=== PATIENT | female | born 1975 | race Caucasian/White ===

== ENCOUNTER → 2017-04-09 17:38 | Outpatient (CLI) | payer OTHER, SELFPAY ==
--- NOTE | 2017-04-09 18:15 | MRI_ITS ---
STUDY: MRI LEFT FORE/MIDFOOT REASON FOR EXAM: Female, 41 years old. Pain fourth and fifth metatarsals TECHNIQUE: Standardized fat and water weighted pulse sequences were obtained in all 3 orthogonal planes. COMPARISON: X-ray 12/15/2016 FINDINGS: There is soft tissue fullness at the plantar aspect of the metatarsal heads at the second webspace. There is a small amount of fluid at the third webspace (image 25, 26, 22, 23/40 axial T1, T2). There is a small amount of fluid at the first MTP joint (image 6/24 sagittal inversion recovery). Normal talonavicular articulation. Normal calcaneocuboid articulation. Normal navicular-cuneiform articulations. Normal intercuneiform articulations. Normal first tarsometatarsal articulation. Normal Lisfranc ligament. Normal second and third tarsometatarsal articulations. Normal cuboid fourth and cuboid fifth tarsometatarsal articulation. Normal first through fifth metatarsi. Normal tibialis anterior tendon. Normal extensor hallucis longus tendon. Normal extensor digitorum longus tendons. Normal peroneus longus tendon and distal insertion. Normal peroneus brevis tendon and distal insertion. Normal intrinsic muscles of the mid and forefoot region. Normal extensor digitorum brevis muscle. Normal subcutis adipose space. MRI/Lower Ext/No Jt/w/o IMPRESSION: Tang's neuroma, second webspace Intermetatarsal bursitis, third webspace Small first MTP joint effusion Electronically Signed: Miguelito Freeman MD at 9:50 EST Tel , Service support ,
== END ==
PROVIDERS: Family Provider Family Medicine; PCP Family Medicine; Visit Provider Family Medicine
DX: M79.672 Pain in left foot (principal)
CPT/HCPCS: 73718

== ENCOUNTER → 2017-05-11 08:24 | Outpatient (CLI) | payer OTHER, SELFPAY ==
--- NOTE | 2017-05-11 08:27 | HPBI_ITS ---
MAMMOGRAPHY - BILATERAL SCREENING REASON FOR EXAM: Female, 41 years old. Routine annual screening examination. PERTINENT HISTORY: Aunt with breast cancer. TECHNIQUE: Digital bilateral breast carla (3D mammographic acquisition) in the CC and MLO projections. 2-D mediolateral oblique (MLO) and craniocaudad (CC) views of both breasts were obtained. CAD: Full Field Digital Mammography with Computer Added Detection was performed. COMPARISON: Comparison is made with prior examination dated January 17, 2014. FINDINGS: Breast Composition: There are scattered areas of fibroglandular density. There are no dominant masses or suspicious calcifications. Stable benign-appearing bilateral axillary lymph nodes. No other significant abnormalities are identified. There has been no significant change since the prior study. HPBI/SCREENING MAMM (CAD), BILAT IMPRESSION: Stable bilateral screening mammogram. Yearly follow-up mammogram recommended. (A) ASSESSMENT CATEGORY: BIRADS Category 2: Benign. A letter regarding these results will be sent to the patient by the facility within 30 days. Approximately 10% of breast cancers are not detected by mammography. A normal mammogram should not delay biopsy of a clinically suspicious abnormality. [id number] Electronically Signed: Yohan Montalvo MD at 9:53 EST Tel [phone], Service support ,
== END ==
PROVIDERS: Family Provider Family Medicine; PCP Family Medicine; Visit Provider Obstetrics & Gynecology
DX: Z12.31 Encounter for screening mammogram for malignant neoplasm of breast (principal)
CPT/HCPCS: 77063; 77067

== ENCOUNTER → 2017-10-06 10:53 | Outpatient (CLI) | payer OTHER, SELFPAY ==
--- NOTE | 2017-10-06 10:56 | RAD_ITS ---
STUDY: X-RAY - RIGHT SHOULDER REASON FOR EXAM: Female, 41 years old. Right shoulder pain for 7 months. TECHNIQUE: 4 view(s) of the shoulder. COMPARISON: None. FINDINGS: Normal glenohumeral articulation. There is minimal degenerative arthrosis of the acromioclavicular joint without inferior osseous spur formation. Normal acromion. There is a small bony density and may acromiohumeral space which may represent calcified tendinopathy or a calcified bursa. Normal humeral head and visualized proximal humerus. The soft tissue structures are unremarkable. Normal visualized pulmonary apex. RAD/Shoulder min 2 Views IMPRESSION: 1. Minimal degenerative changes acromioclavicular joint without fracture or dislocation. 2. Question calcified tendinopathy versus calcified bursitis. Electronically Signed: Saud Langston DO at 20:55 EDT Tel [phone], Service support ,
== END ==
PROVIDERS: Family Provider Family Medicine; PCP Family Medicine; Visit Provider Family Medicine
DX: M25.511 Pain in right shoulder (principal)
CPT/HCPCS: 73030

== ENCOUNTER 2017-11-11 11:30 | Outpatient (RCR) | payer OTHER, SELFPAY ==
--- NOTE | 2017-10-12 14:07 | HP.PTEVAL_ITS ---
Patient's Visit Information ARTURO MARKS is a 41 year old F referred to Physical Therapy by Dominic Weaver with a diagnosis of R shoulder pain. Date of Evaluation: 10/12/17 Physical Therapist: bAdirashid Michael, PT, - Visit Plan Frequency: 2-3x /Week Plan: R shoulder strengthening (rot cuff), scap stab ex's, UBE, and HEP - Subjective Subjective: Pt reports her R shoulder has been sore for 8 mos. Pt reports she did begin an exercise program back then and that might have been what caused per pain. Pt is R hand dom. Pain is located mostly on the lateral aspect of her R shoulder. Pt notes occasional neck pain, but none today. Occasional R UE T and N that extends to her thumb, none today. 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 Pt has had xrays , mild OA. 3/10 pain at rest, 7/10 at worst. Pain is always worse by the end of the day - Pain R shoulder Pain Intensity (Out of 10): 3 Pain Intensity Range: 7 - Objective Neuro: B UE sensation is WNL to light touch. B biceps reflex= 2/3. Palpation: Pt is sore along the distribution of the supraspinatus MM and LHB tendon. shoulder ROM: L shoulder flex= 160, abd= 165, ER= 65, IR= WNL; R shoulder flex= 100, abd= 82, ER= 65, IR= moderately limited. MMT: R shoulder is grossly 3/5 and painful with all testing. Special tests: Pt has pain with both open can and speeds tests - Goals Goal 1:: Decrease R shoulder pain x 50% to aid with sleep Goal Time Frame: 2-4 Weeks Goal 2:: Increase R shoulder strength x 1 grade to aid with IADL's Goal Time Frame: 2-4 Weeks Goal 3:: Increase R shoulder abd and flex ROM x 40 degrees to aid with overhead activity Goal Time Frame: 2-4 Weeks Goal 4:: I with HEP Goal Time Frame: 2-4 Weeks - Rehabilitation Potential Physical Therapy Diagnosis: R shoulder pain, weakness, and limited ROM secondary to rot cuff syndrome Rehabilitation Potential: Good - Anticipated Interventions Patient/Client Instruction: Educate patient on: Condition, Plan of Care For the Purpose of:: To improve self management Therapeutic Exercise to Include: Strength training, Endurance training, Postural training, Scapular Strength/Stabilization For the Purpose of:: To decrease pain, To increase ROM, To improve muscle performance and motor function Cryotherapy (ice pack, ice massage): Yes Ultrasound (thermal/non thermal): Yes For the Purpose of:: To decrease pain Thank you for the opportunity to evaluate your patient. For Medicare and Medicare HMO plans, please review the plan of care and approve it. It will need to be FAXED BACK to us at [phone] for Medicare purposes. Please let me know if there are questions or concerns regarding this plan of care. Physician Signature: Date:
--- NOTE | 2017-11-11 12:03 | HP.PTDCSUM ---
HP - PT D/C Summary It has been my pleasure to treat ARTURO MARKS under orders from Dominic Weaver, for the diagnosis of R shoulder pain for a total of 10 visit(s). Discharge Date: Please see the following information for a summary of their discharge status. - Subjective Subjective: No pain this date - Pain R shoulder Pain Intensity (Out of 10): 0 - Overall Improvement % Improvement: 90 - Objective Objective/Function: R shoulder pain 0/10. R shoulder MMT: 5/5 throughout. R shoulder ROM: flex= 150, abd= 155, ER= 75, IR WNL. I with HEP. Rx goals achieved - Goals Goal 1:: Decrease R shoulder pain x 50% to aid with sleep Goal 2:: Increase R shoulder strength x 1 grade to aid with IADL's Goal 3:: Increase R shoulder abd and flex ROM x 40 degrees to aid with overhead activity Goal 4:: I with HEP - Plan Plan: Discharge - D/C Information If there are questions or concerns regarding this patient's physical therapy, please feel free to call me at [phone]. Thank you for the referral of this patient. Sincerely, Abdirashid Michael, PT,
== END 2017-11-11 16:03 | disposition home or self-care (01) ==
LOC: PT 11:30
PROVIDERS: Family Provider Family Medicine; PCP Family Medicine; Visit Provider Family Medicine
DX: M25.511 Pain in right shoulder (principal)
CPT/HCPCS: 97110; 97161; 97530

== ENCOUNTER 2017-12-23 10:30 | Outpatient (RCR) | payer OTHER, SELFPAY | END 2018-01-05 23:59 | LOC: NS 10:30 | PROVIDERS: Family Provider Family Medicine; PCP Family Medicine; Visit Provider Family Medicine | DX: E66.9 Obesity, unspecified (principal); Z68.39 Body mass index [BMI] 39.0-39.9, adult; Z71.3 Dietary counseling and surveillance | CPT/HCPCS: 97802; 97803 ==

== ENCOUNTER → 2018-01-28 14:27 | Outpatient (CLI) | payer OTHER, SELFPAY ==
[2018-01-28 19:37] LABS: Chlamydia Trachomatis by PCR Negative (Negative); Neisserai gonorrhoeae by PCR Negative (Negative); Probe Check PASS; Sample Adequacy Control PASS; Specimen Processing Control PASS
[2018-02-04 07:02] LABS: Rapid Plasmin Reagin (RPR) NONREACTIVE (NONREACTIVE)
== END ==
PROVIDERS: Family Provider Family Medicine; PCP Family Medicine; Visit Provider Family Medicine
DX: Z86.19 Personal history of other infectious and parasitic diseases (principal)
CPT/HCPCS: 36415; 86592; 87491; 87591

== ENCOUNTER 2018-02-02 10:30 | Outpatient (RCR) | payer OTHER, SELFPAY | END 2018-02-04 23:59 | LOC: NS 10:30 | PROVIDERS: Family Provider Family Medicine; PCP Family Medicine; Visit Provider Family Medicine | DX: E66.9 Obesity, unspecified (principal); Z68.39 Body mass index [BMI] 39.0-39.9, adult; Z71.3 Dietary counseling and surveillance | CPT/HCPCS: 97803 ==

== ENCOUNTER 2018-02-17 13:00 | Outpatient (RCR) | payer OTHER, SELFPAY ==
[2017-12-20 08:40] VITALS: BMI 38.3
== END 2018-03-07 23:59 ==
LOC: NS 13:00
PROVIDERS: Family Provider Family Medicine; PCP Family Medicine; Visit Provider Family Medicine
DX: E66.9 Obesity, unspecified (principal); Z68.39 Body mass index [BMI] 39.0-39.9, adult; Z71.3 Dietary counseling and surveillance
CPT/HCPCS: 97803

== ENCOUNTER 2018-02-25 12:15 | Outpatient (RCR) | payer OTHER, SELFPAY ==
--- NOTE | 2017-05-12 13:00 | MASS.EVAL ---
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 She was referred to the [facility] facility by Dr. Weaver, with the diagnosis of back pain. She reports of having back pain and shoulder pain due to her job. Her goals of treatment are to relieve stress and to release the knots in her back. Objective: The first treatment consisted of a one hour massage to the upperbody using deep pressure. Upon observation I found that she had high tension in her neck and shoulders where she has knots in her trapezius muscles and rhomboids. I also found that her paraspinals were tight and ropy. Assessment: The patient easily relaxed and was able to tolerate deep pressure when needed. I was able to achieve a moderate release overall. I feel that she is a good candidate for massotherapy due to how she has responded to massage in the past. Plan: The plan of care was reviewed with the patient and she is to be seen on an as needed basis for a total of ten 1-hour sessions throughout the year 2017. Margy Lewis LMT
--- NOTE | 2017-05-12 13:09 | MASS.EVAL_ITS ---
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 facility by Dr. Weaver, with the diagnosis of back pain. She reports of having back pain and shoulder pain due to her job. Her goals of treatment are to relieve stress and to release the knots in her back. Objective: The first treatment consisted of a one hour massage to the upperbody using deep pressure. Upon observation I found that she had high tension in her neck and shoulders where she has knots in her trapezius muscles and rhomboids. I also found that her paraspinals were tight and ropy. Assessment: The patient easily relaxed and was able to tolerate deep pressure when needed. I was able to achieve a moderate release overall. I feel that she is a good candidate for massotherapy due to how she has responded to massage in the past. Plan: The plan of care was reviewed with the patient and she is to be seen on an as needed basis for a total of ten 1-hour sessions throughout the year 2017. Margy Lewis LMT
--- NOTE | 2017-08-09 07:15 | DT_ITS ---
This patient was seen during an EMR downtime August 09, 2017 - August 16, 2017. This patient may have a combination of paper and electronic documentation or all paper documentation. All documentation is viewable within the e-chart portion of [facility] for each patient visit.
--- NOTE | 2018-02-25 15:38 | MASS.DISCH ---
Massage Therapy Discharge Summary: Discharge Date: 02/25/2018 Emmanuelle was seen for a massotherapy evaluation on 05/04/2017 with the diagnosis of Back pain. She was treated with ten sessions of massage therapy consisting of moderate to deep pressure soft tissue techniques, myofascial release and trigger point compression to her cervical, thoracic, lower back, upper extremities and lower extremities at times. Emmanuelle responded well to the therapy by reporting decreased tension and pain throughout her neck, shoulders, and back. Her goals for therapy were met throughout her massage treatments. At this time this patient is being discharged from our care at [facility] facility.
== END 2018-02-25 19:00 | disposition home or self-care (01) ==
LOC: MASS 12:15
PROVIDERS: Family Provider Family Medicine; PCP Family Medicine; Visit Provider Family Medicine
DX: M54.9 Dorsalgia, unspecified (principal)
CPT/HCPCS: 97124

== ENCOUNTER → 2018-03-17 16:10 | Outpatient (CLI) | payer OTHER, SELFPAY ==
--- NOTE | 2018-03-17 16:10 | MRI_ITS ---
STUDY: MRI RIGHT SHOULDER REASON FOR EXAM: Right shoulder pain for one year extending into wrist and thumb. TECHNIQUE: Standardized fat and water weighted pulse sequences were obtained in all 3 orthogonal planes. COMPARISON: Radiographs 10/06/2017. FINDINGS: There is a signal void in the distal anterior supraspinatus tendon (proton-density coronal images 7, 8) measuring 1 cm in length consistent with calcific tendinitis. There is no discrete tear of the supraspinatus tendon. Normal infraspinatus tendon. Normal subscapularis tendon. Normal teres minor tendon. Normal supraspinatus muscle. Normal infraspinatus muscle. Normal subscapularis muscle. Normal teres minor muscle. Normal glenohumeral articulation. Normal humeral head and visualized proximal humerus. Normal biceps labral complex. Normal intracapsular long biceps tendon. Normal labrum. Normal capsulo- ligamentous complex. Normal acromioclavicular articulation. There is a Type II morphology (curved), with a neutral orientation. There is no subacromial-subdeltoid bursal fluid. Normal visualized coracohumeral and coracoacromial ligaments. Normal deltoid muscle. Normal trapezius muscle. MRI/Upper Ext Joint Only(Routine) IMPRESSION: Supraspinatus calcific tendinitis. No demonstrated rotator cuff tear. Electronically Signed: Freddy Esteban MD at 9:52 EST Tel , Service support ,
== END ==
PROVIDERS: Family Provider Family Medicine; PCP Family Medicine; Referring Provider Family Medicine; Visit Provider Family Medicine
DX: M25.511 Pain in right shoulder (principal)
CPT/HCPCS: 73221

== ENCOUNTER 2018-04-05 08:30 | Outpatient (RCR) | payer OTHER, SELFPAY ==
[2017-12-20 08:40] VITALS: BMI 38.3
== END 2018-04-07 23:59 ==
LOC: NS 08:30
PROVIDERS: Family Provider Family Medicine; PCP Family Medicine; Visit Provider Family Medicine
DX: E66.9 Obesity, unspecified (principal); Z68.39 Body mass index [BMI] 39.0-39.9, adult; Z71.3 Dietary counseling and surveillance
CPT/HCPCS: 97803

== ENCOUNTER 2018-04-20 08:45 | Outpatient (RCR) | payer OTHER, SELFPAY ==
[2017-12-20 08:40] VITALS: BMI 38.3
== END 2018-05-05 23:59 ==
LOC: NS 08:45
PROVIDERS: Family Provider Family Medicine; PCP Family Medicine; Visit Provider Family Medicine
DX: E66.9 Obesity, unspecified (principal); Z68.39 Body mass index [BMI] 39.0-39.9, adult; Z71.3 Dietary counseling and surveillance
CPT/HCPCS: 97803

== ENCOUNTER 2018-05-09 11:30 | Outpatient (RCR) | payer OTHER, SELFPAY ==
[2018-04-23 12:01] VITALS: BMI 39.3
== END 2018-05-09 17:09 | disposition home or self-care (01) ==
LOC: NS 11:30
PROVIDERS: Family Provider Family Medicine; PCP Family Medicine; Visit Provider Family Medicine
DX: E66.9 Obesity, unspecified (principal); Z68.39 Body mass index [BMI] 39.0-39.9, adult; Z71.3 Dietary counseling and surveillance
CPT/HCPCS: 97803

== ENCOUNTER → 2018-10-12 | Outpatient (CLI) | payer OTHER, SELFPAY ==
[2018-09-19 09:09] VITALS: BMI 39.3
[2018-10-18 08:49] LABS: HPV APTIMA, High Risk Negative (Negative)
== END | disposition home or self-care (01) ==
LOC: LABSPEC 13:51
PROVIDERS: Family Provider Family Medicine; PCP Family Medicine; Referring Provider Obstetrics & Gynecology; Visit Provider Obstetrics & Gynecology
DX: Z12.4 Encounter for screening for malignant neoplasm of cervix (principal)
CPT/HCPCS: 87624; 88175; G0145

== ENCOUNTER → 2018-11-09 07:38 | Outpatient (CLI) | payer OTHER, SELFPAY ==
[2018-09-19 09:09] VITALS: BMI 39.3
--- NOTE | 2018-11-09 07:41 | BI_ITS ---
MAMMOGRAPHY - BILATERAL SCREENING REASON FOR EXAM: Female, 42 years old. Routine annual screening examination. PERTINENT HISTORY: Aunt with breast cancer. TECHNIQUE: Digital bilateral breast lev (3D mammographic acquisition) in the CC and MLO projections. 2-D mediolateral oblique (MLO) and craniocaudad (CC) views of both breasts were obtained. CAD: Full Field Digital Mammography with Computer Added Detection was performed. COMPARISON: Comparison is made with prior study of May 11, 2017 and January 17, 2014. FINDINGS: Breast Composition: There are scattered areas of fibroglandular density. There are no dominant masses or suspicious calcifications. Stable small benign-appearing bilateral axillary lymph nodes. No other significant abnormalities are identified. There has been no significant change since the prior study. BI/SCREEN MAMM (CAD) W/LEV BILAT IMPRESSION: Stable bilateral screening mammogram. Yearly follow-up mammogram recommended. (A) ASSESSMENT CATEGORY: BIRADS Category 2: Benign. A letter regarding these results will be sent to the patient by the facility within 30 days. Approximately 10% of breast cancers are not detected by mammography. A normal mammogram should not delay biopsy of a clinically suspicious abnormality. [id number] Electronically Signed: Yohan Montalvo, at 10:14 EDT , Service support ,
== END ==
PROVIDERS: Family Provider Family Medicine; PCP Family Medicine; Referring Provider Obstetrics & Gynecology; Visit Provider Obstetrics & Gynecology
DX: Z12.31 Encounter for screening mammogram for malignant neoplasm of breast (principal)
CPT/HCPCS: 77063; 77067

== ENCOUNTER → 2018-11-23 20:18 | Outpatient (CLI) | payer OTHER, SELFPAY ==
[2018-09-19 09:09] VITALS: BMI 39.3
== END ==
PROVIDERS: Family Provider Family Medicine; PCP Family Medicine; Referring Provider Family Medicine; Visit Provider Family Medicine
DX: G47.30 Sleep apnea, unspecified (principal)
CPT/HCPCS: 95810

== ENCOUNTER → 2019-02-06 10:00 | Outpatient (CLI) | payer OTHER, SELFPAY ==
[2019-01-16 12:47] VITALS: BMI 39.4
== END ==
PROVIDERS: Family Provider Family Medicine; PCP Family Medicine; Referring Provider Nurse Practitioner Acute Care; Visit Provider Nurse Practitioner Acute Care
DX: G47.33 Obstructive sleep apnea (adult) (pediatric) (principal)
CPT/HCPCS: 98960; G0463

== ENCOUNTER 2019-02-13 11:00 | Outpatient (RCR) | payer OTHER, SELFPAY ==
[2018-04-23 12:01] VITALS: BMI 39.3
--- NOTE | 2018-06-21 13:11 | MASS.EVAL_ITS ---
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 She was referred to the [facility] facility by Dr. Weaver, with the diagnosis of right shoulder pain. She reports of having back pain and shoulder pain due to her job. Her goals of treatment are to relieve stress and to release the knots in her back. Objective: The first treatment consisted of a one hour massage to the upperbody using deep pressure. Upon observation I found that she had high tension in her neck and shoulders where she has knots in her trapezius muscles and rhomboids. I also found that her paraspinals were tight and ropy. Assessment: The patient easily relaxed and was able to tolerate deep pressure when needed. I was able to achieve a moderate release overall. I feel that she is a good candidate for massotherapy due to how she has responded to massage in the past. Plan: The plan of care was reviewed with the patient and she is to be seen on an as needed basis for a total of ten 1-hour sessions throughout the year 2017. Margy Lewis LMT
--- NOTE | 2019-02-24 15:01 | DS.PCM_ITS ---
Massage Therapy Discharge Summary: Discharge Date: 02/24/2019 Emmanuelle was seen for a massotherapy evaluation on 06/20/2018 with the diagnosis of right shoulder pain. She was treated with nine sessions of massage therapy consisting of moderate to deep pressure soft tissue techniques, myofascial release and trigger point compression to her cervical, thoracic, lower back, upper extremities, lower extremities and hips. Emmanuelle responded well to the therapy by reporting decreased tension and pain throughout her head, neck, shoulders, lower back and hips. Her goals for therapy were met throughout the treatment sessions. At this time this patient is being discharged from our care at [facility] facility.
== END 2019-02-13 19:00 | disposition home or self-care (01) ==
LOC: MASS 11:00
PROVIDERS: Family Provider Family Medicine; PCP Family Medicine; Referring Provider Family Medicine; Visit Provider Family Medicine
DX: M25.511 Pain in right shoulder (principal)
CPT/HCPCS: 97124

== ENCOUNTER → 2019-11-23 10:41 | Outpatient (CLI) | payer OTHER, SELFPAY ==
[2019-04-04 06:08] VITALS: BMI 39.6
[2019-11-23 12:23] LABS: Thyroid Stim Hormone (TSH) 1.45 uIU/mL (0.358-3.74)
== END ==
PROVIDERS: PCP Family Medicine; Referring Provider Family Medicine; Visit Provider Family Medicine
DX: E66.9 Obesity, unspecified (principal)
CPT/HCPCS: 36415; 84443

== ENCOUNTER → 2019-12-06 08:23 | Outpatient (CLI) | payer OTHER, SELFPAY ==
[2019-04-04 06:08] VITALS: BMI 39.6
[2019-12-06 13:18] LABS: Glucose 75GTT - 30 minutes 125 mg/dL (100-160)
[2019-12-06 13:20] LABS: Glucose 75GTT - Fasting 79 mg/dL (70-99)
[2019-12-06 13:26] LABS: Insulin 75GTT - Fasting 5.4 mU/L (2.6-37.6)
[2019-12-06 13:26] LABS: Insulin 75GTT - 30 MIN 67.5 mU/L (Not Estab.)
[2019-12-06 14:29] LABS: Glucose 75GTT - 60 minutes 146 mg/dL (100-160)
[2019-12-06 14:36] LABS: Insulin 75GTT - 60 min 81.2 mU/L (Not Estab)
[2019-12-06 15:32] LABS: Insulin 75GTT - 120 min 87.8 mU/L (Not Estab.)
[2019-12-06 16:01] LABS: Glucose 75GTT - 120 minutes 115 mg/dL (70-140)
== END ==
PROVIDERS: PCP Family Medicine; Referring Provider Obstetrics & Gynecology; Visit Provider Obstetrics & Gynecology
DX: E66.9 Obesity, unspecified (principal)
CPT/HCPCS: 36415; 82951; 82952; 83525

== ENCOUNTER → 2019-12-06 | Outpatient (CLI) | payer OTHER, SELFPAY ==
[2019-04-04 06:08] VITALS: BMI 39.6
[2019-12-06 10:57] LABS: Progesterone Level 0.69 ng/mL (See Comment); T3 Total - Triiodothyronine 1.08 ng/mL (0.6-1.81); Vitamin D,25 Hydroxy 44.2 ng/mL
[2019-12-06 11:24] LABS: Estradiol 41.8 pg/mL; Follicle Stimulating Hormone 6.5 mIU/mL; Free T3 2.6 pg/mL (2.18-3.98); Prolactin 12.8 ng/mL; T4 Free Direct 0.89 ng/dL (0.76-1.46); T4 Total, Thyroxin 8.3 ug/dL (4.8-13.9); Thyroid Stim Hormone (TSH) 2.21 uIU/mL (0.358-3.74)
[2019-12-07 16:08] LABS: Thyroid Peroxidase AB < 9 IU/mL (0-34)
[2019-12-07 17:42] LABS: Sex Hormone-binding Globulin 32.6 nmol/L (24.6-122.0); Thyroglobulin Antibody < 1.0 IU/mL (0.0-0.9)
[2019-12-13 20:57] LABS: 17-Hydroxyprogesterone 16 ng/dL (.)
== END | disposition home or self-care (01) ==
LOC: WOBLAB 08:08
PROVIDERS: PCP Family Medicine; Visit Provider Obstetrics & Gynecology
DX: E03.9 Hypothyroidism, unspecified (principal); E55.9 Vitamin D deficiency, unspecified; E66.9 Obesity, unspecified
CPT/HCPCS: 36415; 82306; 82533; 82627; 82670; 83001; 83498; 84144; 84146; 84270; 84403; 84436; 84439; 84443; 84480; 84481; 86376; 86800; 82626

== ENCOUNTER 2019-12-11 05:42 | Day surgery (SDC) | payer OTHER, SELFPAY ==
[2019-04-04 06:08] VITALS: BMI 39.6
--- NOTE | 2019-12-04 16:01 | EKG12_ITS ---
Test Reason : PRE-OP Blood Pressure : / mmHG Vent. Rate : 085 BPM Atrial Rate : 085 BPM P-R Int : 146 ms QRS Dur : 082 ms QT Int : 360 ms P-R-T Axes : 053 083 060 degrees QTc Int : 428 ms Normal sinus rhythm Normal ECG Confirmed by ERIC YOON, PAUL ([id number]), fashion editor JOHNNIE EPPS ([id number]) on 12/05/2019 11:25:34 AM Referred By: Ramone Marquez Confirmed By:PAUL REYES MD
[2019-12-11 06:23] VITALS: BP 104/69; PULSE 78; RESP 16; TEMP 36.6; O2SAT 98; BMI 41.4
[2019-12-11] MEDS: Lactated Ringers 1,000 ML 100 ML IV (06:29)
[2019-12-11] MEDS: Bupiv/Epi 0.5% Mpf 30 ML Vial (08:00)
[2019-12-11] MEDS: Epinephrine (1 mg/ml) 1 MG/ML VIAL (08:30)
--- NOTE | 2019-12-11 08:38 | OP.PCM_ITS ---
Report of Operation Date of Procedure: 12/11/19 Pre-Operative Diagnosis: SAIS, AC arthrosis right shoulder Post-Operative Diagnosis: same Surgery/Procedure Performed:: ASD, Leonides procedure right shoulder deputy sheriff generalist/bailiff: Maurilio Ott Type of Anesthesia:: General/Regional Anesthesiologist: Javon Bernal - Admit VTE Documentation VTE Present on Admission: No VTE Mechan Device Prophylaxis: SCD's, Thigh High MONISHA Hose VTE Pharm Prophylaxis ordered?: No Reason prophylaxis not ordered:: Treatment Not Indicated
[2019-12-11 08:55] VITALS: BP 104/69; BP 115/60; PULSE 100; RESP 16; TEMP 36.3; O2SAT 100
[2019-12-11 09:07] VITALS: BP 104/69; BP 114/51; PULSE 82; RESP 18; O2SAT 96
[2019-12-11 09:15] VITALS: BP 104/69; BP 109/57; PULSE 74; RESP 16; O2SAT 96
[2019-12-11 09:26] VITALS: BP 104/69; BP 107/64; PULSE 86; RESP 16; TEMP 36.2; O2SAT 98
[2019-12-11 10:30] VITALS: BP 104/69; BP 115/70; PULSE 69; RESP 16; TEMP 36.2; O2SAT 98
[2019-12-11] MEDS: HYDROcodone Bitartrate/Apap 5/325 Tablet PO (10:47)
== END 2019-12-11 11:00 | disposition home or self-care (01) ==
LOC: SDC 05:43 → AC 05:43
PROVIDERS: Anesthesiology; PCP Family Medicine; Referring Provider Orthopaedic Surgery; Visit Provider Orthopaedic Surgery
PROC: (CPT 29827; principal; 2019-12-11 07:10)
DX: M75.41 Impingement syndrome of right shoulder (principal); M75.31 Calcific tendinitis of right shoulder; M75.51 Bursitis of right shoulder; M19.011 Primary osteoarthritis, right shoulder; Z11.59 Encounter for screening for other viral diseases; G47.30 Sleep apnea, unspecified; Z79.899 Other long term (current) drug therapy
CPT/HCPCS: 01630; 29824; 64415; 87635; 93005; C9803; J7120; J2405; U0003

== ENCOUNTER → 2020-01-26 13:43 | Outpatient (CLI) | payer OTHER, SELFPAY ==
[2020-01-26 15:54] LABS: Absolute Lymphocyte Count 2.11 X10^3/uL (0.83-4.51); Absolute Neutrophil Count 5.6 X10^3/uL (2.0-7.7); Basophil# 0.04 X10^3/uL; Basophil% 0.5 % (0-1); Eosinophil# 0.06 X10^3/uL; Eosinophils% 0.7 % (0-5); Hematocrit 41.2 % (37-47); Hemoglobin 13.3 g/dL (12.0-15.0); Lymphocyte # 2.11 X10^3/ul (4.0); Mean Corp Hgb Conc 32.3 g/dL (32-36); Mean Corpuscular Hgb 28.4 pg (27.0-32.0); Mean Platelet Vol. 12.1 fl (6.2-12.0); Monocyte# 0.96 X10^3/uL; Monocyte% 10.9 % (0-10); NRBC Flagged by Analyzer 0 % (0-5); Neutrophil % 63.6 % (47-70); Platelet Count 209 K/mm3 (150-450); RBC Distribution Width CV 13.4 % (11.6-14.6); RBC Distribution Width SD 43.1 fl (35.1-43.9); Red Blood Count 4.68 M/mm3 (4.2-5.4); White Blood Count 8.8 K/mm3 (4.4-11.0)
[2020-01-26 16:12] LABS: Erythrocyte Sedimentation Rate 23 mm/hr (0-20)
== END ==
PROVIDERS: PCP Family Medicine; Visit Provider Physician Assistant
DX: M54.12 Radiculopathy, cervical region (principal)
CPT/HCPCS: 36415; 85025; 85652; 86140

== ENCOUNTER → 2020-02-06 11:24 | Outpatient (CLI) | payer OTHER, SELFPAY ==
[2019-04-04 06:08] VITALS: BMI 39.6
--- NOTE | 2020-02-06 11:25 | BI_ITS ---
MAMMOGRAPHY - BILATERAL SCREENING REASON FOR EXAM: Female, 44 years old. Routine annual screening examination. PERTINENT HISTORY: Aunt with breast cancer. TECHNIQUE: Digital bilateral breast lev (3D mammographic acquisition) in the CC and MLO projections. 2-D mediolateral oblique (MLO) and craniocaudad (CC) views of both breasts were obtained. CAD: Full Field Digital Mammography with Computer Added Detection was performed. COMPARISON: Comparison is made with prior study of 11/09/2018 and 05/11/2017. FINDINGS: Breast Composition: There are scattered areas of fibroglandular density. There are no dominant masses or suspicious calcifications. Stable benign-appearing axillary No other significant abnormalities are identified. There has been no significant change since the prior study. BI/SCREEN MAMM (CAD) W/LEV BILAT IMPRESSION: Stable bilateral screening mammogram. Yearly follow-up mammogram recommended. (A) ASSESSMENT CATEGORY: BIRADS Category 2: Benign. A letter regarding these results will be sent to the patient by the facility within 30 days. Approximately 10% of breast cancers are not detected by mammography. A normal mammogram should not delay biopsy of a clinically suspicious abnormality. [id number] Electronically Signed: Yohan Montalvo, at 12:17 EST , Service support ,
== END ==
PROVIDERS: PCP Family Medicine; Referring Provider Obstetrics & Gynecology; Visit Provider Obstetrics & Gynecology
DX: Z12.31 Encounter for screening mammogram for malignant neoplasm of breast (principal)
CPT/HCPCS: 77063; 77067

== ENCOUNTER 2020-02-08 07:30 | Outpatient (RCR) | payer OTHER, SELFPAY ==
--- NOTE | 2019-12-18 10:59 | HP.PTEVAL ---
Patient's Visit Information ARTURO MARKS is a 44 year old F referred to Physical Therapy by Dr. Ramone Marquez DO with a diagnosis of Leonides and ASD. Date of Evaluation: 12/18/19 Physical Therapist: Aggie Plascencia DPT - Visit Plan Frequency: 3x /Week Duration: 4 Weeks Plan: ASD and Leonides of Right Shoulder 12/11/2019- gentle progression- focus on ROM,strength and muscular endurance with functional activities. HEP Given: Upper Trap Stretch, scapular retractions, Elbow Pendulums, Head Boys Golf Coach, Finger Dexterity - Subjective Right shoulder surgery 12/10-Wear and Tear on/off for a few years- Leonides and cleaned it out- no RTC or biceps Dr. Marquez. Went home after surgery- home to help as needed. Current pain level 2/10 she took a pain medication. Worst: 6/10 Agg: trying to move it Eases: ice and pain meds (Oxy and Tylenol) Best: 0/10. Pain is located on the top of the shoulder and radiates to the pec- no radiating pain to the arm or neck. Describes the pain as stabbing pains. No N/T in the fingers. Has had a WISE since surgery but no blurred vision or dizzines. Right hand dominate. Wearing the sling all the time. Has showered without incidence. Sleep: in a bed propped- hard to get comfortable and will wake her up- she is a side sleeper. Is very active and full I prior to surgery. 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 Return to Work date: 8 weeks but no specific day. Sling for 6 weeks. PMHx: none Meds: wellbutrin- oxy and tylenol as needed. - Objective Posture: FH, RS- can correct with verbal cues- wear sling on the right UE. Gait: no deivaiton in LE but does have sling and guards the right UE with poor trunk rotation. Observation: mild redness along the anterior incision- no concerns for infection. Palpation: tender along bicipital groove and upper trap. ROM: Cervical: WNL, Shoulder: PROM: flexion: 160 degrees, Abd: 170 degrees, IR: to belly, ER: 50 degrees, Extn: WNL- discomfort at end ranges. Elbow/Wrist/Hand: WNL. Sensation: WNL. Strength: Scap: fair, Shoulder: not tested, Elbow: 4+/5, Wrist: 5/5 Head Boys Golf Coach: good - Goals Goal 1:: Patient will be I with HEP and progression Goal Time Frame: 4-6 Weeks Goal 2:: Patient will demo full AROM of the right shoulder Goal Time Frame: 4-6 Weeks Goal 3:: Patient will report no pain for 1 week with sleeping Goal Time Frame: 4-6 Weeks Goal 4:: Patient will maintain proper posture t/o tx session to demo increased scap s/s Goal Time Frame: 4-6 Weeks - Rehabilitation Potential Physical Therapy Diagnosis: Patient presents in sling s/p Leonides and ASD of the right shoulder- she has decreased ROM,strength and muscular endurance leading to poor posture and increased pain with ADL's. Rehabilitation Potential: Good - Anticipated Interventions Patient/Client Instruction: Educate patient on: Benefits of Fitness Program Therapeutic Exercise to Include: Strength training, Endurance training, Body mechanics, Postural training, Passive ROM, Active ROM, Dynamic Lumbar Stabilization, Scapular Strength/Stabilization For the Purpose of:: To improve muscle performance and motor function TENS: Yes Cryotherapy (ice pack, ice massage): Yes Thermo therapy (hot pack): Yes Ultrasound (thermal/non thermal): No For the Purpose of:: To decrease pain Thank you for the opportunity to evaluate your patient. For Medicare and Medicare HMO plans, please review the plan of care and approve it. It will need to be FAXED BACK to us at [phone] for Medicare purposes. For Medicare only, by signing this I certify the plan of care. Please let me know if there are questions or concerns regarding this plan of care. Physician Signature: Date:
--- NOTE | 2020-01-11 08:44 | HP.PTREVAL ---
Dr. Ramone Marquez, DO, It has been my pleasure to treat ARTURO MARKS over the last 9 visits for Leondies and ASD: Right 12/11/19. Please see the progress note below for an update on the physical therapy plan of care! Subjective: Patient reports that she is thinking she would be further along than she is- the last week it seems like she went the other way- the pain and function has changed. 2 weeks ago she was putting her hair in a pony and the other day she had to use her other arm to help. Is not back to work- sees 01/21 for 6 week check up. Pain 2/10 when moving 0/10 when no movement. Prior to flare up 50% better now 30% better Objective/Function: Posture: FH, RS- can correct with verbal cues- no sling Gait: no deivaiton in LE good arm swing and trunk rotation Observation: no s/s of infection Palpation: tender along bicipital groove and upper trap. ROM: Cervical: WNL, Shoulder: AROM: WNL in all planes discomfort with IR behind the back. Elbow/Wrist/Hand: WNL. Sensation: WNL. Strength: Scap: fair, Shoulder: 4-/5 in 90/90 position, Elbow: 4+/5, Wrist: 5/5 Hook And Eye Attacher: good Plan Plan: ASD and Leonides of Right Shoulder 12/11/2019: gentle progression - focus on ROM, strength and muscular endurance with functional activities. 01/11/2020: Continue 2-3x a week for 4 weeks Goals Goal 1:: Patient will be I with HEP and progression Goal Time Frame: 4-6 Weeks Goal Progress: Progressing Goal 2:: Patient will demo full AROM of the right shoulder Goal Time Frame: 4-6 Weeks Goal Progress: Progressing Goal 3:: Patient will report no pain for 1 week with sleeping Goal Time Frame: 4-6 Weeks Goal Progress: Progressing Goal 4:: Patient will maintain proper posture t/o tx session to demo increased scap s/s Goal Time Frame: 4-6 Weeks Goal Progress: Progressing Anticipated Interventions Patient/Client Instruction: Educate patient on: Benefits of Fitness Program Therapeutic Exercise to Include: Strength training, Endurance training, Body mechanics, Postural training, Passive ROM, Active ROM, Dynamic Lumbar Stabilization, Scapular Strength/Stabilization For the Purpose of:: To improve muscle performance and motor function TENS: Yes Cryotherapy (ice pack, ice massage): Yes Thermo therapy (hot pack): Yes Ultrasound (thermal/non thermal): No For the Purpose of:: To decrease pain Please do not hesitate to contact me at [phone] by phone or if you have questions or concerns regarding this new plan of care! Sincerely, VEL JoT
--- NOTE | 2020-02-08 07:49 | HP.PTDCSUM ---
It has been my pleasure to treat ARTURO MARKS referred by Dr. Ramone Marquez DO, with the diagnosis of Leonides and ASD: Right 12/11/19 for a total of 19 visit(s). Discharge Date: Please see the following information for a summary of their discharge status. Subjective: Patient reports that she is doing fairly well. There are a few things that she is having trouble with (overhead motions, jars, carrying a heavy basket up stairs). Return to MD on and possible return to work if he releases her. Patient feels the shoulder is 80-90% back to normal. R SH Pain Intensity (Out of 10): 0 % Improvement: 90 Objective/Function: Posture: FH, RS- can correct with verbal cues- no sling Gait: no deivaiton in LE good arm swing and trunk rotation Observation: no s/s of infection Palpation: tender along bicipital groove and upper trap. ROM: Cervical: WNL, Shoulder: AROM: WNL in all planes discomfort with IR behind the back and the motions are slow due to fear and discomfort (2/10). Elbow/Wrist/Hand: WNL. Sensation: WNL. Strength: Scap: fair, Shoulder: 4/5 in 90/90 position, Elbow: 5/5, Wrist: 5/5 Financial Aid Coordinator: good Goal 1:: Patient will be I with HEP and progression Goal Progress: Goal Met Goal 2:: Patient will demo full AROM of the right shoulder Goal Progress: Progressing Goal 3:: Patient will report no pain for 1 week with sleeping Goal Progress: Progressing Goal 4:: Patient will maintain proper posture t/o tx session to demo increased scap s/s Goal Progress: Progressing Plan: Discharge to I home exercise program- has bands. If there are questions or concerns regarding this patient's physical therapy, please feel free to call me at [phone]. Thank you for the referral of this patient. Sincerely, Aggie Plascencia DPT
== END 2020-02-08 19:00 | disposition home or self-care (01) ==
LOC: PT 07:30
PROVIDERS: PCP Family Medicine; Referring Provider Orthopaedic Surgery; Visit Provider Orthopaedic Surgery
DX: M75.31 Calcific tendinitis of right shoulder (principal); M75.51 Bursitis of right shoulder
CPT/HCPCS: 97014; 97110; 97140; 97162; 97164; G0283

== ENCOUNTER 2020-03-05 10:45 | Outpatient (RCR) | payer OTHER, SELFPAY ==
[2019-04-04 06:08] VITALS: BMI 39.6
--- NOTE | 2019-08-18 08:20 | MASS.EVAL ---
Massage Therapy Evaluation: Initial Evaluation Date: 05/23/2019 SUBJECTIVE: Emmanuelle is a 43 year old female who was referred to the [facility] facility for a massotherapy evaluation by Dr. Dominic Weaver with the diagnosis of right shoulder pain. She presents today with the symptoms of pain, stiffness and tension in her right shoulder. Emmanuelle reports that she is to have surgery on her shoulder. OBJECTIVE: Upon observation Emmanuelle has some posture issues with her head and shoulders forward from the neutral position in sitting and standing. After examination and palpation, I found Emmanuelle to have high muscle tension with tenderness and myofascial restrictions in her sub occipitals, levator scapulae, trapezius, rhomboids, scalenes, and thoracic paraspinals. Her QL?s, lumbar paraspinals, piriformis, glute medius and minimus all were very tight with fascial restrictions, tender points and trigger points. The first treatment consisted of a one hour massage to her upper body with myofascial release, muscle stripping, trigger point compression techniques, and cervical manual traction. ASSESSMENT: I feel that Emmanuelle is a good candidate for massotherapy at this time. She had a favorable response to the first treatment with reduction in her muscle aches, pain and tension. She also had improvement in her cervical flexibility and low back flexibility. PLAN: The plan of care was reviewed with the patient. The patient is to be seen on an as needed basis for a total of ten sessions with the recommendation of once every month for a one hour treatment.
--- NOTE | 2020-03-05 12:25 | DS.PCM_ITS ---
Massage Therapy Discharge Summary: Discharge Date: 03/05/2020 Emmanuelle was seen for a massotherapy evaluation on 05/23/2019 with the diagnosis of back and neck pain and headaches. She was treated with eight sessions of massage therapy consisting of deep pressure soft tissue techniques, myofascial release and trigger point compression to her cervical, thoracic, lower back, lower extremities and hips. Emmanuelle responded well to the therapy by reporting decreased tension and pain throughout her neck, shoulders, lower back and hips. Her goals for therapy were met throughout the treatment sessions. At this time this patient is being discharged from our care at [facility] facility.
== END 2020-03-05 19:00 | disposition home or self-care (01) ==
LOC: MASS 10:45
PROVIDERS: PCP Family Medicine; Referring Provider Family Medicine; Visit Provider Family Medicine
DX: M25.511 Pain in right shoulder (principal)
CPT/HCPCS: 97124

== ENCOUNTER 2021-01-13 11:00 | Outpatient (RCR) | payer OTHER, SELFPAY ==
--- NOTE | 2020-04-26 12:14 | MASS.EVAL ---
Massage Therapy Evaluation: Initial Evaluation Date: 04/24/2020 SUBJECTIVE: Emmanuelle is a 44 year old female who was referred to the [facility] facility for a massotherapy evaluation by Dr. Weaver with the diagnosis of back and shoulder pain. She presents today with the symptoms of pain, stiffness and tension in the neck, head, mid back, low back, and hips. Emmanuelle reports having a past medical history of pain with muscle tension in her shoulders and upper back. She also states that she had shoulder surgery December 2019 and is still struggling with it. OBJECTIVE: Upon observation Emmanuelle has some posture issues with her head and shoulders forward from the neutral position in sitting and standing. After examination and palpation, I found Emmanuelle to have high muscle tension with tenderness and myofascial restrictions in her sub occipitals, levator scapulae, trapezius, rhomboids, scalenes, and thoracic paraspinals. Her QL?s, lumbar paraspinals, piriformis, glute medius and minimus all were very tight with fascial restrictions, tender points and trigger points. The first treatment consisted of a one hour massage to her upper body with myofascial release, muscle stripping, trigger point compression techniques, and cervical manual traction. ASSESSMENT: I feel that Emmanuelle is a good candidate for massotherapy at this time. She had a favorable response to the first treatment with reduction in her muscle aches, pain and tension. She also had improvement in her cervical flexibility and low back flexibility. PLAN: The plan of care was reviewed with the patient. The patient is to be seen on an as needed basis for a total of ten sessions with the recommendation of once every month for a one hour treatment.
--- NOTE | 2021-02-24 12:45 | MASS.DISCH ---
Massage Therapy Discharge Summary: discharge date 02/24/21 Emmanuelle was seen on April 232020, with the diagnosis of back and shoulder pain.. She was treated with 10 sessions of massage, and the patient reported that massages helped. At this time I am discharging her from our care at [facility].
== END 2021-01-13 19:00 | disposition home or self-care (01) ==
LOC: MASS 11:00
PROVIDERS: PCP Family Medicine; Referring Provider Family Medicine; Visit Provider Family Medicine
DX: M54.9 Dorsalgia, unspecified (principal)
CPT/HCPCS: 97124

== ENCOUNTER 2021-03-21 08:02 | Outpatient (CLI) | payer OTHER, SELFPAY ==
--- NOTE | 2021-03-21 08:05 | BI_ITS ---
MAMMOGRAPHY - BILATERAL SCREENING REASON FOR EXAM: Female, 45 years old. Routine annual screening examination. PERTINENT HISTORY: Non-contributory. TECHNIQUE: Digital bilateral breast lev (3D mammographic acquisition) in the CC and MLO projections. 2-D mediolateral oblique (MLO) and craniocaudad (CC) views of both breasts were obtained. CAD: Full Field Digital Mammography with Computer Added Detection was performed. COMPARISON: Comparison is made with prior study dated 02/06/2020 and 11/09/2018. FINDINGS: Breast Composition: There are scattered areas of fibroglandular density. There are no dominant masses or suspicious calcifications. Stable small benign-appearing bilateral axillary lymph nodes. No other significant abnormalities are identified. There has been no significant change since the prior study. BI/SCRN MAMM (CAD)W/LEV BILAT IMPRESSION: Stable bilateral screening mammogram. Yearly follow-up mammogram recommended. (A) ASSESSMENT CATEGORY: BIRADS Category 2: Benign. A letter regarding these results will be sent to the patient by the facility within 30 days. Approximately 10% of breast cancers are not detected by mammography. A normal mammogram should not delay biopsy of a clinically suspicious abnormality. [id number] Electronically Signed: Yohan Montalvo MD at 9:20 EST , Service support ,
== END 2021-03-21 23:59 | disposition short-term general hospital (02) ==
LOC: OPBI 08:03
PROVIDERS: PCP Family Medicine; Referring Provider Obstetrics & Gynecology; Visit Provider Obstetrics & Gynecology
DX: Z12.31 Encounter for screening mammogram for malignant neoplasm of breast (principal)
CPT/HCPCS: 77063; 77067

== ENCOUNTER 2021-06-25 11:28 | Outpatient (CLI) | payer OTHER, SELFPAY ==
[2021-06-25 15:16] LABS: Hematocrit 40.5 % (37-47); Hemoglobin 13.6 g/dL (12.0-15.0); Mean Corp Hgb Conc 33.6 g/dL (32-36); Mean Corpuscular Hgb 27.8 pg (27.0-32.0); Mean Corpuscular Volume 82.8 fL (81-99); Mean Platelet Vol. 13.9 fl (6.2-12.0); POSITIVE COUNT YES; Platelet Count 160 K/mm3 (150-450); RBC Distribution Width CV 13.3 % (11.6-14.6); RBC Distribution Width SD 40.2 fl (35.1-43.9); Red Blood Count 4.89 M/mm3 (4.2-5.4); White Blood Count 7.3 K/mm3 (4.4-11.0)
[2021-06-25 15:38] LABS: Anion Gap 6 (5-15); BUN 13 mg/dL (7-18); BUN/Creat Ratio 16.7 RATIO (10-20); Calcium,Total 9.1 mg/dL (8.5-10.1); Chloride 105 mmol/L (98-107); Cholesterol 156 mg/dL (200); Creatinine, Serum 0.78 mg/dL (0.55-1.02); EST Glomerular Filtration Rate 85 mL/min (>60); Est Glom Filt Rate - Afr Amer 103 mL/min (>60); Glucose 81 mg/dL (74-106); High Density Lipoprotein 40 mg/dL; Sodium Level 138 mmol/L (136-145); Triglycerides 70 mg/dL; Very Low Density Lipoprotein 14 mg/dL (5-40)
[2021-06-25 16:26] LABS: Scan Indicated on CBC? Y/N YES- FLAGS NOTED
== END 2021-06-25 23:59 | disposition home or self-care (01) ==
LOC: MTLAB 11:29
PROVIDERS: PCP Family Medicine; Referring Provider Family Medicine; Visit Provider Family Medicine
DX: R07.9 Chest pain, unspecified (principal)
CPT/HCPCS: 36415; 80048; 80061; 85027

== ENCOUNTER → 2021-07-11 | Outpatient (CLI) | payer OTHER, SELFPAY ==
--- NOTE | 2021-07-11 15:01 | STRESSREP ---
Stress Test Report Exercise myocardial perfusion stress test. 45-year-old lady with a history of intermittent chest pain. Stress protocol: Resting KG demonstrates normal sinus rhythm with a rate of 62 bpm normal intervals are noted resting blood pressure is 110/68 mmHg. The patient exercised according to regular Cameron protocol for total duration of 9 minutes. The maximum heart rate attained was 162 bpm. The maximum workload was 10.4 metabolic equivalents. The patient attained 92% of maximum predicted heart rate. At rest there were no ST or T wave changes noted suggest ischemia and at peak exercise upsloping ST changes were noted with did not meet the criteria for ischemia. The patient experienced mild chest discomfort at peak exercise. There were no EKG changes or arrhythmias to suggest ischemia. Myocardial perfusion protocol. 11.6 mCi of technetium 99m sestamibi was injected at rest. The patient exercised according to regular Cameron protocol and at peak exercise 34.7 mCi of technetium 99m sestamibi was injected stress images were obtained stress and rest images were reconstructed in comparing the short axis vertical long horizontal long axis. Gated images were also obtained for Perfusion SPECT analysis: Review of the stress images demonstrate normal uptake of tracer noted in all areas of the myocardium. The resting images similar demonstrate normal after uptake of tracer noted in all areas of the myocardium. No areas of reversibility are noted to suggest ischemia and no previous infarct is noted. Gated SPECT analysis: The gated ejection fraction is 75%. Conclusion: Normal exercise myocardial perfusion stress test at a high workload. Preserved ejection fraction.
== END | disposition home or self-care (01) ==
LOC: CVS 06:07
PROVIDERS: PCP Family Medicine; Referring Provider Family Medicine; Visit Provider Family Medicine
DX: R07.9 Chest pain, unspecified (principal)
CPT/HCPCS: 78452; 93017; A9500; A4216

== ENCOUNTER → 2021-10-22 | Outpatient (CLI) | payer OTHER, SELFPAY ==
--- NOTE | 2021-10-22 13:10 | CT_ITS ---
EXAM: CT CHEST WITHOUT AND WITH INTRAVENOUS CONTRAST CLINICAL INDICATION: CHEST PAIN TECHNIQUE: Helically acquired images were obtained of the chest without and with intravenous contrast. This CT exam was performed using one or more of the following dose reduction techniques: automated exposure control, adjustment of the mA and/or kV according to patient size, and/or use of iterative reconstruction technique. This report was created using [employer] report generation technology. CONTRAST: IV 60mL Isovue-370 RADIATION DOSE: CTDIvol = 26.31 mGy, DLP = 1031.06 mGy-cm COMPARISON: None. FINDINGS: LUNGS AND PLEURAL SPACES: Unremarkable. No mass. No consolidation or edema. No pleural effusion or thickening. No pneumothorax. HEART: Normal heart and pericardium with no evidence for calcifications of the coronary arteries. MEDIASTINUM: Unremarkable. No mediastinal or hilar adenopathy. Esophagus is unremarkable. No hiatal hernia. THYROID: Unremarkable. No thyroid lesions. BONES/JOINTS: There are multi-level degenerative changes of the thoracic spine. No suspicious lytic or blastic abnormality. VASCULATURE: There is atherosclerotic calcification of the aortic arch. Thoracic aorta is non-dilated. No thoracic aortic dissection. No obvious central pulmonary embolism although this study was not performed with the pulmonary embolism protocol. CT/Limited Chest CT Cardiac Only IMPRESSION: 1. There is atherosclerotic calcification of the aortic arch. 2. Normal heart and pericardium with no evidence for calcifications of the coronary arteries. Electronically Signed: Abdirashid Choi MD at 14:41 EDT Reading Location ID and State: [email or web address] / MD , Service support ,
[2021-10-22 13:14] VITALS: BP 105/54; PULSE 61; RESP 16; O2SAT 95; BMI 37.9
[2021-10-22] MEDS: 0.9% Saline Lock 10 ML Syringe IV (13:20)
[2021-10-22 13:35] VITALS: BP 105/64; PULSE 61
[2021-10-22] MEDS: Nitroglycerin SL (ED/IMG/CATH) 0.4 MG TABLET SL (13:35)
[2021-10-22 13:39] VITALS: BP 93/62; PULSE 63; RESP 18; O2SAT 97
[2021-10-22 13:41] VITALS: BP 94/48; PULSE 65; RESP 16; O2SAT 94
--- NOTE | 2021-10-22 17:35 | CA.SCORE ---
Calcium Scoring Date of Study:: 10/22/21 Indications Indications: Chest Pain Coronary Calcium Scoring: High-resolution Computed Tomographic imaging of the chest was performed on 10/22/2021 with particular attention paid to the coronary arteries. Images from the examination were analyzed for the presence and extent of coronary artery calcification , using coronary calcium quantification software. The patient tolerated the procedure well and there were no complications. The results of the coronary calcification analysis are provided below. Findings Coronary Artery Left Main (LM): 0 Left Anterior Descending (LAD): 0 Left Circumflex (LCX): 0 Right Coronary Artery (RCA): 0 Total Agatston Score: 0 Percentile Ranking: According to previously published data approximately 50% of patients of the same gender and/or similar age had the same and/or lower scores. Calcium Scoring Interpretation: 0 No identifiable atherosclerotic plaque. Very low cardiovascular disease risk. <5% chance of presence coronary artery disease A Negative Examination 1-10 Minimal Plaque burden. Significant coronary artery disease very unlikely. 11-100 Mild plaque burden. Likely mild or minimal coronary atherosclerosis. 101-400 Moderate plaque burden Moderate non-obstructive coronary artery disease highly likely. Over 400 Extensive plaque burden. High likelihood of at least one significant coronary stenosis (>50% diameter) Calcium Score: 0 Negative Examination Conclusion: Continue cardiovascular risk factor evaluation and care as deemed appropriate. This note was generated using a voice recognition system and there may be incorrect words, spelling or punctuation that were not noted when reviewing the office note prior to saving.
--- NOTE | 2021-10-22 17:45 | CCTA.WCONT ---
CCTA w/Cont Coronary Arteries Date of Study:: 10/22/21 Chest Pain Consent:: Per Patient The patient underwent high-resolution CT imaging of the chest on 10-22-2021 with attention to the coronary arteries. The examination was analyzed for the presence and extent of coronary artery calcification and coronary artery disease. There was no apparent complications reported. LEFT MAIN CORONARY ARTERY: The left main coronary artery is a large vessel giving rise to the left anterior descending and left circumflex coronary arteries. It appears to be angiographically normal-appearing. LEFT ANTERIOR DESCENDING CORONARY ARTERY: The left anterior descending coronary artery appears to be a large vessel as it tapers to a moderate sized vessel then a smaller vessel as it courses to the LV apex. It appears to be angiographically normal. LEFT CIRCUMFLEX CORONARY ARTERY: The left circumflex coronary artery appears to be a large codominant system which gives rise to an obtuse marginal branching system. It appears to be angiographically normal. RIGHT CORONARY ARTERY: The right coronary artery appears to be a moderate sized codominant system. It appears to be angiographically normal-appearing THORACIC AORTA: The thoracic aorta appears to be patent with no angiographically significant appearing disease appreciated. PULMONARY ARTERY: The main pulmonary artery and proximal portions of the right and left pulmonary artery appear to be patent with no obvious filling defects. LEFT ATRIUM/APPENDAGE: The left atrium/appendage appears to be patent without obvious filling defects. MITRAL VALVE: The mitral valve appears to be a bileaflet structure. AORTIC VALVE: The aortic valve appears to be a trileaflet structure. LEFT VENTRICLE: The left ventricle appears to demonstrate grossly normal left ventricular size, wall motion, and systolic function with a reported LVEF of 54%.] CORONARY CALCIUM SCORE: The coronary calcium score was reported at 0. Based upon 3 published reference tables this would be considered to have less than 5% chance of the presence of coronary artery disease. This note was generated using a voice recognition system and there may be incorrect words, spelling or punctuation that were not noted when reviewing the office note prior to saving.
== END | disposition home or self-care (01) ==
LOC: CT 13:06
PROVIDERS: PCP Family Medicine; Referring Provider Internal Medicine Cardiovascular Disease; Visit Provider Internal Medicine Cardiovascular Disease
DX: R07.9 Chest pain, unspecified (principal); I70.90 Unspecified atherosclerosis
CPT/HCPCS: 75571; 75574; 76380; Q9967

== ENCOUNTER → 2021-10-29 | Outpatient (CLI) | payer OTHER, SELFPAY ==
--- NOTE | 2021-10-29 12:56 | ECHOD_ITS ---
Reason For Study: Chest Pain Procedure This was a 2D Doppler, Color Flow transthoracic echocardiogram. The exam was of adequate technical quality. Exam performed in department. Left Ventricle Normal LV size. Left ventricular systolic function is normal. The estimated ejection fraction is 65 %. No evidence for diastolic dysfunction. No regional wall motion abnormalities noted. Right Ventricle Normal RV size. Normal systolic function. Atria Normal left atrium. Normal right atrium. No doppler evidence for ASD. Bubble contrast study negative for right to left interatrial shunt. Mitral Valve There is no mitral annular calcification. Normal mitral valve. Trivial mitral valve insufficiency. Tricuspid Valve Normal tricuspid valve. Trivial tricuspid valve insufficiency. Right ventricular systolic pressure estimated to be 19 mmHg. Aortic Valve Trisinus/trileaflet aortic valve. Normal aortic valve. Pulmonic Valve The pulmonic valve is not well visualized. Great Vessels Normal sized aortic root. Pericardium/Pleural No pericardial effusion. Medication 20 gauge I.V. with prn adaptor inserted into right arm. Performed a rapid injection of agitated mix of 9 cc saline and 1cc air to assess for atrial septal defect. MMode/2D Measurements & Calculations LVIDd: 4.6 cm IVSd: 0.99 cm Ao root diam: 3.1 cm LVIDs: 2.5 cm LVPWd: 0.90 cm LA dimension: 3.5 cm RVDd: 3.4 cm FS: 45.4 % LAV(MOD-bp): 36.6 ml LA A4 area: 12.5 cm2 RA A4 area: 13.2 cm2 LAV(MOD-bp) Indexed: 18.4 ml/m2 LAV(MOD-sp2): 38.8 ml LAV(MOD-sp4): 30.9 ml Time Measurements MV dec time: 0.23 sec Doppler Measurements & Calculations MV E max ernesto: 63.1 cm/sec Lat Peak E' Ernesto: 15.4 cm/sec Med Peak E' Ernesto: 9.9 cm/sec MV A max ernesto: 58.5 cm/sec E/E' lat: 4.1 E/E' med: 6.4 MV E/A: 1.1 MV V2 max: 65.6 cm/sec MV P1/2t max ernesto: 62.0 cm/sec Ao V2 max: 121.7 cm/sec MV max P.7 mmHg MV P1/2t: 66.4 msec Ao max P.9 mmHg MV V2 mean: 39.0 cm/sec MV dec slope: 273.8 cm/sec2 Ao V2 mean: 88.2 cm/sec MV mean P.72 mmHg Ao mean P.5 mmHg MV V2 VTI: 17.4 cm MVA(P1/2t): 3.3 cm2 Ao V2 VTI: 29.2 cm LV V1 max: 112.9 cm/sec PA V2 max: 80.9 cm/sec TR max ernesto: 202.8 cm/sec LV V1 max P.1 mmHg TR max P.4 mmHg LV V1 mean P.7 mmHg LV V1 mean: 76.4 cm/sec LV V1 VTI: 24.2 cm ECHO/Echo Complete Interpretation Summary Left ventricular systolic function is normal. The estimated ejection fraction is 65 %. Trivial mitral valve insufficiency. Trivial tricuspid valve insufficiency. Right ventricular systolic pressure estimated to be 19 mmHg. No evidence for diastolic dysfunction. Ordering Physician: Dominic Gonzalez Referring Physician: Dominic Weaver Performed By: Josue Grayson RCS
== END | disposition home or self-care (01) ==
LOC: CVS 12:55
PROVIDERS: PCP Family Medicine; Referring Provider Internal Medicine Cardiovascular Disease; Visit Provider Internal Medicine Cardiovascular Disease
DX: R07.9 Chest pain, unspecified (principal)
CPT/HCPCS: 93306; A4216

== ENCOUNTER → 2022-02-17 | Outpatient (CLI) | payer OTHER, SELFPAY ==
[2022-02-27 13:56] LABS: HPV APTIMA, High Risk Negative (Negative)
== END | disposition home or self-care (01) ==
LOC: LABSPEC 14:55
PROVIDERS: PCP Family Medicine; Referring Provider Obstetrics & Gynecology; Visit Provider Obstetrics & Gynecology
DX: Z12.4 Encounter for screening for malignant neoplasm of cervix (principal)
CPT/HCPCS: 87624; 88175; G0145

== ENCOUNTER → 2022-02-25 | Outpatient (CLI) | payer OTHER, SELFPAY ==
--- NOTE | 2022-02-25 11:01 | US_ITS ---
STUDY: ABDOMINAL ULTRASOUND - RIGHT UPPER QUADRANT REASON FOR VISIT: Female, 46 years old atypical chest pain, eval GB TECHNIQUE: Ultrasound evaluation of the right upper quadrant was performed with real-time and static guerrier-scale imaging. TECHNICAL QUALITY: Adequate. COMPARISON: None. FINDINGS: Liver: The liver measures 13.2 cm. There is normal echogenicity of the liver. The bile ducts are within normal limits. There is hepatic color flow. The direction of portal flow is hepatopetal. There is a 3.6 x 2.97 x 2.8 cm echogenic slightly heterogeneous nodule in the dome of the right lobe of the liver. This most likely represents an hemangioma. Correlation with CT scan is recommended. Gallbladder: Normal distended gallbladder. The gallbladder wall measures 2 mm. There is a negative sonographic Webber''s sign. There is no pericholecystic fluid. There are no gallstones. Common Bile Duct (C.B.D.): The common bile duct measures 4.3 mm. Pancreas: Normal size of the head, body of the pancreas. The tail portion is obscured uterine bowel gas. There is normal echogenicity of the pancreas. There is no demonstrated pancreatic mass or cyst. Right Kidney: Normal size of the right kidney. The right kidney measures 12.1 cm x 4.4 cm x 4.7 cm. Normal renal cortex. The right cortex measures 1.3 cm. There is no demonstrated renal mass or cyst. There is no right hydronephrosis. US/Abdomen Limited IMPRESSION: 3.6 cm x 2.9 sign by 2.8 cm echogenic slightly heterogeneous nodule in the dome of the right lobe of the liver. This most likely represents an hemangioma. Correlation with the CT scan of the abdomen is recommended for further evaluation. Electronically Signed: Yohan Montalvo MD at 15:23 EST ,
== END | disposition home or self-care (01) ==
LOC: US 11:00
PROVIDERS: PCP Family Medicine; Referring Provider Nurse Practitioner Adult Health; Visit Provider Nurse Practitioner Adult Health
DX: R07.89 Other chest pain (principal)
CPT/HCPCS: 76705

== ENCOUNTER → 2022-03-12 | Outpatient (CLI) | payer OTHER, SELFPAY ==
--- NOTE | 2022-03-12 08:10 | CT_ITS ---
STUDY: CT ABDOMEN WITH AND WITHOUT CONTRAST REASON FOR EXAM: Female, 46 years old. Liver lesion on US, eval if hemangioma RADIATION DOSAGE (If Supplied By Facility): CTDIvol = ( 19.70 ) mGy, DLP = ( 2101.58 ) mGycm TECHNIQUE: Transaxial images were obtained pre and post I.V. administration of IV 100mL Isovue-370, and without oral contrast. Sagittal and coronal images were reconstructed. Individualized dose optimization techniques were used for this CT. COMPARISON: Comparison is made with prior sonogram of the liver dated 02/25/2022. FINDINGS: The visualized lung bases are unremarkable. The visualized portions of the heart are within normal limits. There is a 2.6 x 2.6 cm well-defined nodular density with peripheral to central enhancement in the posterior aspect of the right lobe of the liver in the region of the dome. This corresponds to the sonographic findings and most likely represents an hemangioma. On the delayed imaging, there is complete filling of the nodular density. Normal gallbladder and extrahepatic biliary system. Normal spleen. Normal pancreas. Normal bilateral adrenal glands. Normal right kidney. Normal left kidney. Normal visualized stomach. Normal small intestine. Normal colon. The appendix is visualized and appears normal. Normal abdominal aorta. Normal inferior vena cava. Normal retroperitoneum. Normal abdominal wall. Normal osseous structures. CT/Abdomen W/WO IV Contrast IMPRESSION: Findings in the right lobe of the liver as described corresponding to an hemangioma. Electronically Signed: Yohan Montalvo MD at 14:32 EST ,
== END | disposition home or self-care (01) ==
PROVIDERS: PCP Family Medicine; Visit Provider Nurse Practitioner Adult Health
DX: K76.9 Liver disease, unspecified (principal)
CPT/HCPCS: 74170; Q9967

== ENCOUNTER → 2022-03-26 | Outpatient (CLI) | payer OTHER, SELFPAY ==
--- NOTE | 2022-03-26 09:44 | NM_ITS ---
CLINICAL: 46-year-old female with history of postprandial abdominal pain. RADIONUCLIDE HEPATOBILIARY SCINTIGRAPHY COMPARISON: Abdominal ultrasound report 02/25/2022, CT of the abdomen-pelvis report 03/12/2022 FINDINGS: Following the intravenous administration of 5.5 mCi of 99m Tc Mebrofenin, hepatobiliary images reveal: 1. Relatively prompt and homogeneous radiopharmaceutical concentration is noted by a normal sized liver. No parenchymal defects are identified. 2. Gallbladder activity is identified at 30 minutes post radiopharmaceutical administration. 3. Small intestinal tract is observed at 60 minutes following tracer injection. 4. Washout of the radiopharmaceutical by the hepatic parenchyma appears qualitatively normal. Cholecystokinin (0.02 ug/kg) was administered intravenously over a 30 period. The post CCK gallbladder ejection fraction calculated at 21 minutes following Cholecystokinin administration was noted to be 84.0 % (normal greater than 35%). During 30 minutes of post CCK imaging, there is no scintigraphic evidence of reflux of the radiotracer into the common hepatic duct or refilling of the gallbladder. There is scintigraphic evidence of post CCK duodenal gastric reflux. DC/Hepatobilliary Img w/Pharm Int IMPRESSION: 1. A gallbladder ejection fraction calculated to be greater than 35% following the administration of Cholecystokinin makes the probability of functional hepatobiliary disease (gallbladder and/or sphincter of Oddi dyskinesia) and/or organic hepatobiliary disease (chronic acalculous cholecystitis and/or cystic duct syndrome) to be low. (Erendira Castaneda et al, Journal of Nuclear Medicine 32:1695, 1990). 2. There is scintigraphic evidence of post CCK duodenal-gastric reflux. (Lena et al, Nucl Med Elsy Delmi Press pg. 35, 1980). Electronically Signed: John Foster, at 21:36 EST ,
== END | disposition home or self-care (01) ==
LOC: NM 09:43
PROVIDERS: PCP Family Medicine; Referring Provider Nurse Practitioner Adult Health; Visit Provider Nurse Practitioner Adult Health
DX: R07.9 Chest pain, unspecified (principal)
CPT/HCPCS: 78227; A9537; J2805

== ENCOUNTER 2022-04-28 11:58 | Day surgery (SDC) | payer OTHER, SELFPAY ==
[2022-04-28] VITALS (7 sets, daily range): BP systolic 84–131; BP diastolic 47–78; PULSE 69–96; RESP 16–18; TEMP 36.3–36.4; O2SAT 96–100; BMI 41.5
[2022-04-28] MEDS: Lactated Ringers 1,000 ML 15 ML IV (12:31)
--- NOTE | 2022-04-28 12:49 | HP.PCM_ITS ---
History and Physical Date of Admission: 04/28/22 46 F who presents to the office today to establish with GI for atypical chest pain. Began approx 01/2021. She had a cardiology w/u which was negative. So she is now referred to GI for eval. The pain is left of sternum and lower retrosternal. Can last 5-30 minutes. Had it as recently as last night. Can occur any time of day or night. Not related to eating. Describes as a squeeze or tightening feeling. Can radiate to left jaw or through to back. No relieving factors. No relief with one month of omeprazole or prn TUMS. No aggravating factors. Associated factors--none; no SOB, nausea, vomiting, heartburn, acid reflux, abdominal pain, diarrhea, dysphagia. Bowels are regular, no constipatio or diarrhea, no melena or hematochezia. 10/2021 labs unremarkable including cbc, cmp, ldh ROS Const Constitutional: No fatigue ENT ENT: No difficulty swallowing Gastro GI: Positive for heartburn; No abdominal pain, belching, bloating, change in bowel habits, change in stool character, coffee ground emesis, constipation, cramping, diarrhea, difficulty swallowing, feeling full early, excessive flatus, incontinent of stools, Vomiting blood/hematemesis, Blood in stool, loose stools, Black,tarry stools, na usea/dyspepsia, pain with swallowing, vomiting or other Musc Musculoskeletal: No joint pain Skin Skin: No yellowing of the eye or itchy eyes Psych Psychiatric: No anxiety and No depression Endo Endocrine: No fatigue Aller/Imm Allergy/Immunologic: No itchy eyes Santos/Lymp Hematologic/Lymphatic: No easy bleeding or easy bruising Exam Const General: cooperative, healthy appearing and comfortable Nutritional Appearance: obese Orientation: alert, awake and oriented x3 HENMT Head: normal to inspection Eyes Sclera: sclerae normal Chest Chest palpation & inspection: normal inspection of the chest Resp Effort & Inspection: normal respiratory effort GI Inspection: normal to inspection Palpation: soft, no hepatosplenomegaly, no masses and nontender Skin General: no rashes or lesions noted Neuro Gait: normal gait Psych Mood: euthymic mood Quality Reporting Tobacco Screening ([facility]) Smoking Status: Never smoker Assessment and Plan Assessment and Plan (1) Chest pain: ?Status:?Acute ?Plan: 46 yr old female with atypical chest pain. Cardiac etiology has been ruled out. DDx for GI includes GERD, PUD, esophageal spasms/dysmotility, gallbladder disorder. Will get RUQ US, if normal then consider HIDA scan. Will schedule EGD as well as screening colonoscopy, with f/u in office 2 wks later. Consider esophageal manometry if other testing is negative. ? ? ? Orders: Orders Abdomen Complete Today R07.9 - Chest pain, unspecified ? Medications: Discontinued omeprazole ?? Discontinued Reason:? Order Completed 20 mg? PO DAILY ? ? I have examined the patient and the H&P has been reviewed. There are no clinical changes since date of exam.
--- NOTE | 2022-04-28 13:15 | COLBX_PTH ---
PATIENT: ARTURO MARKS LOC: EN U#:[id number] AGE/SX: 46/F ROOM: RE04/28/[address]: Dr. Louis Felix DO : 1975 BED: DIS: 04/28/2022 SPEC #: [id number] RECD: 04/28/22 14:33 STATUS: BRADY REAlicia #: [id number] YOLANDE: 04/28/22 13:[address]: Louis Felix DEPT: SURGICAL PATHOLOGY RECD BY: Ezra Foy ENTERED: 04/29/22 07:06 SP TYPE: COLON BX OTHR DR: Dr. Dominic Weaver MD Tissues: A - Esophagus, NOS B - Esophagus, NOS Procedures: Special Stain Group II Surgery Specimen Level IV Alcian Blue/PAS (control) HEADER OPERATION: Colonoscopy, EGD with biopsy (MAC) PRE-OP DIAGNOSIS: Chest pain, screening TISSUE SUBMITTED: A ? Distal esophagus biopsy, B ? Random esophagus biopsy MICROSCOPIC DIAGNOSIS A. Distal esophagus, biopsy: Gastroesophageal junctional mucosa with mild chronic inflammation. Focal changes of reflux. No evidence of goblet cell metaplasia. See comment. B. Esophagus, random biopsy: No pathologic change. AM:tamym 04/30/2022 COMMENT A. Alcian blue/PAS stain with matched control supports the above diagnosis. MICROSCOPIC DESCRIPTION Slides are reviewed. GROSS DESCRIPTION A - Received in fixative is one container labeled with the patient's name and designated distal esophagus biopsy. The specimen consists of multiple irregular fragments of light desai soft tissue that in aggregate measure 1.0 x 0.5 x 0.1 cm. The specimen is totally submitted in one cassette. B - Received in fixative is one container labeled with the patient's name and designated random esophagus biopsy. The specimen consists of multiple irregular fragments of light desai soft tissue that in aggregate measure 0.8 x 0.4 x 0.1 cm. The specimen is totally submitted in one cassette. / SJ:atmmy 04/29/2022 TC:3 CPT: 08791 x2, 93170
--- NOTE | 2022-04-28 14:23 | OP.EGD_ITS ---
Patient Name: Emmanuelle Simon Procedure Date: 04/28/2022 1:28 PM Date of : 1975 Age: 46 Procedure: Upper GI endoscopy Indications: Unexplained chest pain, Chest pain (non cardiac) Providers: Louis Felix DO Medicines: Monitored Anesthesia Care Patient Profile: This is a 46 year old female. Refer to note in patient chart for documentation of history and physical. Patient has symptoms of chronic chest pain. Complications: No immediate complications. Procedure: Pre-Anesthesia Assessment: - Prior to the procedure, a History and Physical was performed, and patient medications and allergies were reviewed. The risks and benefits of the procedure and the sedation options and risks were discussed with the patient. All questions were answered and informed consent was obtained. Patient identification and proposed procedure were verified by the physician in the pre-procedure area. Mental Status Examination: alert and oriented. Respiratory Examination: clear to auscultation. CV Examination: normal. Prophylactic Antibiotics: The patient does not require prophylactic antibiotics. Prior Anticoagulants: The patient has taken no previous anticoagulant or antiplatelet agents. ASA Grade Assessment: II - A patient with mild systemic disease. After reviewing the risks and benefits, the patient was deemed in satisfactory condition to undergo the procedure. The anesthesia plan was to use moderate sedation / analgesia (conscious sedation). Immediately prior to administration of medications, the patient was re-assessed for adequacy to receive sedatives. The heart rate, respiratory rate, oxygen saturations, blood pressure, adequacy of pulmonary ventilation, and response to care were monitored throughout the procedure. The physical status of the patient was re-assessed after the procedure. After obtaining informed consent, the endoscope was passed under direct vision. Throughout the procedure, the patient's blood pressure, pulse, and oxygen saturations were monitored continuously. The Colonoscope was introduced through the mouth, and advanced to the second part of duodenum. The upper GI endoscopy was accomplished without difficulty. The patient tolerated the procedure well. Scope In: 1:39:20 PM Scope Out: 1:45:37 PM Total Procedure Duration Time 0 hours 6 minutes 17 seconds Findings: The upper third of the esophagus and middle third of the esophagus were moderately tortuous. Abnormal motility was noted in the middle third of the esophagus. The cricopharyngeus was normal. There is primary peristalsis of the esophageal body. The distal esophagus/lower esophageal sphincter is open. Tertiary peristaltic waves are noted. Biopsies were obtained from the proximal and distal esophagus with cold forceps for histology of suspected eosinophilic esophagitis. The Z-line was irregular and was found 37 cm from the incisors. Biopsies were taken with a cold forceps for histology. Verification of patient identification for the specimen was done. Estimated blood loss was minimal. The entire examined stomach was normal. The cardia and gastric fundus were normal on retroflexion. No gross lesions were noted in the second portion of the duodenum. Impression: - Tortuous esophagus. - Abnormal esophageal motility, consistent with esophageal spasm. Biopsied. - Z-line irregular, 37 cm from the incisors. Biopsied. - Normal stomach. - No gross lesions in the second portion of the duodenum. Recommendation: - Discharge patient to home. - Resume previous diet. - Continue present medications. - Await pathology results. Procedure Code(s): --- Professional --- 78192, Esophagogastroduodenoscopy, flexible, transoral; with biopsy, single or multiple CPT copyright 2017 [employer]. All rights reserved. The codes documented in this report are preliminary and upon electronic components assembler review may be revised to meet current compliance requirements. Louis Felix DO 04/28/2022 2:23:04 PM This report has been signed electronically. Number of Addenda: 0 Note Initiated On: 04/28/2022 1:28 PM
--- NOTE | 2022-04-28 14:24 | OP.CCLET_ITS ---
04/28/2022 Dominic Weaver MD [address] [phone] Re : Upper GI endoscopy procedure for Emmanuelle Alfred Dear Dr. Weaver This procedure was performed on Thursday, April 28, 2022. My impressions and recommendations are as follows: Impressions : - Tortuous esophagus. - Abnormal esophageal motility, consistent with esophageal spasm. Biopsied. - Z-line irregular, 37 cm from the incisors. Biopsied. - Normal stomach. - No gross lesions in the second portion of the duodenum. Recommendations : - Discharge patient to home. - Resume previous diet. - Continue present medications. - Await pathology results. My findings are described in the full procedure note, which is enclosed. If I can be of further assistance, please feel free to contact me at . Sincerely, Louis Felix, 04/28/2022 2:23:04 PM This report has been signed electronically.
--- NOTE | 2022-04-28 14:29 | OP.COLON_ITS ---
Patient Name: Emmanuelle Simon Procedure Date: 04/28/2022 1:45 PM Date of : 1975 Age: 46 Procedure: Colonoscopy Indications: Screening for colorectal malignant neoplasm Providers: Louis Felix DO Medicines: Monitored Anesthesia Care Patient Profile: This is a 46 year old female. Refer to note in patient chart for documentation of history and physical. Patient has symptoms of chronic chest pain. Last Colonoscopy: none. The patient's first colonoscopy is today. Complications: No immediate complications. Procedure: Pre-Anesthesia Assessment: - Prior to the procedure, a History and Physical was performed, and patient medications and allergies were reviewed. The risks and benefits of the procedure and the sedation options and risks were discussed with the patient. All questions were answered and informed consent was obtained. Patient identification and proposed procedure were verified by the physician in the pre-procedure area. Mental Status Examination: alert and oriented. Respiratory Examination: clear to auscultation. CV Examination: normal. Prophylactic Antibiotics: The patient does not require prophylactic antibiotics. Prior Anticoagulants: The patient has taken no previous anticoagulant or antiplatelet agents. ASA Grade Assessment: II - A patient with mild systemic disease. After reviewing the risks and benefits, the patient was deemed in satisfactory condition to undergo the procedure. The anesthesia plan was to use moderate sedation / analgesia (conscious sedation). Immediately prior to administration of medications, the patient was re-assessed for adequacy to receive sedatives. The heart rate, respiratory rate, oxygen saturations, blood pressure, adequacy of pulmonary ventilation, and response to care were monitored throughout the procedure. The physical status of the patient was re-assessed after the procedure. After I obtained informed consent, the scope was passed under direct vision. Throughout the procedure, the patient's blood pressure, pulse, and oxygen saturations were monitored continuously. The Colonoscope was introduced through the anus and advanced to the cecum, identified by appendiceal orifice and ileocecal valve. The colonoscopy was performed without difficulty. The patient tolerated the procedure well. The quality of the bowel preparation was adequate. Scope In: 1:48:06 PM Scope Withdrawal Time 0 hours 7 minutes 2 seconds Scope Out: 2:13:19 PM Total Procedure Duration Time 0 hours 25 minutes 13 seconds Findings: The perianal and digital rectal examinations were normal. The transverse colon was significantly tortuous. Stool was found in the recto-sigmoid colon, in the sigmoid colon and in the transverse colon. Impression: - Tortuous colon. - Stool in the recto-sigmoid colon, in the sigmoid colon and in the transverse colon. - No specimens collected. Recommendation: - Discharge patient to home. - Resume previous diet. - Continue present medications. - Repeat colonoscopy in 5 years because the bowel preparation was suboptimal. Procedure Code(s): --- Professional --- G0121, Colorectal cancer screening; colonoscopy on individual not meeting criteria for high risk CPT copyright 2017 [employer]. All rights reserved. The codes documented in this report are preliminary and upon circulating nurse review may be revised to meet current compliance requirements. Louis Felix DO 04/28/2022 2:29:19 PM This report has been signed electronically. Number of Addenda: 0 Note Initiated On: 04/28/2022 1:45 PM
--- NOTE | 2022-04-28 14:30 | OP.CCLET_ITS ---
04/28/2022 Dominic Weaver MD [address] [phone] Re : Colonoscopy procedure for Emmanuelle Alfred Dear Dr. Weaver This procedure was performed on Thursday, April 28, 2022. My impressions and recommendations are as follows: Impressions : - Tortuous colon. - Stool in the recto-sigmoid colon, in the sigmoid colon and in the transverse colon. - No specimens collected. Recommendations : - Discharge patient to home. - Resume previous diet. - Continue present medications. - Repeat colonoscopy in 5 years because the bowel preparation was suboptimal. My findings are described in the full procedure note, which is enclosed. If I can be of further assistance, please feel free to contact me at . Sincerely, Louis Felix, 04/28/2022 2:29:19 PM This report has been signed electronically.
== END 2022-04-28 15:10 | disposition home or self-care (01) ==
LOC: EN 11:59 → AC 12:01
PROVIDERS: PCP Family Medicine; Referring Provider Family Medicine; Visit Provider Internal Medicine Gastroenterology
PROC: 0DJD8ZZ Inspection of Lower Intestinal Tract, Via Natural or Artificial Opening Endoscopic (ICD-10-PCS; CPT 45378; principal; 2022-04-28 13:10)
DX: Z12.11 Encounter for screening for malignant neoplasm of colon (principal); K20.90 Esophagitis, unspecified without bleeding; R07.89 Other chest pain; Q43.8 Other specified congenital malformations of intestine; R19.2 Visible peristalsis
CPT/HCPCS: 43239; 45378; 88305; 88313; J7120; J2405

== ENCOUNTER → 2022-05-18 | Outpatient (CLI) | payer OTHER, SELFPAY ==
[2022-05-20 17:07] LABS: Beef <0.10 kU/L (Class 0); Corn <0.10 kU/L (Class 0); Egg, Whole <0.10 kU/L (Class 0); Milk (Cow) <0.10 kU/L (Class 0); Peanut <0.10 kU/L (Class 0); Pork <0.10 kU/L (Class 0); Soybean <0.10 kU/L (Class 0); Wheat <0.10 kU/L (Class 0)
[2022-05-20 21:28] LABS: Chocolate <0.10 kU/L (Class 0)
== END | disposition home or self-care (01) ==
LOC: LAB 08:31
PROVIDERS: PCP Family Medicine; Referring Provider Nurse Practitioner Adult Health; Visit Provider Nurse Practitioner Adult Health
DX: R07.9 Chest pain, unspecified (principal)
CPT/HCPCS: 36415; 86003; 86005

== ENCOUNTER → 2022-05-28 | Outpatient (CLI) | payer OTHER, SELFPAY ==
[2022-05-28 13:06] LABS: Absolute Lymphocyte Count 2.33 X10^3/uL (0.83-4.51); Absolute Neutrophil Count 4.7 X10^3/uL (2.0-7.7); Basophil# 0.04 X10^3/uL; Basophil% 0.5 % (0-1); Eosinophil# 0.05 X10^3/uL; Eosinophils% 0.6 % (0-5); Hematocrit 42.2 % (37-47); Hemoglobin 13.9 g/dL (12.0-15.0); Lymphocyte # 2.33 X10^3/ul (0.83-4.51); Lymphocyte % 28.9 % (19-41); Mean Corp Hgb Conc 32.9 g/dL (32-36); Mean Corpuscular Hgb 28.7 pg (27.0-32.0); Monocyte# 0.96 X10^3/uL; Monocyte% 11.9 % (0-10); NRBC Flagged by Analyzer 0 % (0-5); Neutrophil # 4.66 X10^3/uL (2.7-7.7); Neutrophil % 57.7 % (47-70); Platelet Count 220 K/mm3 (150-450); RBC Distribution Width SD 40.8 fl (35.1-43.9); Red Blood Count 4.85 M/mm3 (4.2-5.4); White Blood Count 8.1 K/mm3 (4.4-11.0)
[2022-05-28 13:39] LABS: Estradiol 116.3 pg/mL; Thyroid Stim Hormone (TSH) 1.77 uIU/mL (0.358-3.74)
[2022-06-02 14:40] LABS: Testosterone Free 0.6 pg/mL (0.0-4.2)
== END | disposition home or self-care (01) ==
LOC: LAB 12:18
PROVIDERS: PCP Family Medicine; Referring Provider Obstetrics & Gynecology; Visit Provider Obstetrics & Gynecology
DX: N93.9 Abnormal uterine and vaginal bleeding, unspecified (principal)
CPT/HCPCS: 36415; 82670; 83001; 84402; 84443; 85025

== ENCOUNTER → 2022-06-01 | Outpatient (CLI) | payer OTHER, SELFPAY ==
--- NOTE | 2022-06-01 13:09 | US_ITS ---
STUDY: ULTRASOUND OF THE FEMALE PELVIS - COMPLETE REASON FOR EXAM: Female, 46 years old. irregular menses TECHNIQUE: Transabdominal COMPARISON: None. FINDINGS: The uterus is anteverted and is in a midline position. The uterus measures 10.4x6.4 cm. There is a Nabothian cyst of the cervix. The endometrium measures 13 mm in thickness, and is hyperechoic. There is no demonstrated endometrial mass. There is no demonstrated myometrial mass. I.U.D. - The patient does not have an I.U.D. The right ovary is visualized. The right ovary measures 2.1x2 cm. There is no right ovarian cyst or ovarian mass. There is no visualized right adnexal mass or complex lesion. There is normal arterial and normal venous vascularity. The left ovary is visualized. The left ovary measures 3.1x2.9 cm. There is no left ovarian cyst or ovarian mass. There is no visualized left adnexal mass or complex lesion. There is normal arterial and normal venous vascularity. There is no fluid in the cul-de-sac. Urinary bladder volume is (in cc) 72. US/Pelvic (Non ) IMPRESSION: There is a Nabothian cyst of the cervix. Electronically Signed: Abdirashid Choi MD at 21:05 EDT ,
--- NOTE | 2022-06-01 13:35 | BI_ITS ---
MAMMOGRAPHY - BILATERAL SCREENING REASON FOR EXAM: Female, 46 years old. Routine annual screening examination. PERTINENT HISTORY: Non-contributory. TECHNIQUE: Digital bilateral breast lev (3D mammographic acquisition) in the CC and MLO projections. 2-D mediolateral oblique (MLO) and craniocaudad (CC) views of both breasts were obtained. CAD: Full Field Digital Mammography with Computer Added Detection was performed. COMPARISON: Comparison is made with prior study dated September 18, 2021 and February 06, 2020. FINDINGS: Breast Composition: The breasts are heterogeneously dense, which may obscure small masses. There are no dominant masses or suspicious calcifications. Stable benign-appearing bilateral axillary lymph nodes. No other significant abnormalities are identified. There has been no significant change since the prior study. BI/SCRN MAMM (CAD)W/LEV BILAT IMPRESSION: Stable bilateral screening mammogram. Yearly follow-up mammogram recommended. (A) ASSESSMENT CATEGORY: BIRADS Category 2: Benign. A letter regarding these results will be sent to the patient by the facility within 30 days. Approximately 10% of breast cancers are not detected by mammography. A normal mammogram should not delay biopsy of a clinically suspicious abnormality. [id number] Electronically Signed: Yohan Montalvo MD at 14:40 EDT ,
== END | disposition home or self-care (01) ==
LOC: US 12:56
PROVIDERS: PCP Family Medicine; Visit Provider Obstetrics & Gynecology
DX: Z12.31 Encounter for screening mammogram for malignant neoplasm of breast (principal); N93.9 Abnormal uterine and vaginal bleeding, unspecified
CPT/HCPCS: 76830; 76856; 77063; 77067

== ENCOUNTER → 2022-07-06 | Outpatient (CLI) | payer OTHER, SELFPAY ==
--- NOTE | 2022-07-06 13:50 | RAD_ITS ---
STUDY: X-RAY - LEFT FOOT CLINICAL: Female, 46 years old. Left foot pain at 4th MTP TECHNIQUE: 3 view(s) of the foot. COMPARISON: None. FINDINGS: Moderate to large plantar spur, otherwise unremarkable talus, calcaneus, and tarsal bones. Normal visualized subtalar, talonavicular, calcaneocuboid, tarsal and tarsometatarsal articulations. Normal metatarsi. Normal metatarsophalangeal joint of the great toe. Normal tibial and fibular sesamoid bones. Normal interphalangeal joint of the great toe. Normal phalanges of the great toe. Normal second through fifth metatarsophalangeal joints. Normal interphalangeal joints and phalanges of the lesser toes. The soft tissue structures are unremarkable. There is no demonstrated fracture. RAD/Foot min 3 Views IMPRESSION: No definite acute or significant abnormality seen. Electronically Signed: Jorge Calixto MD at 22:32 EDT ,
== END | disposition home or self-care (01) ==
LOC: RAD 13:39
PROVIDERS: PCP Family Medicine; Referring Provider Physician Assistant; Visit Provider Physician Assistant
DX: M79.672 Pain in left foot (principal)
CPT/HCPCS: 73630

== ENCOUNTER 2022-08-02 02:29 | Emergency (ER) | payer OTHER, SELFPAY ==
[2022-08-02 02:30] VITALS: BP 109/86; PULSE 109; RESP 18; TEMP 36.6; O2SAT 98; BMI 44.1
--- NOTE | 2022-08-02 02:40 | ED.VIS.DYS ---
HPI History of Present Illness Chief Complaint: Shortness of Breath Narrative Narrative: This is a 46-year-old female presenting with right posterior rib pain. She states it started yesterday and kind of eased up until this morning at about 1 AM when she woke up from sleep with pain here. She states she feels as if she is having trouble catching her breath. She does not cough, fever, chills. Denies any strain or trauma to the area. PFSH PFS Medical History Alcohol use Atypical chest pain Bee sting Cardiology follow-up encounter CPAP (continuous positive airway pressure) dependence Eosinophilic esophagitis History of echocardiogram History of edema History of stress test Needlestick injury accident with exposure to body fluid Non-smoker ROMAINE (obstructive sleep apnea) Right arm cellulitis Segmental and somatic dysfunction of cervical region Segmental and somatic dysfunction of lumbar region Segmental and somatic dysfunction of thoracic region Tonsillar abscess Wears glasses Home Medications B-complex with vitamin C 1 cap PO QDAY 04/27/17 [History Last Taken Unknown] multivitamin,[id number] (Complete Multivitamin tablet) 1 tab PO QDAY 04/27/17 [History Last Taken Unknown] magnesium oxide 400 mg PO DAILY 12/08/18 [History Last Taken Unknown] calcium carbonate 500 mg-vitamin D3 5 mcg (200 unit) tablet 1 ea PO DAILY 05/25/19 [History Last Taken Unknown] melatonin 3 mg tablet 6 mg PO HS PRN Sleep 10/06/21 [History Last Taken Unknown] etonogestrel 0.12 mg-ethinyl estradiol 0.015 mg/24 hr vaginal ring (NuvaRing) 1 vag ring vaginal ONCE 3 weeks #1 ea 05/28/22 [Rx Last Taken Unknown] tizanidine 4 mg capsule (Zanaflex) 4 mg PO TID PRN muscle spasticity #20 caps 08/02/22 [Rx Last Taken Unknown] Allergy/AdvReac Type Severity Reaction Status Date / Time ceftriaxone sodium Allergy Hives Verified 08/02/22 02:33 [From Rocepchidin] Family History Sister ROMAINE (obstructive sleep apnea) Grandfather Cancer lung Grandmother Heart disease Diabetes Sister ROMAINE (obstructive sleep apnea) Sister ROMAINE (obstructive sleep apnea) Mitral valve prolapse Sinus tachycardia Surgical History delivery delivered H/O shoulder surgery Social History Smoking Status: Never smoker alcohol intake: never substance use type: does not use caffeine: No what type of physical activity do you participate in: running and weight training frequency: 1-2 times per week seatbelt use: always do you feel safe at home: Yes additional social history: - Mir 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 [employer] ROS ROS ED Constitutional Constitutional ED: Denies chills or fever(s) Eyes Eyes: Denies change in vision or diplopia ENT ENT ED: Denies rhinorrhea or sore throat Cardiovascular Cardiovascular: Reports other Details: Right posterior rib pain Respiratory/Chest Respiratory/Chest: Reports dyspnea Gastrointestinal Gastrointestinal: Denies abdominal pain, constipation, nausea or vomiting Genitourinary Genitourinary ED: Denies dysuria or hematuria Musculoskeletal Musculoskeletal: Denies arthralgias Integumentary Denies abscess or Abrasions Neurologic Neurologic: Denies headache(s) or paresthesias Psychiatric Psychiatric: Denies anxiety or depression EXAM Physical Exam Const Vital Signs: 08/02/22 02:30 Temperature 97.9 F Temperature Source Temporal Pulse Rate 109 H Respiratory Rate 18 Blood Pressure 109/86 H Blood Pressure Mean 93 Pulse Ox 98 Positive well nourished General Appearance ED: NAD; Negative for pallor HEENT Reports moist mucous membranes atraumatic Eyes PERRL Resp normal respiratory effort Resp Narrative: Tenderness to palpation right posterior ribs. Equal symmetric breath sounds and chest wall rise. Cardio regular rate and regular rhythm Neuro oriented x3 and CN's II-XII intact bilaterally Sensorium / Orientation: alert Motor Exam: strength 5/5 throughout Psych mental status grossly normal Skin no wounds General Skin Exam: Negative for jaundice or pallor MDM MDM MDM Narrative Medical decision making narrative: Patient presenting with right posterior rib pain. She states she is having trouble catching her breath although her vital signs are stable and she is afebrile. She states it is making her feel like she cannot catch her breath. Her vital signs are stable and she is afebrile. She is not hypoxic. Her pain is reproducible in the right posterior ribs. Equal symmetric breath sounds or chest wall rise. She declined analgesia initially. I obtained right rib series which on my interpretation is no acute fracture, pneumonia, pneumothorax or other acute cardiopulmonary process. The radiologist interpretation agrees. After discussion the patient is amenable to a muscle relaxer. She will be given a prescription for these. Return precautions discussed. Impression: 1. Thoracic strain Radiography Diagnostic Testing: Clinical Impression(s) from Imaging Studies Ribs w/Chest X-Ray 08/02/22 02:50 IMPRESSION: No obvious acute displaced rib fracture. Chest with no acute disease. Electronically Signed: Mir Miller MD at 3:39 EDT , Discharge Plan Triage Chief Complaint: Shortness of Breath ED Provider: Geoff Gilbert Dx/Rx/DC Orders Instructions: ED Back Sprain/Strain Prescriptions: New tizanidine [Zanaflex] 4 mg capsule 4 mg PO TID PRN (Reason: muscle spasticity) Qty: 20 0RF No Action B-complex with vitamin C capsule capsule 1 cap PO QDAY multivitamin,so-jzqt-wkrmboqa tablet tablet 1 tab PO QDAY magnesium oxide 400 mg magnesium tablet 400 mg PO DAILY melatonin 3 mg tablet 6 mg PO HS PRN (Reason: Sleep) etonogestrel-ethinyl estradiol [NuvaRing] 0.12-0.015 mg/24 hr ring 1 vag ring vaginal ONCE 21 Days Qty: 1 12RF calcium carbonate-vitamin D3 1 EACH tablet 1 ea PO DAILY Primary Care Provider: Dominic Weaver Referrals: Dominic Weaver MD [Primary Care Provider] - Disposition Disposition: Home, Self Care
--- NOTE | 2022-08-02 02:50 | RAD_ITS ---
INDICATION: rib pain EXAMINATION/TECHNIQUE: X-RAY - XR Ribs Unilateral W/ PA Chest Min 3 Views COMPARISON: None. Findings: Single frontal view of the chest. 4 views of the right ribs. LUNG PARENCHYMA: No acute focal airspace disease or mass lesion. PLEURA: No pleural effusion. No pneumothorax. HEART/GREAT VESSELS: Cardiomediastinal silhouette is unremarkable. BONES: Osseous structures are unremarkable for age. RAD/Ribs Uni Min 3V w/PA Chest IMPRESSION: No obvious acute displaced rib fracture. Chest with no acute disease. Electronically Signed: Mir Miller MD at 3:39 EDT ,
[2022-08-02] MEDS: Orphenadrine 100 MG Tablet PO (04:47)
[2022-08-02 04:50] VITALS: RESP 18
[2022-08-02 04:51] VITALS: RESP 18
== END 2022-08-02 04:52 | disposition home or self-care (01) ==
PROVIDERS: Emergency Provider Student in an Organized Health Care Education/Training Program; PCP Family Medicine; Visit Provider Student in an Organized Health Care Education/Training Program
DX: S29.019A Strain of muscle and tendon of unspecified wall of thorax, initial encounter (principal); G47.33 Obstructive sleep apnea (adult) (pediatric); X58.XXXA Exposure to other specified factors, initial encounter
CPT/HCPCS: 71101; 99283

== ENCOUNTER → 2022-08-18 | Outpatient (CLI) | payer OTHER, SELFPAY ==
--- NOTE | 2022-08-18 10:19 | RAD_ITS ---
STUDY: X-RAY CHEST REASON FOR EXAM: Female, 46 years old. Difficulty with taking deep breaths -- Left chest wall pain TECHNIQUE: PA and lateral views of the chest. COMPARISON: Comparison is made with prior study August 02, 2022. FINDINGS: Small bilateral pleural effusions with bibasilar infiltrates worse at the left lung base. Normal size heart. Normal mediastinum and tricia. Normal visualized pulmonary arteries. Normal visualized aortic arch and descending thoracic aorta. Normal visualized thoracic spine. Normal visualized ribs, clavicles, and shoulders. There is no demonstrated abnormality of the visualized soft tissue structures of the upper abdomen. RAD/Chest PA and Lateral IMPRESSION: Small bilateral pleural effusions with bibasilar infiltrates worse at the left lung base. Electronically Signed: Yohan Montalvo MD at 11:00 EDT ,
== END | disposition home or self-care (01) ==
PROVIDERS: PCP Family Medicine; Referring Provider Physician Assistant Surgical; Visit Provider Physician Assistant Surgical
DX: S29.011A Strain of muscle and tendon of front wall of thorax, initial encounter (principal); S46.912A Strain of unspecified muscle, fascia and tendon at shoulder and upper arm level, left arm, initial encounter; X58.XXXA Exposure to other specified factors, initial encounter
CPT/HCPCS: 71046

== ENCOUNTER → 2022-09-15 | Outpatient (CLI) | payer OTHER, SELFPAY ==
--- NOTE | 2022-09-15 09:40 | RAD_ITS ---
STUDY: X-RAY CHEST REASON FOR EXAM: Female, 46 years old. CHEST PAIN . History of pneumonia. TECHNIQUE: PA and lateral views of the chest. COMPARISON: Comparison is made with prior study dated August 18, 2022. FINDINGS: Persistent pleural parenchymal changes at the left lung base although there has been improvement as compared with prior study. Mild residual infiltrate in the right lower lobe although there has been improvement. The right causing angle is clear at this time. Normal size heart. Normal mediastinum and tricia. Normal visualized pulmonary arteries. Normal visualized aortic arch and descending thoracic aorta. Normal visualized thoracic spine. Normal visualized ribs, clavicles, and shoulders. There is no demonstrated abnormality of the visualized soft tissue structures of the upper abdomen. RAD/Chest PA and Lateral IMPRESSION: Persistent pleural-parenchymal changes at the left lung base although there has been improvement as compared to prior study. Mild degree of increased markings at the right lung base. The previously seen blunting of the right costophrenic angle has cleared. Electronically Signed: Yohan Montalvo MD at 10:18 EDT ,
== END | disposition home or self-care (01) ==
PROVIDERS: PCP Family Medicine; Referring Provider Family Medicine; Visit Provider Family Medicine
DX: R07.9 Chest pain, unspecified (principal)
CPT/HCPCS: 71046

== ENCOUNTER → 2022-09-21 | Outpatient (CLI) | payer OTHER, SELFPAY ==
[2022-09-24 05:07] LABS: Beef <0.10 kU/L (Class 0); Chocolate <0.10 kU/L (Class 0); Clam <0.10 kU/L (Class 0); Codfish <0.10 kU/L (Class 0); Corn <0.10 kU/L (Class 0); Egg, White <0.10 kU/L (Class 0); Egg, Whole <0.10 kU/L (Class 0); Milk (Cow) <0.10 kU/L (Class 0); Peanut <0.10 kU/L (Class 0); Pork <0.10 kU/L (Class 0); SCALLOP <0.10 kU/L (Class 0); SESAME SEED <0.10 kU/L (Class 0); Shrimp <0.10 kU/L (Class 0); Soybean <0.10 kU/L (Class 0); Walnut, (Food) <0.10 kU/L (Class 0); Wheat <0.10 kU/L (Class 0)
== END | disposition home or self-care (01) ==
LOC: LAB 09:13
PROVIDERS: PCP Family Medicine; Referring Provider Internal Medicine Gastroenterology; Visit Provider Internal Medicine Gastroenterology
DX: G47.33 Obstructive sleep apnea (adult) (pediatric) (principal); K20.0 Eosinophilic esophagitis; R07.9 Chest pain, unspecified
CPT/HCPCS: 36415; 86003; 86005

== ENCOUNTER → 2022-10-19 | Outpatient (CLI) | payer OTHER, SELFPAY | END | disposition home or self-care (01) | LOC: LABSPEC 14:17 | PROVIDERS: PCP Family Medicine; Visit Provider Nurse Practitioner Acute Care | DX: R05.9 Cough, unspecified (principal) | CPT/HCPCS: 36415; 87070; 87077; 87205 ==

== ENCOUNTER → 2022-11-19 | Outpatient (CLI) | payer OTHER, SELFPAY ==
--- NOTE | 2022-11-23 05:43 | PFTCOMP ---
COMPLETE PULMONARY FUNCTION TEST INTERPRETATION Brief HPI: Patient is a 46-year-old female, currently under the care of myself, who presents to [facility] for complete pulmonary function tests secondary to diagnosis of dyspnea. Respiratory therapist reports good effort and reproducible results. Interpretation: Forced expiration spirometry shows no large airways obstructive ventilatory defect with an FEV1 of 72% predicted. There is some bronchodilator response, but not clinically significant by strict ATS criteria. Spirograms are of good quality and plateau slowly, indicating slowly emptying areas of the lungs. The respiratory flow volume loop shows decreased expiratory flow rates at high lung volumes consistent with small airways obstruction. Lung volumes by body plethysmography show a decreased total lung capacity at 3.5 L, 72% predicted. All other lung volumes are reduced symmetrically. Diffusion capacity by carbon monoxide is normal at 89% predicted. The airway resistance is slightly elevated. No previous pulmonary function tests were available for review. Impression: Mild restrictive ventilatory defect with relatively preserved diffusion capacities and some stigmata of possible small airways disease
== END | disposition home or self-care (01) ==
LOC: PSN 08:02
PROVIDERS: PCP Family Medicine; Referring Provider Internal Medicine Critical Care Medicine; Visit Provider Internal Medicine Critical Care Medicine
DX: R05.3 Chronic cough (principal)
CPT/HCPCS: 94060; 94726; 94729

== ENCOUNTER → 2022-11-26 | Outpatient (CLI) | payer OTHER, SELFPAY ==
--- NOTE | 2022-11-26 10:00 | CT_ITS ---
STUDY: CT CHEST WITHOUT CONTRAST REASON FOR EXAM: Female, 46 years old. Bilateral pleural effusions following trauma -- Include exam for greenstick rib fx RADIATION DOSAGE (If Supplied By Facility): CTDIvol = ( 15.44 ) mGy, DLP = ( 601.81 ) mGycm TECHNIQUE: Transaxial imaging was performed without the administration of intravenous contrast material. Multiplanar coronal and sagittal images were reformatted. Individualized dose optimization techniques were used for this CT. COMPARISON: Comparison is made with prior study date October 22, 2021. FINDINGS: CHEST Mild degree of increased linear markings in the lingular segment of the left upper lobe suggestive of scarring and/or atelectasis. There is no demonstrated pleural abnormality. Mild degree of coronary artery calcification Normal mediastinum. Normal hilar regions. Normal unenhanced pulmonary arteries. Normal aorta arch and descending thoracic aorta. Normal osseous structures. Small hiatal hernia. CT/Chest without Contrast IMPRESSION: Mild degree of linear scarring in the lingular segment of the left upper lobe. Electronically Signed: Yohan Montalvo MD at 15:09 EDT ,
== END | disposition home or self-care (01) ==
LOC: CT 09:57
PROVIDERS: PCP Family Medicine; Referring Provider Internal Medicine Critical Care Medicine; Visit Provider Internal Medicine Critical Care Medicine
DX: R05.3 Chronic cough (principal)
CPT/HCPCS: 71250

== ENCOUNTER → 2023-03-04 | Day surgery (SDC) | payer OTHER, SELFPAY ==
--- OUTSIDE RECORDS SUMMARY | 2023-03-04 08:44 | XMS RPT_ITS | CCD ---
Author Name Unknown Address [address] [place] [address] Organization [facility] Care Team Providers Care General Office Assistant Name Role Phone Kiersten Walsh DC Unavailable Ilsa Dhillon Unavailable Unavailable Ilsa Dhillon Unavailable Unavailable Ilsa Dhillon Unavailable Unavailable Allergies Allergy Classification Reported Allergen(s) Allergy Type Date of Onset Reaction(s) Facility (4 sources) ceftriaxone drug allergy 7 redness pain [facility] Work Phone: Medications Completed/Discontinued Medications Medication Drug Class(es) Dates Sig (Normalized) Sig (Original) azithromycin 500 mg injection (5 sources) Macrolide Antimicrobial Start: 09-09-2009 End: 09-14-2009 take 1 tablet by mouth once daily ZITHROMAX 500 MG TABS One tablet by mouth daily AZITHROMYCIN [id number] Chris Black MD B COMPLEX VITAMINS (4 sources) Start: 09-07-2016 B COMPLEX-B12 TABS 1 daily B COMPLEX VITAMINS [id number] Kiersten Walsh DC PEDIATRIC [id number] (4 sources) Start: 09-07-2016 CHEWABLES MULTIVITAMIN CHEW 1 daily PEDIATRIC MULTIVIT-MINERALS- C [id number] Kiersten Walsh DC Problems Problem Classification Problem Date Documented Da te Episodic/Chronic Other bone disease and musculoskeletal deformities (6 sources) Segmental and somatic dysfunction; Translations: [Segmental and somatic dysfunction of lumbar region] Onset: 09-07-2016 10-06-2016 Episodic Other upper respiratory infections (5 sources) Acute pharyngitis; Translations: [Acute pharyngitis, unspecified] Onset: 09-09-2009 09-09-2009 Episodic Results Test Name Value Interpretation Reference Range Facil ity Vital Signs Date Time Vital Sign Value Performing Clinician Facility 09-07-2016 08:39-0400 BMI (Body Mass Index) 39.68 kg/m2 Ilsa Dhillon [facility] Work Phone: 09-07-2016 08:39-0400 Pulse (Heart Rate) 82 /min Ilsa Dhillon [facility] Work Phone: 09-07-2016 08:39-0400 Respiratory Rate 18 /min Ilsa Dhillon [facility] Work Phone: 09-07-2016 08:39-0400 Weight 101.61 kg Ilsa Dhillon [facility] Work Phone: 09-09-2009 16:38-0400 Body Temperature 98.5 [degF] Ilsa Dhillon [facility] Work Phone: 09-09-2009 16:38-0400 BP Diastolic 84 mm[Hg] Ilsa Dhillon [facility] Work Phone: 09-09-2009 16:38-0400 BP Systolic 126 mm[Hg] Ilsa Dhillon [facility] Work Phone: 09-09-2009 16:38-0400 Height 160.02 cm Ilsa Dhillon [facility] Work Phone: 09-09-2009 16:38-0400 Pulse (Heart Rate) 88 /min Ilsa Dhillon [facility] Work Phone: 09-09-2009 16:38-0400 Pulse Oximetry 100 % Ilsa Turpinimes [facility] Work Phone: 09-09-2009 16:38-0400 Respiratory Rate 16 /min Ilsa Turpinimes [facility] Work Phone: 09-09-2009 16:38-0400 Weight 86.18 kg Ilsa [facility] Work Phone: Procedures Date Procedure Procedure Detail Performing Clinician Start: 10-06-2016 End: 10-06-2016 Chiropract manj 1-2 regions Kiersten James Dossi DC Work Phone: Start: 10-06-2016 End: 10-06-2016 Electric stimulation therapy Kiersten James Dossi DC Work Phone: Start: 10-06-2016 End: 10-06-2016 Mechanical traction therapy Kiersten James Dossi DC Work Phone: Start: 09-07-2016 End: 09-07-2016 Chiropract manj 1-2 regions Kiersten James Dossi DC Work Phone: Start: 09-07-2016 End: 09-07-2016 Electric stimulation therapy Kiersten James Dossi DC Work Phone: Start: 09-07-2016 End: 09-07-2016 Mechanical traction therapy Kiersten James Dossi DC Work Phone: Plan of Treatment Date Care Activity Detail Author Start: 10-06-2016 End: 10-06-2016 Appointment Appointment [facility] Work Phone: Start: 09-07-2016 End: 09-07-2016 Appointment Appointment [facility] Work Phone: [facility] Work Phone: Additional Source Comments FOR RECORDS PERTAINING TO PATIENTS WHO ARE OR HAVE BEEN ENROLLED IN A CHEMICAL DEPENDENCY/SUBSTANCEABUSE PROGRAM, SOME INFORMATION MAY BE OMITTED. This clinical summary was aggregated from multiple sources. Caution should be exercised in using it in the provision of clinical care. This summary normalizes information from multiple sources, and as a consequence, information in this document may materially change the coding, format and clinical context of patient data. In addition, data may be omitted in some cases. CLINICAL DECISIONS SHOULD BE BASED ON THE PRIMARY CLINICAL RECORDS. [email or web address] provides no warranty or guarantee of the accuracy or completeness of information in this document.
[2023-03-04 08:57] VITALS: BP 191/77; PULSE 80; RESP 16; TEMP 36.4; O2SAT 99
[2023-03-04] MEDS: Lidocaine Jelly 2% 20 ML Syringe (URO-JET) 1 APPLIC (09:00)
== END | disposition home or self-care (01) ==
LOC: EN 08:39
PROVIDERS: PCP Family Medicine; Referring Provider Internal Medicine Gastroenterology; Visit Provider Internal Medicine Gastroenterology
PROC: F00ZJWZ Instrumental Swallowing and Oral Function Assessment using Swallowing Equipment (ICD-10-PCS; CPT 43235; principal; 2023-03-04 08:55)
DX: K22.2 Esophageal obstruction (principal)
CPT/HCPCS: 91010

== ENCOUNTER → 2023-03-17 | Outpatient (CLI) | payer OTHER, SELFPAY ==
--- NOTE | 2023-03-17 | EMB_PTH ---
PATHOLOGY RESULTS PATIENT: ARTURO MARKS LOC: [facility] U#:[id number] AGE/SX: 47/F ROOM: RE03/17/[address]: NAVIN North : 1975 BED: DIS: 03/17/2023 SPEC #: [id number] RECD: 03/17/23 11:36 STATUS: BRADY REAlicia #: [id number] YOLANDE: 03/17/23 00:[address]: Mckenzie Mai NP DEPT: SURGICAL PATHOLOGY RECD BY: Blanche Goldman ENTERED: 03/17/23 11:36 SP TYPE: ENDOM BX/C RK DR: Dr. Dominic Weaver MD Tissues: Endometrium, NOS Procedures: Surgery Specimen Level IV HEADER OPERATION: Endometrial biopsy PRE-OP DIAGNOSIS: Abnormal uterine bleeding TISSUE SUBMITTED: Endometrial tissue MICROSCOPIC DIAGNOSIS Endometrial biopsy: Consistent with exogenous hormone effects. See comment. JENNIFER:tammy 03/18/2023 COMMENT Clinical correlation and appropriate follow up are necessary. MICROSCOPIC DESCRIPTION Slides are reviewed. GROSS DESCRIPTION Received is one container labeled with the patient's name and not further designated. The specimen consists of multiple fragments of hemorrhagic soft tissue that in aggregate measure 2.0 x 2.0 x 0.1 cm. The specimen is totally submitted in one cassette. / SJ:tammy 03/17/2023 :5 [facility]: [id number]
--- OUTSIDE RECORDS SUMMARY | 2023-03-17 11:32 | XMS RPT_ITS | CCD ---
Author Name Unknown Address [address] [place] [address] Organization [facility] Care Team Providers Care Greaser Operator Name Role Phone Kiersten Walsh DC Unavailable [...] TABS One tablet by mouth daily AZITHROMYCIN [id number] Chris Black MD B COMPLEX VITAMINS (4 sources) Start: 09-07-2016 B COMPLEX-B12 TABS 1 daily B COMPLEX VITAMINS [id number] Kiersten Walsh DC PEDIATRIC [id number] (4 sources) Start: 09-07-2016 CHEWABLES MULTIVITAMIN CHEW 1 daily PEDIATRIC MULTIVIT-MINERALS- C [id number] Kiersten Walsh DC Problems Problem Classification Problem [...] (Body Mass Index) 39.68 kg/m2 Ilsa Dhillon [facility] Work Phone: 09-07-2016 08:39-0400 Pulse (Heart Rate) 82 /min Ilsa Dhillon [facility] Work Phone: 09-07-2016 08:39-0400 Respiratory Rate 18 /min Ilsa Dhillon [facility] Work Phone: 09-07-2016 08:39-0400 Weight 101.61 kg Ilsa Dhillon [facility] Work Phone: 09-09-2009 16:38-0400 Body Temperature 98.5 [degF] Ilsa Dhillon [facility] Work Phone: 09-09-2009 16:38-0400 BP Diastolic 84 mm[Hg] Ilsa Dhillon [facility] Work Phone: 09-09-2009 16:38-0400 BP Systolic 126 mm[Hg] Ilsa Dhillon [facility] Work Phone: 09-09-2009 16:38-0400 Height 160.02 cm Ilsa Dhillon [facility] Work Phone: 09-09-2009 16:38-0400 Pulse (Heart Rate) 88 /min Ilsa Dhillon [facility] Work Phone: 09-09-2009 16:38-0400 Pulse Oximetry 100 % Ilsa Turpinimes [facility] Work Phone: 09-09-2009 16:38-0400 Respiratory Rate 16 /min Ilsa Turpinimes [facility] Work Phone: 09-09-2009 16:38-0400 Weight 86.18 kg Ilsa [facility] Work Phone: Procedures Date Procedure Procedure [...] Author Start: 10-06-2016 End: 10-06-2016 Appointment Appointment [facility] Work Phone: Start: 09-07-2016 End: 09-07-2016 Appointment Appointment [facility] Work Phone: [facility] Work Phone: Additional Source Comments [...] BE BASED ON THE PRIMARY CLINICAL RECORDS. [email or web address] provides no warranty or guarantee of the accuracy or completeness of information in this document.
== END | disposition home or self-care (01) ==
LOC: LABSPEC 11:08
PROVIDERS: PCP Family Medicine; Referring Provider Nurse Practitioner Women's Health; Visit Provider Nurse Practitioner Women's Health
DX: N93.9 Abnormal uterine and vaginal bleeding, unspecified (principal)
CPT/HCPCS: 88305

== ENCOUNTER → 2023-06-09 | Outpatient (CLI) | payer OTHER, SELFPAY ==
--- NOTE | 2023-06-09 07:10 | BI_ITS ---
MAMMOGRAPHY - BILATERAL SCREENING REASON FOR EXAM: Female, 47 years old. Routine annual screening examination. PERTINENT HISTORY: Non-contributory. TECHNIQUE: Digital bilateral breast lev (3D mammographic acquisition) in the CC and MLO projections. 2-D mediolateral oblique (MLO) and craniocaudad (CC) views of both breasts were obtained. CAD: Full Field Digital Mammography with Computer Added Detection was performed. COMPARISON: Comparison is made with prior study of June 01, 2022 and March 21, 2021. FINDINGS: Breast Composition: The breasts are heterogeneously dense, which may obscure small masses. There are no dominant masses or suspicious calcifications. Stable benign-appearing bilateral axillary lymph nodes. No other significant abnormalities are identified. There has been no significant change since the prior study. BI/SCRN MAMM (CAD)W/LEV BILAT IMPRESSION: Stable bilateral screening mammogram. Yearly follow-up mammogram recommended. (A) ASSESSMENT CATEGORY: BIRADS Category 2: Benign. A letter regarding these results will be sent to the patient by the facility within 30 days. Approximately 10% of breast cancers are not detected by mammography. A normal mammogram should not delay biopsy of a clinically suspicious abnormality. [id number] Electronically Signed: Yohan Montalvo MD at 7:58 EDT ,
== END | disposition home or self-care (01) ==
LOC: OPBI 07:10
PROVIDERS: PCP Family Medicine; Referring Provider Obstetrics & Gynecology; Visit Provider Obstetrics & Gynecology
DX: Z12.31 Encounter for screening mammogram for malignant neoplasm of breast (principal)
CPT/HCPCS: 77063; 77067

== ENCOUNTER 2023-06-10 08:18 | Day surgery (SDC) | payer OTHER, SELFPAY ==
[2023-06-10] VITALS (7 sets, daily range): BP systolic 98–130; BP diastolic 56–72; PULSE 81–93; RESP 16–18; TEMP 36.1–37.1; O2SAT 95–99; BMI 46.0
[2023-06-10] MEDS: Lactated Ringers 1,000 ML 15 ML IV (08:44)
--- NOTE | 2023-06-10 10:09 | HP.PCM_ITS ---
History and Physical Date of Admission: 06/10/23 ARTURO MARKS, is a 47 F who presents to the office today for *BGI established 02.24.22 with atypical CP since . Cardiology workup without finding and referred to GI. No particular timing or trigger identified. ? US abd 02.25.22 heterogeneous nodule right liver 3.6x2.97x2.8cm, hemangioma, recommend CT. ? CT abd/pel 03.12.22 2.6x2.6cm hepatic hemangioma. ? HIDA 03.26.22 EF 84%; duodenal gastric reflux. ? EGD and colonoscopy 04.28.22 EGD irregular Zline 37cm; tortuous esophagus; esophageal spasm. No path changes. ? Colonoscopy poor prep; tortuous transverse colon. OV 05.18.22 possible EOE; Start Dupixent. ? Biochemical RAST without pertinent abnormality. Contact 05.21.22 Dupixent denied; Start budesonide slurry. OV 09.21.22 doing well overall. [place] budesonide slurry worsened her symptoms; feels symptoms are food related. Start zero carb diet OV 02.23.23 continues to have chest discomfort with indigestion once every several weeks which is an improvement from every day. ROS Const Constitutional: No fatigue, fever(s), frequent falls, headache(s) or weight change ENT ENT: No headache(s) or difficulty swallowing Cardio Cardiology: No leg pain with exertion Gastro GI: Positive for constipation and heartburn; No abdominal pain, bloating, change in bowel habits, diarrhea, difficulty swallowing, Vomiting blood/hematemesis, Blood in stool, nausea/dyspepsia or vomiting Musc Musculoskeletal: No abnormal gait, joint pain, back pain, joint swelling, muscle cramps, muscle weakness, numbness, stiffness, tingling, Arthritis, sciatica, leg pain at night or leg pain with exertion Skin Skin: No dry skin, lesions, itchy eyes or rash Neuro Neurology: No abnormal gait, dizziness, frequent falls, headache(s), numbness, tingling, tremor(s), Increased tone in limbs, paralysis or seizures Psych Psychiatric: No anxiety, No depression, No paranoia, No Behavioral Problems, No Compulsive Behavior, No hyperactivity, No inattentiveness, No obsessions/compu lsions, No Temper Tantrums and No suicidal ideation Endo Endocrine: No fatigue or weight change Aller/Imm Allergy/Immunologic: No itchy eyes Santos/Lymp Hematologic/Lymphatic: No easy bleeding or easy bruising Exam Const General: cooperative Orientation: alert and awake Chest Chest palpation & inspection: tenderness rib (Just below left breast radiating to the left mid axillary line) Other: No crepitus or deformity upon palpation of the left chest wall. Resp Effort & Inspection: normal respiratory effort and able to speak in complete sentences Cardio Rate: regular rate Pulses: radial pulses present Skin General: no rashes or lesions noted Neuro General: patient alert Cognition: normal cognition Extrem General: normal to inspection Other: Normal range of motion to left shoulder with negative Apley scratch and crossarm testing. Psych Appearance: grossly normal Quality Reporting Tobacco Screening ([facility] 138) Smoking Status: Never smoker Assessment and Plan Assessment and Plan (1) Body mass index (BMI) of 40.1 to 44.9 in adult: Status: Chronic (2) Chest pain: Status: Chronic Qualifiers: Chest pain type: other chest pain Qualified Code(s): R07.89 - Other chest pain Plan: I suspect that some of the chest pain that she gets intermittently is secondary to diffuse esophageal spasm or esophageal dysmotility disorder. At this time she is not on any antiacid or antisecretory therapy due to the fact that she is not having any reflux symptoms associated with this chest pain. She did have some worsening symptoms after she had a work-related accident which resulted in possible fracture and effusions. She says that part is a lot better but she still does get intermittent chest discomfort that lasts a few seconds then goes away. Once we have the esophageal manometry we will know more but better regarding if the esophagus is attributing to her chest pain. I have examined the patient and the H&P has been reviewed. There are no clinical changes since date of exam.
[2023-06-10] MEDS: Botulinum Toxin A 100 Units Vial IJ (10:24)
[2023-06-10] MEDS: 0.9% Normal Saline (Pres. free 10 ML Vial (10:25)
[2023-06-10] MEDS: 0.9% Saline Lock 10 ML Syringe IV (10:26)
--- NOTE | 2023-06-10 10:32 | OP.EGD_ITS ---
Patient Name: Emmanuelle Simon Procedure Date: 06/10/2023 10:15 AM Date of : 1975 Age: 47 Procedure: Upper GI endoscopy Indications: Chest pain (non cardiac) Providers: DO Radha Lloyd MD: Dominic Weaver MD Medicines: Monitored Anesthesia Care Complications: No immediate complications. Procedure: Pre-Anesthesia Assessment: - Prior to the procedure, a History and Physical was performed, and patient medications and allergies were reviewed. The patient is competent. The risks and benefits of the procedure and the sedation options and risks were discussed with the patient. All questions were answered and informed consent was obtained. Patient identification and proposed procedure were verified by the physician in the pre-procedure area. Mental Status Examination: alert and oriented. Airway Examination: normal oropharyngeal airway and neck mobility. Respiratory Examination: clear to auscultation. CV Examination: normal. Prophylactic Antibiotics: The patient does not require prophylactic antibiotics. Prior Anticoagulants: The patient has taken no anticoagulant or antiplatelet agents. ASA Grade Assessment: II - A patient with mild systemic disease. After reviewing the risks and benefits, the patient was deemed in satisfactory condition to undergo the procedure. The anesthesia plan was to use monitored anesthesia care (MAC). Immediately prior to administration of medications, the patient was re-assessed for adequacy to receive sedatives. The heart rate, respiratory rate, oxygen saturations, blood pressure, adequacy of pulmonary ventilation, and response to care were monitored throughout the procedure. The physical status of the patient was re-assessed after the procedure. After obtaining informed consent, the endoscope was passed under direct vision. Throughout the procedure, the patient's blood pressure, pulse, and oxygen saturations were monitored continuously. The Endoscope was introduced through the mouth, and advanced to the second part of duodenum. The upper GI endoscopy was accomplished without difficulty. The patient tolerated the procedure well. Scope In: 10:18:02 AM Scope Out: 10:24:52 AM Total Procedure Duration Time 0 hours 6 minutes 50 seconds Findings: Abnormal motility was noted in the upper third of the esophagus and in the middle third of the esophagus. The cricopharyngeus was normal. There is spasticity of the esophageal body. The distal esophagus/lower esophageal sphincter is spastic, but gives up passage to the endoscope. Secondary peristaltic waves are noted. Area was successfully injected with 100 units botulinum toxin. The entire examined stomach was normal. The second portion of the duodenum was normal. Impression: - Abnormal esophageal motility, established esophageal spasm. Injected with botulinum toxin. - Normal stomach. - Normal second portion of the duodenum. - No specimens collected. Recommendation: - Discharge patient to home. - Resume regular diet. - Continue present medications. Procedure Code(s): --- Professional --- 37880, Esophagogastroduodenoscopy, flexible, transoral; with directed submucosal injection(s), any substance CPT copyright 2021 [employer]. All rights reserved. The codes documented in this report are preliminary and upon grease press helper review may be revised to meet current compliance requirements. Louis Felix DO 06/10/2023 10:32:23 AM This report has been signed electronically. Number of Addenda: 0 Note Initiated On: 06/10/2023 10:15 AM
--- NOTE | 2023-06-10 10:33 | OP.CCLET_ITS ---
06/10/2023 Dominic Weaver MD [address] [id number] Re : Upper GI endoscopy procedure for Emmanuelle Alfred Dear Dr. Weaver This procedure was performed on June. My impressions and recommendations are as follows: Impressions : - Abnormal esophageal motility, established esophageal spasm. Injected with botulinum toxin. - Normal stomach. - Normal second portion of the duodenum. - No specimens collected. Recommendations : - Discharge patient to home. - Resume regular diet. - Continue present medications. My findings are described in the full procedure note, which is enclosed. If I can be of further assistance, please feel free to contact me at . Sincerely, Louis Felix, 06/10/2023 10:32:23 AM This report has been signed electronically.
== END 2023-06-10 11:09 | disposition home or self-care (01) ==
LOC: EN 08:18 → AC 09:31
PROVIDERS: PCP Family Medicine; Referring Provider Family Medicine; Visit Provider Internal Medicine Gastroenterology
PROC: 0DJ08ZZ Inspection of Upper Intestinal Tract, Via Natural or Artificial Opening Endoscopic (ICD-10-PCS; CPT 43235; principal; 2023-06-10 09:25)
DX: K22.4 Dyskinesia of esophagus (principal); K20.0 Eosinophilic esophagitis
CPT/HCPCS: 43236; J7120; A4216; J0585; J2405; J3490

== ENCOUNTER 2023-07-05 05:05 | Emergency (ER) | payer OTHER, SELFPAY ==
[2023-07-05 05:06] VITALS: BP 150/93; PULSE 103; RESP 20; TEMP 36.6; O2SAT 98; BMI 45.7
--- NOTE | 2023-07-05 05:12 | RAD_ITS ---
EXAM: XR LEFT ELBOW COMPLETE, 3 OR MORE VIEWS CLINICAL INDICATION: injury TECHNIQUE: Frontal, lateral and oblique views of the left elbow. COMPARISON: No relevant prior studies available. FINDINGS: BONES/JOINTS: Intra-articular radial head fracture, minimally displaced. Joint effusion. Preservation of the joint space. No destructive or sclerotic lesions. SOFT TISSUES: Unremarkable. No soft tissue swelling or gas. No radiopaque foreign body. RAD/Elbow min 3 Views IMPRESSION: Intra-articular radial head fracture, minimally displaced. Electronically Signed: Abdirashid Gallardo MD at 6:06 EDT ,
--- NOTE | 2023-07-05 05:13 | EDS_ITS ---
HPI History of Present Illness Chief Complaint: Upper Extremity Injury Informant: patient Occured/Mechanism Mechanism/Context: Yes fall Onset/Context/Timing Onset: Yesterday Narrative Narrative: Patient presents secondary to left elbow pain after a fall. She was rollerskating yesterday when she fell landing on her left elbow. She has had increasing pain and decreased range of motion. She took ibuprofen approximately 14 hours ago, but nothing since. She reports some stiffness in her shoulder and wrist. She is right-hand dominant. No paresthesias. No other significant injury from the fall. [facility] Medical History Alcohol use Atypical chest pain Bee sting Cardiology follow-up encounter CPAP (continuous positive airway pressure) dependence Eosinophilic esophagitis Esophageal dysmotility History of echocardiogram History of edema History of stress test Left shoulder strain Migraine headache [place] injury accident with exposure to body fluid Non-smoker ROMAINE (obstructive sleep apnea) Right arm cellulitis Segmental and somatic dysfunction of cervical region Segmental and somatic dysfunction of lumbar region Segmental and somatic dysfunction of thoracic region Strain of left rotator cuff capsule Strain of left trapezius muscle Tonsillar abscess Wears contact lenses Wears glasses Home Medications oxycodone 5 mg tablet 5 mg PO Q6H PRN pain 3 days #12 tabs 07/05/23 [Rx Last Taken Unknown] Allergy/AdvReac Type Severity Reaction Status Date / Time ceftriaxone sodium Allergy Hives Verified 07/05/23 05:08 [From Rocephin] Family History Sister ROMAINE (obstructive sleep apnea) Grandfather Cancer lung Grandmother Heart disease Diabetes Sister ROMAINE (obstructive sleep apnea) Sister ROMAINE (obstructive sleep apnea) Mitral valve prolapse Sinus tachycardia Mother Cholangiocarcinoma, Onset Age: 67 Surgical History delivery delivered H/O shoulder surgery History of esophagogastroduodenoscopy (EGD) Hx of tubal ligation Social History Smoking Status: Never smoker alcohol intake: never substance use type: does not use caffeine: No what type of physical activity do you participate in: running and weight training frequency: 1-2 times per week seatbelt use: always do you feel safe at home: Yes additional social history: - Mir 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 [employer] ROS ROS ED Constitutional Constitutional ED: Denies chills or fever(s) ENT ENT ED: Denies rhinorrhea or sore throat Cardiovascular Cardiovascular: Denies chest pain Respiratory/Chest Respiratory/Chest: Denies cough or dyspnea Gastrointestinal Gastrointestinal: Denies abdominal pain, nausea or vomiting Musculoskeletal Musculoskeletal: Reports extremity pain; Denies back pain Integumentary Denies Abrasions or rash Neurologic Neurologic: Denies paresthesias or weakness Psychiatric Psychiatric: Denies anxiety or depression Allergic/Immunologic Allergic/Immunologic ED: Denies lip swelling or urticaria EXAM Physical Exam Const Vital Signs: 07/05/23 05:06 Temperature 97.8 F Temperature Source Oral Pulse Rate 103 H Respiratory Rate 20 H Blood Pressure 150/93 H Blood Pressure Mean 112 Pulse Ox 98 Oxygen Delivery Method Room Air Positive well nourished and well developed General Appearance ED: well developed HEENT Reports moist mucous membranes Eyes EOMs intact bilaterally Neck full ROM Chest Wall inspection of chest normal and palpation of chest normal Resp normal respiratory effort and clear to auscultation bilaterally Cardio regular rate and regular rhythm GI non-tender Palpation: soft Extremity Extremity Narrative: Mild diffuse tenderness around the wrist. No focal tenderness to the olecranon. Good distal pulses with strong hand grasp. No focal tenderness at the shoulder. Clavicle is nontender. Neuro oriented x3 Neuro Narrative: Minimal pain with pronation and supination of the left hand. Increased pain limits flexion and extension of the left elbow but no focal deficits appreciated. Psych mental status grossly normal MDM MDM MDM Narrative Medical decision making narrative: Ice pack placed to the left elbow and patient given ibuprofen. Left elbow x- rays obtained to evaluate for potential fracture. Differential diagnosis includes sprain, strain, contusion. Treatment and Re-Evaluation Narrative: Left elbow x-rays per my interpretation appear to show a nondisplaced radial head fracture. Radiology interpretation is reviewed and agreed. Images are reviewed with the patient. She is placed in a posterior splint with a sugar- tong. Following splint application she can wiggle fingers and has good sensation. She will be given a sling. I will write her a prescription for oxycodone to have for breakthrough pain, but she wants to try to use just Tylenol and ibuprofen. She was seen previously by [facility] and will follow-up with them. She will be given a work note for no use of left upper extremity until cleared by Ortho. Return instructions provided. Discharge Plan Triage Chief Complaint: Upper Extremity Injury ED Provider: Margy Lanza Dx/Rx/DC Orders Clinical Impression: Radial head fracture, Fall Instructions: ED Elbow Fracture Prescriptions: New oxycodone 5 mg tablet 5 mg PO Q6H PRN (Reason: pain) 3 Days Qty: 12 0RF Stand Alone Forms: Work / School Excuse Primary Care Provider: Dominic Weaver Referrals: Dominic Weaver MD [Primary Care Provider] - Miguelito Anthony MD [Med Staff - Active Staff] - 5-7 Days Disposition Disposition: Home, Self Care
[2023-07-05] MEDS: Ibuprofen 600 MG Tablet PO (05:23)
[2023-07-05 06:28] VITALS: BP 140/79; PULSE 83; RESP 16; TEMP 36.8; O2SAT 97
== END 2023-07-05 06:28 | disposition home or self-care (01) ==
PROVIDERS: Emergency Provider Emergency Medicine; PCP Family Medicine; Visit Provider Emergency Medicine
DX: S52.122A Displaced fracture of head of left radius, initial encounter for closed fracture (principal); V00.121A Fall from non-in-line roller-skates, initial encounter; Y93.51 Activity, roller skating (inline) and skateboarding
CPT/HCPCS: 29125; 73080; 99283

== ENCOUNTER → 2023-07-23 | Outpatient (CLI) | payer OTHER, SELFPAY ==
--- NOTE | 2023-07-23 07:22 | RAD_ITS ---
STUDY: X-RAY - LEFT ELBOW REASON FOR EXAM: Female, 47 years old. Nondisplaced fracture of head of left radius, initial encounter f TECHNIQUE: 3 view(s) of the elbow. COMPARISON: Comparison is made with prior study dated July 05, 2023. FINDINGS: Stable minimally depressed fracture of the radial head. This is unchanged. Normal radiocapitellar and ulnotrochlear articulations. The joint effusion as clear. RAD/Elbow min 3 Views IMPRESSION: Stable intra-articular radial head fracture. Electronically Signed: Yohan Montalvo MD at 13:56 EDT ,
== END | disposition home or self-care (01) ==
LOC: RAD.FUTURE 07:19 → RAD 07:20
PROVIDERS: PCP Family Medicine; Referring Provider Student in an Organized Health Care Education/Training Program; Visit Provider Student in an Organized Health Care Education/Training Program
DX: S52.125A Nondisplaced fracture of head of left radius, initial encounter for closed fracture (principal); X58.XXXA Exposure to other specified factors, initial encounter
CPT/HCPCS: 73080

== ENCOUNTER → 2023-08-12 | Outpatient (CLI) | payer OTHER, SELFPAY ==
--- NOTE | 2023-08-12 17:10 | RAD_ITS ---
STUDY: X-RAY - LEFT ELBOW REASON FOR EXAM: Female, 47 years old. NONDISP FX OF HEAD OF 1 RAD,SUBS FOR CLOS FX W ROUTN HEAL/PAIN IN TECHNIQUE: 3 view(s) of the elbow. COMPARISON: 07/05/2023, 07/23/2023. FINDINGS: Again seen is fracture through the radial head with no significant displacement. Since prior exam changes consistent with mild healing are seen. No effusion. Normal appearance of the visualized humerus and ulna. RAD/Elbow min 3 Views IMPRESSION: Mild interval healing of radial head fracture which is in similar position and alignment since prior exams. Electronically Signed: Jorge Calixto MD at 22:56 EDT ,
== END | disposition home or self-care (01) ==
PROVIDERS: PCP Family Medicine; Referring Provider Student in an Organized Health Care Education/Training Program; Visit Provider Student in an Organized Health Care Education/Training Program
DX: S52.125D Nondisplaced fracture of head of left radius, subsequent encounter for closed fracture with routine healing (principal); M25.522 Pain in left elbow; X58.XXXD Exposure to other specified factors, subsequent encounter
CPT/HCPCS: 73080

== ENCOUNTER 2023-09-30 16:30 | Outpatient (RCR) | payer OTHER, SELFPAY ==
--- NOTE | 2023-08-25 18:07 | HP.OTEVAL_ITS ---
Patient's Visit Information Visit Information Visit Information: ARTURO MARKS is a 47 year old F, referred to Occupational Therapy by Maurilio Ott PA-C, with a diagnosis of L proximal radius fx. Date of Evaluation: 08/25/23 Occupational Therapist: Evelia Aguilar Subjective Subjective: This 47 year old female with referral to OT due to fall after rollerskating landing on L side proximal head of radius fx 07/04/23. pt was in splint and sling for approx 1 week. closed fx no surgery. Pt is R hand dominant. pt went to [facility] office to see Damon August 12 with x ray fx present however healing. 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 pt states she has been out of splint since August 12. Pt main concern at this time is pain and progression to strengthening. Pain L elbow: Current Pain Intensity: 2 Objective Objective/Observation: pt arrives this date moving L elbow well functionally. no ROM limitations noted ROM Shoulder: wfl Elbow: L 0/130 R 0/130 Forearm: L supination 60 degrees and R supination 65 degrees pronation wfl BUEs Wrist: wfl ROM Comments: tightness felt during wrist extension Strength Shoulder: L 18.8 R 30 pounds flexion L 11.7 and R 25.5 abduction Strength Comments: to test elbow and forearm at later date Sensation Sensation Comments: denies Quick DASH-Disab of Arm,Shoulder& Hand Quick DASH Score: 25.0000 Goals Goal:: pt will increase L shoulder flexion anterior deltoid strength equal to or greater than non affected side (30#) in order to promote return to hobbies and IADL tasks pt will increase L shoulder abduction middle deltoid strength equal to or greater than non affected side (25.5) in order to promote return to hobbies and IADL tasks pt will increase L tricep strength equal to or greater than non affected side in order to promote return to hobbies and IADL tasks pt will increase L bicep strength equal to or greater than non affected side in order to promote return to hobbies and IADL tasks Goal:: pt will increase L forearm supination equal to or greater than non affected side (65 degrees) in order to return to IADL task Goal:: pt will report 0/10 pain with movement L elbow in order to promote completion of ADL IADL and work related tasks Goal:: pt will verbalize/ demonstrate 100% accuracy in proper joint protection and positioning within 4 weeks Goal:: pt will improve quick dash score by 5 or more points (25) in order to increase functional use of LUE during day to day tasks Goal:: Pt will verbalize/ demonstrate 100% accuracy in HEP provided by 4th session Rehabilitation General Assessment: This 47 year old female arrives this date s/p L elbow fx now 7 weeks and 3 days out since injury. pt has equal AROM at elbow slight difference noted in supination of LUE. pt does present with pain at 2/10 with movement of L elbow. Pt reports some ache at shoulder and tightness felt in wrist with extension. This pt would benefit from OT services 1-2x a week for 4-6 weeks in order to promote pain management, forearm ROM, and progression of strengthening and return to functional tasks. Rehabilitation Potential: Good Anticipated Interventions Anticipated Interventions: A/AAROM/PROM, Strengthening, Triggerpoint Release, Modalities, Joint Protection/Energy Conservation, Education re Diagnosis and Home Program Visit Plan Frequency: 1-2x /Week Duration: 4-6 Weeks General Plan: AROM/AAROM/PROM modalities pain management trigger point massage progression of strengthening TEXT: Thank you for the opportunity to evaluate your patient. For Medicare and Medicare HMO plans, please review the plan of care and approve it. It will need to be FAXED BACK to us at [phone] for Medicare purposes. Please let me know if there are questions or concerns regarding this plan of care. Physician S ignature: Date:
--- NOTE | 2023-09-30 17:01 | HP.OTDCSUM ---
Discharge Summary D/C Summary: It has been my pleasure to treat ARTURO MARKS under orders from Maurilio Ott PA-C, for the diagnosis of L proximal radius fx for a total of 11 visit(s). Please see the following information for a summary of their discharge status. Overall Improvement % Improvement: 95 Goals Patient Goals: Regain Strength, Decrease Pain, Use Hand/Wrist/Arm Normally Again, Increase ROM, Resume Former Household Responsibilities (Cooking,Cleaning,Yard, etc.) and Resume Hobbies Goal:: pt will increase L shoulder flexion anterior deltoid strength equal to or greater than non affected side (30#) in order to promote return to hobbies and IADL tasks 39.9# GOAL MET pt will increase L shoulder abduction middle deltoid strength equal to or greater than non affected side (25.5) in order to promote return to hobbies and IADL tasks 28.1 GOAL MET pt will increase L tricep strength equal to or greater than non affected side in order to promote return to hobbies and IADL tasks 38.7 L and R 44.1# NOT MET pt will increase L bicep strength equal to or greater than non affected side in order to promote return to hobbies and IADL tasks LUE 43# R 41 # GOAL MET Goal:: pt will increase L forearm supination equal to or greater than non affected side (65 degrees) in order to return to IADL task GOAL MET Goal:: pt will report 0/10 pain with movement L elbow in order to promote completion of ADL IADL and work related tasks GOAL MET Goal:: pt will verbalize/ demonstrate 100% accuracy in proper joint protection and positioning within 4 weeks GOAL MET Goal:: pt will improve quick dash score by 5 or more points (25) in order to increase functional use of LUE during day to day tasks GOAL MET now 13.6 Goal:: Pt will verbalize/ demonstrate 100% accuracy in HEP provided by 4th session GOAL MET Plan Plan: dfischarge D/C Information d/c sentence: If there are questions or concerns regarding this patient's occupational therapy, please fell free to call me at [phone]. Thank you for the referral of this patient. Sincerely, Evelia Aguilar
--- NOTE | 2023-09-30 17:04 | HP.OT.NRP ---
Patient Information Patient Information: ARTURO MARKS was seen in my office for initial evaluation on 08/25/23. The following Plan of Care was established for this patient: POC Established Initial Frequency: 1-2x /Week Initial Duration: 4-6 Weeks Plan: dfischarge Anticipated Interventions Anticipated Interventions: A/AAROM/PROM, Strengthening, Triggerpoint Release, Modalities, Joint Protection/Energy Conservation, Education re Diagnosis and Home Program Last Seen Last Seen: This patient was last seen in our office 09/30/23. Pertinent comments regarding their Occupational therapy will appear below: this 47 year old female seen s/p elbow fx conservative management. pt has made progress in ROM as well as strength and return to functional use of LUE. pt in agreeance with discharge this date no further questions or concerns at this time. At this point I will be discontinuing this patient from occupational therapy. I would be happy to see this patient again in the future if found appropriate by the physician. Thank you! Evelia Aguilar
== END 2023-09-30 19:00 | disposition home or self-care (01) ==
LOC: OT 16:30
PROVIDERS: PCP Family Medicine; Referring Provider Physician Assistant; Visit Provider Physician Assistant
DX: S52.125D Nondisplaced fracture of head of left radius, subsequent encounter for closed fracture with routine healing (principal)
CPT/HCPCS: 97035; 97110; 97140; 97165; 97530

== ENCOUNTER → 2024-01-04 | Outpatient (CLI) | payer OTHER, SELFPAY ==
--- NOTE | 2024-01-04 14:50 | RAD_ITS ---
STUDY: X-RAY CHEST REASON FOR EXAM: Female, 48 years old. Cough, fatigue TECHNIQUE: PA and lateral views of the chest. COMPARISON: Comparison is made with prior study dated September 15, 2022. FINDINGS: Right middle lobe infiltrate. Mild increased markings at the right lung base with blunting of both costophrenic angles. Normal size heart. Normal mediastinum and tricia. Normal visualized pulmonary arteries. Normal visualized aortic arch and descending thoracic aorta. Normal visualized thoracic spine. Normal visualized ribs, clavicles, and shoulders. There is no demonstrated abnormality of the visualized soft tissue structures of the upper abdomen. RAD/Chest PA and Lateral IMPRESSION: Right middle lobe infiltrate. Mild increased markings at the left lung base with blunting of both costophrenic angles. Electronically Signed: Yohan Montalvo MD at 15:10 EDT ,
--- OUTSIDE RECORDS SUMMARY | 2024-01-04 19:44 | XMS RPT_ITS | CCD ---
Author Organization [facility] Care Team Providers Care Sex Crimes Detective Name Role Phone Kiersten Walsh DC Unavailable Ilsa Dhillon Unavailable Unavailable Ilsa Dhillon R Unavailable Unavailable Ilsa Dhillon Unavailable Unavailable Allergies Allergy Classification Reported Allergen(s) Allergy Type Date of Onset Reaction(s) Facility (4 sources) ceftriaxone drug allergy 7 redness pain [facility] Work Phone: Medications Completed/Discontinued Medications Medication Drug Class(es) Dates Sig (Normalized) Sig (Original) azithromycin 500 mg injection (5 sources) Macrolide Antimicrobial Start: 09-09-2009 End: 09-14-2009 take 1 tablet by mouth once daily ZITHROMAX 500 MG TABS One tablet by mouth daily AZITHROMYCIN [id number] Chris Black MD B COMPLEX VITAMINS (4 sources) Start: 09-07-2016 B COMPLEX-B12 TABS 1 daily B COMPLEX VITAMINS [id number] Kiersten Walsh DC PEDIATRIC [id number] (4 sources) Start: 09-07-2016 CHEWABLES MULTIVITAMIN CHEW 1 daily PEDIATRIC MULTIVIT-MINERALS- C [id number] Kiersten Walsh DC Problems Problem Classification Problem Date Documented Da te Episodic/Chronic Other bone disease and musculoskeletal deformities (6 sources) Segmental and somatic dysfunction; Translations: [Segmental and somatic dysfunction of lumbar region] Onset: 09-07-2016 10-06-2016 Episodic Other upper respiratory infections (5 sources) Acute pharyngitis; Translations: [Acute pharyngitis, unspecified] Onset: 09-09-2009 09-09-2009 Episodic Results Test Name Value Interpretation Reference Range Facil ity Office Visit: Spine Visit- L ow back painon 10-06-2016 Documentation of current medications (procedure) Done Invalid Interpretation Code [facility] Work Phone: Office Visit: Spine Visit- N EWon 09-07-2016 Dietary management education, guidance, and counseling (procedure) yes Invalid Interpretation Code [facility] Work Phone: Documentation of current medications (procedure) Done Invalid Interpretation Code [facility] Work Phone: Smoking cessation education (procedure) yes Invalid Interpretation Code [facility] Work Phone: Tobacco use CP Current every day smoker Invalid Interpretation Code [facility] Work Phone: Office Visiton 09-09-2009 Tobacco use HS never Invalid Interpretation Code [facility] Work Phone: Vital Signs Date Time Vital Sign Value Performing Clinician Facility 09-07-2016 08:39-0400 BMI (Body Mass Index) 39.68 kg/m2 [facility] Work Phone: 09-07-2016 08:39-0400 Pulse (Heart Rate) 82 /min [facility] Work Phone: 09-07-2016 08:39-0400 Respiratory Rate 18 /min [facility] Work Phone: 09-07-2016 08:39-0400 Weight 101.61 kg [facility] Work Phone: 09-09-2009 16:38-0400 Body Temperature 98.5 [degF] [facility] Work Phone: 09-09-2009 16:38-0400 BP Diastolic 84 mm[Hg] [facility] Work Phone: 09-09-2009 16:38-0400 BP Systolic 126 mm[Hg] [facility] Work Phone: 09-09-2009 16:38-0400 Height 160.02 cm Ilsa Dhillon [facility] Work Phone: 09-09-2009 16:38-0400 Pulse (Heart Rate) 88 /min Ilsa Dhillon [facility] Work Phone: 09-09-2009 16:38-0400 Pulse Oximetry 100 % Ilsa Dhillon [facility] Work Phone: 09-09-2009 16:38-0400 Respiratory Rate 16 /min Ilsa Dhillon [facility] Work Phone: 09-09-2009 16:38-0400 Weight 86.18 kg Ilsa Dhillon [facility] Work Phone: Procedures Date Procedure Procedure Detail Performing Clinician Start: 10-06-2016 End: 10-06-2016 Chiropract manj 1-2 regions Kiersten James Dossi DC Work Phone: Start: 10-06-2016 End: 10-06-2016 Electric stimulation therapy Kiersten B Dossi DC Work Phone: Start: 10-06-2016 End: 10-06-2016 Mechanical traction therapy Kiersten B Dossi DC Work Phone: Start: 09-07-2016 End: 09-07-2016 Chiropract manj 1-2 regions Kiersten B Dossi DC Work Phone: Start: 09-07-2016 End: 09-07-2016 Electric stimulation therapy Kiersten B Dossi DC Work Phone: Start: 09-07-2016 End: 09-07-2016 Mechanical traction therapy Kiersten B Dossi DC Work Phone: Plan of Treatment Date Care Activity Detail Author Start: 10-06-2016 End: 10-06-2016 Appointment Appointment [facility] Work Phone: Start: 09-07-2016 End: 09-07-2016 Appointment Appointment [facility] Work Phone: [facility] Work Phone: Additional Source Comments [...] BE BASED ON THE PRIMARY CLINICAL RECORDS. [facility]. provides no warranty or guarantee of the accuracy or completeness of information in this document.
== END | disposition home or self-care (01) ==
LOC: MTRAD 14:50
PROVIDERS: PCP Family Medicine; Referring Provider Physician Assistant; Visit Provider Physician Assistant
DX: R05.9 Cough, unspecified (principal)
CPT/HCPCS: 71046

== ENCOUNTER → 2024-02-23 | Outpatient (CLI) | payer OTHER, SELFPAY ==
[2024-02-23 10:31] LABS: Absolute Lymphocyte Count 2.12 X10^3/uL (0.83-4.51); Absolute Neutrophil Count 3.6 X10^3/uL (2.0-7.7); Basophil# 0.05 X10^3/uL; Basophil% 0.8 % (0-1); Eosinophil# 0.08 X10^3/uL; Eosinophils% 1.2 % (0-5); Hematocrit 44.3 % (37-47); Hemoglobin 14.1 g/dL (12.0-15.0); Lymphocyte # 2.12 X10^3/ul (0.83-4.51); Lymphocyte % 32.7 % (19-41); Mean Corp Hgb Conc 31.8 g/dL (32-36); Mean Corpuscular Volume 87.9 fL (81-99); Mean Platelet Vol. 12.5 fl (6.2-12.0); Monocyte# 0.58 X10^3/uL; NRBC Flagged by Analyzer 0 % (0-5); Neutrophil # 3.63 X10^3/uL (2.7-7.7); Platelet Count 227 K/mm3 (150-450); RBC Distribution Width CV 13.7 % (11.6-14.6); RBC Distribution Width SD 44.1 fl (35.1-43.9); Red Blood Count 5.04 M/mm3 (4.2-5.4); White Blood Count 6.5 K/mm3 (4.4-11.0)
== END | disposition home or self-care (01) ==
LOC: BWCLAB 08:37
PROVIDERS: PCP Family Medicine; Referring Provider Obstetrics & Gynecology; Visit Provider Obstetrics & Gynecology
DX: N93.9 Abnormal uterine and vaginal bleeding, unspecified (principal); Z97.5 Presence of (intrauterine) contraceptive device
CPT/HCPCS: 36415; 84443; 85025

== ENCOUNTER → 2024-03-07 | Outpatient (CLI) | payer OTHER, SELFPAY ==
--- NOTE | 2024-03-07 14:35 | US_ITS ---
STUDY: ULTRASOUND OF THE FEMALE PELVIS - COMPLETE REASON FOR EXAM: Female, 48 years old. Irregular bleeding with IUD LMP: Unknown. TECHNIQUE: Transabdominal and Transvaginal TECHNICAL QUALITY: Adequate. COMPARISON: 06/01/2022 FINDINGS: The uterus is anteverted and is in a midline position. The uterus measures 10.3 x 5.0 x 3.5 cm. Normal uterine cervix. The endometrium measures 6 mm in thickness, and is hyperechoic. There is no demonstrated endometrial mass. There is no demonstrated myometrial mass. I.U.D. - The patient does have an I.U.D. The right ovary is visualized. The right ovary measures 6.3 x 5.1 x 4.1 cm. 5.6 cm oval hyperechoic mass in the right ovary worrisome for an ovarian dermoid. Correlation with CT is recommended. There is no visualized right adnexal mass or complex lesion. There is normal arterial and normal venous vascularity. The left ovary is non-visualized.. There is no fluid in the cul-de-sac. The pre void volume of the bladder was ml. The post void volume of the bladder was ml. Polycystic ovary disease: No. US/Pelvic w/ Transvaginal IMPRESSION: Suspect 5.6 cm right ovarian dermoid and correlation with CT is recommended. Electronically Signed: John Aguiar MD at 18:50 EST ,
== END | disposition home or self-care (01) ==
LOC: US 14:34
PROVIDERS: PCP Family Medicine; Referring Provider Obstetrics & Gynecology; Visit Provider Obstetrics & Gynecology
DX: N93.9 Abnormal uterine and vaginal bleeding, unspecified (principal); Z97.5 Presence of (intrauterine) contraceptive device
CPT/HCPCS: 76830; 76856

== ENCOUNTER → 2024-04-10 | Outpatient (CLI) | payer OTHER, SELFPAY ==
--- NOTE | 2024-04-10 11:10 | MRI_ITS ---
PROCEDURE: PELVIS W/WO CONTRAST REASON FOR EXAM: Ovarian cyst. TECHNIQUE: Pelvis MRI without and with intravenous gadolinium-based contrast. CONTRAST: Clariscan 22 cc intravenously. COMPARISON: None. FINDINGS: Uterus: Orientation: Anteverted and anteflexed. 11.2 cm in length. Endometrium: 4 mm Junctional zone: 9 mm maximally. Fibroids: None. Miscellaneous: Small nabothian cysts at the internal and external cervical os. Right Ovary: Contains a 3.6 x 3.1 heterogeneously T1 hyperintense structure which suppresses fat signal consistent with dermoid cyst/mature cystic ovarian teratoma. Left Ovary: 5.5 x 3.9 cm intrinsically T1 hyperintense mass that suppresses fat signal consistent with dermoid cyst/mature cystic ovarian teratoma. Bladder: Unremarkable. Cul-de-sac: No fluid. Visualized bowel is unremarkable. Urinary bladder is unremarkable. Rectum is unremarkable. Marrow signal is normal. Sacroiliac joints are normal. MRI/Pelvis W/WO Contrast IMPRESSION: Bilateral ovarian dermoid cysts measuring 3.6 cm on the right and 5.5 cm on the left. Reading Location: [facility]
== END | disposition home or self-care (01) ==
LOC: MRI 11:00
PROVIDERS: PCP Family Medicine; Referring Provider Obstetrics & Gynecology; Visit Provider Obstetrics & Gynecology
DX: N93.9 Abnormal uterine and vaginal bleeding, unspecified (principal)
CPT/HCPCS: 72197; A9575

== ENCOUNTER → 2024-06-09 | Outpatient (CLI) | payer OTHER, SELFPAY ==
--- NOTE | 2024-06-09 14:05 | BI_ITS ---
EXAM: SCRN MAMM (CAD)W/LEV BILAT 06/09/2024 CLINICAL HISTORY: F, Age 48 y/o , SCREENING MAMMOGRAM TECHNIQUE: Bilateral Diagnostic digital breast tomosynthesis with 2D and 3D images. Computer aided detection. COMPARISON: Prior exam(s) dated 06/09/2023. FINDINGS: TISSUE DENSITY: The breast tissue is composed of scattered area of fibroglandular density. Bilateral Breast Mammographic Findings: No significant masses, calcifications or other abnormalities are identified. BI/SCRN MAMM (CAD)W/LEV BILAT IMPRESSION: Right Breast: BIRADS 1 NEGATIVE. Left Breast: BIRADS 1 NEGATIVE. OVERALL FINAL ASSESSMENT: BIRADS 1 NEGATIVE. RECOMMENDATION: Routine annual follow-up in 1 Year A letter with findings and recommendations will be mailed to the patient. Reading Location: [facility]
== END | disposition home or self-care (01) ==
LOC: OPBI 14:04
PROVIDERS: PCP Family Medicine; Referring Provider Obstetrics & Gynecology; Visit Provider Obstetrics & Gynecology
DX: Z12.31 Encounter for screening mammogram for malignant neoplasm of breast (principal)
CPT/HCPCS: 77063; 77067

== ENCOUNTER 2024-07-11 05:55 | Day surgery (SDC) | payer OTHER, SELFPAY ==
--- NOTE | 2024-07-06 12:04 | EKG12_ITS ---
Test Reason : PRE OP Blood Pressure : */* mmHG Vent. Rate : 81 BPM Atrial Rate : 81 BPM P-R Int : 144 ms QRS Dur : 82 ms QT Int : 366 ms P-R-T Axes : 18 75 28 degrees QTcB Int : 425 ms Normal sinus rhythm Normal ECG Confirmed by ERIC YOON, PAUL ([id number]), publishing editor ZELDA DUMONT ([id number]) on 07/07/2024 6:41:14 AM Referred By: Casie Cottrell Confirmed By: PAUL REYES MD
--- NOTE | 2024-07-07 16:14 | PAT.ANE_ITS ---
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 When Was Last Pacemaker Check QUESTION #4 FULL TEXT: You/Your Family Experience fever (hyperthermia) with Anesthesia Last Oral Intake Last Oral intake: Last Oral Intake NPO since Meds taken in AM with sips of water? Meds patient instructed to take am of surgery PONV PONV - deicer repairer pneumatic: PONV - deicer repairer pneumatic Female Yes 06/30/24 10:27 HX of Motion Sickness No 06/30/24 10:27 HX of N/V After Surgery No 06/30/24 10:27 Non-Smoker Yes 06/30/24 10:27 Duration of Surgery greater Yes 06/30/24 10:27 than 60 minutes Number of Risk Factors 3 06/30/24 10:27 PONV Score Moderate Risk 06/30/24 10:27 Height & Weight Height & Weight: Anesthesia: Height & Weight Height 5 ft 3 in 05/04/24 10:16 Respiratory Assessment Respiratory Assessment - deicer repairer pneumatic: Respiratory Tract Infection Hx - deicer repairer pneumatic Hx Respiratory Tract Infection No 06/30/24 10:27 STOP Sleep Apnea STOP Sleep Apnea - deicer repairer pneumatic: STOP Sleep Apnea - deicer repairer pneumatic Hx Hypertension No 06/30/24 10:27 Hx Sleep Apnea Yes 06/30/24 10:27 CPAP Yes 06/30/24 10:27 BIPAP No 06/30/24 10:27 Do you snore loudly (louder than talking or can be heard Do you often feel tired/ fatigued/ sleepy during daytime? Has anyone observed you stop breathing during sleep? STOP Results Positive 06/30/24 10:27 QUESTION #5 FULL TEXT : Do you snore loudly (louder than talking or can be heard through closed doors)? 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 Specify any problems Hx of Preganancy in last 3 No 06/30/24 10:27 Months Nurse Filling Out Transfusion DSCHRIBER 06/30/24 10:27 & Questions: Date: 06/30/24 06/30/24 10:27 Time: 10:29 06/30/24 10:27 Patient unable to answer at this time (ie. confused, unrespo /Reproduction History /Reproductive History - deicer repairer pneumatic: /Reproductive Hx- deicer repairer pneumatic Hx Now No 06/30/24 10:27 Gestational Age (in weeks): EDC: Hx Hx Para Hx Section SAB No 06/30/24 10:27 PFSH Medical History (Updated 06/30/24 @ 10:33 by Sherita Martinez) Right middle lobe pulmonary infiltrate Contact with or exposure to other viral diseases Wears contact lenses Migraine headache Strain of left trapezius muscle Strain of left rotator cuff capsule Left shoulder strain Eosinophilic esophagitis Wears glasses Alcohol use CPAP (continuous positive airway pressure) dependence Non-smoker History of edema History of echocardiogram History of stress test Cardiology follow-up encounter ROMAINE (obstructive sleep apnea) Right arm cellulitis Bee sting Needlestick injury accident with exposure to body fluid Segmental and somatic dysfunction of cervical region Segmental and somatic dysfunction of thoracic region Segmental and somatic dysfunction of lumbar region Tonsillar abscess Home Medications ?Medication ?Instructions ?Recorded ?Last Taken ?Type cyanocobalamin (vitamin B-12) 500 500 mcg PO QDAY 05/29 Unknown History mcg tablet magnesium oxide 400 mg PO QDAY 02/08/24 Unkn own History multivitamin 1 tab PO QDAY 02/08/24 Unkno wn History semaglutide 0.25 mg or 0.5 mg (2 1 mg subcut OBRIEN Unknown History mg/3 mL) subcutaneous pen injector vitamin B complex 1 cap PO QDAY 02/08/24 Unkno wn History levonorgestrel (Mirena) 1 device intrauterine ONCE 1 04/25/23 Unknown History albuterol sulfate 90 mcg/actuation 2 puff inhalation Q 4H PRN 03/24/24 Unknown Rx aerosol inhaler (Ventolin HFA) shortness of breath or wheezing #18 grams Allergy/AdvReac Type Severity Reaction Status Date / Time ceftriaxone sodium (From Allergy Hives Verified 06/30/24 10:25 Rocephin) Family History Sister ROMAINE (obstructive sleep apnea) Grandfather Cancer lung Grandmother Heart disease Diabetes Sister ROMAINE (obstructive sleep apnea) Sister ROMAINE (obstructive sleep apnea) Mitral valve prolapse Sinus tachycardia Mother Cholangiocarcinoma, Onset Age: 67 Surgical History (Updated 06/30/24 @ 10:33 by Sherita Martinez) Hx of tubal ligation History of esophagogastroduodenoscopy (EGD) H/O shoulder surgery delivery delivered Social History Smoking Status: Never smoker alcohol intake: current alcohol intake frequency: holidays/special occasions only substance use type: does not use caffeine: No what type of physical activity do you participate in: running and weight training frequency: 1-2 times per week seatbelt use: always do you feel safe at home: Yes additional social history: - Mir 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 Normal sinus rhythm 81 bpm normal EKG. Stress test pertinent findings: 07/11/2021. EF 75% normal exercise myocardial perfusion stress test. Echo (EF%) pertinent findings: 10/29/2021. EF 65% Consult pertinent findings: Cardiology 11/19/2021. Chest pain. Acute. Chest pain unlikely cardiac. Workup negative. Recommendation Anesthesia Recommendation Anesthesia recommendation: OPTIMIZED for anesthesia
[2024-07-11] VITALS (11 sets, daily range): BP systolic 107–134; BP diastolic 53–80; PULSE 70–89; RESP 16–18; TEMP 36.3–36.9; O2SAT 93–99; BMI 44.6
[2024-07-11] MEDS: Lactated Ringers 1,000 ML 15 ML IV (06:45)
[2024-07-11 07:04] LABS: Hematocrit 39.3 % (37-47); Hemoglobin 13.4 g/dL (12.0-15.0); Mean Corp Hgb Conc 34.1 g/dL (32-36); Mean Corpuscular Hgb 28.8 pg (27.0-32.0); Mean Corpuscular Volume 84.3 fL (81-99); Mean Platelet Vol. 12.1 fl (6.2-12.0); Platelet Count 192 K/mm3 (150-450); RBC Distribution Width CV 13.1 % (11.6-14.6); RBC Distribution Width SD 39.9 fl (35.1-43.9); Red Blood Count 4.66 M/mm3 (4.2-5.4); White Blood Count 7.9 K/mm3 (4.4-11.0)
--- NOTE | 2024-07-11 07:12 | PRE.ANES_ITS ---
ASA Classification* ASA Classification ASA Classification: 3 Assessment & Plan Anesthesia* Anesthesia Assessment Anesthesia Assessment: Discussed sedation and/or anesthesia options, risks, benefits, and alternatives with patient/parents/legal guardian/POA. Questions invited. The patient/parents/legal guardian/POA seems to understand and agrees to proceed with anesthesia plan. Reviewed the physical assessment, medical history, allergy history and patient home medications list prior to surgery/procedure/anesthetic and documented any changes. Performed airway and anesthesia risk assessments. Anesthesia Type Anesthesia Type: General History Source History Obtained from:: Patient and Chart Anesthesia Focused Assessment* Temperature: 98.0 F Pulse Rate: 84 Blood Pressure: 117/76 Respiratory Rate: 18 Pulse Ox: 99 Oxygen Delivery Method: Room Air Airway Assessment Mouth opens: >3 cm Mallampati Score: I Teeth Condition: Intact Neck Range of motion (ROM): Full ROM Focused Labs Anesthesia Preop lab: CBC WBC 7.9 K/mm3 (4.4-11.0) 07/11/24 06:45 07/11/24 RBC 4.66 M/mm3 (4.2-5.4) 07/11/24 06:45 07/11/24 Hgb 13.4 g/dL (12.0-15.0) 07/11/24 06:45 07/11/24 Hct 39.3 % (37-47) 07/11/24 06:45 07/11/24 Plt Count 192 K/mm3 (150-450) 07/11/24 06:45 07/11/24 CHEMISTRY Potassium 4.0 mmol/L (3.5-5.1) 11/22/23 07:48 11/22/23 Sodium 140 mmol/L (136-145) 11/22/23 07:48 11/22/23 Phosphorus 3.8 mg/dL (2.5-4.9) 11/22/23 07:48 11/22/23 BUN 14 mg/dL (7-18) 11/22/23 07:48 11/22/23 Creatinine 0.84 mg/dL (0.55-1.02) 11/22/23 07:48 11/22/23 Glucose 97 mg/dL (74-106) 11/22/23 07:48 11/22/23 TSH 1.670 uIU/mL (0.358-3.740) 02/23/24 08:37 02/05 10/29 COAG Tst Clinic Negative 03/17/23 09:04 03/17/23 Pre-Assessment Diagnosis/Proposed Procedure Planned Operative Procedure(s): LAP SALPINGECTOMY,LAP BILAT CYSTECTOMIES,ALICE ABLATION,IUD REMOVAL,D&C HYSTEROSCOPY Anesthesia History 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 When Was Last Pacemaker Check QUESTION #4 FULL TEXT: You/Your Family Experience fever (hyperthermia) with Anesthesia Last Oral Intake Last Oral intake: Last Oral Intake NPO since 22:00 07/11/24 06:28 Meds taken in AM with sips of No 07/11/24 06:28 water? 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 technician Female Yes 06/30/24 10:27 HX of Motion Sickness No 06/30/24 10:27 HX of N/V After Surgery No 06/30/24 10:27 Non-Smoker Yes 06/30/24 10:27 Duration of Surgery greater Yes 06/30/24 10:27 than 60 minutes Number of Risk Factors 3 06/30/24 10:27 PONV Score Moderate Risk 06/30/24 10:27 Height & Weight Height & Weight: Anesthesia: Height & Weight Height 5 ft 3 in 07/11/24 06:28 Weight: 114.305 kg 07/11/24 06:28 Body Mass Index (BMI) 44.6 07/11/24 06:28 Respiratory Assessment Respiratory Assessment - environmental engineering technician: Respiratory Tract Infection Hx - environmental engineering technician Hx Respiratory Tract Infection No 06/30/24 10:27 STOP Sleep Apnea STOP Sleep Apnea - environmental engineering technician: STOP Sleep Apnea - environmental engineering technician Hx Hypertension No 06/30/24 10:27 Hx Sleep Apnea Yes 06/30/24 10:27 CPAP Yes 06/30/24 10:27 BIPAP No 06/30/24 10:27 Do you snore loudly (louder than talking or can be heard Do you often feel tired/ fatigued/ sleepy during daytime? Has anyone observed you stop breathing during sleep? STOP Results Positive 06/30/24 10:27 QUESTION #5 FULL TEXT : Do you snore loudly (louder than talking or can be heard through closed doors)? 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 Specify any problems Hx of Preganancy in last 3 No 06/30/24 10:27 Months Nurse Filling Out Transfusion DSCHRIBER 06/30/24 10:27 & Questions: Date: 06/30/24 06/30/24 10:27 Time: 10:29 06/30/24 10:27 Patient unable to answer at this time (ie. confused, unrespo /Reproduction History /Reproductive History - environmental engineering technician: /Reproductive Hx- environmental engineering technician Hx Now No 06/30/24 10:27 Gestational Age (in weeks): EDC: Hx Hx Para Hx Section SAB No 06/30/24 10:27 Active Medications Active Medications: Current Medications Generic Name Dose Route Start Last Admin Trade Name Freq PRN Reason Stop Dose Admin Lactated Ringer's 1,000 mls @ 15 mls/hr 07/11/24 06:15 IV .Q48H KASSIE PFSH Medical History Right middle lobe pulmonary infiltrate Contact with or exposure to other viral diseases Wears contact lenses Migraine headache Strain of left trapezius muscle Strain of left rotator cuff capsule Left shoulder strain Eosinophilic esophagitis Wears glasses Alcohol use CPAP (continuous positive airway pressure) dependence Non-smoker History of edema History of echocardiogram History of stress test Cardiology follow-up encounter ROMAINE (obstructive sleep apnea) Right arm cellulitis Bee sting Needlestick injury accident with exposure to body fluid Segmental and somatic dysfunction of cervical region Segmental and somatic dysfunction of thoracic region Segmental and somatic dysfunction of lumbar region Tonsillar abscess Home Medications ?Medication ?Instructions ?Recorded ?Last Taken ?Type cyanocobalamin (vitamin B-12) 500 500 mcg PO QDAY 05/2907/10/24 History mcg tablet magnesium oxide 400 mg PO QDAY 02/08/2407/30 History multivitamin 1 tab PO QDAY 02/08/2407/10 History semaglutide 0.25 mg or 0.5 mg (2 1 mg subcut OBRIEN 07/02/24 History mg/3 mL) subcutaneous pen injector vitamin B complex 1 cap PO QDAY 02/08/2407/10 History levonorgestrel (Mirena) 1 device intrauterine ONCE 1 04/25/23 Unknown History albuterol sulfate 90 mcg/actuation 2 puff inhalation Q 4H PRN 03/24/24 Unknown Rx aerosol inhaler (Ventolin HFA) shortness of breath or wheezing #18 grams Allergy/AdvReac Type Severity Reaction Status Date / Time ceftriaxone sodium (From Allergy Hives Verified 06/30/24 10:25 Rocephin) Family History Sister ROMAINE (obstructive sleep apnea) Grandfather Cancer lung Grandmother Heart disease Diabetes Sister ROMAINE (obstructive sleep apnea) Sister ROMAINE (obstructive sleep apnea) Mitral valve prolapse Sinus tachycardia Mother Cholangiocarcinoma, Onset Age: 67 Surgical History Hx of tubal ligation History of esophagogastroduodenoscopy (EGD) H/O shoulder surgery delivery delivered Social History Smoking Status: Never smoker alcohol intake: current alcohol intake frequency: holidays/special occasions only substance use type: does not use caffeine: No what type of physical activity do you participate in: running and weight training frequency: 1-2 times per week seatbelt use: always do you feel safe at home: Yes additional social history: - Mir 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
--- NOTE | 2024-07-11 07:28 | HP.PCM_ITS ---
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 Hand Required: No Is patient in pain?: No Allergies ceftriaxone sodium (From Rocephin) Allergy (Verified 06/12/24 13:24) Hives Medications ?Medication ?Instructions ?Recorded ?Confirmed ?Type cyanocobalamin (vitamin B-12) 500 500 mcg PO QDAY 02/08/24 06/12/24 Histor y mcg tablet magnesium oxide 400 mg PO QDAY 02/08/24 06/12/24 History multivitamin 1 tab PO QDAY 02/08/24 06/12/24 History semaglutide 0.25 mg or 0.5 mg (2 1 mg subcut QWEEK 02/08/24 06/12/24 Hist ory mg/3 mL) subcutaneous pen injector vitamin B complex 1 cap PO QDAY 02/08/24 06/12/24 History levonorgestrel (Mirena) 1 device intrauterine ONCE 02/23/2409/29 History albuterol sulfate 90 mcg/actuation 2 puff inhalation Q4H PRN 03/24/2406/12 Rx aerosol inhaler (Ventolin HFA) shortness of breath or wheezing #18 grams Patient : No : No PFSH Medical History Right middle lobe pulmonary infiltrate Contact with or exposure to other viral diseases Wears contact lenses Migraine headache Esophageal dysmotility Strain of left trapezius muscle Strain of left rotator cuff capsule Left shoulder strain Eosinophilic esophagitis Wears glasses Alcohol use CPAP (continuous positive airway pressure) dependence Non-smoker History of edema History of echocardiogram History of stress test Cardiology follow-up encounter Atypical chest pain ROMAINE (obstructive sleep apnea) Right arm cellulitis Bee sting [place]ick injury accident with exposure to body fluid Segmental and somatic dysfunction of cervical region Segmental and somatic dysfunction of thoracic region Segmental and somatic dysfunction of lumbar region Tonsillar abscess Surgical History Hx of tubal ligation History of esophagogastroduodenoscopy (EGD) H/O shoulder surgery delivery delivered Family History Sister ROMAINE (obstructive sleep apnea)Grandfather Cancer lung Grandmother Heart disease DiabetesSister ROMAINE (obstructive sleep apnea)Sister ROMAINE (obstructive sleep apnea) Mitral valve prolapse Sinus tachycardiaMother Cholangiocarcinoma, Onset Age: 67 Social History Smoking Status: Never smoker alcohol intake: current alcohol intake frequency: holidays/special occasions only substance use type: does not use caffeine: No what type of physical activity do you participate in: running and weight training frequency: 1-2 times per week seatbelt use: always do you feel safe at home: Yes additional social history: - Mir 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 she has bilateral dermoid cysts, she has some pelvic pressure and still some prolonged menses, open for other intervention for bleeding, has had IUD with some improvment but still long menses. History 2 Elective abortions Hx Para 2 Spontaneous abortions Hx # Term Pregnancies Ectopic pregnancies Hx # Pregnancies Multiple births # of living children 2 Past Pregnancies Del. Date Name GA/Weeks Outcome Route Bth Weight Gen Labor Lgth Anesthesia Del Locatn Provider FOB Unknown Andrey 2005 Unknown [facility] [place] 2012 ROS Const Constitutional: Denies fatigue, fever(s), headache(s), increased appetite, poor appetite, weight gain or weight loss GI GI: Reports as per HPI; Denies abdominal pain, constipation, nausea or vomiting : Reports as per HPI; Denies difficulty voiding, dysuria, hematuria, pelvic pain, urinary frequency, urinary incontinence, urinary hesitancy, urinary urgency, vaginal discharge, vaginal dryness, vaginal odor, vaginal pruritus or other Exam Const General: cooperative, healthy appearing, comfortable, no acute distress and well developed Orientation: alert HENMT Head: normal to inspection and normocephalic Ears: hearing grossly normal bilaterally and external ears normal Nose: external nose normal and nares normal Face and sinus: normal facial exam Neck Neck: normal visual inspection, no lymphadenopathy and trachea midline Thyroid: thyroid normal Resp Effort & Inspection: normal respiratory effort Musc Other: gross motor intact no deficits, full bilateral strength Skin General: no rashes or lesions noted Neuro Motor: muscle tone normal throughout Coding Level of Care Code No Charge Diagnoses Dermoid cyst of both ovaries D27.0; D27.1 Abnormal uterine bleeding N93.9 Assessment and Plan Assessment and Plan (1) Dermoid cyst of both ovaries: Status: Acute Comment: plan laparoscopic bilateral ovarian cystectomies, salpingectomies (2) Abnormal uterine bleeding: Status: Acute Comment: plan IUD removal and d and c hysteroscopy margie at time of laparoscopy Plan discussed options, plan surgery. After discussing the patient's diagnosis and treatment plan options, patient wishes to proceed with surgical management. I have discussed with the patient the risks, benefits, and alternatives of the procedure which include but are not limited to risks of anesthesia, bleeding, infection, possible damage to bowel, bladder, or surrounding vasculature which could lead to additional surgery to evaluate any complications. Patient agrees to procedure and wishes to proceed. ACOG/uptodate references given for additional information regarding procedure. UPDATE- I have seen the patient and performed any clinically relevant updates to the history and physical exam. Casie Cottrell MD
--- NOTE | 2024-07-11 07:30 | EMB_PTH ---
PATIENT: ARTURO MARKS LOC: [facility] [place] U#:[id number] AGE/SX: 48/F ROOM: RE07/11/[address]: Dr. Casie Cottrell MD : 1975 BED: DIS: 07/11/2024 SPEC #: [id number] RECD: 07/11/24 11:19 STATUS: BRADY KONG #: [id number] YOLANDE: 07/11/24 07:[address]: Casie Cottrell DEPT: SURGICAL PATHOLOGY RECD BY: Samson Garrison ENTERED: 07/11/24 11:37 SP TYPE: ENDOM BX/C OTHR DR: Dr. Dominic Weaver MD Tissues: A - Fallopian tube B - Endometrium, NOS Procedures: Surgery Specimen Level II Surgery Specimen Level IV HEADER OPERATION: Laparoscopic, left salpingectomy, laparoscopic cystectomies PRE-OP DIAGNOSIS: Dermoid cyst of both ovaries, abnormal uterine bleeding TISSUE SUBMITTED: A- Left and right fallopian tubes, left and right ovaries, B- Endometrial curettings MICROSCOPIC DIAGNOSIS A. Left and right fallopian tubes, left and right ovaries, bilateral salpingo-oophorectomy: * Ovaries: Mature cystic teratoma(s), bilateral * Fallopian tubes: Benign fallopian tubes, hydrosalpinx, benign paratubal cyst B. Uterus, endometrial lining, curettage: * Inactive endometrium with decidualized stromal alteration compatible with hormonal therapy effect MICROSCOPIC DESCRIPTION Slides are reviewed. GROSS DESCRIPTION A. Received in formalin in a container labeled with the patient's name, date of , and L fallopian tube, L ovarian cyst, R fallopian tube and ovary are 2 unoriented possible ovaries with 2 unoriented and previously disrupted fallopian tubes. There is 1 predominantly intact, fimbriated fallopian tube with an embedded 1.4 x 0.4 cm Filshie clip. The segment is 5.4 cm in length by 0.9 cm in diameter with purple-guerrier, smooth serosa with multiple paratubal cysts ranging from 0.1 to 0.3 cm in greatest dimension. Serial sections reveal a pinpoint lumen. Received in the same container is a 1.7 x 1.2 x 1.0 cm detached, unremarkable fimbriated end. There is also a 4.3 cm in length by 0.7 cm in diameter tubular structure with an embedded 1.4 x 0.4 cm Filshie clip. The serosa is desai-pink and unremarkable. Sectioning reveals a 0.2 cm lumen with red-tinged, thick fluid. The bilateral, unoriented ovaries appear diffusely cystic in nature. The largest is 19.1 g and 5.0 x 3.2 x 3.0 cm. The outer surface is red-guerrier, roughened, with a protruding 1.7 x 1.5 x 0.8 cm thin-walled cystic structure. The surface cyst is sectioned to reveal that it is multiloculated with smooth inner linings and thin translucent fluid. The remaining outer surface is inked black and sectioning reveals that the ovary is completely filled with desai-yellow, coarse hair with red-tinged thin fluid. The cystic reddy range from 0.1 to 0.5 cm in thickness. The thickened reddy are desai-yellow and rubbery with a single 0.6 x 0.2 x 0.2 cm white and calcified structure, embedded within the wall. The inner linings are predominantly smooth with attached hair. No typical ovarian parenchyma is identified. The smaller ovary is 18.0 g and 5.5 x 3.0 x 2.0 cm. The outer surface is desai-pink, smooth, and glistening with a 1.6 x 1.0 cm transmural defect with protruding brown hair. Additionally, there is a 0.4 x 0.4 x 0.2 cm white-pink surface nodule, sectioned to reveal white-pink, unremarkable surfaces. The outer surface is inked green and serial sections reveal that the structure is completely filled by desai hair with yellow caseous material. The wall thickness ranges from 0.1-1.0 cm. The thickened areas exhibit desai-yellow, glistening surfaces. No calcified foci are identified. A small amount of desai-pink, softened, and hemorrhagic possible ovarian parenchyma is present. Cad Drafter sections:A1. Intact fallopian tubeA2. Disrupted fallopian tubeA3-4. Larger cystic ovary (with thickened reddy and surface cyst)A5-6. Smaller ovary with thickened wallsA7. Smaller ovary with typical desai-pink ovarian parenchyma and surface noduleA8. Larger ovary, calcified focus, following decalcification B. Received in formalin in a container labeled with the patient's name, date of , and endometrial curettings are multiple red-desai fragments of soft tissue admixed with blood and mucus measuring 2.8 x 1.9 x 0.3 cm in aggregate. Submitted in toto in B1. SMB 5-6-2025 CPT:95077f3,84664
[2024-07-11 07:35] LABS: ALB/GLOB Ratio 1.1 RATIO (0.9-2.4); AST(SGOT) 24 U/L (<=31); Alanine Aminotransfer ALT/SGPT 36 U/L (<=34); Alkaline Phosphatase 57 U/L (35-104); Anion Gap 10 (5-15); BUN 18 mg/dL (4-19); BUN/Creat Ratio 23.7 RATIO (10-20); Calcium,Total 8.9 mg/dL (7.6-11.0); Carbon Dioxide 22.4 mmol/L (21.0-32.0); Chloride 107 mmol/L (98-108); Creatinine, Serum 0.76 mg/dL (0.70-1.20); EST Glomerular Filtration Rate 97 (>60); Estimated Creatinine Clearance 110.27 ml/min (50-250); Globulin 3.6 g/dL (2.2-4.2); Glucose 103 mg/dL (70-99); Potassium 3.8 mmol/L (3.3-5.1); Protein, Total 7.6 g/dL (5.9-8.4); Sodium Level 139 mmol/L (133-145); Total Bilirubin 0.73 mg/dL (0.00-1.30)
[2024-07-11] MEDS: Bupivacaine 0.25% 30 ML Vial (09:00)
--- NOTE | 2024-07-11 09:28 | DCINST_ITS ---
Discharge Instructions Diet Discharge Diet: No restrictions DC O2, CPAP, BIPAP needs Home O2 Discharge instructions: No Dressing / Incision Discharge Activity: Return to Normal Activity, May Not Drive ( while taking narcotic pain meds, when pain free), May Shower and May Take a Tub Bath (in 7 days) May resume sexual activity in: 1 week Weight Bearing Status: Full weight bearing Dressing / Incision Call your doctor if your incision/area has: Continuous Slow Oozing, Sudden Increased Bleeding, Increased Pain/ Swelling, Increased Redness and Foul Smelling Discharge Call your doctor if you observe: Fever of 101 or Higher, Using more than 1 pad per hour, Shortness of breath, Chest pain and Uncontrolled pain Suture Line Care: Avoid Pulling/Pushing and Avoid Pinching/Bending Remove Dressing in: 1 week (if present) Cleanse incision/area with: Soap & Water and Keep Dressing Clean & Dry Follow Up Care When: Call to make an appointment with your doctor for a fu/incision check in 1- 2 weeks. Test Results: Test results from this visit will be discussed in further detail at your follow- up appointment, if applicable. Discharge Plan Admission Attending Provider: Casie Cottrell Primary Care Provider: Dominic Weaver Instructions Print Language: Mexican Discharge Orders/Prescriptions Prescriptions: New oxycodone-acetaminophen [Percocet] 5-325 mg tablet 1 tab PO Q4H PRN (Reason: pain) 7 Days Qty: 20 0RF naproxen 500 mg tablet 500 mg PO BID PRN PRN (Reason: Pain) Qty: 30 1RF No Action albuterol sulfate [Ventolin HFA] 90 mcg/actuation HFA aerosol inhaler 2 puff inhalation Q4H PRN (Reason: shortness of breath or wheezing) Qty: 18 6RF Mirena 21 mcg/24hr (up to 8 yrs) 52 mg intrauterine device 1 device intrauterine ONCE Rx Instructions: as a single dose semaglutide 0.25 mg or 0.5 mg (2 mg/3 mL) pen injector 1 mg subcut OBRIEN Rx Instructions: for 4 weeks multivitamin Tablet 1 tab PO QDAY cyanocobalamin (vitamin B-12) 500 mcg tablet 500 mcg PO QDAY vitamin B complex Capsule 1 cap PO QDAY magnesium oxide 400 mg magnesium tablet 400 mg PO QDAY Referrals / Follow Up: Dominic Weaver MD [Primary Care Provider] - Disposition Disposition (needs filled in before D/C Order can be placed): Home, Self Care
--- NOTE | 2024-07-11 09:28 | PCM.OPRPT ---
Problems Associated Problem List Diagnoses (1) Dermoid cyst of both ovaries: (2) Abnormal uterine bleeding: Multi Select Codes Urinary/Genital Urinary/Genital CPT Codes: 51989 Stephanie/Novasure, 24207 Laproscopic BS/O and Other Procedure See Report Operative Report (Standard) Operative Information Date of Procedure: 07/11/24 Pre-Operative Diagnosis: see problem list Post-Operative Diagnosis: same Surgery/Procedure Performed: Laparoscopic bilateral salpingectomy right oophorectomy left ovarian cystectomy dilation and curettage hysteroscopy Stephanie ablation IUD removal cyber security specialist: Yes Dental Professional: Abundio Son Tasks completed by environmental assistant: Opening & closing, Altering tissue and Insert Trochanter Additional teacher's assistant?: No Type of Anesthesia: General RN Documented Start/Stop Times: Operation Date: 07/11/24 07:30 Case Time Into Pre-Op 07/11/24 06:04 Out of Pre-Op 07/11/24 07:29 Anesthesia Start 07/11/24 07:30 Into Room 07/11/24 07:30 Procedure Start 07/11/24 08:00 Procedure End 07/11/24 09:27 Procedure Start Time: 08:00 Procedure Stop Time: 09:27 Select all DRAINS/GRAFTS/IMPLANTS that apply: None Estimated Blood Loss: 50 Specimen collected: Yes Description of specimen(s) removed: tubes emc right ovary left ovarian cyst Description of surgery: Patient was taken in the operating room and was placed under general anesthesia was prepped and draped in normal sterile fashion in the dorsal lithotomy position. Bladder was drained of clear urine and SCDs were on preoperatively. IUD strings were grasped and removed without complication. Uterus was sounded and a uterine manipulator was placed after dilating. Attention was then paid to the abdominal portion of the procedure and the umbilicus was elevated with towel clamps and injected with Marcaine and after a 5 mm incision was made and the Veress needle was entered into the abdomen confirmed to be intra-abdominal with a low opening pressure of less than 5 mmHg. Abdomen was insufflated with CO2 gas and a 5 mm optical trocar was placed under direct visualization. Left and right lower quadrant 5 mm ports were placed under direct visualization. Uterus was well visualized and upon inspection of the pelvis and omental to anterior abdominal wall adhesions omental to the left uterine corpus in several occasions were noted and taken down with LigaSure. Bilateral ovaries were well inspected and noted to have bilateral cysts the right ovary had a nodular excrescence coming off therefore a right oophorectomy was decided to be done and the left ovary was opened up using monopolar energy and the ovarian cyst shelled out with some spillage of content visualization of hair and sebaceous material seen. This was copiously irrigated. The base of the ovary was cauterized and treated with Surgiflo for hemostasis the right IP ligament was transected with the LigaSure device to remove the right ovary without complication. Bilateral fallopian tubes were removed without complication by transecting across with the LigaSure device across the mesosalpinx bilateral Filshie clips were also removed. Everything was placed into a bag and removed through the right lower quadrant. The fascial incision was closed with a stitch of 0 Vicryl in the fascia.. Excellent hemostasis was noted in the pelvis. Liver and upper abdomen were visualized notably within normal limits and no other gross abnormalities were seen in the abdomen. All instruments removed from the abdomen after gas was desufflated. Port sites were closed with 3-0 Monocryl Steri's and op sites were applied. Attention was then paid to the hysteroscopy portion a 7 mm hysteroscope was entered into the uterus and the uterine cavity was noted to be within normal limits as sharp curettage was performed and endometrial curettings were sent for pathologic analysis. Uterus had sounded to 9 cm and the cavity length was noted to be 5 cm. The Stephanie device was opened and inserted into the uterus past the cavity integrity test and completed a full 2-minute treatment cycle without complication. All instruments removed from the vagina and patient was awoken and taken recovery in stable condition. Surgical Findings: Bilateral ovarian cyst omental to anterior abdominal wall uterine and sidewall adhesions. Moderate vaginal access with descent. Minimal to moderate vesicouterine adhesions from previous C-sections. Complications Complications: No
--- NOTE | 2024-07-11 10:45 | PCM.POST.ANE ---
Anesthesia: Postop Eval I Current Vital Signs Temperature: 97.3 F Pulse Rate: 89 Blood Pressure: 114/64 Respiratory Rate: 18 Pulse Ox: 97 Oxygen Delivery Method: Room Air Assessment Airway patent: Yes Spontaneous unlabored respirations: Yes Mental status: Awake nausea: No Vomiting: No Anesthesia Complication: No Fluid Hydration Crystalloid volume administer (ml): 1,000 Total IV fluid infused: 1,000 Progress Note Anesthesia document: Postop Eval 1 completed: Yes
--- NOTE | 2024-07-11 12:02 | POSTOPAN2_ITS ---
Anesthesia Postop Eval I Sum Postop Eval Completion status Anesthesia document: Postop Eval 1 completed: Yes Anesthesia Postop Eval I Summary Anesthesia Postop Eval I Summary: Anesthesia Postop Eval I: Assessment Summary Airway patent Yes 07/11/24 10:46 DAIRY SUPPLIES SALES REPRESENTATIVE.ACAR Spontaneous unlabored Yes 07/11/24 10:46 DAIRY SUPPLIES SALES REPRESENTATIVE.ACAR respirations Mental status Awake 07/11/24 10:46 DAIRY SUPPLIES SALES REPRESENTATIVE.ACAR nausea No 07/11/24 10:46 DAIRY SUPPLIES SALES REPRESENTATIVE.ACAR Vomiting No 07/11/24 10:46 DAIRY SUPPLIES SALES REPRESENTATIVE.ACAR Anesthesia Postop Eval I: Fluid Summary Crystalloid volume administer 1,000 07/11/24 10:46 DAIRY SUPPLIES SALES REPRESENTATIVE.ACAR (ml) Colloids volume administered ( ml) Blood Product volume administered (ml) Total IV fluid infused 1,000 07/11/24 10:46 DAIRY SUPPLIES SALES REPRESENTATIVE.ACAR Anesthesia Postop Eval I: Summary Notes Anesthesia Complication No 07/11/24 10:46 DAIRY SUPPLIES SALES REPRESENTATIVE.ACAR Anesthesia Complication Comment: Post-operative progress note Anesthesia: Postop Eval II Evaluation Mental status: Awake and Calm Pain Level: 0 nausea: No Vomiting: No Complications Anesthesia Complication: No
--- NOTE | 2024-07-11 12:02 | PCM.POSTANE2 ---
Anesthesia Postop Eval I Sum Postop Eval Completion status Anesthesia document: Postop Eval 1 completed: Yes Anesthesia Postop Eval I Summary Anesthesia Postop Eval I Summary: Anesthesia Postop Eval I: Assessment Summary Airway patent Yes 07/11/24 10:46 LEAD SECTION SUPERVISOR.ACAR Spontaneous unlabored Yes 07/11/24 10:46 LEAD SECTION SUPERVISOR.ACAR respirations Mental status Awake 07/11/24 10:46 LEAD SECTION SUPERVISOR.ACAR nausea No 07/11/24 10:46 LEAD SECTION SUPERVISOR.ACAR Vomiting No 07/11/24 10:46 LEAD SECTION SUPERVISOR.ACAR Anesthesia Postop Eval I: Fluid Summary Crystalloid volume administer 1,000 07/11/24 10:46 LEAD SECTION SUPERVISOR.ACAR (ml) Colloids volume administered ( ml) Blood Product volume administered (ml) Total IV fluid infused 1,000 07/11/24 10:46 LEAD SECTION SUPERVISOR.ACAR Anesthesia Postop Eval I: Summary Notes Anesthesia Complication No 07/11/24 10:46 LEAD SECTION SUPERVISOR.ACAR Anesthesia Complication Comment: Post-operative progress note Anesthesia: Postop Eval II Evaluation Mental status: Awake and Calm Pain Level: 0 nausea: No Vomiting: No Complications Anesthesia Complication: No
== END 2024-07-11 11:52 | disposition home or self-care (01) ==
LOC: SDC 05:56 → AC 05:56
PROVIDERS: PCP Family Medicine; Referring Provider Obstetrics & Gynecology; Visit Provider Obstetrics & Gynecology
PROC: (CPT 58661; principal; 2024-07-11 07:15)
PROC: 0U5B8ZZ Destruction of Endometrium, Via Natural or Artificial Opening Endoscopic (ICD-10-PCS; CPT 58558; 2024-07-11 07:15)
DX: D27.1 Benign neoplasm of left ovary (principal); N93.9 Abnormal uterine and vaginal bleeding, unspecified; D27.0 Benign neoplasm of right ovary; N83.8 Other noninflammatory disorders of ovary, fallopian tube and broad ligament
CPT/HCPCS: 58661; 58662; 58563; 00840; 80053; 85027; 86850; 86900; 86901; 88302; 88305; 93005; J2405

== ENCOUNTER → 2024-10-30 | Outpatient (CLI) | payer OTHER, SELFPAY ==
--- NOTE | 2024-10-30 13:15 | RAD_ITS ---
PROCEDURE: FINGER(S) MIN 2 VIEWS 10/30/2024 REASON FOR EXAM: PAIN LEFT RING FINGER TECHNIQUE: FINGER(S) MIN 2 VIEWS FINDINGS: No evidence of acute fracture or dislocation. Mild interphalangeal degenerative changes. RAD/Finger(s) Min 2 Views IMPRESSION: No acute osseous abnormalities. Reading Location: [id number]
== END | disposition home or self-care (01) ==
LOC: MTRAD 13:08
PROVIDERS: PCP Family Medicine; Referring Provider Physician Assistant; Visit Provider Physician Assistant
DX: M79.645 Pain in left finger(s) (principal)
CPT/HCPCS: 73140

== ENCOUNTER → 2025-03-02 | Outpatient (CLI) | payer OTHER, SELFPAY ==
--- NOTE | 2025-03-02 07:59 | US_ITS ---
PROCEDURE: ABDOMEN LIMITED 03/02/2025 REASON FOR EXAM: LIVER LESION TECHNIQUE: Procedure Code: USABDL Modality: US Procedure: ABDOMEN LIMITED COMPARISON: Ultrasound from February 25, [address] from March 12, 2022. FINDINGS: GALLBLADDER: No gallstones. no gallbladder wall thickening or pericholecystic fluid. Negative Webber sign. COMMON BILE DUCT: Measures 3.4 mm. No intrahepatic biliary dilatation. LIVER: Hyperechoic/heterogenous, nonvascular structure within the right hepatic lobe measuring 2.9 x 2.5 x 2.8 cm. RIGHT KIDNEY: Normal in size and echogenicity. No mass. No urinary stones. No hydronephrosis. US/Abdomen Limited IMPRESSION: Hyperechoic/heterogenous, nonvascular structure within the right hepatic lobe m easuring 2.9 x 2.5 x 2.8 cm, likely hemangioma and seen on prior ultrasound and CT without significant change in size. Reading Location: [facility]
--- OUTSIDE RECORDS SUMMARY | 2025-03-02 08:09 | XMS RPT_ITS | CCD ---
Author Organization [facility]ini[facility] Care Team Providers Care Glass Cut Off Tender Name Role Phone Dossi Kiersten SCHMITZ Unavailable Ilsa Dhillon R Unavailable Unavailable Ilsa Dhillon R Unavailable Unavailable Ilsa Dhillon R Unavailable Unavailable Dr. Dominic Weaver Primary Care Provider Dr. Dominic Weaver Referring Provider 1([facility])[phone] DosDr. Kiersten carpenter Attending Provider 1([facility]) Dr. Cameron Lacey Attending Provider 1([facility])[phone] Dominic Weaver Other Provider Dr. Juan Gatica Attending Provider 1([facility])[phone] Dominic Weaver Primary Care Provider 1([facility])[phone] Dr. Dominic Weaver Referring Provider 1([facility])[phone] Kiersten Walsh Attending Provider 1([facility]) 25 Diane Stokes Attending Provider Unavailable Dr. Dominic Gonzalez Attending Provider 1([facility])[phone] Dr. Dominic Gonzalez Referring Provider 1([facility]) -[phone] Dr. Dominic Gonzalez Other Provider 1([facility])-[phone] Dominic Weaver Primary Care Provider 1([facility])[phone] Dr. Dominic Gonzalez Attending Provider 1([facility])[phone] Dr. Dominic Weaver Referring Provider 1([facility])[phone] Kiersten Walsh Attending Provider 1([facility]) 25 Lisa SIFUENTES, MARIA Clemons Attending Provider Dr. Casie Cottrell Attending Provider 1([facility] )[phone] Dr. Dominic Weaver Primary Care Provider 1([facility])[phone] Dr. Dominic Weaver Referring Provider Stu DESIGN DRAFTSMAN, DESIGN DRAFTSMAN-C Whitley Clemons Attending Provider [phone] Meg, Dr. Alfaro Primary Care Provider Meg, Dr. Alfaro Referring Provider NAVIN Marte Attending Provider [phone] Cameron Lacey Attending Provider Dr. Kiersten Walsh Attending Provider [phone] Friend, Dr. Myers Attending Provider [phone] Friend, Dr. Myers Other Provider [phone] Meg, Dr. Alfaro Primary Care Provider Meg, Dr. Alfaro Referring Provider Dr. Casie Cottrell Attending Provider [phone] Stu ARTIS, DESIGN DRAFTSMAN-C Whitley Clemons Attending Provider [phone] CHNADRA Marte-Andriy Martinez Attending Provider Dr. Cameron Lacey Attending Provider Jillian, Dr. Burch Attending Provider [phone] Friend, Dr. Myers Attending Provider [phone] Friend, Dr. Myers Other Provider [phone] Meg, Dr. Alfaro Primary Care Provider Meg, Dr. Alfaro Referring Provider Stu ARTIS, DESIGN DRAFTSMAN-C Whitley Clemons Attending Provider [phone] Dr. Casie Cottrell Attending Provider MARIA Silva Attending Provider Meg, Dr. Alfaro Primary Care Provider Meg, Dr. Alfaro Referring Provider Meg, Dr. Alfaro Primary Care Provider Meg, Dr. Alfaro Referring Provider Dr. Kiersten Walsh Attending Provider [phone] MARIA Torres Attending Provider MARIA Schreiber Attending Provider Meg, Dr. Alfaro Primary Care Provider Meg, Dr. Alfaro Referring Provider Dr. Louis Felix Attending Provider [phone] Meg, Dr. Alfaro Primary Care Provider Meg, Dr. Alfaro Referring Provider Dr. Casie Cottrell Attending Provider [phone] Meg, Dr. Alfaro Primary Care Provider Abhijit, Dr. Barnes Attending Provider Abhijit, Dr. Barnes Referring Provider Abhijit, Dr. Barnes Other Provider Meg, Dr. Alfaro Primary Care Provider Meg, Dr. Alfaro Referring Provider MARIA Torres Attending Provider Jillian, Dr. Burch Attending Provider [phone] Meg, Dr. Alfaro Primary Care Provider Abhijit, Dr. Barnes Attending Provider Abhijit, Dr. Barnes Referring Provider Abhijit, Dr. Barnes Other Provider Meg, Dr. Alfaro Referring Provider Dr. Casie Cottrell Attending Provider [phone] Dr. Louis Felix Attending Provider [phone] Meg, Dr. Alfaro Primary Care Provider Meg, Dr. Alfaro Referring Provider Dr. Casie Cottrell Attending Provider [phone] Dr. Louis Felix Attending Provider [phone] Pau DESIGN DRAFTSMAN, CHANDRA-Andriy Rincon Attending Provider [phone] Abhijit, Dr. Barnes Attending Provider Jillian, Dr. Burch Attending Provider Friend, Dr. Myers Other Provider Meg, Dr. Alfaro Primary Care Provider Dr. Dominic Weaver Referring Provider Friend, Dr. Myers Attending Provider Meg YOON, Dr. Alfaro Primary Care Provider Meg YOON, Dr. Alfaro Referring Provider Simba YOON, Dr. Jason Attending Provider [phone] Simba YOON, Dr. Jason Referring Provider Jos ARTIS-CLalitha Attending Provider Miguelito Torres Attending Provider Isidro DO, Dr. Myers Attending Provider Meg YOON, Dr. Alfaro Primary Care Provider Simba YOON, Dr. Jason Attending Provider [phone] Simba YOON, Dr. Jason Referring Provider Meg YOON, Dr. Alfaro Referring Provider En YOON, Dr. Martinez Attending Provider Simba YOON, Dr. Jason Other Provider Meg YOON, Dr. Alfaro Primary Care Provider Simba YOON, Dr. Jason Referring Provider [phone] Dr. Casie Cottrell MD Attending Provider [phone] Meg YOON, Dr. Alfaro Referring Provider Miguelito Torres Attending Provider Miguelito Torres Referring Provider Meg YOON, Dr. Alfaro Primary Care Physician Meg YOON, Dr. Alfaro Referring Provider Simba YOON, Dr. Jason Attending Physician Miguelito Torres Attending Physician [phone] Dr. Louis Felix DO Attending Physician Weaver, Dominic Primary Care Unavailable Weaver, Dominic Referring Unavailable Marcanthony, Casie Attending Unavailable Louis Felix Attending Unavailable Weaver, Dominic Referring Unavailable Weaver, Dominic Primary Care Unavailable Marcanthony, Casie Referring Unavailable Weaver, Dominic Primary Care Unavailable Juan Gatica Attending Unavailable Marcanthony, Casie Attending Unavailable Marcanthony, Casie Consulting Unavailable Marcanthony, Casie Referring Unavailable Weaver, Dominic Primary Care Unavailable Marcanthony, Casie Attending Unavailable Marcanthony, Casie Referring Unavailable Weaver, Dominic Primary Care Unavailable Marcanthony, Casie Attending Unavailable Marcanthony, Csaie Referring Unavailable Weaver, Dominic Primary Care Unavailable Weaver, Dominic Primary Care Unavailable Miguelito Torres Referring Unavailable Miguelito Torres Attending Unavailable Assessment, Health Risk Referring Unavaila ble Assessment, Health Risk Attending Unavaila ble Weaver, Dominic Primary Care Unavailable Weaver, Dominic Referring Unavailable Miguelito Torres Attending Unavailable Weaver, Dominic Primary Care Unavailable MarcanthonyCasie Attending Unavailable Weaver, Dominic Referring Unavailable Weaver, Dominic Primary Care Unavailable Weaver, Dominic Primary Care Unavailable Weaver, Dominic Referring Unavailable Miguelito Torres Attending Unavailable Kiersten Walsh Attending Unavailable Weaver, Dominic Referring Unavailable Weaver, Dominic Primary Care Unavailable Louis Felix Attending Unavailable Weaver, Dominic Referring Unavailable Weaver, Dominic Primary Care Unavailable Weaver, Dominic Primary Care Unavailable Weaver, Dominic Referring Unavailable Miguelito Torres Attending Unavailable Louis Felix Attending Unavailable Weaver, Dominic Primary Care Unavailable Weaver, Dominic Referring Unavailable Weaver, Dominic Primary Care Unavailable Weaver, Dominic Referring Unavailable MarcanthonyCasie Attending Unavailable Weaver, Dominic Referring Unavailable Miguelito Torres Attending Unavailable Weaver, Dominic Primary Care Unavailable Weaver, Dominic Primary Care Unavailable Miguelito Torres Referring Unavailable Miguelito Torres Attending Unavailable Ryananthjuan daniel, Casie Referring Unavailable Weaver, Dominic Primary Care Unavailable Marcanthony, Casie Attending Unavailable Marcanthony, Casie Referring Unavailable Weaver, Dominic Primary Care Unavailable Marcanthony, Casie Attending Unavailable Marcanthony, Casie Attending Unavailable Weaver, Dominic Referring Unavailable Weaver, Dominic Primary Care Unavailable Casie Cottrell Attending Unavailable Casie Cottrell Referring Unavailable Weaver, Dominic Primary Care Unavailable Wallace SIFUENTES, Berry Attending Unavailable Weaver, Dominic Primary Care Unavailable Weaver, Dominic Referring Unavailable Berry Schreiber Attending Unavailable Weaver, Dominic Primary Care Unavailable Weaver, Dominic Referring Unavailable Weaver, Dominic Referring Unavailable Weaver, Dominic Primary Care Unavailable Casie Cottrell Attending Unavailable Jos DESIGN DRAFTSMAN, Lalitha Attending Unavailable Weaver, Dominic Referring Unavailable Weaver, Dominic Primary Care Unavailable Assessment, Health Risk Attending Physician Unav ailable Assessment, Health Risk Referring Provider Unava ilable Wallace SIFUENTES, Berry Attending Physician [phone] Allergies Allergy Classification Reported Allergen(s) Allergy Type Date of Onset Reaction(s) Facility (4 sources) ceftriaxone drug allergy 7 redness pain [facility] Work Phone: (14 sources) [id number]; Translations: [ceftriaxone sodium] Drug Allergy 2 [facility] Medications Current Medications Medication Drug Class(es) Dates Sig (Normalized) Sig (Original) [id number] actuat albuterol 0.09 mg/actuat metered dose inhaler (8 sources) beta2-Adrenergic Agonist Start: 03-24-2024 Albuterol Sulfate (Ventolin Hfa) 90 mcg/actuation HFA aerosol inhaler Active 2 NMA INHALATION Q4H as needed for shortness of breath or wheezing 23 08March 24, 2024 1:00am Complies with drug therapy ashwagandha (11 sources) Start: 10-30-2024 ashwagandha Active 700 mg PO October 30, 2024 1:27pm Complies with drug therapy Start: 10-30-2024 ashwagandha Ac tive 700 mg PO October 30, 2024 1:27pm Start: 10-23-2024 End: 10-30-2024 ashwagandha Discontinued 140 0 mg PO October 23, 2024 12:00am October 30, 2024 1:27pm Start: 10-23-2024 ashwagandha Ac tive 1400 mg PO October 23, 2024 12:00am B-complex with vitamin C capsule (20 sources) Start: 04-27-2017 take 1 capsule by mouth once daily B-complex with vitamin C capsule Active 1 CAP PO daily April 27, 2017 9:26am Start: 04-27-2017 End: 08-11-2022 take 1 capsule by mouth once daily B-complex with vitamin C capsule Discontinued 1 CAP PO daily April 27, 2017 12:00am August 11, 2022 8:58am Start: 04-27-2017 End: 08-11-2022 take 1 capsule by mouth once daily B-complex with vitamin C capsule Discontinued 1 CAP PO daily April 27, 2017 1:00am August 11, 2022 9:58am Start: 04-27-2017 take 1 capsule by mo uth once daily B-complex with vitamin C capsule Active 1 CAP PO daily April 27, 2017 12:00am Start: 04-27-2017 take 1 capsule by mo uth once daily B-complex with vitamin C capsule Active 1 CAP PO daily April 27, 2017 1:00am budesonide 0.5 mg/ml inhalation suspension (4 sources) Corticosteroid Start: 05-21-2022 Budesonide Act porsha 0 .ROUTE DAILY May 21, 2022 12:00am mix medication with 1 tsp of honey or with 5 packets of Splenda, swallow once daily, nothing to eat or drink for one hour after 2 ml dupilumab 150 mg/ml auto-injector (4 sources) Interleukin-4 Receptor alpha Antagonist Start: 05-18-2022 Dupilumab (Dupixent Pen) 300 mg/2 mL pen injector Active 300 MG SC EVERY WEEK May 18, 2022 12:00am magnesium oxide 400 mg oral tablet (20 sources) Start: 02-08-2024 take 1 tablet by mouth once daily Magnesium Oxide 400 mg magnesium tablet Active 400 mg PO daily February 08, 2024 1:00am Complies with drug therapy Start: 12-08-2018 End: 08-11-2022 take 1 tablet by mouth once daily Magnesium Oxide 400 mg magnesium tablet Discontinued 400 mg PO DAILY December 08, 2018 12:00am August 11, 2022 9:58am Multivitamin tablet (8 sources) Start: 02-08-2024 Multivitamin t ablet Active 1 {tbl} PO daily February 08, 2024 1:00am Complies with drug therapy Start: 02-08-2024 Multivitamin t ablet Active 1 {tbl} PO daily February 08, 2024 1:00am multivitamin,pq-cwbh-lnlddur s tablet (20 sources) Start: 04-27-2017 take 1 tablet by mouth once daily multivitamin,ja-ybth-kwyorukq tablet Active 1 TABLET PO daily April 27, 2017 9:26am Start: 04-27-2017 End: 08-11-2022 take 1 tablet by mouth once daily multivitamin,ag-vdnv-uzhpajrn tablet Discontinued 1 TABLET PO daily April 27, 2017 12:00am August 11, 2022 8:58am Start: 04-27-2017 End: 08-11-2022 take 1 tablet by mouth once daily multivitamin,we-esbi-ctlqspib tablet Discontinued 1 TABLET PO daily April 27, 2017 1:00am August 11, 2022 9:58am Start: 04-27-2017 take 1 tablet by lisa th once daily multivitamin,cf-todk-iljvtsng tablet Act porsha 1 TABLET PO daily April 27, 2017 12:00am Start: 04-27-2017 take 1 tablet by lisa th once daily multivitamin,gx-idds-yxvjzxxl tablet Act porsha 1 TABLET PO daily April 27, 2017 1:00am predniSONE 10 mg oral tablet (2 sources) Start: 12-18-2024 End: 12-30-2024 Prednisone 10 mg tablet Discontinued 10 mg PO As Directed 30 12 0 December 18, 2024 12:00am December 29, 2024 12:00am December 30, 2024 12:14am Unspecified contact dermatitis, unspecified cause Take 4 tabs once daily days 1-3 3 tabs once daily days 4-6 2 tabs once daily days 7-9 and 1 tab once daily days 10-12. Vitamin B Complex capsule (8 sources) Start: 02-08-2024 Vitamin B Comp bibiana capsule Active 1 NMA PO daily February 08, 2024 1:00am Complies with drug therapy Start: 02-08-2024 Vitamin B Comp bibiana capsule Active 1 NMA PO daily February 08, 2024 1:00am vitamin b12 0.5 mg oral tablet (8 sources) Vitamin B12 Start: 02-08-2024 take 1 tablet by mouth once daily Cyanocobalamin (Vitamin B-12) 500 mcg tablet Active 500 ug PO daily February 08, 2024 1:00am Complies with drug therapy Start: 02-08-2024 take 1 tablet by once daily Cyanocobalamin (Vitamin B-12) 500 mcg tablet Active 500 ug PO daily February 08, 2024 1:00am Completed/Discontinued Medications Medication Drug Class(es) Dates Sig (Normalized) Sig (Original) acetaminophen 325 mg / oxyCODONE hydrochloride 5 mg oral tablet (7 sources) Opioid Agonist Start: 07-11-2024 End: 07-24-2024 Oxycodone-Acetamin ophen (Percocet) 5-325 mg tablet Discontinued 1 {tbl} PO Q4H as needed for pain 20 7 0 July 11, 2024 July 24, 2024 3:31pm Dermoid cyst of both ovaries Status post ovarian cystectomy Status post oophorectomy Status post surgical removal of both fallopian tubes Status post endometrial ablation 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 Other specified postprocedural states Personal history of other diseases of the female genital tract Acquired absence of other genital organ(s) amoxicillin 500 mg oral capsule (20 sources) Penicillin-class Antibacterial Start: 03-08-2022 End: 03-17-2022 take 2 capsules by mouth twice daily Amoxicillin 500 mg capsule Discontinued 1000 mg PO TWICE A DAY 40 10 March 08, 2022 1:00am March 17, 2022 1:00am March 17, 2022 7:47am Start: 03-08-2022 End: 03-17-2022 take 1000 mg by mouth twice daily Amoxicillin Discontinued 1000 MG PO TWICE A DAY 40 March 08, 2022 1:00am March 17, 2022 7:47am amoxicillin 875 mg / clavulanate 125 mg oral tablet (8 sources) Penicillin-class Antibacterial Start: 01-04-2024 End: 02-07-2024 Amoxicillin-Pot Clavulanate 875-125 mg tablet Discontinued 1 {tbl} PO TWICE A DAY 20 0 January 04, 2024 12:00am February 07, 2024 4:14pm azithromycin 250 mg oral tablet (13 sources) Macrolide Antimicrobial Start: 01-04-2024 End: 02-07-2024 Azithromycin 250 mg tablet Discontinued 0 PO .COMPLEX 6 0 January 04, 2024 12:00am February 07, 2024 4:14pm For 250 mg dose pack: take 500 mg today (day 1), then 250 mg for 4 days (days 2-5) PO Start: 09-09-2009 End: 09-14-2009 take 1 tablet by mouth once daily ZITHROMAX 500 MG TABS One tablet by mouth daily [facility] [id number] Chris Black MD B COMPLEX VITAMINS (4 sources) Start: 09-07-2016 B COMPLEX-B12 TABS 1 daily B COMPLEX VITAMINS [id number] Kiersten Walsh DC B-Complex With Vitamin C capsule (8 sources) Start: 04-27-2017 End: 08-11-2022 B-Complex With Vitamin C capsule Discontinued 1 NMA PO daily April 27, 2017 1:00am August 11, 2022 9:58am baclofen 5 mg oral tablet (11 sources) gamma-Aminobutyri c Acid-ergic Agonist Start: 05-25-2023 End: 07-05-2023 Baclofen 5 mg tablet Discontinued 5 mg PO TWICE A DAY 60 0 May 25, 2023 12:00am July 05, 2023 5:08am first week take one at night, if no symptoms develop increased to two times a day benzonatate 200 mg oral capsule (8 sources) Non-narcotic Antitussive Start: 01-04-2024 End: 02-07-2024 take 1 capsule by mouth three times daily as needed for cough Benzonatate 200 mg capsule Discontinued 200 mg PO THREE TIMES A DAY as needed for cough 20 0 January 04, 2024 12:00am February 07, 2024 4:14pm 24 hr buPROPion hydrochloride 300 mg extended release oral tablet (20 sources) Aminoketone Start: 2019 End: 10-06-2021 take 1 tablet by mouth once daily Bupropion Hcl 300 MG tablet extended release 24 hr Discontinued 300 mg PO DAILY 2019 12:00am October 06, 2021 2:15pm calcium carbonate 1250 mg / cholecalciferol 200 unt oral tablet (20 sources) Vitamin D Start: 05-25-2019 End: 08-11-2022 Calcium Carbonate-Vitamin D3 1 EACH tablet Discontinued 1 NMA PO DAILY May 25, 2019 12:00am August 11, 2022 9:58am Start: 05-25-2019 End: 08-11-2022 Calcium Carbonate-Vitamin D3 Discontinued 1 EACH PO DAILY May 25, 2019 12:00am August 11, 2022 9:58am doxycycline monohydrate 100 mg oral capsule (7 sources) Tetracycline-class Drug Start: 07-24-2024 End: 09-11-2024 take 1 capsule by mouth twice daily Doxycycline Monohydrate 100 mg capsule Discontinued 100 mg PO TWICE A DAY 28 July 24, 2024 12:00am September 11, 2024 7:37am erythromycin 500 mg oral tablet (20 sources) Macrolide, Macrolide Antimicrobial Start: 10-27-2022 End: 11-12-2022 take 1 tablet by mouth twice daily Erythromycin 500 mg tablet Discontinued 500 mg PO TWICE A DAY 14 October 27, 2022 12:00am November 12, 2022 12:50pm Start: 09-19-2018 End: 12-08-2018 take 1 tablet by mouth three times daily Erythromycin 500 mg tablet Discontinued 500 mg PO THREE TIMES A DAY 21 September 19, 2018 12:00am December 08, 2018 10:20am 21 day ethinyl estradiol 0.090876 mg/hr / etonogestrel 0.005 mg/hr vaginal system (20 sources) Progestin, Estrogen Start: 05-28-2022 End: 03-17-2023 Etonogestrel-Ethinyl Estradiol (Nuvaring) 0.12-0.015 mg/24 hr ring Discontinued 1 NMA VAGINAL ONCE 1 25 02May 28, 2022 12:00am March 17, 2023 2:50pm Start: 05-28-2022 End: 03-17-2023 Etonogestrel-Ethinyl Estradi ol (Nuvaring) 0.12-0.015 mg/24 hr ring Discontinued 1 VAG RING VAGINAL ONCE 1 May 28, 2022 12:00am March 17, 2023 2:50pm levonorgestrel 0.259797 mg/hr intrauterine system (8 sources) Progestin, Progestin-containing Intrauterine Device Start: 02-23-2024 End: 07-24-2024 Levonorgestrel (Mirena) 21 mcg/24hr (up to 8 yrs) 52 mg intrauterine device Discontinued 1 NMA INTRA-UTER ONCE February 23, 2024 1:00am July 24, 2024 3:31pm as a single dose melatonin 3 mg oral tablet (20 sources) Start: 10-06-2021 End: 08-11-2022 take 2 tablets by mouth at bedtime as needed for sleep Melatonin 3 mg tablet Discontinued 6 mg PO BEDTIME as needed for Sleep October 06, 2021 12:00am August 11, 2022 9:58am Start: 10-06-2021 End: 08-11-2022 take 6 mg by mouth at bedtime Melatonin Discontinued 6 MG PO BEDTIME October 06, 2021 12:00am August 11, 2022 9:58am metoprolol tartrate 50 mg oral tablet (20 sources) beta-Adrenergic Christy Start: 10-21-2021 End: 11-19-2021 take 1 tablet by mouth every hour Metoprolol Tartrate 50 mg tablet Discontinued 50 mg PO .COMPLEX 2 0 October 21, 2021 9:59am November 19, 2021 3:45pm 50 mg orally take 1 tab by mouth the night before CT scan and then take 1 tab one hour orior to scan; Multivitamin,Tx-Iro n-Minerals (Complete Multivitamin) tablet (8 sources) Start: 04-27-2017 End: 08-11-2022 Multivitamin,Tx-I willy-Minerals (Complete Multivitamin) tablet Discontinued 1 {tbl} PO daily April 27, 2017 1:00am August 11, 2022 9:58am naproxen 500 mg oral tablet (7 sources) Nonsteroidal Anti-inflammatory Drug Start: 07-11-2024 End: 07-24-2024 take 1 tablet by mouth twice daily as needed for pain Naproxen 500 mg tablet Discontinued 500 mg PO TWICE DAILY NEEDED as needed for Pain 30 July 11, 2024 12:00am July 24, 2024 3:31pm omeprazole 20 mg delayed release oral capsule (20 sources) Proton Pump Inhibitor Start: 11-19-2021 End: 02-24-2022 take 1 capsule by mouth once daily Omeprazole 20 mg capsule,delayed release(DR/EC) Discontinued 20 mg PO DAILY November 19, 2021 12:00am February 24, 2022 11:25am oxyCODONE hydrochloride 5 mg oral tablet (9 sources) Opioid Agonist Start: 07-05-2023 End: 08-03-2023 take 1 tablet by mouth every six hours as needed for pain Oxycodone 5 mg tablet Discontinued 5 mg PO EVERY 6 HOURS as needed for pain 12 3 0 July 05, 2023 August 03, 2023 8:27am Fracture of head of radius PEDIATRIC [id number] (4 sources) Start: 09-07-2016 CHEWABLES MULTIVITAMIN CHEW 1 daily PEDIATRIC MULTIVIT-MINERALS -C [id number] Kiersten Walsh DC Semaglutide (11 sources) Start: 02-08-2024 End: 08-30-2024 Semaglutide 0.25 mg or 0.5 mg (2 mg/3 mL) pen injector Discontinued 1 mg SC February 08, 2024 8:41am August 30, 2024 3:52pm for 4 weeks Start: 02-08-2024 Semaglutide 0. 25 mg or 0.5 mg (2 mg/3 mL) pen injector Active 1 mg SC February 08, 2024 8:41am for 4 weeks Start: 02-08-2024 Semaglutide 0. 25 mg or 0.5 mg (2 mg/3 mL) pen injector Active 1 mg SC EVERY WEEK February 08, 2024 8:41am for 4 weeks Start: 08-03-2023 End: 02-08-2024 Semaglutide 0.25 mg or 0.5 m g (2 mg/3 mL) pen injector Discontinued 0.25 mg SC EVERY WEEK 1.August 03, 2023 12:00am February 08, 2024 8:41am for 4 weeks Semaglutide 0.25 mg or 0.5 m g (2 mg/3 mL) pen injector (5 sources) Start: 08-03-2023 End: 02-08-2024 Semaglutide 0.25 mg or 0.5 m g (2 mg/3 mL) pen injector Discontinued 0.25 mg SC EVERY WEEK 1.August 03, 2023 12:00am February 08, 2024 8:41am for 4 weeks Start: 08-03-2023 End: 02-08-2024 Semaglutide 0.25 mg or 0.5 m g (2 mg/3 mL) pen injector Discontinued 0.25 mg SC EVERY WEEK 1.August 03, 2023 12:00am February 08, 2024 8:41am for 4 weeks Tirzepatide (3 sources) Start: 08-30-2024 End: 09-11-2024 Tirzepatide (Mounjaro) 2.5 mg/0.5 mL pen injector Discontinued 2.5 mg SC EVERY WEEK 2 August 30, 2024 12:00am September 11, 2024 7:37am for 4 weeks Tirzepatide (Mounjaro) 2.5 mg/0.5 mL pen injector (3 sources) Start: 08-30-2024 End: 09-11-2024 Tirzepatide (Mounjaro) 2.5 mg/0.5 mL pen injector Discontinued 2.5 mg SC EVERY WEEK 2 August 30, 2024 12:00am September 11, 2024 7:37am for 4 weeks tiZANidine 4 mg oral capsule (19 sources) Central alpha-2 Adrenergic Agonist Start: 08-02-2022 End: 08-11-2022 take 1 capsule by mouth three times daily as needed Tizanidine (Zanaflex) 4 mg capsule Discontinued 4 mg PO THREE TIMES A DAY as needed for muscle spasticity August 02, 2022 4:42am August 11, 2022 9:58am valACYclovir 500 mg oral tablet (20 sources) Herpesvirus Nucleoside Analog DNA Polymerase Inhibitor, Herpes Simplex Virus Nucleoside Analog DNA Polymerase Inhibitor, Herpes Zoster Virus Nucleoside Analog DNA Polymerase Inhibitor Start: 02-19-2023 End: 07-05-2023 take 2 tablets by mouth twice daily as needed Valacyclovir (Valtrex) 500 mg tablet Discontinued 1000 mg PO TWICE A DAY as needed for cold sores March 17, 2023 2:50pm July 05, 2023 5:08am Problems Active Problems Problem Classification Problem Date Documented Date Episodic/Chronic Acute and chronic tonsillitis (20 sources) Abscess of tonsil ; Translations: [Peritonsillar abscess] 12-08-2018 Episodic Allergic reactions (7 sources) Unspecified contact dermatitis, unspecified cause; Translations: [Irritant contact dermatitis due to plant] Onset: 12-18-2024 12-15-2024 Episodic Asthma (9 sources) Asthma; Translations: [Unspecified asthma, uncomplicated] 03-24-2024 Chronic Contraceptive and procreative management (6 sources) Encounter for insertion of intrauterine contraceptive device; Translations: [Encounter for insertion of intrauterine contraceptive device] 03-17-2023 Episodic E Codes: Cut/pierceb (20 sources) Contact with contaminated hypodermic needle, initial encounter; Translations: [Accidental needlestick injury with exposure to body fluid] 12-08-2018 Episodic E Codes: Fall (9 sources) Fall; Translations: [Unspecified fall, initial encounter] 07-05-2023 Episodic Esophageal disorders (20 sources) Eosinophilic esophagitis; Translations: [Eosinophilic esophagitis] 05-28-2022 Chronic Fracture of upper limb (9 sources) Fracture of radial head; Translations: [Displaced fracture of head of unspecified radius, initial encounter for closed fracture] 07-05-2023 Episodic Immunizations and screening for infectious disease (8 sources) Contact with or exposure to other viral diseases; Translations: [Contact with and (suspected) exposure to other viral communicable diseases] 01-04-2024 Episodic Nonspecific chest pain (20 sources) Chest pain; Translations: [Chest pain, unspecified] Episodic Other and unspecified benign neoplasm (20 sources) Benign teratoma of ovary; Translations: [Benign neoplasm of right ovary] 05-03-2024 Episodic Comment on above: plan laparoscopic bi lateral ovarian cystectomies, salpingectomies Other bone disease and musculoskeletal deformities (20 sources) Segmental and somatic dysfunction; Translations: [Segmental and somatic dysfunction of cervical region] Onset: 09-07-2016 10-06-2016 Episodic Other complications of ; puerperium affecting management of mother (9 sources) delivery - delivered; Translations: [Encounter for delivery without indication] 12-11-2019 Episodic Other complications of ; puerperium affecting management of mother (20 sources) Deliveries by ; Translations: [Encounter for delivery without indication] 04-27-2022 Episodic Comment on above: TUBAL LIGATION X2 TUBAL LIGATION Other connective tissue disease (17 sources) Foot pain; Translations: [Pain in left foot] 07-06-2022 Episodic Other connective tissue disease (6 sources) Pain in left foot; Translations: [Pain in limb] 07-06-2022 Episodic Other connective tissue disease (3 sources) Pain in left foot; Translations: [Pain in left foot] 07-06-2022 Episodic Other connective tissue disease (1 source) Pain in left finger(s); Translations: [Pain in left finger(s)] Onset: 11-03-2024 Episodic Other ear and sense organ disorders (20 sources) Pain of ear structure; Translations: [Otalgia, bilateral] 03-08-2022 Episodic Other ear and sense organ disorders (5 sources) Otalgia, bilateral; Translations: [Otalgia, unspecified] 03-08-2022 Episodic Other female genital disorders (20 sources) Abnormal uterine bleeding; Translations: [Abnormal uterine and vaginal bleeding, unspecified] 05-28-2022 Chronic Comment on above: plan IUD removal and d and c hysteroscopy stephanie at time of laparoscopy Other female genital disorders (20 sources) Abnormal uterine and vaginal bleeding, unspecified; Translations: [Unspecified disorders of menstruation and other abnormal bleeding from female genital tract] Onset: 07-25-2024 05-28-2022 Chronic Other liver diseases (20 sources) Lesion of liver; Translations: [Liver disease, unspecified] 02-25-2022 Chronic Other lower respiratory disease (16 sources) Chronic cough; Translations: [Chronic cough] 11-12-2022 Episodic Other lower respiratory disease (5 sources) Shortness of breath; Translations: [Shortness of breath] 11-12-2022 Episodic Other lower respiratory disease (8 sources) Single lobe lung infiltrate; Translations: [Other nonspecific abnormal finding of lung field] 01-04-2024 Episodic Other nutritional; endocrine; and metabolic disorders (20 sources) Body mass index 40+ - severely obese; Translations: [Body mass index (BMI) 45.0-49.9, adult] 03-17-2022 Chronic Other nutritional; endocrine; and metabolic disorders (2 sources) Body mass index (BMI) 45.0-49.9, adult; Translations: [Body Mass Index 45.0-49.9, adult] Chronic Other nutritional; endocrine; and metabolic disorders (14 sources) Body mass index (BMI) 40.0-44.9, adult; Translations: [Body Mass Index 40.0-44.9, adult] 03-17-2022 Chronic Other nutritional; endocrine; and metabolic disorders (13 sources) Obesity; Translations: [Obesity, unspecified] 03-24-2024 Chronic Other upper respiratory infections (20 sources) Acute pharyngitis; Translations: [Sore throat symptom] Onset: 09-09-2009 09-09-2009 Episodic Otitis media and related conditions (20 sources) Acute non-suppurative otitis media - serous; Translations: [Acute serous otitis media, bilateral] 03-08-2022 Episodic Poisoning by nonmedicinal substances (20 sources) Bee sting; Translations: [Toxic effect of venom of bees, accidental (unintentional), initial encounter] 12-11-2019 Episodic Residual codes; unclassified (20 sources) Obstructive sleep apnea syndrome; Translations: [Obstructive sleep apnea (adult) (pediatric)] 04-02-2021 Chronic Comment on above: AHI 21.2. Treated wi th AutoPap 7 to 15 cm water Residual codes; unclassified (13 sources) Obstructive sleep apnea (adult) (pediatric); Translations: [Obstructive sleep apnea (adult)(pediatric)] Chronic Residual codes; unclassified (16 sources) History of endometrial ablation; Translations: [Other specified postprocedural states] 07-11-2024 Episodic Residual codes; unclassified (1 source) Pain, unspecified; Translations: [Pain, unspecified] Onset: 10-30-2024 Episodic Skin and subcutaneous tissue infections (20 sources) Cellulitis of upper limb; Translations: [Cellulitis of right upper limb] 12-11-2019 Episodic Spondylosis; intervertebral disc disorders; other back problems (20 sources) Dorsalgia, unspecified; Translations: [Backache, unspecified] 04-23-2022 Episodic Sprains and strains (20 sources) Strain of trapezius muscle; Translations: [Strain of other muscles, fascia and tendons at shoulder and upper arm level, left arm, initial encounter] Onset: 10-30-2024 08-11-2022 Episodic Unclassified (1 source) Cough, unspecified; Translations: [Cough, unspecified] Onset: 01-25-2024 Past or Other Problems Problem Classification Problem Date Documented Da te Episodic/Chronic Other bone disease and musculoskeletal deformities (20 sources) Segmental and somatic dysfunction of cervical region; Translations: [Nonallopathic lesions, cervical region] Onset: 02-08-2024 Episodic Other bone disease and musculoskeletal deformities (20 sources) Segmental and somatic dysfunction of lumbar region; Translations: [Nonallopathic lesions, lumbar region] Onset: 02-08-2024 Episodic Other bone disease and musculoskeletal deformities (20 sources) Segmental and somatic dysfunction of thoracic region; Translations: [Nonallopathic lesions, thoracic region] Onset: 02-08-2024 Episodic Other screening for suspected conditions (not mental disorders or infectious disease) (1 source) Encounter for screening mammogram for malignant neoplasm of breast; Translations: [Encounter for screening mammogram for malignant neoplasm of breast] Onset: 06-14-2024 Episodic Residual codes; unclassified (1 source) Other specified postprocedural states; Translations: [Other specified postprocedural states] Onset: 07-24-2024 Episodic Residual codes; unclassified (1 source) Acquired absence of other genital organ(s); Translations: [Acquired absence of other genital organ(s)] Onset: 07-24-2024 Episodic Results Test Name Value Interpretation Reference Range Facility Urgent Care Visit Reporton 1 Urgent Care Visit Report [facility] [address] , [address] [place] [address] OFFICE VISIT Date of Service: 12/18/24 MR#: [id number] Acct: [id number] Name: ARTURO SIMON Rep #: [id number] : 1975 Provider: MARIA Fields Age/Sex: 49/F Location: [facility] Status: Signed Intake Vital Signs 10/30/24 13:29 12/18/24 16:27 Height 5 ft 3 in Weight: 253 lb BMI 44.8 BP 116/70 124/86 H Blood Pressure Location Lt brachial Position Sitting Sitting Respiration 16 18 Pulse 91 81 Pulse Source Monitor Temp 97.3 F L 98.2 F Temp Source Oral Oral Pulse Oximetry (%) 99 97 Oxygen Delivery Method room air room air Intake Visit Reasons: concern for poison manoj Chief Complaint: rash Accompanied by: Self Allergies ceftriaxone sodium (From Rocephin) Allergy (Verified 12/18/24 16:27) Hives Medications ???Medication ???Instructions ???Recorded ???Confirmed ???Type cyanocobalamin (vitamin B-12) 500 500 mcg PO QDAY 02/08/24 12/18/24 History mcg tablet magnesium oxide 400 mg PO QDAY 02/08/24 12/18/24 H istory multivitamin 1 tab PO QDAY 02/08/24 12/18/24 Hi story vitamin B complex 1 cap PO QDAY 02/08/24 12/18/24 Hi story albuterol sulfate 90 mcg/actuation 2 puff inhalation Q4H PRN 12/18/24 Rx aerosol inhaler (Ventolin HFA) shortness of breath or wheezing #18 grams ashwagandha 700 mg PO 10/30/24 12/18/24 Histor y prednisone 10 mg tablet 10 mg PO DIRECTED 12 days #30 1 12/18/24 Rx tabs Nurse's Note: Patient here for concerns for PI. Patient was seen here on Wednesday and received a Kenalog injection. Patient states that her PI is worse. [facility] Medical History (Updated 12/15/24 @ 15:34 by Berry SIFUENTES, PA) Sprain of left ring finger Right middle lobe pulmonary infiltrate Contact with or exposure to other viral diseases Wears contact lenses Migraine headache Strain of left trapezius muscle Strain of left rotator cuff capsule Left shoulder strain Eosinophilic esophagitis Wears glasses Alcohol use CPAP (continuous positive airway pressure) dependence Non-smoker History of edema History of echocardiogram History of stress test Cardiology follow-up encounter ROMAINE (obstructive sleep apnea) Right arm cellulitis Bee sting Needlestick injury accident with exposure to body fluid Segmental and somatic dysfunction of cervical region Segmental and somatic dysfunction of thoracic region Segmental and somatic dysfunction of lumbar region Tonsillar abscess Surgical History H/O dilation and curettage S/P endometrial ablation Status post bilateral salpingectomy S/P oophorectomy S/P ovarian cystectomy Hx of tubal ligation History of esophagogastroduodenoscop y (EGD) H/O shoulder surgery delivery delivered Family History Sister ROMAINE (obstructive sleep apnea) Grandfather Cancer lung Grandmother Heart disease Diabetes Sister ROMAINE (obstructive sleep apnea) Sister ROMAINE (obstructive sleep apnea) Mitral valve prolapse Sinus tachycardia Mother Cholangiocarcinoma, Onset Age: 67 Social History Smoking Status: Never smoker alcohol intake: current alcohol intake frequency: holidays/special occasions only substance use type: does not use caffeine: No what type of physical activity do you participate in: running and weight training frequency: 1-2 times per week seatbelt use: always do you feel safe at home: Yes additional social history: - Mir 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 Patient was here and given Kenalog injection 3 days ago and states that her rash has worsened since. She denies shortness of breath, difficulty breathing or chest pain. No lip/tongue/throat swelling. She does also state that she has been taking Benadryl every 8 hours without any relief. No other associated symptoms or alleviating/aggravating factors. ROS Const Constitutional: No other (as above) Exam Const General: cooperative and healthy appearing [facility] Head: normocephalic and atraumatic Ears: hearing grossly normal bilaterally Nose: external nose normal Face and sinus: normal facial exam and face symmetric Mouth: oral mucosae normal Throat: posterior oropharynx normal Resp Effort Inspection: normal respiratory effort Cardio Rate: regular rate Skin Other: Increasing from the last exam grouped vesicular lesions scattered about the body. Neuro General: patient alert Psych Appearance: grossly normal Mental Status: mental status grossly normal Coding Lev (more content not included)... Normal [facility] Urgent Care Visit Reporton 1 Urgent Care Visit Report [facility] [address], [address] [place] [address] OFFICE VISIT Date of Service: 12/15/24 MR#: [id number] Acct: [id number] Name: ARTURO SIMON Rep #: [id number] : 1975 Provider: MARIA Fields Age/Sex: 49/F Location: [facility] Status: Signed Intake Vital Signs 10/30/24 13:29 12/15/24 14:19 Height 5 ft 3 in Weight: 253 lb BMI 44.8 BP 116/70 126/62 H Blood Pressure Location Lt brachial Lt brachial Position Sitting Sitting Respiration 16 16 Pulse 91 78 Pulse Source Monitor NIBP Temp 97.3 F L 98.4 F Temp Source Oral Oral Pulse Oximetry (%) 99 78 Oxygen Delivery Method room air room air Intake Visit Reasons: POISON MANOJ Chief Complaint: rash 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 concern for poison manoj [facility] Medical History (Updated 12/15/24 @ 15:34 by Berry SIFUENTES, PA) Sprain of left ring finger Right middle lobe pulmonary infiltrate Contact with or exposure to other viral diseases Wears contact lenses Migraine headache Strain of left trapezius muscle Strain of left rotator cuff capsule Left shoulder strain Eosinophilic esophagitis Wears glasses Alcohol use CPAP (continuous positive airway pressure) dependence Non-smoker History of edema History of echocardiogram History of stress test Cardiology follow-up encounter ROMAINE (obstructive sleep apnea) Right arm cellulitis Bee sting Needlestick injury accident with exposure to body fluid Segmental and somatic dysfunction of cervical region Segmental and somatic dysfunction of thoracic region Segmental and somatic dysfunction of lumbar region Tonsillar abscess Surgical History H/O dilation and curettage S/P endometrial ablation Status post bilateral salpingectomy S/P oophorectomy S/P ovarian cystectomy Hx of tubal ligation History of esophagogastroduodenoscop y (EGD) H/O shoulder surgery delivery delivered Family History Sister ROMAINE (obstructive sleep apnea) Grandfather Cancer lung Grandmother Heart disease Diabetes Sister ROMAINE (obstructive sleep apnea) Sister ROMAINE (obstructive sleep apnea) Mitral valve prolapse Sinus tachycardia Mother Cholangiocarcinoma, Onset Age: 67 Social History Smoking Status: Never smoker alcohol intake: current alcohol intake frequency: holidays/special occasions only substance use type: does not use caffeine: No what type of physical activity do you participate in: running and weight training frequency: 1-2 times per week seatbelt use: always do you feel safe at home: Yes additional social history: - Mir 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 Patient states that she was weeding and then 2 days later started having poison manoj rash that she states has spread since. She denies shortness of breath, difficulty breathing chest pain. No lip/tongue/throat swelling. No other associated symptoms or alleviating/aggravating factors. ROS Const Constitutional: No other (as above) Exam Const General: cooperative and healthy appearing [facility] Head: normocephalic and atraumatic Ears: hearing grossly normal bilaterally Nose: external nose normal Face and sinus: normal facial exam and face symmetric Mouth: oral mucosae normal Throat: posterior oropharynx normal Resp Effort Inspection: normal respiratory effort Cardio Rate: regular rate Skin Other: Grouped vesicular lesions scattered about the body. Neuro General: patient alert Psych Appearance: grossly normal Mental Status: mental status grossly normal Office Procedures Ortho Injections Injections Is this a patient provided medication?: No Office Meds Kenalog 40 mg/mL suspension for injection Performing Provider: MARIA Giron Performing Location: [facility] Administered by: Damaris Munguia on 12/15/24 14:30 Dose Route Admin Location Dispensed Lot Number Expiration Date Package NDC NDC Manufacturing Engineer Supervisor 60 mg IM right gluteus 1.5 mL [id number] 04/07/26 81613-196-10 [id number] [facility] Coding Level of Care Code Off vis,new,level 3 Diagnoses Irritant contact dermatitis due to plant L24.7 Assessment and Plan Assessment and Plan (1) Irritant contact dermatitis due to plant: Status: Acut (more content not included)... Normal [facility] Absolute lymphocyte countOrd ered By: HEALTH ASSESSMENT on 11-28-2024 Lymphocytes Auto (Unsp spec) [#/Vol] 2.28 10*3/uL 0.83-4.51 [facility] Absolute neutrophil countOrd ered By: HEALTH ASSESSMENT on 11-28-2024 Neutrophils (Bld) [#/Vol] 5.7 10*3/uL 2.0-7.7 [facility] Absolute nucleated red blood cell countOrdered By: HEALTH ASSESSMENT on 11-28-2024 Nucleated RBC (Bld) [#/Vol] 0.00 10*3/uL 0-5 [facility] Anion gap in Serum or Plasma Ordered By: HEALTH ASSESSMENT on 11-28-2024 Anion gap [Moles/Vol] 12 mmol/L 5-15 [facility] BUN/creatinine ratioOrdered By: HEALTH ASSESSMENT on 11-28-2024 Urea nitrogen/Creatinine [Mass ratio] 18.5 mg/mg 10-20 [facility] Bilirubin Test strip Ql (U)O rdered By: HEALTH ASSESSMENT on 11-28-2024 Bilirubin Ql (U) Negative Negative [facility] Bilirubin directOrdered By: HEALTH ASSESSMENT on 11-28-2024 Bilirubin.direct [Mass/Vol] 0.30 mg/dL 0.00-0.30 [facility] Bilirubin, totalOrdered By: HEALTH ASSESSMENT on 11-28-2024 Bilirubin [Mass/Vol] 0.80 mg/dL 0.00-1.30 [facility] Blood band neutrophil count as percentage of total leukocytesOrdered By: HEALTH ASSESSMENT on 11-28-2024 Band form neutrophils/100 WBC (Bld) 63.5 % 47-70 [facility] CBC, Employeeon 11-28-2024 Absolute Lymph 2.28 X10 3/uL Normal 0.83-4.51 [facility] Comment on above: Performed By: #### L 100.0200, L400.0100, L500.2900 #### [facility] [address] [place], [address] Absolute Neut 5.7 X10 3/uL Normal 2.0-7.7 [facility] Comment on above: Performed By: #### L 100.0200, L400.0100, L500.2900 #### [facility] [address] [place], [address] Basophils/100 WBC (Bld) 0.4 % Normal 0-1 [facility] Comment on above: Performed By: #### L 100.0200, L400.0100, L500.2900 #### [facility] [address] [place], [address] Eosinophils/100 WBC (Bld) 0.7 % Normal 0-5 [facility] Comment on above: Performed By: #### L 100.0200, L400.0100, L500.2900 #### [facility] [address] [place], [address] Erythrocyte distribution width (RBC) [Ratio] 13.1 % Normal 11.6-14.6 [facility] Comment on above: Performed By: #### L 100.0200, L400.0100, L500.2900 #### [facility] [address] [place], [address] Hematocrit (Bld) [Volume fraction] 39.9 % Normal 37-47 [facility] Comment on above: Performed By: #### L 100.0200, L400.0100, L500.2900 #### [facility] [address] [place], [address] Hemoglobin (Bld) [Mass/Vol] 13.5 g/dL Normal 12.0-15.0 [facility] Comment on above: Performed By: #### L 100.0200, L400.0100, L500.2900 #### [facility] [address] [place], [address] Lymphocytes/100 WBC (Bld) 25.5 % Normal 19-41 [facility] Comment on above: Performed By: #### L 100.0200, L400.0100, L500.2900 #### [facility] [address] [place], [address] MCH (RBC) [Entitic mass] 29.2 pg Normal 27.0-32.0 [facility] Comment on above: Performed By: #### L 100.0200, L400.0100, L500.2900 #### [facility] [address] [place], [address] MCHC (RBC) [Mass/Vol] 33.8 g/dL Normal 32-36 [facility] Comment on above: Performed By: #### L 100.0200, L400.0100, L500.2900 #### [facility] [address] [place], [address] MCV (RBC) [Entitic vol] 86.2 fL Normal 81-99 [facility] Comment on above: Performed By: #### L 100.0200, L400.0100, L500.2900 #### [facility] [address] [place], [address] Monocytes/100 WBC (Bld) 9.7 % Normal 0-10 [facility] Comment on above: Performed By: #### L 100.0200, L400.0100, L500.2900 #### [facility] [address] [place], [address] Neutrophils/100 WBC (Bld) 63.5 % Normal 47-70 [facility] Comment on above: Performed By: #### L 100.0200, L400.0100, L500.2900 #### [facility] [address] [place], [address] NRBC # 0.00 10 3/uL Normal 0-5 [facility] Comment on above: Performed By: #### L 100.0200, L400.0100, L500.2900 #### [facility] [address] [place], [address] Nucleated RBC (Bld) [#/Vol] 0 10*3/uL Normal 0-5 [facility] Comment on above: Performed By: #### L 100.0200, L400.0100, L500.2900 #### [facility] [address] [place], [address] Platelet mean volume (Bld) [Entitic vol] 11.9 fL Normal 6.2-12.0 [facility] Comment on above: Performed By: #### L 100.0200, L400.0100, L500.2900 #### [facility] [address] [place], [address] Platelets (Bld) [#/Vol] 159 10*3/uL Normal 150-450 [facility] Comment on above: Performed By: #### L 100.0200, L400.0100, L500.2900 #### [facility] [address] [place], [address] RBC (Bld) [#/Vol] 4.63 10*6/uL Normal 4.2-5.4 [facility] Comment on above: Performed By: #### L 100.0200, L400.0100, L500.2900 #### [facility] [address] [place], [address] RDW SD 40.6 fl Normal 35.1-43.9 [facility] Comment on above: Performed By: #### L 100.0200, L400.0100, L500.2900 #### [facility] [address] [place], [address] WBC (Bld) [#/Vol] 9.0 10*3/uL Normal 4.4-11.0 [facility] Comment on above: Performed By: #### L 100.0200, L400.0100, L500.2900 #### [facility] [address] [place], [address] Calculated very low density lipoprotein (VLDL) cholesterol measurementOrdered By: HEALTH ASSESSMENT on 11-28-2024 Calculated very low density lipoprotein (VLDL) cholesterol measurement 15 mg/dL 5-40 [facility] Carbon dioxide, total [Moles /volume] in Central venous bloodOrdered By: HEALTH ASSESSMENT on 11-28-2024 CO2 [Moles/Vol] 23.1 mmol/L 21.0-32.0 [facility] Chloride assayOrdered By: HE ALTH ASSESSMENT on 11-28-2024 Chloride [Moles/Vol] 103 mmol/L 98-108 [facility] Employee Profileon CHOL:HDL 3.19 Normal [facility] Comment on above: Performed By: #### L 100.0200, L400.0100, L500.2900 ####[facility] [address] [place], [address] Cholesterol [Mass/Vol] 159 mg/dL Normal <=200 [facility] Comment on above: Result Comment: Chol esterol level, Desirable <200 mg/dL Borderline high cholesterol 200-239 mg/dL High cholesterol >=240 mg/dL Recommendations of the NCEP Adult Treatment Panel for the following risk-cutoff thresholds for the [place] population. Performed By: #### L 100.0200, L400.0100, L500.2900 ####[facility] [address] [place], [address] Cholesterol in HDL [Mass/Vol] 50 mg/dL Normal [facility] Comment on above: Result Comment: Dee onal Cholesterol Education Program (NCEP) guidelines: <40 mg/dL: Low HDL-cholesterol (major risk factor for CHD) >= 60 mg/dL: High HDL-cholesterol (negative risk factor for CHD) HDL-cholesterol is affected by a number of factors, e.g. smoking, exercise, hormones, sex and age. Performed By: #### L 100.0200, L400.0100, L500.2900 ####[facility] [address] [place], [address] Cholesterol in LDL [Mass/Vol] 94 mg/dL Normal [facility] Comment on above: Result Comment: Bord zfojvi=167-062 mg/dL Higher Ekli=429 mg/dL or greater [place] Equation for LDL-C Performed By: #### L 100.0200, L400.0100, L500.2900 ####[facility] [address] [place], [address] Cholesterol in VLDL [Mass/Vol] 15 mg/dL Normal 5-40 [facility] Comment on above: Performed By: #### L 100.0200, L400.0100, L500.2900 ####[facility] [address] [place], [address] LDH 149 U/L Normal 84-246 [facility] Comment on above: Performed By: #### L 100.0200, L400.0100, L500.2900 ####[facility] [address] [place], [address] Phosphate [Mass/Vol] 3.0 mg/dL Normal 2.7-4.5 [facility] Comment on above: Performed By: #### L 100.0200, L400.0100, L500.2900 ####[facility] [address] [place], [address] Triglyceride [Mass/Vol] 76 mg/dL Normal [facility] Comment on above: Result Comment: The drugs N-Acetylcysteine and Metamizole may falsely depress this assay. Normal range: <150 mg/dL Borderline High: 150-199 mg/dL High: 200-499 mg/dL Very High: >500 mg/dL Performed By: #### L 100.0200, L400.0100, L500.2900 ####[facility] [address] [place], [address] URIC 4.8 mg/dL Normal 2.6-6.0 [facility] Comment on above: Result Comment: The drugs N-Acetylcysteine and Metamizole may falsely depress this assay. Performed By: #### L 100.0200, L400.0100, L500.2900 ####[facility] [address] [place], [address] Erythrocyte distribution wid th ratioOrdered By: HEALTH ASSESSMENT on 11-28-2024 Erythrocyte distribution width (RBC) [Ratio] 13.1 % 11.6-14.6 [facility] Erythrocyte distribution wid th standard deviationOrdered By: HEALTH ASSESSMENT on 11-28-2024 Erythrocyte distribution width (RBC) [Ratio] 40.6 fl 35.1-43.9 [facility] Glomerular filtration rate ( GFR) estimation/1.73 sq m using serum, plasma, or whole bOrdered By: HEALTH ASSESSMENT on 11-28-2024 GFR/1.73 sq M.predicted among non-blacks MDRD (S/P/Bld) [Vol rate/Area] 108 mL/min/{1.73_m2} >60 [facility] Comment on above: mL/min/1.73m2 CKD-EP I Creatinine Equation (2020) Hematocrit Auto (Bld) [Volum e fraction]Ordered By: HEALTH ASSESSMENT on 11-28-2024 Hematocrit (Bld) [Volume fraction] 39.9 % 37-47 [facility] Hemoglobin measurementOrdere d By: HEALTH ASSESSMENT on 11-28-2024 Hemoglobin (Bld) [Mass/Vol] 13.5 g/dL 12.0-15.0 [facility] Ketones Test strip Ql (U)Ord ered By: HEALTH ASSESSMENT on 11-28-2024 Ketones Ql (U) Negative Negative [facility] LDL calc ser/plasOrdered By: HEALTH ASSESSMENT on 11-28-2024 Cholesterol in LDL [Mass/Vol] 94 mg/dL [facility] Comment on above: Stndgtmgzq=201-869 m g/dL & Higher Hkhu=767 mg/dL or greaterFriedwald Equation for LDL-C Laboratory - Chemistry and C hemistry - challengeOrdered By: HEALTH ASSESSMENT on 11-28-2024 AST [Catalytic activity/Vol] 32 U/L <32 [facility] Lactate dehydrogenase (LDH) measurementOrdered By: HEALTH ASSESSMENT on 11-28-2024 LDH [Catalytic activity/Vol] 149 U/L 84-246 [facility] MCV (mean corpuscular volume ) determinationOrdered By: HEALTH ASSESSMENT on 11-28-2024 MCV (RBC) [Entitic vol] 86.2 fL 81-99 [facility] Mean corpuscular hemoglobin (MCH) determinationOrdered By: HEALTH ASSESSMENT on 11-28-2024 MCH (RBC) [Entitic mass] 29.2 pg 27.0-32.0 [facility] Mean corpuscular hemoglobin concentration (MCHC) determinationOrdered By: HEALTH ASSESSMENT on 11-28-2024 MCHC (RBC) [Mass/Vol] 33.8 g/dL 32-36 [facility] Mean platelet volume determi nationOrdered By: HEALTH ASSESSMENT on 11-28-2024 Platelet mean volume (Bld) [Entitic vol] 11.9 fL 6.2-12.0 [facility] Nitrite Test strip Ql (U)Ord ered By: HEALTH ASSESSMENT on 11-28-2024 Nitrite Ql (U) Negative Negative [facility] Nucleated red blood cell per centageOrdered By: HEALTH ASSESSMENT on 11-28-2024 Nucleated RBC/100 WBC (Bld) [Ratio] 0 % 0-5 [facility] Platelet countOrdered By: HE ALTH ASSESSMENT on 11-28-2024 Platelets (Bld) [#/Vol] 159 10*3/uL 150-450 [facility] Potassium measurement (mass/ volume)Ordered By: HEALTH ASSESSMENT on 11-28-2024 Potassium (Unsp spec) [Mass/Vol] 4.2 mmol/L 3.3-5.1 [facility] Protein Test strip Ql (U)Ord ered By: HEALTH ASSESSMENT on 11-28-2024 Protein Ql (U) 15 mg/dl High Negative [facility] RBC Auto (Bld) [#/Vol]Ordere d By: HEALTH ASSESSMENT on 11-28-2024 RBC (Bld) [#/Vol] 4.63 10*6/uL 4.2-5.4 [facility] Screening total cholesterol/ high density lipoprotein (HDL) cholesterol ratioOrdered By: HEALTH ASSESSMENT on 11-28-2024 Cholesterol.total/Chol esterol in HDL [Mass ratio] 3.19 {ratio} [facility] Serum creatinine measurement (mass/volume)Ordered By: HEALTH ASSESSMENT on 11-28-2024 Creatinine [Mass/Vol] 0.65 mg/dL Low 0.70-1.20 [facility] Serum globulin measurementOr dered By: HEALTH ASSESSMENT on 11-28-2024 Globulin (S) [Mass/Vol] 3.1 g/dL 2.2-4.2 [facility] Serum glucose measurement (m ass/volume)Ordered By: HEALTH ASSESSMENT on 11-28-2024 Glucose [Mass/Vol] 100 mg/dL High 70-99 [facility] Serum or plasma alanine hannon otransferase (ALT) measurementOrdered By: HEALTH ASSESSMENT on 11-28-2024 ALT [Catalytic activity/Vol] 50 U/L High <35 [facility] Serum or plasma albumin macy urement (mass/volume)Ordered By: HEALTH ASSESSMENT on 11-28-2024 Albumin [Mass/Vol] 4.2 g/dL 3.5-5.0 [facility] Serum or plasma albumin/glob ulin mass ratioOrdered By: HEALTH ASSESSMENT on 11-28-2024 Albumin/Globulin [Mass ratio] 1.3 {ratio} 0.9-2.4 [facility] Serum or plasma alkaline angeli sphatase measurementOrdered By: HEALTH ASSESSMENT on 11-28-2024 ALP [Catalytic activity/Vol] 62 U/L 35-104 [facility] Serum or plasma calcium macy urement (mass/volume)Ordered By: HEALTH ASSESSMENT on 11-28-2024 Calcium [Mass/Vol] 9.0 mg/dL 7.6-11.0 [facility] Serum or plasma cholesterol in HDL measurement (mass/volume)Ordered By: HEALTH ASSESSMENT on 11-28-2024 Cholesterol in HDL [Mass/Vol] 50 mg/dL >40 [facility] Comment on above: National Cholesterol Education Program (NCEP) guidelines:<40 mg/dL: Low HDL-cholesterol (major risk factor for CHD)>= 60 mg/dL: High HDL-cholesterol (negative risk factor for CHD)HDL-cholesterol is affected by a number of factors, e.g. smoking, exercise, hormones, sex and age. Serum or plasma cholesterol measurement (mass/volume)Ordered By: HEALTH ASSESSMENT on 11-28-2024 Cholesterol [Mass/Vol] 159 mg/dL <201 [facility] Comment on above: Cholesterol level, D esirable <200 mg/dLBorderline high cholesterol 200-239 mg/dLHigh cholesterol >=240 mg/dLRecommendations of the NCEP Adult Treatment Panel for the following risk-cutoff thresholds for the [place] population. Serum or plasma urea nitroge n measurement (mass/volume)Ordered By: HEALTH ASSESSMENT on 11-28-2024 Urea nitrogen [Mass/Vol] 12 mg/dL 4-19 [facility] Serum or plasma uric acid me asurement (mass/volume)Ordered By: HEALTH ASSESSMENT on 11-28-2024 Urate [Mass/Vol] 4.8 mg/dL 2.6-6.0 [facility] Comment on above: The drugs N-Acetylcy steine and Metamizole may falsely depress this assay. Sodium levelOrdered By: HEAL TH ASSESSMENT on 11-28-2024 Sodium [Moles/Vol] 138 mmol/L 133-145 [facility] Total proteinOrdered By: HEA [facility] ASSESSMENT on 11-28-2024 Protein [Mass/Vol] 7.3 g/dL 5.9-8.4 [facility] Triglycerides measurementOrd ered By: HEALTH ASSESSMENT on 11-28-2024 Triglyceride [Mass/Vol] 76 mg/dL <199 [facility] Comment on above: The drugs N-Acetylcy steine and Metamizole may falsely depress this assay. Normal range: <150 mg/dLBorderline High: 150-199 mg/dLHigh: 200-499 mg/dLVery High: >500 mg/dL Urinalysis, Employeeon 11-28 BILIRUBIN URINE Negative Normal Negative [facility] Comment on above: Order Comment: Urine , Random Performed By: #### L 100.0200, L400.0100, L500.2900 #### [facility] [address] [place], [address] Clarity (U) Clear Normal Clear [facility] Comment on above: Order Comment: Urine , Random Performed By: #### L 100.0200, L400.0100, L500.2900 #### [facility] [address] [place], [address] Color (U) Yellow Normal Yellow [facility] Comment on above: Order Comment: Urine , Random Performed By: #### L 100.0200, L400.0100, L500.2900 #### [facility] [address] [place], [address] GLUCOSE, UR Normal Normal Normal [facility] Comment on above: Order Comment: Urine , Random Performed By: #### L 100.0200, L400.0100, L500.2900 #### [facility] [address] [place], [address] KETONE UR Negative Normal Negative [facility] Comment on above: Order Comment: Urine , Random Performed By: #### L 100.0200, L400.0100, L500.2900 #### [facility] [address] [place], [address] LEUK ESTERASE Negative Normal Negative [facility] Comment on above: Order Comment: Urine , Random Performed By: #### L 100.0200, L400.0100, L500.2900 #### [facility] [address] [place], [address] Nitrite Ql (U) Negative Normal Negative [facility] Comment on above: Order Comment: Urine , Random Performed By: #### L 100.0200, L400.0100, L500.2900 #### [facility] [address] [place], [address] OCCULT BLOOD-UR Negative Normal Negative [facility] Comment on above: Order Comment: Urine , Random Performed By: #### L 100.0200, L400.0100, L500.2900 #### [facility] [address] [place], [address] pH UR 6.5 Normal 5.0 - 8.0 [facility] Comment on above: Order Comment: Urine , Random Performed By: #### L 100.0200, L400.0100, L500.2900 #### [facility] [address] [place], [address] PROT DIPSTX 15 mg/dl Abnormal Negative [facility] Comment on above: Order Comment: Urine , Random Performed By: #### L 100.0200, L400.0100, L500.2900 #### [facility] [address] [place], [address] SP.GR. DIPSTX 1.015 Normal 1.002-1.03 0 [facility] Comment on above: Order Comment: Urine , Random Performed By: #### L 100.0200, L400.0100, L500.2900 #### [facility] [address] [place], [address] UROBILI Normal Normal Normal [facility] Comment on above: Order Comment: Urine , Random Performed By: #### L 100.0200, L400.0100, L500.2900 #### [facility] [address] [place], [address] Urine clarityOrdered By: A [facility] ASSESSMENT on 11-28-2024 Clarity (U) Clear Clear [facility] Urine color determinationOrd ered By: HEALTH ASSESSMENT on 11-28-2024 Color (U) Yellow Yellow [facility] Urine glucose detectionOrder ed By: HEALTH ASSESSMENT on 11-28-2024 Glucose Ql (U) Normal mg/dl Normal [facility] Urine leukocyte esterase det ection by dipstickOrdered By: HEALTH ASSESSMENT on 11-28-2024 Leukocyte esterase Test strip Ql (U) Negative Negative [facility] Urine pHOrdered By: HEALTH A SSESSMENT on 11-28-2024 pH (U) 6.5 [pH] 5.0 - 8.0 [facility] Urine specific gravity measu rementOrdered By: HEALTH ASSESSMENT on 11-28-2024 Specific gravity (U) [Rel density] 1.015 1.002-1.03 0 [facility] Urine urobilinogen measureme ntOrdered By: HEALTH ASSESSMENT on 11-28-2024 Urobilinogen Ql (U) Normal mg/dl Normal [facility] White blood cell (WBC) count Ordered By: HEALTH ASSESSMENT on 11-28-2024 WBC (Bld) [#/Vol] 9.0 10*3/uL 4.4-11.0 [facility] Gastroenterology Visit Repor ton 11-22-2024 Gastroenterology Visit Report [facility] [address] [place] [address] OFFICE VISIT Date of Service: 11/22/24 MR#: [id number] Acct: [id number] Name: SIMONARTURO Rep #: [id number] : 1975 Provider: Louis Felix DO Age/Sex: 48/F Location: [facility] Status: Signed Intake Vital Signs 10/02/24 11:53 10/30/24 13:29 Height 5 ft 3 in 5 ft 3 in Intake Visit Reasons: 6 M FU-nausea/class 3 obesity Allergies ceftriaxone sodium (From Rocephin) Allergy (Verified 10/30/24 13:26) Hives Medications ???Medication ???Instructions ???Recorded ???Confirmed ???Type cyanocobalamin (vitamin B-12) 500 500 mcg PO QDAY 02/08/24 11/22/24 History mcg tablet magnesium oxide 400 mg PO QDAY 02/08/24 11/22/24 H istory multivitamin 1 tab PO QDAY 02/08/24 11/22/24 Hi story vitamin B complex 1 cap PO QDAY 02/08/24 11/22/24 Hi story albuterol sulfate 90 mcg/actuation 2 puff inhalation Q4H PRN 11/22/24 Rx aerosol inhaler (Ventolin HFA) shortness of breath or wheezing #18 grams ashwagandha 700 mg PO 10/30/24 11/22/24 Histor y PFSH Medical History (Updated 10/30/24 @ 13:48 by Miguelito SIFUENTES, PA) Sprain of left ring finger Right middle lobe pulmonary infiltrate Contact with or exposure to other viral diseases Wears contact lenses Migraine headache Strain of left trapezius muscle Strain of left rotator cuff capsule Left shoulder strain Eosinophilic esophagitis Wears glasses Alcohol use CPAP (continuous positive airway pressure) dependence Non-smoker History of edema History of echocardiogram History of stress test Cardiology follow-up encounter ROMAINE (obstructive sleep apnea) Right arm cellulitis Bee sting Needlestick injury accident with exposure to body fluid Segmental and somatic dysfunction of cervical region Segmental and somatic dysfunction of thoracic region Segmental and somatic dysfunction of lumbar region Tonsillar abscess Surgical History H/O dilation and curettage S/P endometrial ablation Status post bilateral salpingectomy S/P oophorectomy S/P ovarian cystectomy Hx of tubal ligation History of esophagogastroduodenoscop y (EGD) H/O shoulder surgery delivery delivered Family History Sister ROMAINE (obstructive sleep apnea) Grandfather Cancer lung Grandmother Heart disease Diabetes Sister ROMAINE (obstructive sleep apnea) Sister ROMAINE (obstructive sleep apnea) Mitral valve prolapse Sinus tachycardia Mother Cholangiocarcinoma, Onset Age: 67 Social History Smoking Status: Never smoker alcohol intake: current alcohol intake frequency: holidays/special occasions only substance use type: does not use caffeine: No what type of physical activity do you participate in: running and weight training frequency: 1-2 times per week seatbelt use: always do you feel safe at home: Yes additional social history: - Mir 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 *BGI established 02.24.22 with atypical CP since . Cardiology workup without finding and referred to GI. No particular timing or trigger identified. ?US abd 02.25.22???heterogeneous nodule right liver 3.6x2.97x2.8cm, hemangioma, recommend CT.?CT abd/pel .07.28???2.6x2.6cm hepatic hemangioma.?HIDA 03.26.22???EF 84%; duodenal gastric reflux.?EGD and colonoscopy 04.28.22???EGD irregular Zline 37cm; tortuous esophagus; esophageal spasm. No path changes.?Colon oscopy poor prep; tortuous transverse colon.??? OV 3 possible EOE;???Start Dupixent. ?Bioch emical???RAST without pertinent abnormality.??? Contact 05.21.22 Dupixent denies;???Start budesonide slurry.??? States that symptoms have decreased overall. States that the budesonide slurry made her symptoms worse. States that her only symptoms now seem to be food related. States that she has been having constipation on and off that began a few years ago. States that she takes Senna if constipation gets real bad. EGD 4.06.29 Abnormal esophageal motility, established esophageal spasm. Injected with botulinum toxin. Normal stomach. Normal second portion of the duodenum. No specimens collected. OV 5..24 Pt reports nausea / indigestion a few times a week. Pt reports having a bm every 2-3 days and takes a stool softener as needed. Pt is not currently taking any medic (more content not included)... Normal [facility] Finger(s) Min 2 Viewson 10-07 Finger(s) Min 2 Views [facility] [address] [place], [place] [address] Finger(s) Min 2 Views MR#: [id number] Acct: [id number] Name: ARTURO SIMON Rep #: [id number] : 1975 F 48 From: Sagar Vicente MD PCP: Dr. Dominic Weaver MD Status: [facility] Study: Finger(s) Min 2 Views Date of Exam: 10/30/24 Exam# [id number] Ordering Dr: Miguelito Good PA PROCEDURE: FINGER(S) MIN 2 VIEWS 10/30/2024 REASON FOR EXAM: PAIN LEFT RING FINGER TECHNIQUE: FINGER(S) MIN 2 VIEWS FINDINGS: No evidence of acute fracture or dislocation. Mild interphalangeal degenerative changes. RAD/Finger(s) Min 2 Views IMPRESSION: No acute osseous abnormalities. Reading Location: [id number] CC: Dr. Dominic Weaver MD; MARIA Eddy Patient Financial Coordinator: Signed Normal [facility] Urgent Care Visit Reporton 0 10-30-2024 Urgent Care Visit Report [facility] [address], [address] [place] [address] OFFICE VISIT Date of Service: 10/30/24 MR#: [id number] Acct: [id number] Name: ARTURO SIMON Rep #: [id number] : 1975 Provider: MARIA Eddy Age/Sex: 48/F Location: [facility] Status: Signed Intake Vital Signs 10/23/24 14:05 10/30/24 13:29 Height 5 ft 3 in 5 ft 3 in Weight: 259 lb 4 oz 253 lb BMI 45.9 44.8 BP 107/74 116/70 Blood Pressure Location Lt brachial Position Sitting Respiration 16 Pulse 91 Pulse Source Monitor Temp 97.3 F L Temp Source Oral Pulse Oximetry (%) 99 Oxygen Delivery Method room air Intake Visit Reasons: L RING FINGER INJURY Chief Complaint: left finger injury Accompanied by: Self Is patient in pain?: Yes Pain scale (1-10): 1 Allergies ceftriaxone sodium (From Rocephin) Allergy (Verified 10/30/24 13:26) Hives Medications ???Medication ???Instructions ???Recorded ???Confirmed ???Type cyanocobalamin (vitamin B-12) 500 500 mcg PO QDAY 02/08/24 10/30/24 History mcg tablet magnesium oxide 400 mg PO QDAY 02/08/24 10/30/24 H istory multivitamin 1 tab PO QDAY 02/08/24 10/30/24 Hi story vitamin B complex 1 cap PO QDAY 02/08/24 10/30/24 Hi story albuterol sulfate 90 mcg/actuation 2 puff inhalation Q4H PRN 10/30/24 Rx aerosol inhaler (Ventolin HFA) shortness of breath or wheezing #18 grams ashwagandha 700 mg PO 10/30/24 History Nurse's Note: on fathers day pt was falling in pool while holding grandchild there child to believes she stoked it while handing off grandchild. sx- initial injury involved swelling, pain tx- ice. [facility] Medical History (Updated 10/30/24 @ 13:48 by Miguelito SIFUENTES, PA) Sprain of left ring finger Right middle lobe pulmonary infiltrate Contact with or exposure to other viral diseases Wears contact lenses Migraine headache Strain of left trapezius muscle Strain of left rotator cuff capsule Left shoulder strain Eosinophilic esophagitis Wears glasses Alcohol use CPAP (continuous positive airway pressure) dependence Non-smoker History of edema History of echocardiogram History of stress test Cardiology follow-up encounter ROMAINE (obstructive sleep apnea) Right arm cellulitis Bee sting Needlestick injury accident with exposure to body fluid Segmental and somatic dysfunction of cervical region Segmental and somatic dysfunction of thoracic region Segmental and somatic dysfunction of lumbar region Tonsillar abscess Surgical History H/O dilation and curettage S/P endometrial ablation Status post bilateral salpingectomy S/P oophorectomy S/P ovarian cystectomy Hx of tubal ligation History of esophagogastroduodenoscop y (EGD) H/O shoulder surgery delivery delivered Family History Sister ROMAINE (obstructive sleep apnea) Grandfather Cancer lung Grandmother Heart disease Diabetes Sister ROMAINE (obstructive sleep apnea) Sister ROMAINE (obstructive sleep apnea) Mitral valve prolapse Sinus tachycardia Mother Cholangiocarcinoma, Onset Age: 67 Social History Smoking Status: Never smoker alcohol intake: current alcohol intake frequency: holidays/special occasions only substance use type: does not use caffeine: No what type of physical activity do you participate in: running and weight training frequency: 1-2 times per week seatbelt use: always do you feel safe at home: Yes additional social history: - Mir 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 She believes she stoved it while handing off grandchild. She notes initial injury involved swelling, pain - which has improved slightly since though glass cut off tender to touch. OTC ice applications helped initially, though no improvement since. RHD. PMH NC. No other associated symptoms and no other +/- factors. ROS Const Constitutional: No other (as above) Exam Const General: cooperative, healthy appearing and no acute distress Orientation: alert and awake Chest Chest palpation inspection: normal inspection of the chest Resp Effort Inspection: normal respiratory effort and able to speak in complete sentences Cardio Rate: regular rate Pulses: radial pulses present Skin General: no rashes or lesions noted Neuro General: patient alert and patient awake Cognition: normal cognition Speech: speech normal Ex (more content not included)... Normal [facility] Commissioned Sales Associate Office Visit Reporton 10-23-2024 Commissioned Sales Associate Office Visit Report [facility] [address], [address] [place] [address] OFFICE VISIT Date of Service: 10/23/24 MR#: [id number] Acct: [id number] Name: ARTURO SIMON Rep #: [id number] : 1975 Provider: Dr. Casie roach MD Age/Sex: 48/F [place] [facility] [place]: Signed Intake Vital Signs 07/24/24 15:27 10/02/24 11:53 10/23/24 14:05 Height 5 ft 3 in 5 ft 3 in 5 ft 3 in Weight: 251 lb 8 oz 259 lb 4 oz BMI 44.5 45.9 BP 110/75 107/74 Intake Visit Reasons: AUB *copay $20 [employer]stery [employer] S[employer] Required: No Is patient in pain?: No Allergies ceftriaxone sodium (From Rocephin) Allergy (Verified 10/23/24 14:08) Hives Medications ???Medication ???Instructions ???Recorded ???Confirmed ???Type cyanocobalamin (vitamin B-12) 500 500 mcg PO QDAY 02/08/24 10/23/24 History mcg tablet magnesium oxide 400 mg PO QDAY 02/08/24 10/23/24 H istory multivitamin 1 tab PO QDAY 02/08/24 10/23/24 Hi story vitamin B complex 1 cap PO QDAY 02/08/24 10/23/24 Hi story albuterol sulfate 90 mcg/actuation 2 puff inhalation Q4H PRN 10/23/24 Rx aerosol inhaler (Ventolin HFA) shortness of breath or wheezing #18 grams ashwagandha 1,400 mg PO 10/23/24 History Is last menstrual period known: No Patient : No : No PFSH Medical History Right middle lobe pulmonary infiltrate Contact with or exposure to other viral diseases Wears contact lenses Migraine headache Strain of left trapezius muscle Strain of left rotator cuff capsule Left shoulder strain Eosinophilic esophagitis Wears glasses Alcohol use CPAP (continuous positive airway pressure) dependence Non-smoker History of edema History of echocardiogram History of stress test Cardiology follow-up encounter ROMAINE (obstructive sleep apnea) Right arm cellulitis Bee sting Needlestick injury accident with exposure to body fluid Segmental and somatic dysfunction of cervical region Segmental and somatic dysfunction of thoracic region Segmental and somatic dysfunction of lumbar region Tonsillar abscess Surgical History H/O dilation and curettage S/P endometrial ablation Status post bilateral salpingectomy S/P oophorectomy S/P ovarian cystectomy Hx of tubal ligation History of esophagogastroduodenoscop y (EGD) H/O shoulder surgery delivery delivered Family History Sister ROMAINE (obstructive sleep apnea) Grandfather Cancer lung Grandmother Heart disease Diabetes Sister ROMAINE (obstructive sleep apnea) Sister ROMAINE (obstructive sleep apnea) Mitral valve prolapse Sinus tachycardia Mother Cholangiocarcinoma, Onset Age: 67 Social History Smoking Status: Never smoker alcohol intake: current alcohol intake frequency: holidays/special occasions only substance use type: does not use caffeine: No what type of physical activity do you participate in: running and weight training frequency: 1-2 times per week seatbelt use: always do you feel safe at home: Yes additional social history: - Mir 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 Patient is 7 months status post ablation and laparoscopy for dermoid cysts. Patient is doing well with no significant pain his only had small spotting. She is overall very satisfied with the bleeding pattern and wants to continue with expectant management. She has some menopausal symptoms but overall is stable and being managed well. History 2 Elective abortions Hx Para 2 Spontaneous abortions Hx # Term Pregnancies Ectopic pregnancies Hx # Pregnancies Multiple births # of living children 2 Past Pregnancies Del. Date Name GA/Weeks Outcome Route Bth Weight Gen Labor Lgth Anesthesia Del Locatn Provider FOB Unknown Andrey 2005 Unknown [facility] [place] 2012 ROS Const Constitutional: Denies fatigue, fever(s), headache(s), increased appetite, poor appetite, weight gain or weight loss GI GI: Reports as per HPI; Denies abdominal pain, constipation, nausea or vomiting : Reports as per HPI; Denies difficulty voiding, dysuria, hematuria, pelvic pain, urinary frequency, urinary incontinence, urinary hesitancy, urinary urgency, vaginal discharge, vaginal dryness, vaginal odor, vaginal pruritus or other Exam Const General: cooperative, healthy appearing, comfortable, no acute distress and well developed Orientation: alert HENWA Head: normal to inspection and normocephalic Ears: hearing grossly normal bilaterally (more content not included)... Normal [facility] Office Visit Reporton 2024 Office Visit Report [facility] [address] [place] [address] OFFICE VISIT Date of Service: 04/19/24 MR#: [id number] Acct: [id number] Patient: ARTURO SIMON Rep #: [id number] : 1975 Provider: MARIA Eddy Age/Sex: 48/F Location: [facility] Status: Signed Intake Vital Signs 03/24/24 07:48 Height 5 ft 3 in Intake Visit Reasons: COVID TEST/[employer] EMPLOYEE Chief Complaint: ear pain, ST, WISE, cough Allergies ceftriaxone sodium (From Rocephin) Allergy (Verified 07/24/24 15:31) Hives Office Procedures Now [facility] Billing Sheet Covid Covid Swab-Rapid: Yes Results POC Julianne Rapid Strep POC Julianne Rapid Strep Negative Last Edit by Damaris Munguia on 04/19/24 09:51 POC CEPH COV,FluAB,RSV PCR CEPHEID COVID PCR Not DETECTED Last Edit by Damaris Munguia on 04/19/24 11:00 CEPHEID FLU AB PCR NOT DETECTED FLU A B Last Edit by Damaris Munguia on 04/19/24 11:00 CEPHEID RSV PCR NOT DETECTED Last Edit by Damaris Munguia on 04/19/24 11:00 Assessment and Plan Plan Details Goals Barriers: Goals Decrease pain Decrease spasm Decrease inflammation Barriers Work requirements 08/15/24 1427 Date Miguelito Levine Signature: Date (if applicable) CC: Normal [facility] Commissioned Sales Associate Office Visit Reporton 07-24-2024 Commissioned Sales Associate Office Visit Report [facility] [address], [facility] [address] [place] [address] OFFICE VISIT Date of Service: 07/24/24 MR#: [id number] Acct: [id number] Name: ARTURO SIMON Rep #: [id number] : 1975 Provider: Dr. 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 alteration compatible with hormonal therapy effect MICROSCOPIC DESCRIPTION Slides are reviewed. GROSS DESCRIPTION A. Received in formalin in a container labeled with the patient's name, date of , and L fallopian tube, L ovarian cyst, R fallopian tube and ovary are 2 unoriented possible ovaries with 2 unoriented and previously disrupted fallopian tubes. There is 1 predominantly intact, fimbriated fallopian tube with an embedded 1.4 x 0.4 cm Filshie clip. The segment is 5.4 cm in length by 0.9 cm in diameter with purple-guerrier, smooth serosa with multiple paratubal cysts ranging from 0.1 to 0.3 cm in greatest dimension. Serial sections reveal a pinpoint lumen. Received in the same container is a 1.7 x 1.2 x 1.0 cm detached, unremarkable fimbriated end. There is also a 4.3 cm in length by 0.7 cm in diameter tubular structure with an embedded 1.4 x 0.4 cm Filshie clip. The serosa is desai-pink and unremarkable. Sectioning reveals a 0.2 cm lumen with red-tinged, thick fluid. The bilateral, unoriented ovaries appear diffusely cystic in nature. The largest is 19.1 g and 5.0 x 3.2 x 3.0 cm. The outer surface is red-guerrier, roughened, with a protruding 1.7 x 1.5 x 0.8 cm thin-walled cystic structure. The surface cyst is sectioned to reveal that it is multiloculated with smooth inner linings and thin translucent fluid. The remaining outer surface is inked black and sectioning reveals that the ovary is completely filled with desai-yellow, coarse hair with red-tinged thin fluid. The cystic reddy range from 0.1 to 0.5 cm in thickness. The thickened reddy are desai-yellow and rubbery with a single 0.6 x 0.2 x 0.2 cm white and calcified structure, embedded within the wall. The inner linings are predominantly smooth with attached hair. No typical ovarian parenchyma is identified. Patient Age/Sex Location Account Attending Physician ARTURO SIMON 48/F [facility] [id number] Dr. Casie Cottrell MD The smaller ovary is 18.0 g and 5.5 x 3.0 x 2.0 cm. The outer surface is desai-pink, smooth, and glistening with a 1.6 x 1.0 cm transmural defect with protruding brown hair. Additionally, there is a 0.4 x 0.4 x 0.2 cm white-pink surface nodule, sectioned to reveal white-pink, unremarkable surfaces. The outer surface is inked green and serial sections reveal that the structure is completely filled by desai hair with yellow caseous material. The wall thickness ranges from 0.1-1.0 cm. The thickened areas exhibit desai-yellow, glistening surfaces. No calcified foci are identified. A small amount of desai-pink, softened, and hemorrhagic possible ovarian parenchyma is present. Business Systems Architect sections:A1. Intact fallopian tubeA2. Disrupted fallopian tubeA3-4. Larger cystic ovary (with thickened reddy and surface cyst)A5-6. Smaller ovary with thickened wallsA7. Smaller ovary with typical desai-pink ovarian parenchyma and surface noduleA8. Larger ovary, calcified focus, following decalcification B. Received in formalin in a container labeled with the patient's name, date of , and endometrial curettings are multiple red-desai fragments of soft tissue admixed with blood and mucus measuring 2.8 x 1.9 x 0.3 cm in aggregate. Submitted in toto in B1. [facility] 07-11-2024 CPT:93213t1,10753 Patient Age/Sex Location Account Attending Physician (more content not included)... Normal [facility] Comment on above: Performed By: #### P SUII ####[facility] [address] [place] [place], [address] Total proteinOrdered By: Victor Hugo Cottrell on 07-11-2024 Protein [Mass/Vol] 7.6 g/dL 5.9-8.4 [facility] Type AND Screen - PAT ONLYon 07-11-2024 Ab SCREEN GEL Negative Normal [facility] Comment on above: Order Comment: Surge ry Date: 07/11/24Reason for Laboratory Test [id number] SALPINGECTOMY IUD REMOVAL Performed By: #### L 500.4050, L100.0500, BTSPAT ####[facility] [address] [place], [place], [address] White blood cell (WBC) count Ordered By: Casie Cottrell on 07-11-2024 WBC (Bld) [#/Vol] 7.9 10*3/uL 4.4-11.0 [facility] MR/PAT.ANEon 07-07-2024 MR/PAT.[facility] Medical Records Department [address] [place] [address] PAT - Anesthesia 07/07/24 1614 MR#: [id number] Acct: [id number] Name: ARTURO SIMON Rep #: [id number] : 1975 48 From: Bhaskar Wiley MD PCP: Dr. 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 When Was Last Pacemaker Check QUESTION #4 FULL TEXT: You/Your Family Experience fever (hyperthermia) with Anesthesia Last Oral Intake Last Oral intake: Last Oral Intake NPO since Meds taken in AM with sips of water? Meds patient instructed to take am of surgery PONV PONV - retail stock clerk: PONV - retail stock clerk Female Yes 06/30/24 10:27 HX of Motion Sickness No 06/30/24 10:27 HX of N/V After Surgery No 06/30/24 10:27 Non-Smoker Yes 06/30/24 10:27 Duration of Surgery greater Yes 06/30/24 10:27 than 60 minutes Number of Risk Factors 3 06/30/24 10:27 PONV Score Moderate Risk 06/30/24 10:27 Height Weight Height Weight: Anesthesia: Height Weight Height 5 ft 3 in 05/04/24 10:16 Respiratory Assessment Respiratory Assessment - retail stock clerk: Respiratory Tract Infection Hx - retail stock clerk Hx Respiratory Tract Infection No 06/30/24 10:27 STOP Sleep Apnea STOP Sleep Apnea - retail stock clerk: STOP Sleep Apnea - retail stock clerk Hx Hypertension No 06/30/24 10:27 Hx Sleep Apnea Yes 06/30/24 10:27 CPAP Yes 06/30/24 10:27 BIPAP No 06/30/24 10:27 Do you snore loudly (louder than talking or can be heard Do you often feel tired/ fatigued/ sleepy during daytime? Has anyone observed you stop breathing during sleep? STOP Results Positive 06/30/24 10:27 QUESTION #5 FULL TEXT : Do you snore loudly (louder than talking or can be heard through closed doors)? 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 Specify any problems Hx of Preganancy in last 3 No 06/30/24 10:27 Months Nurse Filling Out Transfusion DSCHRIBER 06/30/24 10:27 Questions: Date: 06/30/24 06/30/24 10:27 Time: 10:29 06/30/24 10:27 Patient unable to answer at this time (ie. confused, unrespo /Reproduction History /Reproductive History - retail stock clerk: /Reproductive Hx- retail stock clerk Hx Now No 06/30/24 10:27 Gestational Age (in weeks): EDC: Hx Hx Para Hx Section SAB No 06/30/24 10:27 [facility] Medical History (Updated 06/30/24 @ 10:33 by Sherita Martinez) Right middle lobe pulmonary infiltrate Contact with or exposure to other viral diseases Wears contact lenses Migraine headache Strain of left trapezius muscle Strain of left rotator cuff capsule Left shoulder strain Eosinophilic esophagitis Wears glasses Alcohol use CPAP (continuous positive airway pressure) dependence Non-smoker History of edema History of echocardiogram History of stress test Cardiology follow-up encounter ROMAINE (obstructive sleep apnea) Right arm cellulitis Bee sting Needlestick injury accident with exposure to body fluid Segmental and somatic dysfunction of cervical region Segmental and somatic dysfunction of thoracic region Segmental and somatic dysfunction of lumbar region Tonsillar abscess Home Medications ???Medication ???Instructions ???Recorded ???Last Taken ???Type cyan (more content not included)... Normal [facility] 12 Lead EKGon 07-06-2024 12 Lead EKG [facility] Cardiovascular Services [address] [place] [address] 12 Lead EKG 07/06/24 1211 MR#: [id number] Acct: [id number] Name: ARTURO SIMON Rep #: [id number] : 1975 48 From: Juan Gatica MD Attending Dr: Dr. Casie Cottrell MD Status: PRE SDC Ordering Dr: Casie Cottrell MD Date: 07/06/24 [place]: [facility] Sex: F C Admitted: Test Reason : PRE OP Blood Pressure : */* mmHG Vent. Rate : 81 BPM Atrial Rate : 81 BPM P-R Int : 144 ms QRS Dur : 82 ms QT Int : 366 ms P-R-T Axes : 18 75 28 degrees QTcB Int : 425 ms Normal sinus rhythm Normal ECG Confirmed by JUAN GATICA MD ([id number]), primer expeditor and drier ZELDA DUMONT ([id number]) on 07/07/2024 6:41:14 AM Referred By: Casie Cottrell Confirmed By: JUAN GATICA MD 07/07/24 0641 Date Juan Gatica MD CC: Dr. Dominic Weaver MD; Dr. Casie Cottrell MD Signed Normal [facility] Commissioned Sales Associate Office Visit Reporton 06-12-2024 Commissioned Sales Associate Office Visit Report [facility] [address], [address] [place] [address] OFFICE VISIT Date of Service: 06/12/24 MR#: [id number] Acct: [id number] Name: ARTURO SIMON Rep #: [id number] : 1975 Provider: Dr. 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: No Is patient in pain?: No Allergies ceftriaxone sodium (From Rocephin) Allergy (Verified 06/12/24 13:24) Hives Medications ???Medication ???Instructions ???Recorded ???Confirmed ???Type cyanocobalamin (vitamin B-12) 500 500 mcg PO QDAY 02/08/24 06/12/24 History mcg tablet magnesium oxide 400 mg PO QDAY 02/08/24 06/12/24 H istory multivitamin 1 tab PO QDAY 02/08/24 06/12/24 Hi story semaglutide 0.25 mg or 0.5 mg (2 1 mg subcut QWEEK 02/08/24 5 History mg/3 mL) subcutaneous pen injector vitamin B complex 1 cap PO QDAY 02/08/24 06/12/24 Hi story levonorgestrel (Mirena) 1 device intrauterine ONCE 4 06/12/24 History albuterol sulfate 90 mcg/actuation 2 puff inhalation Q4H PRN 06/12/24 Rx aerosol inhaler (Ventolin HFA) shortness of breath or wheezing #18 grams Patient : No : No PFSH Medical History Right middle lobe pulmonary infiltrate Contact with or exposure to other viral diseases Wears contact lenses Migraine headache Esophageal dysmotility Strain of left trapezius muscle Strain of left rotator cuff capsule Left shoulder strain Eosinophilic esophagitis Wears glasses Alcohol use CPAP (continuous positive airway pressure) dependence Non-smoker History of edema History of echocardiogram History of stress test Cardiology follow-up encounter Atypical chest pain ROMAINE (obstructive sleep apnea) Right arm cellulitis Bee sting Needlestick injury accident with exposure to body fluid Segmental and somatic dysfunction of cervical region Segmental and somatic dysfunction of thoracic region Segmental and somatic dysfunction of lumbar region Tonsillar abscess Surgical History Hx of tubal ligation History of esophagogastroduodenoscop y (EGD) H/O shoulder surgery delivery delivered Family History Sister ROMAINE (obstructive sleep apnea) Grandfather Cancer lung Grandmother Heart disease Diabetes Sister ROMAINE (obstructive sleep apnea) Sister ROMAINE (obstructive sleep apnea) Mitral valve prolapse Sinus tachycardia Mother Cholangiocarcinoma, Onset Age: 67 Social History Smoking Status: Never smoker alcohol intake: current alcohol intake frequency: holidays/special occasions only substance use type: does not use caffeine: No what type of physical activity do you participate in: running and weight training frequency: 1-2 times per week seatbelt use: always do you feel safe at home: Yes additional social history: - Mir 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 she has bilateral dermoid cysts, she has some pelvic pressure and still some prolonged menses, open for other intervention for bleeding, has had IUD with some improvment but still long menses. History 2 Elective abortions Hx Para 2 Spontaneous abortions Hx # Term Pregnancies Ectopic pregnancies Hx # Pregnancies Multiple births # of living children 2 Past Pregnancies Del. Date Name GA/Weeks Outcome Route Bth Weight Infant Gen Labor Lgth Anesthesia Del Locatn Provider FOB Unknown Andrey 2006 Unknown [facility] 2012 ROS Const Constitutional: Denies fatigue, fever(s), headache(s), increased appetite, poor appetite, weight gain or weight loss GI GI: Reports as per HPI; Denies abdominal pain, constipation, nausea or vomiting : Reports as per HPI; Denies difficulty voiding, dysuria, hematuria, pelvic pain, urinary frequency, urinary incontinence, urinary hesitancy, urinary urgency, vaginal discharge, vaginal dryness, vaginal odor, vaginal pruritus or other Exam Const General: cooperative, healthy appearing, comfortable, no acute distress and well developed Orientation: alert [facility] Head: normal to inspection and normocephalic Ears: hearing grossly normal bilaterally and external ears normal Nose: external nose normal and nares normal Face and sinus: normal facial exam Neck Neck: normal visual i (more content not included)... Normal [facility] Breast imaging reportOrdered By: Viviana Camarillo on 06-09-2024 Study report [facility] Imaging Services [address] [place] [address] SCRN MAMM (CAD)W/LEV BILAT MR#: [id number] Acct: [id number] Name: ARTURO SIMON Rep #: [id number] : 1975 F 48 From: Shantelle Camarillo MD PCP: Dr. Dominic Weaver MD Status: REG C LI Study:SCRN MAMM (CAD)W/LEV BILAT Date of Exa m: 06/09/24 Exam# [id number] Ordering Dr: Casie Shanks MD EXAM: SCRN MAMM (CAD)W/LEV BILAT 06/09/2024 CLINICAL HISTORY: F, Age 48 y/o , SCREENING MAMMOGRAM TECHNIQUE: Bilateral Diagnostic digital breast tomosynthesis with 2D and 3D images. Computer aided detection. COMPARISON: Prior exam(s) dated 06/09/2023. FINDINGS: TISSUE DENSITY: The breast tissue is composed of scattered area of fibroglandular density. Bilateral Breast Mammographic Findings: No significant masses, calcifications or other abnormalities are identified. BI/SCRN MAMM (CAD)W/LEV BILAT IMPRESSION: Right Breast: BIRADS 1 NEGATIVE. Left Breast: BIRADS 1 NEGATIVE. OVERALL FINAL ASSESSMENT: BIRADS 1 NEGATIVE. RECOMMENDATION: Routine annual follow-up in 1 Year A letter with findings and recommendations will be mailed to the patient. Reading Location: [facility] CC: Dr. Dominic Weaver MD; Dr. Casie Cottrell MD ~ Patient Financial Coordinator: Signed [facility] SCRN MAMM (CAD)W/LEV BILATo n 06-09-2024 SCRN MAMM (CAD)W/LEV BILAT [facility] Imaging Services [address] [place] [id number] SCRN MAMM (CAD)W/LEV BILAT MR#: [id number] Acct: [id number] Name: ARTURO SIMON Rep #: [id number] : 1975 F 48 From: Viviana Camarillo MD PCP: Dr. Dominic Weaver MD Status: REG CLI Study: SCRN MAMM (CAD)W/LEV BILAT Date of Exam: 06/30 Exam# [id number] Ordering Dr: Casie Cottrell EXAM: SCRN MAMM (CAD)W/LEV BILAT 06/09/2024 CLINICAL HISTORY: F, Age 48 y/o , SCREENING MAMMOGRAM TECHNIQUE: Bilateral Diagnostic digital breast tomosynthesis with 2D and 3D images. Computer aided detection. COMPARISON: Prior exam(s) dated 06/09/2023. FINDINGS: TISSUE DENSITY: The breast tissue is composed of scattered area of fibroglandular density. Bilateral Breast Mammographic Findings: No significant masses, calcifications or other abnormalities are identified. BI/SCRN MAMM (CAD)W/LEV BILAT IMPRESSION: Right Breast: BIRADS 1 NEGATIVE. Left Breast: BIRADS 1 NEGATIVE. OVERALL FINAL ASSESSMENT: BIRADS 1 NEGATIVE. RECOMMENDATION: Routine annual follow-up in 1 Year A letter with findings and recommendations will be mailed to the patient. Reading Location: [facility] CC: Dr. Dominic Weaver MD; Dr. Casie Cottrell MD Patient Financial Coordinator: Signed Normal [facility] Gastroenterology Visit Repor ton 05-08-2024 Gastroenterology Visit Report [facility] Gastroenterology [address] [place] [address] OFFICE VISIT Date of Service: 05/08/24 MR#: [id number] Acct: [id number] Name: ARTURO SIMON Rep #: [id number] : 1975 Provider: Louis Felix DO Age/Sex: 48/F Location: [facility] Status: Signed Intake Vital Signs 07/05/23 05:06 05/04/24 10:16 Height 5 ft 3 in 5 ft 3 in Intake Visit Reasons: 3 M FU Allergies ceftriaxone sodium (From Rocephin) Allergy (Verified 05/03/24 09:26) Hives Medications ???Medication ???Instructions ???Recorded ???Confirmed ???Type cyanocobalamin (vitamin B-12) 500 500 mcg PO QDAY 02/08/24 05/08/24 History mcg tablet magnesium oxide 400 mg PO QDAY 02/08/24 05/08/24 H istory multivitamin 1 tab PO QDAY 02/08/24 05/08/24 Hi story semaglutide 0.25 mg or 0.5 mg (2 1 mg subcut QWEEK 02/08/24 5 History mg/3 mL) subcutaneous pen injector vitamin B complex 1 cap PO QDAY 02/08/24 05/08/24 Hi story levonorgestrel (Mirena) 1 device intrauterine ONCE 4 05/08/24 History albuterol sulfate 90 mcg/actuation 2 puff inhalation Q4H PRN 05/08/24 Rx aerosol inhaler (Ventolin HFA) shortness of breath or wheezing #18 grams PFSH Medical History Right middle lobe pulmonary infiltrate Contact with or exposure to other viral diseases Wears contact lenses Migraine headache Esophageal dysmotility Strain of left trapezius muscle Strain of left rotator cuff capsule Left shoulder strain Eosinophilic esophagitis Wears glasses Alcohol use CPAP (continuous positive airway pressure) dependence Non-smoker History of edema History of echocardiogram History of stress test Cardiology follow-up encounter Atypical chest pain ROMAINE (obstructive sleep apnea) Right arm cellulitis Bee sting Needlestick injury accident with exposure to body fluid Segmental and somatic dysfunction of cervical region Segmental and somatic dysfunction of thoracic region Segmental and somatic dysfunction of lumbar region Tonsillar abscess Surgical History Hx of tubal ligation History of esophagogastroduodenoscop y (EGD) H/O shoulder surgery delivery delivered Family History Sister ROMAINE (obstructive sleep apnea) Grandfather Cancer lung Grandmother Heart disease Diabetes Sister ROMAINE (obstructive sleep apnea) Sister ROMAINE (obstructive sleep apnea) Mitral valve prolapse Sinus tachycardia Mother Cholangiocarcinoma, Onset Age: 67 Social History Smoking Status: Never smoker alcohol intake: current alcohol intake frequency: holidays/special occasions only substance use type: does not use caffeine: No what type of physical activity do you participate in: running and weight training frequency: 1-2 times per week seatbelt use: always do you feel safe at home: Yes additional social history: - Mir 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 *BGI established 02.24.22 with atypical CP since . Cardiology workup without finding and referred to GI. No particular timing or trigger identified. ?US abd 02.25.22???heterogeneous nodule right liver 3.6x2.97x2.8cm, hemangioma, recommend CT.?CT abd/pel 03.12.22???2.6x2.6cm hepatic hemangioma.?HIDA 03.26.22???EF 84%; duodenal gastric reflux.?EGD and colonoscopy 04.28.22???EGD irregular Zline 37cm; tortuous esophagus; esophageal spasm. No path changes.?Colon oscopy poor prep; tortuous transverse colon.??? OV 05.18.22 possible EOE;???Start Dupixent. ?Bioch emical???RAST without pertinent abnormality.??? Contact 05.21.22 Cristiano denies;???Start budesonide slurry.??? States that symptoms have decreased overall. States that the budesonide slurry made her symptoms worse. States that her only symptoms now seem to be food related. States that she has been having constipation on and off that began a few years ago. States that she takes Senna if constipation gets real bad. EGD 4.06.29 Abnormal esophageal motility, established esophageal spasm. Injected with botulinum toxin. Normal stomach. Normal second portion of the duodenum. No specimens collected. OV 5 Pt reports nausea / indigestion a few times a week. Pt reports having a bm every 2-3 days and takes a stool softener as needed. Pt is not currently takin (more content not included)... Normal [facility] Commissioned Sales Associate Office Visit Reporton 05-03-2024 Commissioned Sales Associate Office Visit Report [facility] [address], [address] [place] [address] OFFICE VISIT Date of Service: 05/03/24 MR#: [id number] Acct: [id number] Name: ARTURO SIMON Rep #: [id number] : 1975 Provider: Dr. Casie roach MD Age/Sex: 48/F [place] [facility]: Signed Intake Vital Signs 03/24/24 07:48 05/03/24 09:25 Height 5 ft 3 in 5 ft 3 in Weight: 252 lb 2 oz BMI 44.6 BP 106/74 Intake Visit Reasons: Discuss ultrasound Upholstery Parts Sorter Required: No Is patient in pain?: No Allergies ceftriaxone sodium (From Rocephin) Allergy (Verified 05/03/24 09:26) Hives Medications ???Medication ???Instructions ???Recorded ???Confirmed ???Type cyanocobalamin (vitamin B-12) 500 500 mcg PO QDAY 02/08/24 05/03/24 History mcg tablet magnesium oxide 400 mg PO QDAY 02/08/24 05/03/24 H istory multivitamin 1 tab PO QDAY 02/08/24 05/03/24 Hi story semaglutide 0.25 mg or 0.5 mg (2 1 mg subcut QWEEK 02/08/24 5 History mg/3 mL) subcutaneous pen injector vitamin B complex 1 cap PO QDAY 02/08/24 05/03/24 Hi story levonorgestrel (Mirena) 1 device intrauterine ONCE 4 05/03/24 History albuterol sulfate 90 mcg/actuation 2 puff inhalation Q4H PRN 05/03/24 Rx aerosol inhaler (Ventolin HFA) shortness of breath or wheezing #18 grams Patient : No : No [facility] Medical History Right middle lobe pulmonary infiltrate Contact with or exposure to other viral diseases Wears contact lenses Migraine headache Esophageal dysmotility Strain of left trapezius muscle Strain of left rotator cuff capsule Left shoulder strain Eosinophilic esophagitis Wears glasses Alcohol use CPAP (continuous positive airway pressure) dependence Non-smoker History of edema History of echocardiogram History of stress test Cardiology follow-up encounter Atypical chest pain ROMAINE (obstructive sleep apnea) Right arm cellulitis Bee sting Needlestick injury accident with exposure to body fluid Segmental and somatic dysfunction of cervical region Segmental and somatic dysfunction of thoracic region Segmental and somatic dysfunction of lumbar region Tonsillar abscess Surgical History Hx of tubal ligation History of esophagogastroduodenoscop y (EGD) H/O shoulder surgery delivery delivered Family History Sister ROMAINE (obstructive sleep apnea) Grandfather Cancer lung Grandmother Heart disease Diabetes Sister ROMAINE (obstructive sleep apnea) Sister ROMAINE (obstructive sleep apnea) Mitral valve prolapse Sinus tachycardia Mother Cholangiocarcinoma, Onset Age: 67 Social History Smoking Status: Never smoker alcohol intake: current alcohol intake frequency: holidays/special occasions only substance use type: does not use caffeine: No what type of physical activity do you participate in: running and weight training frequency: 1-2 times per week seatbelt use: always do you feel safe at home: Yes additional social history: - Mir 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 It shows bilateral dermoid cysts, she has some pelvic pressure and still some prolonged menses, open for other intervention for bleeding, has had IUD with some improvment but still long. History 2 Elective abortions Hx Para 2 Spontaneous abortions Hx # Term Pregnancies Ectopic pregnancies Hx # Pregnancies Multiple births # of living children 2 Past Pregnancies Del. Date Name GA/Weeks Outcome Route Bth Weight Gen Labor Lgth Anesthesia Del Locatn Provider FOB Unknown Andrey 2006 Unknown [facility] [place] 2012 ROS Const Constitutional: Denies fatigue, fever(s), headache(s), increased appetite, poor appetite, weight gain or weight loss GI GI: Reports as per HPI; Denies abdominal pain, constipation, nausea or vomiting : Reports as per HPI; Denies difficulty voiding, dysuria, hematuria, pelvic pain, urinary frequency, urinary incontinence, urinary hesitancy, urinary urgency, vaginal discharge, vaginal dryness, vaginal odor, vaginal pruritus or other Exam Const General: cooperative, healthy appearing, comfortable, no acute distress and well developed Orientation: alert HENMT Head: normal to inspection and normocephalic Ears: hearing grossly normal bilaterally and external ears normal Nose: external nose normal and nares normal Face and sinus: normal facial exam Neck Neck: normal visual inspection, no lymphadenopathy an (more content not included)... Normal [facility] Laboratory - Microbiology an d Antimicrobial susceptibilityOrdered By: Miguelito Good on 04-19-2024 SARS-CoV-2 (COVID-19) RNA MEREDITH+probe Ql (Unsp spec) Not detected [facility] No Panel InformationOrdered By: Miguelito Good on 04-19-2024 POC Nasal Swab Influenza A,B Not detected [facility] POC Nasal Swab RSV Not detected [facility] Office Visit Reporton 2024 Office Visit Report [facility] [address] [place] [address] OFFICE VISIT Date of Service: 04/19/24 MR#: [id number] Acct: [id number] Patient: ARTURO SIMON Rep #: [id number] : 1975 Provider: MARIA Eddy Age/Sex: 48/F Location: [facility] Status: Signed Employer Purchased Covid Test Note: Patient here today for Covid Testing, requested by their Employer. Assessment and Plan Assessment and Plan Orders: Orders POC Julianne Rapid Strep A Today POC Cepheid Covid, FluAB, RSV Today Plan Details Goals Barriers: Goals Decrease pain Decrease spasm Decrease inflammation Barriers Work requirements 04/19/24 1006 Date Miguelito SIFUENTES PA Cosigner Signature: Date (if applicable) CC: Normal [facility] Rapid group A Streptococcus antigen assay at point of careOrdered By: Miguelito Good on 04-19-2024 S. pyogenes Ag IA.rapid Ql (Throat) Negative [facility] S. pyogenes Ag IA.rapid Ql ( Throat)Ordered By: Miguelito Good on 04-19-2024 S. pyogenes Ag IA Ql (Unsp spec) Negative [facility] Urgent Care Visit Reporton 0 04-19-2024 Urgent Care Visit Report [facility] [address], [address] [place] [address] OFFICE VISIT Date of Service: 04/19/24 MR#: [id number] Acct: [id number] Name: ARTURO SIMON Rep #: [id number] : 1975 Provider: MARIA Eddy Age/Sex: 48/F Location: [facility] Status: Signed Intake Vital Signs 03/24/24 07:48 04/19/24 09:38 Height 5 ft 3 in Weight: 251 lb BMI 44.4 BP 133/71 H 130/88 H Blood Pressure Location Lt brachial Lt brachial Position Sitting Sitting Respiration 20 H 16 Pulse 96 82 Pulse Source Monitor NIBP Temp 97.4 F L 98.2 F Temp Source Oral Pulse Oximetry (%) 97 98 Oxygen Delivery Method room air room air Intake Visit Reasons: BILAT EAR PAIN/ST Chief Complaint: ear pain, ST, WISE, cough 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 cough for over 1 week. denies fever, BA. [facility] Medical History Right middle lobe pulmonary infiltrate Contact with or exposure to other viral diseases Wears contact lenses Migraine headache Esophageal dysmotility Strain of left trapezius muscle Strain of left rotator cuff capsule Left shoulder strain Eosinophilic esophagitis Wears glasses Alcohol use CPAP (continuous positive airway pressure) dependence Non-smoker History of edema History of echocardiogram History of stress test Cardiology follow-up encounter Atypical chest pain ROMAINE (obstructive sleep apnea) Right arm cellulitis Bee sting Needlestick injury accident with exposure to body fluid Segmental and somatic dysfunction of cervical region Segmental and somatic dysfunction of thoracic region Segmental and somatic dysfunction of lumbar region Tonsillar abscess Surgical History Hx of tubal ligation History of esophagogastroduodenoscop y (EGD) H/O shoulder surgery delivery delivered Family History Sister ROMAINE (obstructive sleep apnea) Grandfather Cancer lung Grandmother Heart disease Diabetes Sister ROMAINE (obstructive sleep apnea) Sister ROMAINE (obstructive sleep apnea) Mitral valve prolapse Sinus tachycardia Mother Cholangiocarcinoma, Onset Age: 67 Social History Smoking Status: Never smoker alcohol intake: current alcohol intake frequency: holidays/special occasions only substance use type: does not use caffeine: No what type of physical activity do you participate in: running and weight training frequency: 1-2 times per week seatbelt use: always do you feel safe at home: Yes additional social history: - Mir 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 Painful swallowing appreciated though no difficulty swallowing/drooling. No rash. No complaints of chest pressure/shortness of breath/dyspnea on exertion. No close contacts with similar complaints. ???No ldmi-axr-dahwcmo products taken to assist. No other associated symptoms and no other alleviating/aggravating factors. ROS Const Constitutional: No other (As above) Exam Const General: cooperative, healthy appearing and no acute distress Orientation: alert, awake and oriented x3 HENMT Head: normal to inspection Ears: hearing grossly normal bilaterally, external ears normal, TM's normal bilaterally and EAC's normal Nose: external nose normal, nares normal, septum normal and no nasal discharge Face and sinus: normal facial exam, sinuses nontender and face symmetric Mouth: oral mucosae normal, lip normal, tongue normal and oropharynx normal Throat: posterior oropharynx normal, uvula midline, abnormal tonsil bilaterally erythema; no exudates and no hypertrophy and no postnasal drainage Eyes General: appearance normal, both eyes and all related structures Neck Neck: normal visual inspection, full ROM, no meningeal signs, supple and lymphadenopathy (Bilateral anterior cervical lymph node swelling/tender to palpation) Neck mass: No Thyroid: thyroid normal Chest Chest palpation inspection: normal inspection of the chest Resp Effort Inspection: normal respiratory effort and able to speak in complete sentences, and moist nonproductive cough in office today (more content not included)... Normal [facility] Pelvis W/WO Contraston 04-10 Pelvis W/WO Contrast [facility] [address] [place] [address] [id number] Pelvis W/WO Contrast MR#: [id number] Acct: [id number] Name: ARTURO SIMON Rep #: [id number] : 1975 F 48 From: Flaco Fu DO PCP: Dr. Dominic Weaver MD Status: REG CLI Study: Pelvis W/WO Contrast Date of Exam: 04/10/24 Exam# [id number] Ordering Dr: Casie Cottrell PROCEDURE: PELVIS W/WO CONTRAST REASON FOR EXAM: Ovarian cyst. TECHNIQUE: Pelvis MRI without and with intravenous gadolinium-based contrast. CONTRAST: Clariscan 22 cc intravenously. COMPARISON: None. FINDINGS: Uterus: Orientation: Anteverted and anteflexed. 11.2 cm in length. Endometrium: 4 mm Junctional zone: 9 mm maximally. Fibroids: None. Miscellaneous: Small nabothian cysts at the internal and external cervical os. Right Ovary: Contains a 3.6 x 3.1 heterogeneously T1 hyperintense structure which suppresses fat signal consistent with dermoid cyst/mature cystic ovarian teratoma. Left Ovary: 5.5 x 3.9 cm intrinsically T1 hyperintense mass that suppresses fat signal consistent with dermoid cyst/mature cystic ovarian teratoma. Bladder: Unremarkable. Cul-de-sac: No fluid. Visualized bowel is unremarkable. Urinary bladder is unremarkable. Rectum is unremarkable. Marrow signal is normal. Sacroiliac joints are normal. MRI/Pelvis W/WO Contrast IMPRESSION: Bilateral ovarian dermoid cysts measuring 3.6 cm on the right and 5.5 cm on the left. Reading Location: [facility] CC: Dr. Dominic Weaver MD; Dr. Casie Cottrell MD Patient Financial Coordinator: Signed Normal [facility] Pulmonary Visit Reporton Pulmonary Visit Report [facility] [address] [place] [address] OFFICE VISIT Date of Service: 03/24/24 MR#: [id number] Acct: [id number] Name: ARTURO SIMON Rep #: [id number] : 1975 Provider: NAVIN Arguello Age/Sex: 48/F [facility] Status: Signed Assessment and Plan Assessment and Plan (1) ROMAINE (obstructive sleep apnea): Status: Chronic Comment: AHI 21.2. Treated with AutoPap 7 to 15 cm water Plan: She is using and benefiting from Pap therapy. No indication for titration study at this time. Contact the office for any new or worsening symptoms in the meantime. Follow-up in 1 year. (2) Obesity: Status: Chronic Qualifiers: Obesity type: due to excess calories Obesity classification: adult class 3 (BMI >= 40) Serious obesity comorbidity presence: with serious comorbidity Body mass index: BMI 40.0-44.9 Qualified Code(s): E66.813 - Obesity, class 3; E66.01 - Morbid (severe) obesity due to excess calories; Z68.41 - Body mass index [BMI] 40.0-44.9, adult Plan: Complicates exam, plan, care and prognosis. Continue to encourage weight loss. (3) Asthma: Status: Chronic Qualifiers: Asthma severity: mild Asthma persistence: intermittent Asthma complication type: uncomplicated Qualified Code(s): J45.20 - Mild intermittent asthma, uncomplicated Plan: Previous PFT only showed a mild restrictive impairment but did indicate possible small airway disease. I ordered a albuterol rescue inhaler instructed the patient to utilize it 15 minutes prior to exercise. She does experience shortness of breath on exertion. She will contact the office if this is not helpful or if symptoms progress. Otherwise, follow-up in 1 year. Medications: New albuterol sulfate 90 mcg/actuation (Ventolin HFA) 2 puffs inhalation Q4H PRN 18 grams 6RF shortness of breath or wheezing Plan Details Goals Barriers: Goals Decrease pain Decrease spasm Decrease inflammation Barriers Work requirements Follow Up: 1 Year ([facility]) HPI HPI Comments Details: This patient presents to the office today for follow-up of her asthma and obstructive sleep apnea. She is ambulatory and currently on room air. She has not recently been seen in the ED or urgent care for any respiratory illness. She has not required any antibiotics or prednisone for any breathing problems. She is not currently on any maintenance inhalers. If you recall, she is a lifelong never smoker. She only experiences shortness of breath on exertion. She denies any cough, sputum production or hemoptysis. She denies any wheezing, chest tightness, chest pain or palpitations. She also denies any fever, chills or body aches. The patient does report waking feeling rested and refreshed. She admits that she does wake up a couple times throughout the night. She does utilize a candle with a white screen reading before bedtime. She denies any nocturia. She is not requiring naps. She is not nodding off to sleep unintentionally. She does admit to an occasional headache and occasionally has a dry mouth. Compliance report for the past 30 days shows 90% compliance and average use of 6 hours and 52 minutes per night. Current setting is AutoPap 7-15 cmH2O residual AHI 0.1 events per hour. Leaks do not appear to be problematic. 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 Required: No DME Vendor: cpap- [employer] Accompanied by: Self Is patient in pain?: No Allergies ceftriaxone sodium (From Rocephin) Allergy (Verified 03/24/24 13:24) Hives Medications ???Medication ???Instructions ???Recorded ???Confirmed ???Type cyanocobalamin (vitamin B-12) 500 500 mcg PO QDAY 02/08/24 03/24/24 History mcg tablet magnesium oxide 400 mg PO QDAY 02/08/24 03/24/24 History multivitamin 1 tab PO QDAY 02/08/24 03/24/24 History semaglutide 0.25 mg or 0.5 mg (2 1 mg subcut QWEEK 02/08/24 03/24/24 History mg/3 mL) subcutaneous pen injector vitamin B complex 1 cap PO QDAY 02/08/24 03/24/24 History levonorgestrel (Mirena) 1 device intrauterine ONCE 02/23/24 03/24/24 History albuterol sulfate 90 mcg/actuation 2 puff inhalation Q4H PRN 03/24/24 03/24/24 Rx aerosol inhaler (Ventolin HFA) shortness of breath or wheezing #18 grams PFSH Medical History Right middle lobe pulmonary infiltrate Contact with or exposure to other viral dis (more content not included)... Normal [facility] Pelvic w/ Transvaginalon Pelvic w/ Transvaginal [facility] [address] [place], [place] [id number] Pelvic w/ Transvaginal MR#: [id number] Acct: [id number] Name: ARTURO SIMON Rep #: [id number] : 1975 F 48 From: John Aguiar MD PCP: Dr. Dominic Weaver MD Status: REG CLI Study: Pelvic w/ Transvaginal Date of Exam: 03/07/24 Exam# [id number] Ordering Dr: Casie Cottrell [id number] STUDY: ULTRASOUND OF THE FEMALE PELVIS - COMPLETE REASON FOR EXAM: Female, 48 years old. Irregular bleeding with IUD LMP: Unknown. TECHNIQUE: Transabdominal and Transvaginal TECHNICAL QUALITY: Adequate. COMPARISON: 06/01/2022 FINDINGS: The uterus is anteverted and is in a midline position. The uterus measures 10.3 x 5.0 x 3.5 cm. Normal uterine cervix. The endometrium measures 6 mm in thickness, and is hyperechoic. There is no demonstrated endometrial mass. There is no demonstrated myometrial mass. I.U.D. - The patient does have an I.U.D. The right ovary is visualized. The right ovary measures 6.3 x 5.1 x 4.1 cm. 5.6 cm oval hyperechoic mass in the right ovary worrisome for an ovarian dermoid. Correlation with CT is recommended. There is no visualized right adnexal mass or complex lesion. There is normal arterial and normal venous vascularity. The left ovary is non-visualized.. There is no fluid in the cul-de-sac. The pre void volume of the bladder was ml. The post void volume of the bladder was ml. Polycystic ovary disease: No. US/Pelvic w/ Transvaginal IMPRESSION: Suspect 5.6 cm right ovarian dermoid and correlation with CT is recommended. Electronically Signed: John Aguiar MD at 18:50 EST , CC: Dr. Dominic Weaver MD; Dr. Casie Cottrell MD Patient Financial Coordinator: Signed Normal [facility] Absolute neutrophil countOrd ered By: Casie Sealsjuan daniel on 02-23-2024 Neutrophils (Bld) [#/Vol] 3.6 10*3/uL 2.0-7.7 [facility] Basophil percentageOrdered B y: Casie Sealsjuan daniel on 02-23-2024 Basophils/100 WBC (Bld) 0.8 % 0-1 [facility] CBC W/Diff, Automatedon 02-05-2023 Absolute Lymph 2.12 X10 3/uL Normal 0.83-4.51 [facility] Comment on above: Order Comment: Comme nts: Irregular bleeding with IUD Performed By: #### L 100.0100, L501.9520 ####[facility] [address] [facility] [address] Absolute Neut 3.6 X10 3/uL Normal 2.0-7.7 [facility] Comment on above: Order Comment: Comme nts: Irregular bleeding with IUD Performed By: #### L 100.0100, L501.9520 ####[facility] [address] [facility] [address] Basophils/100 WBC (Bld) 0.8 % Normal 0-1 [facility] Comment on above: Order Comment: Comme nts: Irregular bleeding with IUD Performed By: #### L 100.0100, L501.9520 ####[facility] [address] [place], [address] Eosinophils/100 WBC (Bld) 1.2 % Normal 0-5 [facility] Comment on above: Order Comment: Comme nts: Irregular bleeding with IUD Performed By: #### L 100.0100, L501.9520 ####[facility] [address] [place], [address] Erythrocyte distribution width (RBC) [Ratio] 13.7 % Normal 11.6-14.6 [facility] Comment on above: Order Comment: Comme nts: Irregular bleeding with IUD Performed By: #### L 100.0100, L501.9520 ####[facility] [address] [place], [address] Hematocrit (Bld) [Volume fraction] 44.3 % Normal 37-47 [facility] Comment on above: Order Comment: Comme nts: Irregular bleeding with IUD Performed By: #### L 100.0100, L501.9520 ####[facility] [address] [place], [address] Hemoglobin (Bld) [Mass/Vol] 14.1 g/dL Normal 12.0-15.0 [facility] Comment on above: Order Comment: Comme nts: Irregular bleeding with IUD Performed By: #### L 100.0100, L501.9520 ####[facility] [address] [place], [address] IG% 0.300 Normal 0.0-0.9 [facility] Comment on above: Order Comment: Comme nts: Irregular bleeding with IUD Result Comment: IG% - Immature Granulocytes (promyelocytes, myelocytes and metamyelocytes) > 1% indicates that a LEFT SHIFT is Present. Performed By: #### L 100.0100, L501.9520 ####[facility] [address] [place], [address] Lymphocytes/100 WBC (Bld) 32.7 % Normal 19-41 [facility] Comment on above: Order Comment: Comme nts: Irregular bleeding with IUD Performed By: #### L 100.0100, L501.9520 ####[facility] [address] [place], [address] MCH (RBC) [Entitic mass] 28.0 pg Normal 27.0-32.0 [facility] Comment on above: Order Comment: Comme nts: Irregular bleeding with IUD Performed By: #### L 100.0100, L501.9520 ####[facility] [address] [place], [address] MCHC (RBC) [Mass/Vol] 31.8 g/dL Low 32-36 [facility] Comment on above: Order Comment: Comme nts: Irregular bleeding with IUD Performed By: #### L 100.0100, L501.9520 ####[facility] [address] [place], [address] MCV (RBC) [Entitic vol] 87.9 fL Normal 81-99 [facility] Comment on above: Order Comment: Comme nts: Irregular bleeding with IUD Performed By: #### L 100.0100, L501.9520 ####[facility] [address] [place], [address] Monocytes/100 WBC (Bld) 9.0 % Normal 0-10 [facility] Comment on above: Order Comment: Comme nts: Irregular bleeding with IUD Performed By: #### L 100.0100, L501.9520 ####[facility] [address] [place], [address] Neutrophils/100 WBC (Bld) 56.0 % Normal 47-70 [facility] Comment on above: Order Comment: Comme nts: Irregular bleeding with IUD Performed By: #### L 100.0100, L501.9520 ####[facility] [address] [place], [address] Nucleated RBC (Bld) [#/Vol] 0 10*3/uL Normal 0-5 [facility] Comment on above: Order Comment: Comme nts: Irregular bleeding with IUD Performed By: #### L 100.0100, L501.9520 ####[facility] [address] [place], [address] Platelet mean volume (Bld) [Entitic vol] 12.5 fL High 6.2-12.0 [facility] Comment on above: Order Comment: Comme nts: Irregular bleeding with IUD Performed By: #### L 100.0100, L501.9520 ####[facility] [address] [place], [address] Platelets (Bld) [#/Vol] 227 10*3/uL Normal 150-450 [facility] Comment on above: Order Comment: Comme nts: Irregular bleeding with IUD Performed By: #### L 100.0100, L501.9520 ####[facility] [address] [place], [address] RBC (Bld) [#/Vol] 5.04 10*6/uL Normal 4.2-5.4 [facility] Comment on above: Order Comment: Comme nts: Irregular bleeding with IUD Performed By: #### L 100.0100, L501.9520 ####[facility] [address] [place], [address] RDW SD 44.1 fl High 35.1-43.9 [facility] Comment on above: Order Comment: Comme nts: Irregular bleeding with IUD Performed By: #### L 100.0100, L501.9520 ####[facility] [address] [place], [address] WBC (Bld) [#/Vol] 6.5 10*3/uL Normal 4.4-11.0 [facility] Comment on above: Order Comment: Comme nts: Irregular bleeding with IUD Performed By: #### L 100.0100, L501.9520 ####[facility] [address] [place], [address] Eosinophil percentageOrdered By: Casie Cottrell on 02-23-2024 Eosinophils/100 WBC (Bld) 1.2 % 0-5 [facility] Erythrocyte distribution wid th (RBC) [Ratio]Ordered By: Casie Cottrell on 02-23-2024 Erythrocyte distribution width (RBC) [Entitic vol] 44.1 fL High 35.1-43.9 [facility] Erythrocyte distribution wid th ratioOrdered By: Casie Cottrell on 02-23-2024 Erythrocyte distribution width (RBC) [Ratio] 13.7 % 11.6-14.6 [facility] Hematocrit Auto (Bld) [Volum e fraction]Ordered By: Casie Cottrell on 02-23-2024 Hematocrit (Bld) [Volume fraction] 44.3 % 37-47 [facility] Hemoglobin measurementOrdere d By: Casie Cottrell on 02-23-2024 Hemoglobin (Bld) [Mass/Vol] 14.1 g/dL 12.0-15.0 [facility] Immature granulocytes/100 WB C Auto (Bld)Ordered By: Casie Cottrell on 02-23-2024 Immature granulocytes/100 WBC (Bld) 0.300 % 0.0-0.9 [facility] Comment on above: IG% - Immature Granu locytes (promyelocytes, myelocytes and metamyelocytes) > 1% indicates that a LEFT SHIFT is Present. Lymphocytes Auto (Unsp spec) [#/Vol]Ordered By: Casie Cottrell on 02-23-2024 Lymphocytes (Bld) [#/Vol] 2.12 10*3/uL 0.83-4.51 [facility] Lymphocytes/100 WBC Auto (Un sp spec)Ordered By: Casie Cottrell on 02-23-2024 Lymphocytes/100 WBC (Bld) 32.7 % 19-41 [facility] MCV (mean corpuscular volume ) determinationOrdered By: Casie Cottrell on 02-23-2024 MCV (RBC) [Entitic vol] 87.9 fL 81-99 [facility] Mean corpuscular hemoglobin (MCH) determinationOrdered By: Casie Cottrell on 02-23-2024 MCH (RBC) [Entitic mass] 28.0 pg 27.0-32.0 [facility] Mean corpuscular hemoglobin concentration (MCHC) determinationOrdered By: Casie Cottrell on 02-23-2024 MCHC (RBC) [Mass/Vol] 31.8 g/dL Low 32-36 [facility] Mean platelet volume determi nationOrdered By: Casie Cottrell on 02-23-2024 Platelet mean volume (Bld) [Entitic vol] 12.5 fL High 6.2-12.0 [facility] Monocyte percentageOrdered B y: Casie Cottrell on 02-23-2024 Monocytes/100 WBC (Bld) 9.0 % 0-10 [facility] Neutrophil percentageOrdered By: Casie Cottrell on 02-23-2024 Neutrophils/100 WBC (Bld) 56.0 % 47-70 [facility] Nucleated red blood cell per centageOrdered By: Casie Cottrell on 02-23-2024 Nucleated RBC/100 WBC (Bld) [Ratio] 0 % 0-5 [facility] Commissioned Sales Associate Office Visit Reporton 02-23-2024 Commissioned Sales Associate Office Visit Report [facility] [address], [address] [place] [address] OFFICE VISIT Date of Service: 02/23/24 MR#: [id number] Acct: [id number] Name: ARTURO SIMON Rep #: [id number] : 1975 Provider: Dr. 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 [employer] Sorter Required: No Is patient in pain?: No Feel stressed/tense/nervous/an xious/difficulty sleeping: not at all Allergies ceftriaxone sodium (From Rocephin) Allergy (Verified 02/23/24 07:56) Hives Medications ???Medication ???Instructions ???Recorded ???Confirmed ???Type cyanocobalamin (vitamin B-12) 500 500 mcg PO QDAY 02/08/24 02/23/24 History mcg tablet magnesium oxide 400 mg PO QDAY 02/08/24 02/23/24 History multivitamin 1 tab PO QDAY 02/08/24 02/23/24 History semaglutide 0.25 mg or 0.5 mg (2 1 mg subcut QWEEK 02/08/24 02/23/24 History mg/3 mL) subcutaneous pen injector vitamin B complex 1 cap PO QDAY 02/08/24 02/23/24 History levonorgestrel (Mirena) 1 device intrauterine ONCE 02/23/24 02/23/24 History Is last menstrual period known: Yes Last Menstrual Period: 02/22/24 Post menopausal: No Patient : No : No [facility] Medical History Right middle lobe pulmonary infiltrate Contact with or exposure to other viral diseases Wears contact lenses Migraine headache Esophageal dysmotility Strain of left trapezius muscle Strain of left rotator cuff capsule Left shoulder strain Eosinophilic esophagitis Wears glasses Alcohol use CPAP (continuous positive airway pressure) dependence Non-smoker History of edema History of echocardiogram History of stress test Cardiology follow-up encounter Atypical chest pain ROMAINE (obstructive sleep apnea) Right arm cellulitis Bee sting Needlestick injury accident with exposure to body fluid Segmental and somatic dysfunction of cervical region Segmental and somatic dysfunction of thoracic region Segmental and somatic dysfunction of lumbar region Tonsillar abscess Surgical History Hx of tubal ligation History of esophagogastroduodenoscop y (EGD) H/O shoulder surgery delivery delivered Family History Sister ROMAINE (obstructive sleep apnea) Grandfather Cancer lung Grandmother Heart disease Diabetes Sister ROMAINE (obstructive sleep apnea) Sister ROMAINE (obstructive sleep apnea) Mitral valve prolapse Sinus tachycardia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 detectionOrdered By: HEALTH ASSESSMENT on 10-13-2022 RBC Ql (U) Negative Negative [facility] Urine clarityOrdered By: [facility] ASSESSMENT on 10-13-2022 Clarity (U) Sl. Cloudy Clear [facility] Urine color determinationOrd ered By: HEALTH ASSESSMENT on 10-13-2022 Color (U) Yellow Yellow [facility] Urine glucose detectionOrder ed By: HEALTH ASSESSMENT on 10-13-2022 Glucose Ql (U) Normal mg/dl Normal [facility] Urine leukocyte esterase det ection by dipstickOrdered By: HEALTH ASSESSMENT on 10-13-2022 Leukocyte esterase Test strip Ql (U) 25 /ul Negative [facility] Urine pHOrdered By: HEALTH A SSESSMENT on 10-13-2022 pH (U) 7.0 [pH] 5.0 - 8.0 [facility] Urine specific gravity measu rementOrdered By: HEALTH ASSESSMENT on 10-13-2022 Specific gravity (U) [Rel density] 1.010 1.002-1.03 0 [facility] Urobilinogen Auto test strip Ql (U)Ordered By: HEALTH ASSESSMENT on 10-13-2022 Urobilinogen Ql (U) Normal mg/dl Normal [facility] Chocolate RASTOrdered By: Ra mary Felix on 09-21-2022 Chocolate IgE Qn (S) <0.10 kU/L Class 0 [facility] Comment on above: Performed at: - [address] [id number] Director: Mina Gonzáles MD, Phone: [phone] Laboratory - Miscellaneous t estsOrdered By: Louis Felix on 09-21-2022 Service comment (Unsp spec) [Interp] Comment . [facility] Comment on above: Levels of Specific I gE Class Description of Class ----- < 0.10 0 Negative 0.10 - 0.31 0/I Equivocal/Low 0.32 - 0.55 I Low 0.56 - 1.40 II Moderate 1.41 - 3.90 III High 3.91 - 19.00 IV Very High 19.01 - 100.00 V Very High >100.00 [facility] No Panel InformationOrdered By: Louis Felix on 09-21-2022 Scallop Allergen <0.10 kU/L Class 0 [facility] Seafood Group Allergens (RAST) Negative . [facility] Comment on above: Allergens in this mi x are: Blue mussel Fish [place] Shrimp Tuna Sesame Seed Allergen IgE Antibody <0.10 kU/L Class 0 [facility] Shrimp Allergen <0.10 kU/L Class 0 [facility] Serum beef IgE antibody assa y (units/volume)Ordered By: Louis Felix on 09-21-2022 Beef IgE Qn (S) <0.10 kU/L Class 0 [facility] Serum black walnut IgE antib [place] assay (units/volume)Ordered By: Louis Felix on 09-21-2022 Black [place] IgE Qn (S) <0.10 kU/L Class 0 [facility] Serum clam IgE antibody assa y (units/volume)Ordered By: Louis Feilx on 09-21-2022 Clam IgE Qn (S) <0.10 kU/L Class 0 [facility] Serum codfish IgE antibody a ssay (units/volume)Ordered By: Louis Felix on 09-21-2022 Codfish IgE Qn (S) <0.10 kU/L Class 0 [facility] Serum corn IgE antibody assa y (units/volume)Ordered By: Louis Felix on 09-21-2022 [place] IgE Qn (S) <0.10 kU/L Class 0 [facility] Serum cow milk IgE antibody assay (units/volume)Ordered By: Louis Felix on 09-21-2022 Cow milk IgE Qn (S) <0.10 kU/L Class 0 [facility] Serum egg white IgE antibody assay (units/volume)Ordered By: Louis Felix on 09-21-2022 Egg white IgE Qn (S) <0.10 kU/L Class 0 [facility] Serum peanut IgE antibody as say (units/volume)Ordered By: Louis Felix on 09-21-2022 Peanut IgE Qn (S) <0.10 kU/L Class 0 [facility] Serum pork IgE antibody assa y (units/volume)Ordered By: Louis Felix on 09-21-2022 Pork IgE Qn (S) <0.10 kU/L Class 0 [facility] Serum soybean IgE antibody a ssay (units/volume)Ordered By: Louis Felix on 09-21-2022 Soybean IgE Qn (S) <0.10 kU/L Class 0 [facility] Serum wheat IgE antibody ass ay (units/volume)Ordered By: Louis Felix on 09-21-2022 Wheat IgE Qn (S) <0.10 kU/L Class 0 [facility] Serum whole egg IgE antibody assay (units/volume)Ordered By: Louis Felix on 09-21-2022 Whole Egg IgE Qn (S) <0.10 kU/L Class 0 [facility] Absolute lymphocyte countOrd ered By: Dr. Cottrell on 05-28-2022 Lymphocytes Auto (Unsp spec) [#/Vol] 2.33 10*3/uL 0.83-4.51 [facility] Basophil percentageOrdered B y: Dr. Cottrell on 05-28-2022 Basophils/100 WBC (Bld) 0.5 % 0-1 [facility] Eosinophils/100 WBC (Bld) 0.6 % 0-5 [facility] Neutrophils (Bld) [#/Vol] 4.7 10*3/uL 2.0-7.7 [facility] Neutrophils/100 WBC (Bld) 57.7 % 47-70 [facility] WBC (Bld) [#/Vol] 8.1 10*3/uL 4.4-11.0 [facility] Blood erythrocytes count (nu mber/volume)Ordered By: Dr. Cottrell on 05-28-2022 RBC (Bld) [#/Vol] 4.85 10*6/uL 4.2-5.4 [facility] Blood hemoglobin measurement (mass/volume)Ordered By: Dr. Cottrell on 05-28-2022 Hemoglobin (Bld) [Mass/Vol] 13.9 g/dL 12.0-15.0 [facility] Blood lymphocytes/100 leukoc ytesOrdered By: Dr. Cottrell on 05-28-2022 Lymphocytes/100 WBC (Bld) 28.9 % 19-41 [facility] Blood monocytes/100 leukocyt esOrdered By: Dr. Cottrell on 05-28-2022 Monocytes/100 WBC (Bld) 11.9 % 0-10 [facility] Blood platelet mean volumeOr dered By: Dr. Cottrell on 05-28-2022 Platelet mean volume (Bld) [Entitic vol] 12.0 fL 6.2-12.0 [facility] Determination of erythrocyte mean corpuscular volume (MCV)Ordered By: Dr. Cottrell on 05-28-2022 MCV (RBC) [Entitic vol] 87.0 fL 81-99 [facility] Hematocrit Auto (Bld) [Volum e fraction]Ordered By: Dr. Cottrell on 05-28-2022 Hematocrit (Bld) [Volume fraction] 42.2 % 37-47 [facility] - Hematology and Cell countsOrdered By: Dr. Cottrell on 05-28-2022 Erythrocyte distribution width (RBC) [Entitic vol] 40.8 fL 35.1-43.9 [facility] Erythrocyte distribution width (RBC) [Ratio] 13.0 % 11.6-14.6 [facility] Immature granulocytes/100 WBC (Bld) 0.400 % 0.0-0.9 [facility] Comment on above: IG% - Immature Granu locytes (promyelocytes, myelocytes and metamyelocytes) > 1% indicates that a LEFT SHIFT is Present. MCH (RBC) [Entitic mass] 28.7 pg 27.0-32.0 [facility] Nucleated RBC/100 WBC (Bld) [Ratio] 0 % 0-5 [facility] MCHC Auto (RBC) [Mass/Vol]Or dered By: Dr. Cottrell on 05-28-2022 MCHC (RBC) [Mass/Vol] 32.9 g/dL 32-36 [facility] No Panel InformationOrdered By: Dr. Cottrell on 05-28-2022 Follicle Stimulating Hormone 2.0 mIU/mL [facility] Comment on above: NORMAL REFERENCE RAN [facility] FEMALE FOLLICULAR 2.3 - 12.6 mIU/mL MID-CYCLE PEAK 5.2 - 17.5 mIU/mL LUTEAL 1.7 - 12.9 mIU/mL POST-MENOPAUSAL ON MHT 5.9 - 72.8 mIU/mL NOT ON MHT 12.7 - 132.2 mlU/mL MALE 0.7 - 10.8 mIU/mL Thyroid Stimulating Hormone (TSH) 1.77 uIU/mL 0.358-3.74 [facility] Platelets bldOrdered By: Dr. Cottrell on 05-28-2022 Platelets (Bld) [#/Vol] 220 10*3/uL 150-450 [facility] Serum or plasma estradiol (E 2) measurement (mass/volume)Ordered By: Dr. Cottrell on 05-28-2022 E2 [Mass/Vol] 116.3 pg/mL [facility] Comment on above: NORMAL REFERENCE RAN GES FEMALE FOLLICULAR 21.4 - 164.8 pg/mL MID-CYCLE PEAK 49.9 - 367.2 pg/mL LUTEAL 40.2 - 259.0 pg/mL POST-MENOPAUSAL ON MHT <11.0 - 462.1 pg/mL NOT ON MHT <11.0 - 58.3 pg/mL MALE <11.0 - 52.5 pg/mL NOTE:[employer] HAS CONFIRMED THE DRUG FULVETRANT (FASLODEX) MAY CAUSE FALSELY ELEVATED ESTRADIOL RESULTS WHEN USING THIS TEST METHOD. IF PATIENT IS TAKING FULVESTRANT AN ALTERNATIVE METHOD SHOULD BE USED TO DETERMINE ESTRADIOL CONCENTRATION. Serum or plasma testosterone free measurement (mass/volume)Ordered By: Dr. Cottrell on 05-28-2022 Testosterone Free [Mass/Vol] 0.6 pg/mL 0.0-4.2 [facility] Comment on above: Performed at: [facility] [id number] Director: Mina Gonzáles MD, Phone: [phone] Chocolate RASTOrdered By: Princess Peraza on 05-18-2022 Chocolate IgE Qn (S) <0.10 kU/L Class 0 [facility] Comment on above: Performed at: [facility] [id number] Director: Mina Gonzáles MD, Phone: [phone] Laboratory - Miscellaneous t estsOrdered By: Whitley Peraza on 05-18-2022 Service comment (Unsp spec) [Interp] Comment . [facility] Comment on above: Levels of Specific I gE Class Description of Class ----- < 0.10 0 Negative 0.10 - 0.31 0/I Equivocal/Low 0.32 - 0.55 I Low 0.56 - 1.40 II Moderate 1.41 - 3.90 III High 3.91 - 19.00 IV Very High 19.01 - 100.00 V Very High >100.00 [facility] No Panel InformationOrdered By: Whitley Peraza on 05-18-2022 Seafood Group Allergens (RAST) Negative . [facility] Comment on above: Allergens in this mi x are: Blue mussel Fish [place] Shrimp Tuna Serum beef IgE antibody assa y (units/volume)Ordered By: Whitley Peraza on 05-18-2022 Beef IgE Qn (S) <0.10 kU/L Class 0 [facility] Serum corn IgE antibody assa y (units/volume)Ordered By: Whitley Peraza on 05-18-2022 [place] IgE Qn (S) <0.10 kU/L Class 0 [facility] Serum cow milk IgE antibody assay (units/volume)Ordered By: Whitley Peraza on 05-18-2022 Cow milk IgE Qn (S) <0.10 kU/L Class 0 [facility] Serum peanut IgE antibody as say (units/volume)Ordered By: Whitley Peraza on 05-18-2022 Peanut IgE Qn (S) <0.10 kU/L Class 0 [facility] Serum pork IgE antibody assa y (units/volume)Ordered By: Whitley Peraza on 05-18-2022 Pork IgE Qn (S) <0.10 kU/L Class 0 [facility] Serum soybean IgE antibody a ssay (units/volume)Ordered By: Whitley Peraza on 05-18-2022 Soybean IgE Qn (S) <0.10 kU/L Class 0 [facility] Serum wheat IgE antibody ass ay (units/volume)Ordered By: Whitley Peraza on 05-18-2022 Wheat IgE Qn (S) <0.10 kU/L Class 0 [facility] Serum whole egg IgE antibody assay (units/volume)Ordered By: Whitley Peraza on 05-18-2022 Whole Egg IgE Qn (S) <0.10 kU/L Class 0 [facility] Cervical or vagninal specime n microscopic examination by cytology stain (reported asOrdered By: Dr. Cottrell on 02-17-2022 Cytology report Cyto stain Doc (Cvx/Vag) Comment . [facility] Comment on above: The Pap smear is a s creening test designed to aid in thedetection of premalignant and malignant conditions of theuterine cervix. It is not a diagnostic procedure andshould not be used as the sole means of detecting cervicalcancer. Both false-positive and false-negative reports dooccur. Detection in cervical specim en of any of human papilloma virus (HPV) 16, 18, 31, 33,Ordered By: Dr. Cottrell on 02-17-2022 HPV 16+18+31+33+35+39+45+5 1+52+56+58+59+66+68 DNA Probe+sig amp Ql (Cvx) Negative Negative [facility] Comment on above: This nucleic acid am plification test detects fourteen high- risk HPV types (16,18,31,33,35,39,45,51,52,56,58,59,66,68)without differentiation. Laboratory - CytologyOrdered By: Dr. Cottrell on 02-17-2022 Manager Winter Cyto stain Nom (Cvx/Vag) [ID] Comment . [facility] Comment on above: Beata Cardoso, Cytot echnologist ([facility]) Laboratory - Miscellaneous t estsOrdered By: Dr. Cottrell on 02-17-2022 Service comment (Unsp spec) [Interp] Comment . [facility] Comment on above: This liquid based Th inPrep(R) pap test was screened withthe use of an image guided system. Service comment (Unsp spec) [Interp] . . [facility] Liquid-based cerv Pap + CT/G C by MEREDITH w reflex to high-risk HPV for ASCUSOrdered By: Dr. Cottrell on 02-17-2022 Cytology report Cyto stain.thin prep Doc (Cvx/Vag) Comment . [facility] Comment on above: Criteria not met, HP V Genotype not performed.Performed at: [facility] - [facility] [id number] Director: Effie Dickey MD, Phone: [phone] at: =G - [facility] [address] [id number] Director: Effie Dickey MD, Phone: [phone] No Panel InformationOrdered By: Dr. Cottrell on 02-17-2022 Pap Smear QC Review Comment . [facility] Comment on above: Crystal Sebastian Cytot echnologist ([facility]) Pathology report final diagnosis Narrative Comment . [facility] Comment on above: NEGATIVE FOR INTRAEP ITHELIAL LESION OR MALIGNANCY.THIS SPECIMEN WAS RESCREENED PART OF OUR GLASS FRAME FITTER PROGRAM. Absolute lymphocyte counton 10-31-2021 Lymphocytes Auto (Unsp spec) [#/Vol] 2.75 10*3/uL 0.83-4.51 [facility] Work Phone: Absolute reticulocyte counto n 10-31-2021 Reticulocytes (Bld) [#/Vol] 0.00 10*3/uL 0-5 [facility] Work Phone: Basophil percentageon 2021 Basophil percentage 3.1 mg/dL 2.5-4.9 [facility] Work Phone: Bilirubin [Mass/Vol] 0.70 mg/dL 0.20-1.00 [facility] Work Phone: Comment on above: For patients on eltr ombopag therapy, use of Dimension [place]bell TBIL is not recommended. Chloride [Moles/Vol] 109 mmol/L 98-107 [facility] Work Phone: Cholesterol [Mass/Vol] 172 mg/dL <200 [facility] Work Phone: Comment on above: <200 mg/dL Desirable 200-240 mg/dL Borderline >240 mg/dL High Risk Glucose [Mass/Vol] 92 mg/dL 74-106 [facility] Work Phone: Neutrophils (Bld) [#/Vol] 4.2 10*3/uL 2.0-7.7 [facility] Work Phone: Potassium [Moles/Vol] 4.1 mmol/L 3.5-5.1 [facility] Work Phone: Protein [Mass/Vol] 7.9 g/dL 6.4-8.2 [facility] Work Phone: Sodium [Moles/Vol] 141 mmol/L 136-145 [facility] Work Phone: Triglyceride [Mass/Vol] 77 mg/dL <199 [facility] Work Phone: Comment on above: The drugs N-Acetylcy steine and Metamizole may falsely depress this assay.Serum Triglycerides Reference Interval Normal <150 mg/dL Borderline high 150 - 199 mg/dL High 200 - 499 mg/dL Very High > or = 500 mg/dL WBC (Bld) [#/Vol] 7.9 10*3/uL 4.4-11.0 [facility] Work Phone: Bilirubin Test strip Ql (U)o n 10-31-2021 Bilirubin Ql (U) Negative Negative [facility] Work Phone: Blood erythrocytes count (nu mber/volume)on 10-31-2021 RBC (Bld) [#/Vol] 4.81 10*6/uL 4.2-5.4 [facility] Work Phone: Blood hemoglobin measurement (mass/volume)on 10-31-2021 Hemoglobin (Bld) [Mass/Vol] 14.0 g/dL 12.0-15.0 [facility] Work Phone: Blood platelet mean volumeon 10-31-2021 Platelet mean volume (Bld) [Entitic vol] 12.5 fL 6.2-12.0 [facility] Work Phone: Determination of erythrocyte mean corpuscular volume (MCV)on 10-31-2021 MCV (RBC) [Entitic vol] 87.5 fL 81-99 [facility] Work Phone: Direct bilirubinon 2 Bilirubin.direct [Mass/Vol] 0.16 mg/dL 0.00-0.30 [facility] Work Phone: Hematocrit Auto (Bld) [Volum e fraction]on 10-31-2021 Hematocrit (Bld) [Volume fraction] 42.1 % 37-47 [facility] Work Phone: Ketones Test strip Ql (U)on 10-31-2021 Ketones Ql (U) Negative Negative [facility] Work Phone: Laboratory - Chemistry and C hemistry - challengeon 10-31-2021 ALP [Catalytic activity/Vol] 51 U/L 45-117 [facility] Work Phone: ALT [Catalytic activity/Vol] 43 U/L 13-56 [facility] Work Phone: Cholesterol.total/Chol esterol in HDL [Mass ratio] 3.60 {ratio} [facility] Work Phone: [phone] CO2 [Moles/Vol] 27.0 mmol/L 21.0-32.0 [facility] Work Phone: Globulin (S) [Mass/Vol] 4.2 g/dL 2.2-4.2 [facility] Work Phone: Urea nitrogen/Creatinine [Mass ratio] 16.4 mg/mg 10-20 [facility] Work Phone: Laboratory - Hematology and Cell countson 10-31-2021 Erythrocyte distribution width (RBC) [Entitic vol] 42.5 fL 35.1-43.9 [facility] Work Phone: Erythrocyte distribution width (RBC) [Ratio] 13.2 % 11.6-14.6 [facility] Work Phone: MCH (RBC) [Entitic mass] 29.1 pg 27.0-32.0 [facility] Work Phone: Nucleated RBC/100 WBC (Bld) [Ratio] 0 % 0-5 [facility] Work Phone: MCHC Auto (RBC) [Mass/Vol]on 10-31-2021 MCHC (RBC) [Mass/Vol] 33.3 g/dL 32-36 [facility]: Nitrite Test strip Ql (U)on 10-31-2021 Nitrite Ql (U) Negative Negative [facility] Work Phone: No Panel Informationon 10-31 Estimated GFR (MDRD) Amer 100 mL/min >60 [facility] Work Phone: Comment on above: GFR Calc Estimated GFR (MDRD) Non-Af Amer 83 mL/min >60 [facility] Work Phone: Comment on above: Non- GFR Calc Platelets bldon 10-31-2021 Platelets (Bld) [#/Vol] 205 10*3/uL 150-450 [facility] Work Phone: Protein Test strip Ql (U)on 10-31-2021 Protein Ql (U) Negative Negative [facility] Work Phone: Segmented neutrophils/100 WB C Auto (Bld)on 10-31-2021 Segmented neutrophils/100 WBC (Bld) 53.3 % 47-70 [facility] Work Phone: Serum or plasma albumin macy urement (mass/volume)on 10-31-2021 Albumin [Mass/Vol] 3.7 g/dL 3.2-5.0 [facility] Work Phone: Serum or plasma albumin/glob ulin mass ratioon 10-31-2021 Albumin/Globulin [Mass ratio] 0.9 {ratio} 0.9-2.4 [facility] Work Phone: Serum or plasma calcium macy urement (mass/volume)on 10-31-2021 Calcium [Mass/Vol] 9.1 mg/dL 8.5-10.1 [facility] Work Phone: Serum or plasma cholesterol in HDL measurement (mass/volume)on 10-31-2021 Cholesterol in HDL [Mass/Vol] 48 mg/dL >40 [facility] Work Phone: Comment on above: The drugs N-Acetylcy steine and Metamizole may falsely depress this assay. Reference Range HDL <40 mg/dL Low HDL Cholesterol HDL >or= 60 mg/dL High HDL Cholesterol Serum or plasma cholesterol in VLDL measurement (mass/volume)on 10-31-2021 Cholesterol in VLDL [Mass/Vol] 15 mg/dL 5-40 [facility] Work Phone: Serum or plasma creatinine m easurement (mass/volume)on 10-31-2021 Creatinine [Mass/Vol] 0.79 mg/dL 0.55-1.02 [facility] Work Phone: Comment on above: The validity of the calculated GFR & GFRAA in patients over 70 years has not been determined. Clinical correlation is essential. Serum or plasma low density lipoprotein (LDL) cholesterol measurement (mass/volume)on 10-31-2021 Cholesterol in LDL [Mass/Vol] 109 mg/dL 0-130 [facility] Work Phone: Serum or plasma urea nitroge n measurement (mass/volume)on 10-31-2021 Urea nitrogen [Mass/Vol] 13 mg/dL 7-18 [facility] Work Phone: Serum or plasma uric acid me asurement (mass/volume)on 10-31-2021 Urate [Mass/Vol] 4.6 mg/dL 2.6-6.0 [facility] Work Phone: Comment on above: The drugs N-Acetylcy steine and Metamizole may falsely depress this assay. Thin prep Papanicolaou smear with manual screeningon 10-31-2021 Thin prep Papanicolaou smear with manual screening 22 U/L 15-37 [facility] Work Phone: Thin prep Papanicolaou smear with manual screening 5 5-15 [facility] Work Phone: Thin prep Papanicolaou smear with manual screening 125 U/L 84-246 [facility] Work Phone: Urine blood detectionon 10-07 RBC Ql (U) Negative Negative [facility] Work Phone: Urine clarityon 10-31-2021 Clarity (U) Clear Clear [facility] Work Phone: Urine color determinationon 10-31-2021 Color (U) Yellow Yellow [facility] Work Phone: Urine glucose detectionon Glucose Ql (U) Normal mg/dl Normal [facility] Work Phone: Urine leukocyte esterase det ection by dipstickon 10-31-2021 Leukocyte esterase Test strip Ql (U) Negative Negative [facility] Work Phone: Urine pHon 10-31-2021 pH (U) 6.0 [pH] 5.0 - 8.0 [facility] Work Phone: Urine specific gravity measu rementon 10-31-2021 Specific gravity (U) [Rel density] 1.020 1.002-1.03 0 [facility] Work Phone: Urobilinogen Auto test strip Ql (U)on 10-31-2021 Urobilinogen Ql (U) Normal mg/dl Normal [facility] Work Phone: Basophil percentageon 2021 Chloride [Moles/Vol] 105 mmol/L 98-107 [facility] Work Phone: Cholesterol [Mass/Vol] 156 mg/dL <200 [facility] Work Phone: Comment on above: <200 mg/dL Desirable 200-240 mg/dL Borderline >240 mg/dL High Risk Glucose [Mass/Vol] 81 mg/dL 74-106 [facility] Work Phone: Potassium [Moles/Vol] 4.0 mmol/L 3.5-5.1 [facility] Work Phone: Sodium [Moles/Vol] 138 mmol/L 136-145 [facility] Work Phone: [phone] Triglyceride [Mass/Vol] 70 mg/dL [facility] Work Phone: Comment on above: The drugs N-Acetylcy steine and Metamizole may falsely depress this assay.Serum Triglycerides Reference Interval Normal <150 mg/dL Borderline high 150 - 199 mg/dL High 200 - 499 mg/dL Very High > or = 500 mg/dL WBC (Bld) [#/Vol] 7.3 10*3/uL 4.4-11.0 [facility] Work Phone: Blood erythrocytes count (nu mber/volume)on 06-25-2021 RBC (Bld) [#/Vol] 4.89 10*6/uL 4.2-5.4 [facility] Work Phone: Blood hemoglobin measurement (mass/volume)on 06-25-2021 Hemoglobin (Bld) [Mass/Vol] 13.6 g/dL 12.0-15.0 [facility] Work Phone: Blood platelet mean volumeon 06-25-2021 Platelet mean volume (Bld) [Entitic vol] 13.9 fL 6.2-12.0 [facility] Work Phone: Determination of erythrocyte mean corpuscular volume (MCV)on 06-25-2021 MCV (RBC) [Entitic vol] 82.8 fL 81-99 [facility] Work Phone: Hematocrit Auto (Bld) [Volum e fraction]on 06-25-2021 Hematocrit (Bld) [Volume fraction] 40.5 % 37-47 [facility] Work Phone: Laboratory - Chemistry and C hemistry - challengeon 06-25-2021 CO2 [Moles/Vol] 27.0 mmol/L 21.0-32.0 [facility] Work Phone: Urea nitrogen/Creatinine [Mass ratio] 16.7 mg/mg -20 [facility] Work Phone: Laboratory - Hematology and Cell countson 06-25-2021 Erythrocyte distribution width (RBC) [Entitic vol] 40.2 fL 35.1-43.9 [facility] Work Phone: Erythrocyte distribution width (RBC) [Ratio] 13.3 % 11.6-14.6 [facility] Work Phone: MCH (RBC) [Entitic mass] 27.8 pg 27.0-32.0 [facility] Work Phone: MCHC Auto (RBC) [Mass/Vol]on 06-25-2021 MCHC (RBC) [Mass/Vol] 33.6 g/dL 32-36 [facility] Work Phone: No Panel Informationon 06-25 Estimated GFR (MDRD) Amer 103 mL/min >60 [facility] Work Phone: Comment on above: GFR Calc Estimated GFR (MDRD) Non-Af Amer 85 mL/min >60 [facility] Work Phone: Comment on above: Non- GFR Calc Platelets bldon 06-25-2021 Platelets (Bld) [#/Vol] 160 10*3/uL 150-450 [facility] Work Phone: Serum or plasma calcium macy urement (mass/volume)on 06-25-2021 Calcium [Mass/Vol] 9.1 mg/dL 8.5-10.1 [facility] Work Phone: Serum or plasma cholesterol in HDL measurement (mass/volume)on 06-25-2021 Cholesterol in HDL [Mass/Vol] 40 mg/dL [facility] Work Phone: Comment on above: The drugs N-Acetylcy steine and Metamizole may falsely depress this assay. Reference Range HDL <40 mg/dL Low HDL Cholesterol HDL >or= 60 mg/dL High HDL Cholesterol Serum or plasma cholesterol in VLDL measurement (mass/volume)on 06-25-2021 Cholesterol in VLDL [Mass/Vol] 14 mg/dL 5-40 [facility] Work Phone: Serum or plasma creatinine m easurement (mass/volume)on 06-25-2021 Creatinine [Mass/Vol] 0.78 mg/dL 0.55-1.02 [facility] Work Phone: Comment on above: The validity of the calculated GFR & GFRAA in patients over 70 years has not been determined. Clinical correlation is essential. Serum or plasma low density lipoprotein (LDL) cholesterol measurement (mass/volume)on 06-25-2021 Cholesterol in LDL [Mass/Vol] 102 mg/dL 0-130 [facility] Work Phone: Serum or plasma urea nitroge n measurement (mass/volume)on 06-25-2021 Urea nitrogen [Mass/Vol] 13 mg/dL 7-18 [facility] Work Phone: Thin prep Papanicolaou smear with manual screeningon 06-25-2021 Thin prep Papanicolaou smear with manual screening 6 5-15 [facility] Work Phone: Office Visit: Spine Visit- L ow back painon 10-06-2016 Documentation of current medications (procedure) Done Invalid Interpretation Code [facility] Work Phone: [phone] Office Visit: Spine Visit- N EWon 09-07-2016 Dietary management education, guidance, and counseling (procedure) yes Invalid Interpretation Code [facility] Work Phone: [phone] Documentation of current medications (procedure) Done Invalid Interpretation Code [facility] Work Phone: [phone] Smoking cessation education (procedure) yes Invalid Interpretation Code [facility] Work Phone: [phone] Tobacco use CP Current every day smoker Invali d Interpretation Code [facility] Work Phone: [phone] Office Visiton 09-09-2009 Tobacco use CPHS never Invalid Interpretation Code [facility] Work Phone: [phone] Vital Signs Date Time Vital Sign Value Performing Clinician Facility 12-18-2024 16:27-0400 Body temperature 98.2 [degF] Dr. Dominic Weaver MD Work Phone: [facility] 12-18-2024 16:27-0400 Diastolic blood pressure 86 mm[Hg] Dr. Dominic Weaver MD Work Phone: [facility] 12-18-2024 16:27-0400 Heart rate 81 /min Dr. Dominic Weaver MD Work Phone: [facility] 12-18-2024 16:27-0400 Respiratory rate 18 /min Dr. Dominic Weaver MD Work Phone: [facility] 12-18-2024 16:27-0400 SaO2% (BldA) [Mass fraction] 97 % Dr. Dominic Weaver MD Work Phone: [facility] 12-18-2024 16:27-0400 Systolic blood pressure 124 mm[Hg] Dr. Dominic Weaver MD Work Phone: [facility] 12-15-2024 14:19-0400 Body temperature 98.4 [degF] Dr. Dominic Weaver MD Work Phone: 1(508)946-378021 [place] [address] 12-15-2024 14:19-0400 Diastolic blood pressure 62 mm[Hg] Dr. Dominic Weaver MD Work Phone: 1(378)550-675667 [place] [address] 12-15-2024 14:19-0400 Heart rate 78 /min Dr. Dominic Weaver MD Work Phone: 3(235)842-304521 [place] [address] 12-15-2024 14:19-0400 Respiratory rate 16 /min Dr. Dominic Weaver MD Work Phone: 4(413)271-992667 [place] [address] 12-15-2024 14:19-0400 SaO2% (BldA) [Mass fraction] 78 % Dr. Dominic Weaver MD Work Phone: 1(947)118-326521 [place] [address] 12-15-2024 14:19-0400 Systolic blood pressure 126 mm[Hg] Dr. Dominic Weaver MD Work Phone: 7(034)418-460167 [place] [address] 10-30-2024 13:29-0400 Body height 160.[address] Dominic Weaver MD Work Phone: 0(913)891-519067 [place] [address] 10-30-2024 13:29-0400 Body mass index (BMI) [Ratio] 44.8 kg/m2 Dr. Dominic Weaver MD Work Phone: 5(864)676-901421 [place] [address] 10-30-2024 13:29-0400 Body temperature 97.3 [degF] Dr. Dominic Weaver MD Work Phone: 6(797)961-177521 [place] [address] 10-30-2024 13:29-0400 Body weight 114.[address] Dominic Weaver MD Work Phone: 0(733)529-503721 [place] [address] 10-30-2024 13:29-0400 Diastolic blood pressure 70 mm[Hg] Dr. Dominic Weaver MD Work Phone: 0(906)393-239421 [place] [address] 10-30-2024 13:29-0400 Heart rate 91 /min Dr. Dominic Weaver MD Work Phone: [facility] 10-30-2024 13:29-0400 Respiratory rate 16 /min Dr. Dominic Weaver MD Work Phone: [facility] 10-30-2024 13:29-0400 SaO2% (BldA) [Mass fraction] 99 % Dr. Dominic Weaver MD Work Phone: [facility] 10-30-2024 13:29-0400 Systolic blood pressure 116 mm[Hg] Dr. Dominic Weaver MD Work Phone: 5(572)435-007921 [place] [address] 10-23-2024 14:05-0400 Body height 160.[address] Dominic Weaver MD Work Phone: 5(525)432-710082 [address] 10-23-2024 14:05-0400 Body mass index (BMI) [Ratio] 45.9 kg/m2 Dr. Dominic Weaver MD Work Phone: 8(719)005-282921 [place] [address] 10-23-2024 14:05-0400 Body weight 117.[address] Dominic Weaver MD Work Phone: [facility] 10-23-2024 14:05-0400 Diastolic blood pressure 74 mm[Hg] Dr. Dominic Weaver MD Work Phone: [facility] 10-23-2024 14:05-0400 Systolic blood pressure 107 mm[Hg] Dr. Dominic Weaver MD Work Phone: [facility] 07-24-2024 15:27-0400 Body height 160.[address] Dominic Weaver MD Work Phone: [facility] 07-24-2024 15:27-0400 Body mass index (BMI) [Ratio] 44.5 kg/m2 Dr. Dominic Weaver MD Work Phone: [facility] 07-24-2024 15:27-0400 Body weight 114.[address] Dominic Weaver MD Work Phone: [facility] 07-24-2024 15:27-0400 Diastolic blood pressure 75 mm[Hg] Dr. Dominic Weaver MD Work Phone: [facility] 07-24-2024 15:27-0400 Systolic blood pressure 110 mm[Hg] Dr. Dominic Weaver MD Work Phone: [facility] 07-11-2024 11:40-0400 Body temperature 98.5 [degF] Dr. Dominic Weaver MD Work Phone: 8(176)972-657221 [place] [address] 07-11-2024 11:40-0400 Diastolic blood pressure 53 mm[Hg] Dr. Dominic Weaver MD Work Phone: 2(189)767-281782 [address] 07-11-2024 11:40-0400 Heart rate 88 /min Dr. Dominic Weaver MD Work Phone: 2(814)706-852567 [place] [address] 07-11-2024 11:40-0400 Respiratory rate 16 /min Dr. Dominic Weaver MD Work Phone: 5(653)249-735882 [address] 07-11-2024 11:40-0400 SaO2% (BldA) [Mass fraction] 97 % Dr. Dominic Weaver MD Work Phone: 4(933)279-159721 [place] [address] 07-11-2024 11:40-0400 Systolic blood pressure 107 mm[Hg] Dr. Dominic Weaver MD Work Phone: 0(879)563-787821 [place] [address] 07-11-2024 06:28-0400 Body mass index (BMI) [Ratio] 44.6 kg/m2 Dr. Dominic Weaver MD Work Phone: 4(106)165-914121 [place] [address] 07-11-2024 06:28-0400 Body weight 114.[address] Dominic Weaver MD Work Phone: 0(354)270-279721 [place] [address] 06-12-2024 13:22-0400 Body height 160.[address] Dominic Weaver MD Work Phone: 2(020)443-263221 [place] [address] 06-12-2024 13:22-0400 Body mass index (BMI) [Ratio] 44.9 kg/m2 Dr. Dominic Weaver MD Work Phone: 5(411)883-738721 [place] [address] 06-12-2024 13:22-0400 Body weight 115.[address] Dominic Weaver MD Work Phone: [facility] 06-12-2024 13:22-0400 Diastolic blood pressure 84 mm[Hg] Dr. Dominic Weaver MD Work Phone: 4(346)225-778321 [place] [address] 06-12-2024 13:22-0400 Systolic blood pressure 120 mm[Hg] Dr. Dominic Weaver MD Work Phone: 6(300)743-966367 [place] [address] 05-03-2024 09:25-0500 Body mass index (BMI) [Ratio] 44.6 kg/m2 Dr. Dominic Weaver MD Work Phone: 9(807)486-748967 [place] [address] 05-03-2024 09:25-0500 Body weight 114.[address] Dominic Weaver MD Work Phone: 1(619)618-636667 [place] [address] 05-03-2024 09:25-0500 Diastolic blood pressure 74 mm[Hg] Dr. Dominic Weaver MD Work Phone: 0(293)772-526367 [place] [address] 05-03-2024 09:25-0500 Systolic blood pressure 106 mm[Hg] Dr. Dominic Weaver MD Work Phone: 8(991)406-776567 [place] [address] 04-19-2024 09:38-0500 Body temperature 98.2 [degF] Dr. Dominic Weaver MD Work Phone: 5(175)114-547667 [place] [address] 04-19-2024 09:38-0500 Diastolic blood pressure 88 mm[Hg] Dr. Dominic Weaver MD Work Phone: 8(082)382-547267 [place] [address] 04-19-2024 09:38-0500 Heart rate 82 /min Dr. Dominic Weaver MD Work Phone: 9(790)747-764767 [place] [address] 04-19-2024 09:38-0500 Respiratory rate 16 /min Dr. Dominic Weaver MD Work Phone: 9(568)338-651967 [place] [address] 04-19-2024 09:38-0500 SaO2% (BldA) [Mass fraction] 98 % Dr. Dominic Weaver MD Work Phone: 7(202)866-083182 [address] 04-19-2024 09:38-0500 Systolic blood pressure 130 mm[Hg] Dr. Dominic Weaver MD Work Phone: [facility] 03-24-2024 07:48-0500 Body mass index (BMI) [Ratio] 44.4 kg/m2 Dr. Dominic Weaver MD Work Phone: [facility] 03-24-2024 07:48-0500 Body temperature 97.4 [degF] Dr. Dominic Weaver MD Work Phone: 3(400)422-202982 [address] 03-24-2024 07:48-0500 Body weight 113.[address] Dominic Weaver MD Work Phone: 6(102)232-608982 [address] 03-24-2024 07:48-0500 Diastolic blood pressure 71 mm[Hg] Dr. Dominic Weaver MD Work Phone: 1(389)549-110682 [address] 03-24-2024 07:48-0500 Heart rate 96 /min Dr. Dominic Weaver MD Work Phone: 8(438)476-336182 [address] 03-24-2024 07:48-0500 Respiratory rate 20 /min Dr. Dominic Weaver MD Work Phone: [facility] 03-24-2024 07:48-0500 SaO2% (BldA) [Mass fraction] 97 % Dr. Dominic Weaver MD Work Phone: [facility] 03-24-2024 07:48-0500 Systolic blood pressure 133 mm[Hg] Dr. Dominic Weaver MD Work Phone: [facility] 02-23-2024 07:55-0500 Body mass index (BMI) [Ratio] 44.3 kg/m2 Dr. Dominic Weaver MD Work Phone: [facility] 02-23-2024 07:55-0500 Body weight 113.[address] Dominic Weaver MD Work Phone: [facility] 02-23-2024 07:55-0500 Diastolic blood pressure 80 mm[Hg] Dr. Dominic Weaver MD Work Phone: [facility] 12-18-2024 07:55-0500 Systolic blood pressure 117 mm[Hg] Dr. Dominic Weaver MD Work Phone: [facility] 07-05-2023 06:28-0400 Body temperature 98.3 [degF] Dr. Dominic Weaver Work Phone: [facility] 07-05-2023 06:28-0400 Diastolic blood pressure 79 mm[Hg] Dr. Dominic Weaver Work Phone: [facility] 07-05-2023 06:28-0400 Heart rate 83 /min Dr. Dominic Weaver Work Phone: [facility] 07-05-2023 06:28-0400 Respiratory rate 16 /min Dr. Dominic Weaver Work Phone: [facility] 07-05-2023 06:28-0400 SaO2% (BldA) [Mass fraction] 97 % Dr. Dominic Weaver Work Phone: [facility] 07-05-2023 06:28-0400 Systolic blood pressure 140 mm[Hg] Dr. Dominic Weaver Work Phone: [facility] 07-05-2023 05:06-0400 Body height 160.[address] Dominic Weaver Work Phone: [facility] 07-05-2023 05:06-0400 Body mass index (BMI) [Ratio] 45.7 kg/m2 Dr. Dominic Weaver Work Phone: [facility] 07-05-2023 05:06-0400 Body weight 117.[address] Dominic Weaver Work Phone: [facility] 06-10-2023 10:52-0400 Body temperature 98.1 [degF] Dr. Dominic Weaver Work Phone: [facility] 06-10-2023 10:52-0400 Diastolic blood pressure 64 mm[Hg] Dr. Dominic Weaver Work Phone: [facility] 06-10-2023 10:52-0400 Heart rate 81 /min Dr. Dominic Weaver Work Phone: [facility] 06-10-2023 10:52-0400 Respiratory rate 16 /min Dr. Dominic Weaver Work Phone: [facility] 06-10-2023 10:52-0400 SaO2% (BldA) [Mass fraction] 96 % Dr. Dominic Weaver Work Phone: [facility] 06-10-2023 10:52-0400 Systolic blood pressure 107 mm[Hg] Dr. Dominic Weaver Work Phone: [facility] 06-10-2023 08:41-0400 Body height 160.[address] Dominic Weaver Work Phone: 9(151)428-043382 [address] 06-10-2023 08:41-0400 Body mass index (BMI) [Ratio] 46 kg/m2 Dr. Dominic Weaver Work Phone: 2(249)716-585121 [place] [address] 06-10-2023 08:41-0400 Body weight [address] Dominic Weaver Work Phone: [facility] 04-28-2023 09:09-0500 Body mass index (BMI) [Ratio] 45.6 kg/m2 Dr. Dominic Weaver Work Phone: [facility] 04-28-2023 09:09-0500 Body weight 118.[address] Dominic Weaver Work Phone: 4(050)443-162621 [place] [address] 04-28-2023 09:09-0500 Diastolic blood pressure 72 mm[Hg] Dr. Dominic Weaver Work Phone: [facility] 04-28-2023 09:09-0500 Systolic blood pressure 128 mm[Hg] Dr. Dominic Weaver Work Phone: [facility] 03-17-2023 08:45-0500 Body mass index (BMI) [Ratio] 43.9 kg/m2 Dr. Dominic Weaver Work Phone: 5(081)043-061821 [place] [address] 03-17-2023 08:45-0500 Body temperature 97.3 [degF] Dr. Dominic Weaver Work Phone: [facility] 03-17-2023 08:45-0500 Body weight 114.[address] Dominic Weaver Work Phone: [facility] 03-17-2023 08:45-0500 Diastolic blood pressure 73 mm[Hg] Dr. Dominic Weaver Work Phone: [facility] 03-17-2023 08:45-0500 Heart rate 90 /min Dr. Dominic Weaver Work Phone: 6(759)521-004367 [place] [address] 03-17-2023 08:45-0500 Respiratory rate 18 /min Dr. Dominic Weaver Work Phone: 2(182)903-259267 [place] [address] 03-17-2023 08:45-0500 SaO2% (BldA) [Mass fraction] 96 % Dr. Dominic Weaver Work Phone: 4(672)781-128082 [address] 03-17-2023 08:45-0500 Systolic blood pressure 115 mm[Hg] Dr. Dominic Weaver Work Phone: 4(980)968-280382 [address] 03-17-2023 08:38-0500 Body mass index (BMI) [Ratio] 44.9 kg/m2 Dr. Dominic Weaver Work Phone: 7(009)708-505167 [place] [address] 03-17-2023 08:38-0500 Body weight 117.[address] Dominic Weaver Work Phone: 2(508)123-209582 [address] 03-17-2023 08:38-0500 Diastolic blood pressure 82 mm[Hg] Dr. Dominic Weaver Work Phone: 6(963)249-815782 [address] 03-17-2023 08:38-0500 Systolic blood pressure 120 mm[Hg] Dr. Dominic Weaver Work Phone: 9(650)526-044182 [address] 03-04-2023 08:57-0500 Body temperature 97.5 [degF] Dr. Dominic Weaver Work Phone: [facility] 03-04-2023 08:57-0500 Diastolic blood pressure 77 mm[Hg] Dr. Dominic Weaver Work Phone: 9(912)388-516621 [place] [address] 03-04-2023 08:57-0500 Heart rate 80 /min Dr. Dominic Weaver Work Phone: [facility] 03-04-2023 08:57-0500 Respiratory rate 16 /min Dr. Dominic Weaver Work Phone: [facility] 03-04-2023 08:57-0500 SaO2% (BldA) [Mass fraction] 99 % Dr. Dominic Weaver Work Phone: [facility] 03-04-2023 08:57-0500 Systolic blood pressure 191 mm[Hg] Dr. Dominci Weaver Work Phone: [facility] 02-19-2023 15:57-0500 Body height 161.[address] Dominic Weaver Work Phone: 4(964)651-549882 [address] 02-19-2023 15:48-0500 Body mass index (BMI) [Ratio] 44.1 kg/m2 Dr. Dominic Weaver Work Phone: 4(417)916-923721 [place] [address] 02-19-2023 15:48-0500 Body weight 114.[address] Dominic Weaver Work Phone: [facility] 11-12-2022 05:56-0400 Body height 161.[address] Dominic Weaver Work Phone: [facility] 11-12-2022 05:56-0400 Body mass index (BMI) [Ratio] 42.7 kg/m2 Dr. Dominic Weaver Work Phone: [facility] 11-12-2022 05:56-0400 Body temperature 97.2 [degF] Dr. Dominic Weaver Work Phone: [facility] 11-12-2022 05:56-0400 Body weight 111.[address] Dominic Weaver Work Phone: [facility] 11-12-2022 05:56-0400 Diastolic blood pressure 79 mm[Hg] Dr. Dominic Weaver Work Phone: [facility] 11-12-2022 05:56-0400 Heart rate 80 /min Dr. Dominic Weaver Work Phone: [facility] 11-12-2022 05:56-0400 Respiratory rate 18 /min Dr. Dominic Weaver Work Phone: [facility] 11-12-2022 05:56-0400 SaO2% (BldA) [Mass fraction] 97 % Dr. Dominic Weaver Work Phone: [facility] 11-12-2022 05:56-0400 Systolic blood pressure 133 mm[Hg] Dr. Dominic Weaver Work Phone: [facility] 09-09-2022 08:00-0400 Body temperature 98.1 [degF] Dr. oDminic Weaver Work Phone: [facility] 09-09-2022 08:00-0400 Diastolic blood pressure 78 mm[Hg] Dr. Dominic Weaver Work Phone: [facility] 09-09-2022 08:00-0400 Heart rate 82 /min Dr. Dominic Weaver Work Phone: [facility] 09-09-2022 08:00-0400 Respiratory rate 14 /min Dr. Dominic Weaver Work Phone: [facility] 09-09-2022 08:00-0400 SaO2% (BldA) [Mass fraction] 98 % Dr. Dominic Weaver Work Phone: [facility] 09-09-2022 08:00-0400 Systolic blood pressure 142 mm[Hg] Dr. Dominic Weaver Work Phone: [facility] 08-18-2022 06:45-0400 Heart rate 94 /min Dr. Dmoinic Weaver Work Phone: [facility] 08-18-2022 06:45-0400 Respiratory rate 16 /min Dr. Dominic Weaver Work Phone: [facility] 08-11-2022 09:56-0400 Body height 161.[address] Dominic Weaver Work Phone: [facility] 08-11-2022 09:56-0400 Body mass index (BMI) [Ratio] 42.7 kg/m2 Dr. Dominic Weaver Work Phone: [facility] 08-11-2022 09:56-0400 Body temperature 98.3 [degF] Dr. Dominic Weaver Work Phone: [facility] 08-11-2022 09:56-0400 Body weight 111.[address] Dominic Weaver Work Phone: [facility] 08-11-2022 09:56-0400 Diastolic blood pressure 70 mm[Hg] Dr. Dominic Weaver Work Phone: [facility] 08-11-2022 09:56-0400 Heart rate 104 /min Dr. Dominic Weaver Work Phone: [facility] 08-11-2022 09:56-0400 Respiratory rate 14 /min Dr. Dominic Weaver Work Phone: [facility] 08-11-2022 09:56-0400 SaO2% (BldA) [Mass fraction] 97 % Dr. Dominic Weaver Work Phone: [facility] 08-11-2022 09:56-0400 Systolic blood pressure 130 mm[Hg] Dr. Dominic Weaver Work Phone: [facility] 08-02-2022 04:51-0400 Respiratory rate 18 /min Dr. Dominic Weaver Work Phone: [facility] 08-02-2022 02:30-0400 Body height 160.[address] Dominic Weaver Work Phone: [facility] 08-02-2022 02:30-0400 Body mass index (BMI) [Ratio] 44.1 kg/m2 Dr. Dominic Weaver Work Phone: [facility] 08-02-2022 02:30-0400 Body temperature 97.9 [degF] Dr. Dominic Weaver Work Phone: [facility] 08-02-2022 02:30-0400 Body weight 113.[address] Dominic Weaver Work Phone: [facility] 08-02-2022 02:30-0400 Diastolic blood pressure 86 mm[Hg] Dr. Dominic Weaver Work Phone: [facility] 08-02-2022 02:30-0400 Heart rate 109 /min Dr. Dominic Weaver Work Phone: [facility] 08-02-2022 02:30-0400 SaO2% (BldA) [Mass fraction] 98 % Dr. Dominic Weaver Work Phone: [facility] 08-02-2022 02:30-0400 Systolic blood pressure 109 mm[Hg] Dr. Dominic Weaver Work Phone: [facility] 07-28-2022 09:00-0400 Body mass index (BMI) [Ratio] 43.6 kg/m2 Dr. Dominic Weaver Work Phone: [facility] 07-28-2022 09:00-0400 Body weight 111.[address] Dominic Weaver Work Phone: [facility] 07-28-2022 09:00-0400 Diastolic blood pressure 78 mm[Hg] Dr. Dominic Weaver Work Phone: [facility] 07-28-2022 09:00-0400 Systolic blood pressure 120 mm[Hg] Dr. Dominic Weaver Work Phone: [facility] 05-28-2022 11:10-0400 Body height 160.[address] Dominic Weaver Work Phone: [facility] 05-28-2022 11:07-0400 Body weight 109.[address] Dominic Weaver Work Phone: [facility] 05-28-2022 11:07-0400 Diastolic blood pressure 89 mm[Hg] Dr. Dominic Weaver Work Phone: [facility] 05-28-2022 11:07-0400 Systolic blood pressure 134 mm[Hg] Dr. Dominic Weaver Work Phone: [facility] 05-18-2022 08:03-0400 Body height 160.[address] Dominic Weaver Work Phone: [facility] 05-18-2022 08:03-0400 Body mass index (BMI) [Ratio] 42.7 kg/m2 Dr. Dominic Weaver Work Phone: [facility] 05-18-2022 08:03-0400 Body weight 109.[address] Dominic Weaver Work Phone: [facility] 05-18-2022 08:03-0400 Diastolic blood pressure 78 mm[Hg] Dr. Dominic Weaver Work Phone: [facility] 05-18-2022 08:03-0400 Heart rate 76 /min Dr. Dominic Weaver Work Phone: [facility] 05-18-2022 08:03-0400 SaO2% (BldA) [Mass fraction] 96 % Dr. Dominic Weaver Work Phone: [facility] 05-18-2022 08:03-0400 Systolic blood pressure 121 mm[Hg] Dr. Dominic Weaver Work Phone: [facility] 04-28-2022 14:35-0500 Body temperature 97.3 [degF] Dr. Dominic Weaver Work Phone: [facility] 04-28-2022 14:35-0500 Diastolic blood pressure 61 mm[Hg] Dr. Dominic Weaver Work Phone: [facility] 04-28-2022 14:35-0500 Heart rate 69 /min Dr. Dominic Weaver Work Phone: [facility] 04-28-2022 14:35-0500 Respiratory rate 16 /min Dr. Dominic Weaver Work Phone: [facility] 04-28-2022 14:35-0500 SaO2% (BldA) [Mass fraction] 100 % Dr. Dominic Weaver Work Phone: [facility] 04-28-2022 14:35-0500 Systolic blood pressure 110 mm[Hg] Dr. Dominic Weaver Work Phone: [facility] 04-28-2022 12:32-0500 Body height 160.[address] Dominic Weaver Work Phone: 9(620)604-900882 [address] 04-28-2022 12:32-0500 Body mass index (BMI) [Ratio] 41.5 kg/m2 Dr. Dominic Weaver Work Phone: 2(270)814-029382 [address] 04-28-2022 12:32-0500 Body weight 106.[address] Dominic Weaver Work Phone: 0(555)245-457682 [address] 03-17-2022 06:46-0500 Body height 160.[address] Dominic Weaver Work Phone: 2(870)367-601467 [place] [address] 03-17-2022 06:46-0500 Body mass index (BMI) [Ratio] 41.6 kg/m2 Dr. Dominic Weaver Work Phone: 4(370)810-413367 [place] [address] 03-17-2022 06:46-0500 Body temperature 96.2 [degF] Dr. Dominic Weaver Work Phone: 9(549)392-627467 [place] [address] 03-17-2022 06:46-0500 Body weight 106.[address] Dominic Weaver Work Phone: 7(242)684-457267 [place] [address] 03-17-2022 06:46-0500 Diastolic blood pressure 65 mm[Hg] Dr. Dominic Weaver Work Phone: 1(431)051-945167 [place] [address] 03-17-2022 06:46-0500 Heart rate 73 /min Dr. Dominic Weaver Work Phone: 2(867)506-251982 [address] 03-17-2022 06:46-0500 Respiratory rate 18 /min Dr. Dominic Weaver Work Phone: 5(115)578-199867 [place] [address] 03-17-2022 06:46-0500 SaO2% (BldA) [Mass fraction] 95 % Dr. Dominic Weaver Work Phone: 9(520)616-438667 [place] [address] 03-17-2022 06:46-0500 Systolic blood pressure 114 mm[Hg] Dr. Dominic Weaver Work Phone: [facility] 03-08-2022 11:19-0500 Body mass index (BMI) [Ratio] 42.5 kg/m2 Dr. Dominic Weaver Work Phone: [facility] 03-08-2022 11:19-0500 Body temperature 98 [degF] Dr. Dominic Weaver Work Phone: 7(041)487-555882 [address] 03-08-2022 11:19-0500 Body weight 108.[address] Dominic Weaver Work Phone: 1(397)352-697382 [address] 03-08-2022 11:19-0500 Diastolic blood pressure 70 mm[Hg] Dr. Dominic Weaver Work Phone: 8(445)356-062782 [address] 03-08-2022 11:19-0500 Heart rate 92 /min Dr. Dominic Weaver Work Phone: 9(066)578-882282 [address] 03-08-2022 11:19-0500 Respiratory rate 16 /min Dr. Dominic Weaver Work Phone: 7(167)224-167482 [address] 03-08-2022 11:19-0500 SaO2% (BldA) [Mass fraction] 98 % Dr. Dominic Weaver Work Phone: 6(718)586-302582 [address] 03-08-2022 11:19-0500 Systolic blood pressure 118 mm[Hg] Dr. Dominic Weaver Work Phone: 3(540)755-621582 [address] 02-24-2022 09:54-0500 Body height 160.[address] Dominic Weaver Work Phone: [facility] Work Phone: 02-24-2022 09:54-0500 Body mass index (BMI) [Ratio] 41.4 kg/m2 Dr. Dominic Weaver Work Phone: 4(451)474-495921 [place] [address] 02-24-2022 09:54-0500 Body weight 106.[address] Dominic Weaver Work Phone: 4(850)234-124721 [place] [address] 02-24-2022 09:54-0500 Diastolic blood pressure 70 mm[Hg] Dr. Dominic Weaver Work Phone: 2(216)642-986221 [place] [address] 02-24-2022 09:54-0500 Heart rate 88 /min Dr. Dominic Weaver Work Phone: [facility] 02-24-2022 09:54-0500 SaO2% (BldA) [Mass fraction] 98 % Dr. Dominic Weaver Work Phone: [facility] 02-24-2022 09:54-0500 Systolic blood pressure 110 mm[Hg] Dr. Dominic Weaver Work Phone: [facility] 02-17-2022 09:44-0500 Body height 160.[address] Dominic Weaver Work Phone: [facility] Work Phone: 02-17-2022 09:44-0500 Body mass index (BMI) [Ratio] 40.4 kg/m2 Dr. Dominic Weaver Work Phone: [facility] 02-17-2022 09:44-0500 Body weight 105.[address] Dominic Weaver Work Phone: [facility] 02-17-2022 09:44-0500 Diastolic blood pressure 73 mm[Hg] Dr. Dominic Weaver Work Phone: [facility] 02-17-2022 09:44-0500 Systolic blood pressure 119 mm[Hg] Dr. Dominic Weaver Work Phone: [facility] 11-19-2021 10:39-0400 Body mass index (BMI) [Ratio] 37.3 kg/m2 Dr. Dominic Weaver Work Phone: [facility] Work Phone: 11-19-2021 10:39-0400 Body weight 95.[address] Dominic Weaver Work Phone: [facility] Work Phone: 11-19-2021 10:39-0400 Diastolic blood pressure 70 mm[Hg] Dr. Dominic Weaver Work Phone: [facility] Work Phone: 11-19-2021 10:39-0400 Heart rate 64 /min Dr. Dominic Weaver Work Phone: [facility] Work Phone: 11-19-2021 10:39-0400 Systolic blood pressure 102 mm[Hg] Dr. Dominic Weaver Work Phone: [facility] Work Phone: 10-22-2021 13:41-0400 Diastolic blood pressure 48 mm[Hg] Dr. Dominic Weaver Work Phone: [facility] Work Phone: 10-22-2021 13:41-0400 Heart rate 65 /min Dr. Dominic Weaver Work Phone: [facility] Work Phone: 10-22-2021 13:41-0400 Respiratory rate 16 /min Dr. Dominic Weaver Work Phone: [facility] Work Phone: 10-22-2021 13:41-0400 SaO2% (BldA) [Mass fraction] 94 % Dr. Dominic Weaver Work Phone: [facility] Work Phone: 10-22-2021 13:41-0400 Systolic blood pressure 94 mm[Hg] Dr. Dominic Weaver Work Phone: [facility] Work Phone: 10-22-2021 13:14-0400 Body height 160.[address] Dominic Weaver Work Phone: [facility] Work Phone: 10-22-2021 13:14-0400 Body mass index (BMI) [Ratio] 37.9 kg/m2 Dr. Dominic Weaver Work Phone: [facility] Work Phone: 10-22-2021 13:14-0400 Body weight 97.[address] Dominic Weaver Work Phone: [facility] Work Phone: 10-08-2021 13:12-0400 Body mass index (BMI) [Ratio] 38.2 kg/m2 Dr. Dominic Weaver Work Phone: [facility] Work Phone: 10-08-2021 13:12-0400 Body weight 99.[address] Dominic Weaver Work Phone: [facility] Work Phone: 10-08-2021 13:12-0400 Diastolic blood pressure 60 mm[Hg] Dr. Dominic Weaver Work Phone: [facility] Work Phone: 10-08-2021 13:12-0400 Heart rate 76 /min Dr. Dominic Weaver Work Phone: [facility] Work Phone: 10-08-2021 13:12-0400 Respiratory rate 16 /min Dr. Dominic Weaver Work Phone: [facility] Work Phone: 10-08-2021 13:12-0400 Systolic blood pressure 100 mm[Hg] Dr. Dominic Weaver Work Phone: [facility] Work Phone: 04-02-2021 07:43-0500 Body height 160.[address] Dominic Weaver Work Phone: [facility] Work Phone: 04-02-2021 07:43-0500 Body mass index (BMI) [Ratio] 45.5 kg/m2 Dr. Dominic Weaver Work Phone: [facility] Work Phone: 04-02-2021 07:43-0500 Body temperature 97.4 [degF] Dr. Dominic Weaver Work Phone: [facility] Work Phone: 04-02-2021 07:43-0500 Body weight 116.[address] Dominic Weaver Work Phone: [facility] Work Phone: 04-02-2021 07:43-0500 Diastolic blood pressure 80 mm[Hg] Dr. Dominic Weaver Work Phone: [facility] Work Phone: 04-02-2021 07:43-0500 Heart rate 83 /min Dr. Dominic Weaver Work Phone: [facility] Work Phone: 04-02-2021 07:43-0500 Respiratory rate 16 /min Dr. Dominic Weaver Work Phone: [facility] Work Phone: 04-02-2021 07:43-0500 SaO2% (BldA) [Mass fraction] 98 % Dr. Dominic Weaver Work Phone: [facility] Work Phone: 04-02-2021 07:43-0500 Systolic blood pressure 120 mm[Hg] Dr. Dominic Weaver Work Phone: [facility] Work Phone: 09-07-2016 08:39-0400 BMI (Body Mass Index) 39.68 kg/m2 [email or web address] Work Phone: 09-07-2016 08:39-0400 Pulse (Heart Rate) 82 /min [email or web address] Work Phone: 09-07-2016 08:39-0400 Respiratory Rate 18 /min [email or web address] Work Phone: 09-07-2016 08:39-0400 Weight 101.61 kg [email or web address] Work Phone: 09-09-2009 16:38-0400 Body Temperature 98.5 [degF] [email or web address] Work Phone: 09-09-2009 16:38-0400 BP Diastolic 84 mm[Hg] [facility] Work Phone: 09-09-2009 16:38-0400 BP Systolic 126 mm[Hg] [facility] Work Phone: 09-09-2009 16:38-0400 Height 160.02 cm [email or web address] Work Phone: 09-09-2009 16:38-0400 Pulse (Heart Rate) 88 /min [facility] Work Phone: 09-09-2009 16:38-0400 Pulse Oximetry 100 % [facility] Work Phone: 09-09-2009 16:38-0400 Respiratory Rate 16 /min [email or web address] Work Phone: 09-09-2009 16:38-0400 Weight 86.18 kg [facility] Work Phone: Encounters Encounter Date Encounter Type Care Provider Facility Start: 12-18-2024 End: 12-18-2024 Patient encounter procedure Berry SIFUENTES [facility] Work Phone: Start: 12-18-2024 End: 12-18-2024 ambulatory Berry SIFUENTES Facility:[facility] Start: 12-15-2024 End: 12-15-2024 Patient encounter procedure Berry SIFUENTES [facility] Work Phone: Start: 12-15-2024 End: 12-15-2024 ambulatory Berry SIFUENTES Facility:[facility] Start: 11-28-2024 Registered Referred HEALTH RIS K ASSESSMENT -Employee Health Start: 11-28-2024 ambulatory Health Risk Assessment Facility:[facility] Start: 11-22-2024 End: 11-22-2024 Patient encounter procedure Louis Felix DO -[facility] Work Phone: Start: 11-22-2024 End: 11-22-[address] Dominic Weaver MD Work Phone: [facility] Start: 10-30-2024 End: 10-30-2024 Patient encounter procedure Miguelito Good CT -[facility] Work Phone: Start: 10-30-2024 End: 10-30-[address] Dominic Weaver MD Work Phone: -[facility] Start: 10-30-2024 End: 10-30-2024 ambulatory Dominic Weaver Facility:[facility] Start: 10-23-2024 End: 10-23-[address] Casie Cottrell MD -[facility] Work Phone: Start: 10-23-2024 End: 10-23-[address] Dominic Weaver MD Work Phone: [facility] Start: 07-25-2024 Encounter for other preprocedural examination Casie Cottrell [facility] Start: 07-24-2024 End: 07-24-[address] Casie Cottrell MD -[facility] Work Phone: Start: 07-24-2024 End: 07-24-[address] Dominic Weaver MD Work Phone: [facility] Work Phone: Start: 07-11-2024 ambulatory Casie Cottrell Fac lity:[facility] Start: 07-11-2024 Non-patient / Non-visit Dr. Casie Cottrell MD -[facility] Start: 07-11-2024 End: 07-11-2024 Admission to same day surgery center Dr. Casie Cottrell MD -[facility] Start: 07-11-2024 End: 07-11-2024 ambulatory Casie Cottrell Facility:[facility] Start: 07-06-2024 End: 07-06-2024 ambulatory Casie Cottrell Facility:[facility] Start: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 since. She denies shortness of breath, difficulty breathing or chest pain. No lip/tongue/throat swelling. She does also state that she has been taking Benadryl every 8 hours without any relief. No other associated symptoms or alleviating/aggravating factors. ROS Const Constitutional: No other (as above) Exam Const General: cooperative and healthy appearing [facility] Head: normocephalic and atraumatic Ears: hearing grossly normal bilaterally Nose: external nose normal Face and sinus: normal facial exam and face symmetric Mouth: oral mucosae normal Throat: posterior oropharynx normal Resp Effort & Inspection: normal respiratory effort Cardio Rate: regular rate Skin Other: Increasing from the last exam grouped vesicular lesions scattered about the body. Neuro General: patient alert Psych Appearance: grossly normal Mental Status: mental status grossly normal Coding Level of Care Code Off vis,est,level 3 Diagnoses Irritant contact dermatitis due to plant L24.7 Assessment and Plan Assessment and Plan (1) Irritant contact dermatitis due to plant: Status: Acute Medications: New prednisone Take 4 tabs once daily days 1-3 3 tabs once daily days 4-6 2 tabs once daily days 7-9 and 1 tab once daily days 10-12. 10 mg PO DIRECTED 30 tabs 0RF 12 days L25.9 - Unspecified contact dermatitis, unspecified cause Plan Prednisone as prescribed today. Encouraged to get plenty of rest, drink lots ofclear liquids, and use Benadryl for comfort. Patient also educated on other symptomatic management techniques. To be seen in 7-10 days if no improvement; sooner if worsening of symptoms. Patient advised of potential red flags and when appropriate to report to the ED. Patient verbalized understanding and agreement with all the above. Plan Details Goals & Barriers: Goals Decrease pain Decrease spasm Decrease inflammation Barriers Work requirements 12/18/24 [id number] <Electronically signed by Berry SIFUENTES> Date _ Berry SIFUENTES [facility] Signature: Date (if applicable) CC: ~ [facility] Work Phone: 1(422) 484-504010-10-2025 [facility] [address], [address] [place] [address] OFFICE VISIT Date of Service: 12/15/24 MR#: [id number] Acct: [id number] Name: ARTURO SIMON Rep #: [id number] : 1975 Provider: MARIA Chairez Age/Sex: 49/F Location: [facility] Status: Signed Intake Vital Signs 10/30/24 13:29 12/15/24 14:19 Height 5 ft 3 in Weight: 253 lb BMI 44.8 BP 116/70 126/62 H Blood Pressure Location Lt brachial Lt brachial Position Sitting Sitting Respiration 16 16 Pulse 91 78 Pulse Source Monitor NIBP Temp 97.3 F L 98.4 F Temp Source Oral Oral Pulse Oximetry (%) 99 78 Oxygen Delivery Method room air room air Intake Visit Reasons: POISON MANOJ Chief Complaint: rash 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 concern for poison manoj [facility] Medical History (Updated 12/15/24 @ 15:34 by Berry SIFUENTES, PA) Sprain of left ring finger Right middle lobe pulmonary infiltrate Contact with or exposure to other viral diseases Wears contact lenses Migraine headache Strain of left trapezius muscle Strain of left rotator cuff capsule Left shoulder strain Eosinophilic esophagitis Wears glasses Alcohol use CPAP (continuous positive airway pressure) dependence Non-smoker History of edema History of echocardiogram History of stress test Cardiology follow-up encounter ROMAINE (obstructive sleep apnea) Right arm cellulitis Bee sting Needlestick injury accident with exposure to body fluid Segmental and somatic dysfunction of cervical region Segmental and somatic dysfunction of thoracic region Segmental and somatic dysfunction of lumbar region Tonsillar abscess Surgical History H/O dilation and curettage S/P endometrial ablation Status post bilateral salpingectomy S/P oophorectomy S/P ovarian cystectomy Hx of tubal ligation History of esophagogastroduodenoscopy (EGD) H/O shoulder surgery delivery delivered Family History Sister ROMAINE (obstructive sleep apnea) Grandfather Cancer lung Grandmother Heart disease Diabetes Sister ROMAINE (obstructive sleep apnea) Sister ROMAINE (obstructive sleep apnea) Mitral valve prolapse Sinus tachycardia Mother Cholangiocarcinoma, Onset Age: 67 Social History Smoking Status: Never smoker alcohol intake: current alcohol intake frequency: holidays/special occasions only substance use type: does not use caffeine: No what type of physical activity do you participate in: running and weight training frequency: 1-2 times per week seatbelt use: always do you feel safe at home: Yes additional social history: - Mir 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 Patient states that she was weeding and then 2 days later started having poison manoj rash that she states has spread since. She denies shortness of breath, difficulty breathing chest pain. No lip/tongue/throat swelling. No other associated symptoms or alleviating/aggravating factors. ROS Const Constitutional: No other (as above) Exam Const General: cooperative and healthy appearing HENWA Head: normocephalic and atraumatic Ears: hearing grossly normal bilaterally Nose: external nose normal Face and sinus: normal facial exam and face symmetric Mouth: oral mucosae normal Throat: posterior oropharynx normal Resp Effort & Inspection: normal respiratory effort Cardio Rate: regular rate Skin Other: Grouped vesicular lesions scattered about the body. Neuro General: patient alert Psych Appearance: grossly normal Mental Status: mental status grossly normal Office Procedures Ortho Injections Injections Is this a patient provided medication?: No Office Meds Kenalog 40 mg/mL suspension for injection Performing Provider: MARIA Giron Performing [facility] Administered by: Damaris Munguia on 12/15/24 14:30 Dose Route Admin Location Dispensed Lot Number Expiration Date Pack age NDC NDC Manufacturing Engineer Supervisor 60 mg IM right gluteus 1.5 mL [id number] 04/07/26 92217-823-40 [id number] [facility] Coding Level of Care Code Off vis,new,level 3 Diagnoses Irritant contact dermatitis due to plant L24.7 Assessment and Plan Assessment and Plan (1) Irritant contact dermatitis due to plant: Status: Acute Orders: Orders Kenalog Injection Today L30.9 - Dermatitis, unspecified Plan Kenalog injection in the office today. Encouraged to get plenty of rest, drink lots of clear liquids, and use Benadryl for comfort. Patient also educated on other symptomatic management techniques. To be seen in 7-10 days if no improvement; sooner if worsening of symptoms. Patient advised of potential red flags and when appropriate to report to the ED. Patient verbalized understanding and agreement with all the above. Plan Details Goals & Barriers: Goals Decrease pain Decrease spasm Decrease inflammation Barriers Work requirements Clinical Quality Measures Falls Risk Screening/Assistive Devices Have you fallen in the past year?: No 12/15/24 1535 A PA> Date _ Berry SIFUENTES Cosigner Signature: Date (if applicable) CC: ~ [facility]10-10-2025 Progress note Author Berry Gonsalez [facility] Services Note Date/Time December 15, 2024 2 :28pm [facility] [address] , [address] [place] [address] OFFICE VISIT Date of Service: 12/15/24 MR#: [id number] Acct: [id number] Name: ARTURO SIMON Rep #: [id number] : 1975 Provider: MARIA Chairez Age/Sex: 49/F Location: [facility] Status: Signed Intake Vital Signs 10/30/24 13:29 12/15/24 14:19 Height 5 ft 3 in Weight: 253 lb BMI 44.8 BP 116/70 126/62 H Blood Pressure Location Lt brachial Lt brachial Position Sitting Sitting Respiration 16 16 Pulse 91 78 Pulse Source Monitor NIBP Temp 97.3 F L 98.4 F Temp Source Oral Oral Pulse Oximetry (%) 99 78 Oxygen Delivery Method room air room air Intake Visit Reasons: POISON MANOJ Chief Complaint: rash 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 concern for poison manoj [facility] Medical History (Updated 12/15/24 @ 15:34 by Berry SIFUENTES, PA) Sprain of left ring finger Right middle lobe pulmonary infiltrate Contact with or exposure to other viral diseases Wears contact lenses Migraine headache Strain of left trapezius muscle Strain of left rotator cuff capsule Left shoulder strain Eosinophilic esophagitis Wears glasses Alcohol use CPAP (continuous positive airway pressure) dependence Non-smoker History of edema History of echocardiogram History of stress test Cardiology follow-up encounter ROMAINE (obstructive sleep apnea) Right arm cellulitis Bee sting Needlestick injury accident with exposure to body fluid Segmental and somatic dysfunction of cervical region Segmental and somatic dysfunction of thoracic region Segmental and somatic dysfunction of lumbar region Tonsillar abscess Surgical History H/O dilation and curettage S/P endometrial ablation Status post bilateral salpingectomy S/P oophorectomy S/P ovarian cystectomy Hx of tubal ligation History of esophagogastroduodenoscopy (EGD) H/O shoulder surgery delivery delivered Family History Sister ROMAINE (obstructive sleep apnea) Grandfather Cancer lung Grandmother Heart disease Diabetes Sister ROMAINE (obstructive sleep apnea) Sister ROMAINE (obstructive sleep apnea) Mitral valve prolapse Sinus tachycardia Mother Cholangiocarcinoma, Onset Age: 67 Social History Smoking Status: Never smoker alcohol intake: current alcohol intake frequency: holidays/special occasions only substance use type: does not use caffeine: No what type of physical activity do you participate in: running and weight training frequency: 1-2 times per week seatbelt use: always do you feel safe at home: Yes additional social history: - Mir 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 Patient states that she was weeding and then 2 days later started having poison manoj rash that she states has spread since. She denies shortness of breath, difficulty breathing chest pain. No lip/tongue/throat swelling. No other associated symptoms or alleviating/aggravating factors. ROS Const Constitutional: No other (as above) Exam Const General: cooperative and healthy appearing [facility] Head: normocephalic and atraumatic Ears: hearing grossly normal bilaterally Nose: external nose normal Face and sinus: normal facial exam and face symmetric Mouth: oral mucosae normal Throat: posterior oropharynx normal Resp Effort & Inspection: normal respiratory effort Cardio Rate: regular rate Skin Other: Grouped vesicular lesions scattered about the body. Neuro General: patient alert Psych Appearance: grossly normal Mental Status: mental status grossly normal Office Procedures Ortho Injections Injections Is this a patient provided medication?: No Office Meds Kenalog 40 mg/mL suspension for injection Performing Provider: MARIA Giron Performing Location[facility] Administered by: Damaris Munguia on 12/15/24 14:30 Dose Route Admin Location Dispensed Lot Number Expiration Date Pack age NDC NDC Manufacturing Engineer Supervisor 60 mg IM right gluteus 1.5 mL [id number] 04/07/26 75291-068-47 [id number] [facility] Coding Level of Care Code Off vis,new,level 3 Diagnoses Irritant contact dermatitis due to plant L24.7 Assessment and Plan Assessment and Plan (1) Irritant contact dermatitis due to plant: Status: Acute Orders: Orders Kenalog Injection Today L30.9 - Dermatitis, unspecified Plan Kenalog injection in the office today. Encouraged to get plenty of rest, drink lots of clear liquids, and use Benadryl for comfort. Patient also educated on other symptomatic management techniques. To be seen in 7-10 days if no improvement; sooner if worsening of symptoms. Patient advised of potential red flags and when appropriate to report to the ED. Patient verbalized understanding and agreement with all the above. Plan Details Goals & Barriers: Goals Decrease pain Decrease spasm Decrease inflammation Barriers Work requirements Clinical Quality Measures Falls Risk Screening/Assistive Devices Have you fallen in the past year?: No 12/15/24 1205 <Electronically signed by Berry SIFUENTES> Date _ Berry SIFUENTES Cosigner Signature: Date (if applicable) CC: ~ [facility] Work Phone: 1(340) 853-541308-25-2025 Progress [facility] [address], [address] [place] [address] OFFICE VISIT Date of Service: 10/30/24 MR#: [id number] Acct: [id number] Name: ARTURO SIMON Rep #: [id number] : 1975 Provider: MARIA Eddy Age/Sex: 48/F Location: [facility] Status: Signed Intake Vital Signs 10/23/24 14:05 10/30/24 13:29 Height 5 ft 3 in 5 ft 3 in Weight: 259 lb 4 oz 253 lb BMI 45.9 44.8 BP 107/74 116/70 Blood Pressure Location Lt brachial Position Sitting Respiration 16 Pulse 91 Pulse Source Monitor Temp 97.3 F L Temp Source Oral Pulse Oximetry (%) 99 Oxygen Delivery Method room air Intake Visit Reasons: L RING FINGER INJURY Chief Complaint: left finger injury Accompanied by: Self Is patient in pain?: Yes Pain scale (1-10): 1 Allergies ceftriaxone sodium (From Rocephin) Allergy (Verified 10/30/24 13:26) Hives Medications ?Medication ?Instructions ?Recorded ?Confirmed ?Type cyanocobalamin (vitamin B-12) 500 500 mcg PO QDAY 05/2910/30/24 History mcg tablet magnesium oxide 400 mg PO QDAY 02/08/24 0807/30 History multivitamin 1 tab PO QDAY 02/08/2410/30 History vitamin B complex 1 cap PO QDAY 02/08/2410/30 History albuterol sulfate 90 mcg/actuation 2 puff inhalation Q 4H PRN 03/24/24 10/30/24 Rx aerosol inhaler (Ventolin HFA) shortness of breath or wheezing #18 grams ashwagandha 700 mg PO 10/30/24 History Nurse's Note: on fathers day pt was falling in pool while holding grandchild there child to believes she stoked it while handing off grandchild. sx- initial injury involved swelling, pain tx- ice. [facility] Medical History (Updated 10/30/24 @ 13:48 by MARIA Daniel) Sprain of left ring finger Right middle lobe pulmonary infiltrate Contact with or exposure to other viral diseases Wears contact lenses Migraine headache Strain of left trapezius muscle Strain of left rotator cuff capsule Left shoulder strain Eosinophilic esophagitis Wears glasses Alcohol use CPAP (continuous positive airway pressure) dependence Non-smoker History of edema History of echocardiogram History of stress test Cardiology follow-up encounter ROMAINE (obstructive sleep apnea) Right arm cellulitis Bee sting Needlestick injury accident with exposure to body fluid Segmental and somatic dysfunction of cervical region Segmental and somatic dysfunction of thoracic region Segmental and somatic dysfunction of lumbar region Tonsillar abscess Surgical History H/O dilation and curettage S/P endometrial ablation Status post bilateral salpingectomy S/P oophorectomy S/P ovarian cystectomy Hx of tubal ligation History of esophagogastroduodenoscopy (EGD) H/O shoulder surgery delivery delivered Family History Sister ROMAINE (obstructive sleep apnea) Grandfather Cancer lung Grandmother Heart disease Diabetes Sister ROMAINE (obstructive sleep apnea) Sister ROMAINE (obstructive sleep apnea) Mitral valve prolapse Sinus tachycardia Mother Cholangiocarcinoma, Onset Age: 67 Social History Smoking Status: Never smoker alcohol intake: current alcohol intake frequency: holidays/special occasions only substance use type: does not use caffeine: No what type of physical activity do you participate in: running and weight training frequency: 1-2 times per week seatbelt use: always do you feel safe at home: Yes additional social history: - Mir 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 Shebelieves she stoved it while handing off grandchild. She notes initial injury involved swelling, pain - which has improved slightly since though still tenderto touch. OTC ice applications helped initially, though no improvement since. RHD. PMH NC. No otherassociated symptoms and no other +/- factors. ROS Const Constitutional: No other (as above) Exam Const General: cooperative, healthy appearing and no acute distress Orientation: alert and awake Chest Chest palpation & inspection: normal inspection of the chest Resp Effort & Inspection: normal respiratory effort and able to speak in complete sentences Cardio Rate: regular rate Pulses: radial pulses present Skin General: no rashes or lesions noted Neuro General: patient alert and patient awake Cognition: normal cognition Speech: speech normal Extrem General: full ROM, capillary refill normal and normal exam except as noted (Trace swelling LRF PIPJwith tender to touch same) Psych Appearance: grossly normal Mental Status: mental status grossly normal Mood: congruent mood Affect: normal affect Speech and Movement: speech and movement normal Attitude: cooperative Coding Level of Care Code Off vis,est,level 4 Diagnoses Sprain of left ring finger S63.615A Assessment and Plan Assessment and Plan (1) Sprain of left ring finger: Status: Acute Plan: Left ring finger radiographs reveal no acute osseous pathology per my review, pending radiologist interpretation at time patient discharge. Declined prescription NSAIDs and finger splint upon offering. Declined occupational therapy referral upon offering. Wifl-[id number]-[id number] home range of motion exercises, NSAIDs, and rest/elevation as needed. Follow-up with PCP or orthopedics in 7 to 10 days should symptoms not improve, sooner should symptoms only worsen or any other concerns develop. Patient states acknowledging understanding of the above. This note was generated with XLerant dictation software. It may contain incorrectwords, spelling, and punctuation that were not noted in checking the note beforesigning. Orders: Orders Finger(s) Min 2 Views Today R52 - Pain, unspecified Plan Details Goals & Barriers: Goals Decrease pain Decrease spasm Decrease inflammation Barriers Work requirements 10/30/24 1349 s MARIA SIFUENTES> Date _ Miguelito Levine Signature: Date (if applicable) CC: ~ [facility]08-25-2025 Radiology Diagnostic study note [facility] Services [address] [place] [address] Finger(s) Min 2 Views MR#: [id number] Acct: [id number] Name: ARTURO SIMON Rep #: [id number] : 1975 F 48 From: Filemon Vicente MD PCP: Dr. Dominic Weaver MD Status: REG C LI Study:Finger(s) Min 2 Views Date of Exam: 10/30/24 Exam# [id number] Ordering Dr: [facility] PROCEDURE: FINGER(S) MIN 2 VIEWS 10/30/2024 REASON FOR EXAM: PAIN LEFT RING FINGER TECHNIQUE: FINGER(S) MIN 2 VIEWS FINDINGS: No evidence of acute fracture or dislocation. Mild interphalangeal degenerativechanges. RAD/Finger(s) Min 2 Views IMPRESSION: No acute osseous abnormalities. Reading Location: [id number] CC: Dr. Dominic Weaver MD; MARIA Eddy ~ Patient Financial Coordinator: Signed [facility]08-25-2025 Progress note Author Miguelito Good [facility] Services Note Date/Time October 30, 2024 1: 49pm [facility] [address], [address] [place] [address] OFFICE VISIT Date of Service: 10/30/24 MR#: [id number] Acct: [id number] Name: ARTURO SIMON Rep #: [id number] : 1975 Provider: MARIA Eddy Age/Sex: 48/F Location: [facility] Status: Signed Intake Vital Signs 10/23/24 14:05 10/30/24 13:29 Height 5 ft 3 in 5 ft 3 in Weight: 259 lb 4 oz 253 lb BMI 45.9 44.8 BP 107/74 116/70 Blood Pressure Location Lt brachial Position Sitting Respiration 16 Pulse 91 Pulse Source Monitor Temp 97.3 F L Temp Source Oral Pulse Oximetry (%) 99 Oxygen Delivery Method room air Intake Visit Reasons: L RING FINGER INJURY Chief Complaint: left finger injury Accompanied by: Self Is patient in pain?: Yes Pain scale (1-10): 1 Allergies ceftriaxone sodium (From Rocephin) Allergy (Verified 10/30/24 13:26) Hives Medications ?Medication ?Instructions ?Recorded ?Confirmed ?Type cyanocobalamin (vitamin B-12) 500 500 mcg PO QDAY 05/2910/30/24 History mcg tablet magnesium oxide 400 mg PO QDAY 02/08/2410/07 History multivitamin 1 tab PO QDAY 02/08/2410/30 History vitamin B complex 1 cap PO QDAY 02/08/2410/30 History albuterol sulfate 90 mcg/actuation 2 puff inhalation Q 4H PRN 03/24/24 10/30/24 Rx aerosol inhaler (Ventolin HFA) shortness of breath or wheezing #18 grams ashwagandha 700 mg PO 10/30/24 History Nurse's Note: on fathers day pt was falling in pool while holding grandchild there child to believes she stoked it while handing off grandchild. sx- initial injury involved swelling, pain tx- ice. [facility] Medical History (Updated 10/30/24 @ 13:48 by Miguelito SIFUENTES, PA) Sprain of left ring finger Right middle lobe pulmonary infiltrate Contact with or exposure to other viral diseases Wears contact lenses Migraine headache Strain of left trapezius muscle Strain of left rotator cuff capsule Left shoulder strain Eosinophilic esophagitis Wears glasses Alcohol use CPAP (continuous positive airway pressure) dependence Non-smoker History of edema History of echocardiogram History of stress test Cardiology follow-up encounter ROMAINE (obstructive sleep apnea) Right arm cellulitis Bee sting Needlestick injury accident with exposure to body fluid Segmental and somatic dysfunction of cervical region Segmental and somatic dysfunction of thoracic region Segmental and somatic dysfunction of lumbar region Tonsillar abscess Surgical History H/O dilation and curettage S/P endometrial ablation Status post bilateral salpingectomy S/P oophorectomy S/P ovarian cystectomy Hx of tubal ligation History of esophagogastroduodenoscopy (EGD) H/O shoulder surgery delivery delivered Family History Sister ROMAINE (obstructive sleep apnea) Grandfather Cancer lung Grandmother Heart disease Diabetes Sister ROMAINE (obstructive sleep apnea) Sister ROMAINE (obstructive sleep apnea) Mitral valve prolapse Sinus tachycardia Mother Cholangiocarcinoma, Onset Age: 67 Social History Smoking Status: Never smoker alcohol intake: current alcohol intake frequency: holidays/special occasions only substance use type: does not use caffeine: No what type of physical activity do you participate in: running and weight training frequency: 1-2 times per week seatbelt use: always do you feel safe at home: Yes additional social history: - Mir 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 Shebelieves she stoved it while handing off grandchild. She notes initial injury involved swelling, pain - which has improved slightly since though glass cut off tender to touch. OTC ice applications helped initially, though no improvement since. RHD. PMH NC. No other associated symptoms and no other +/- factors. ROS Const Constitutional: No other (as above) Exam Const General: cooperative, healthy appearing and no acute distress Orientation: alert and awake Chest Chest palpation & inspection: normal inspection of the chest Resp Effort & Inspection: normal respiratory effort and able to speak in complete sentences Cardio Rate: regular rate Pulses: radial pulses present Skin General: no rashes or lesions noted Neuro General: patient alert and patient awake Cognition: normal cognition Speech: speech normal Extrem General: full ROM, capillary refill normal and normal exam except as noted (Trace swelling LRF PIPJ with tender to touch same) Psych Appearance: grossly normal Mental Status: mental status grossly normal Mood: congruent mood Affect: normal affect Speech and Movement: speech and movement normal Attitude: cooperative Coding Level of Care Code Off vis,est,level 4 Diagnoses Sprain of left ring finger S63.615A Assessment and Plan Assessment and Plan (1) Sprain of left ring finger: Status: Acute Plan: Left ring finger radiographs reveal no acute osseous pathology per my review, pending radiologist interpretation at time patient discharge. Declined prescription NSAIDs and finger splint upon offering. Declined occupational therapy referral upon offering. Cqlo-vex-xguukhp home range of motion exercises, NSAIDs, and rest/elevation as needed. Follow-up with PCP or orthopedics in 7 to 10 days should symptoms not improve, sooner should symptoms only worsen or any other concerns develop. Patient states acknowledging understanding of the above. This note was generated with Wenwoation software. It may contain incorrectwords, spelling, and punctuation that were not noted in checking the note beforesigning. Orders: Orders Finger(s) Min 2 Views Today R52 - Pain, unspecified Plan Details Goals & Barriers: Goals Decrease pain Decrease spasm Decrease inflammation Barriers Work requirements 10/30/24 1348 <Electronically signed by Miguelito SIFUENTES> Date _ Miguelito SIFUENTES Cosigner Signature: Date (if applicable) CC: ~ [facility] Work Phone: 1(636) 729-931108-18-2025 Evaluation note* Diagnosis Onset Date Resolution Status Admit Date Abnormal uterine bleeding acute October 23, 2024 2:01pm Dermoid cyst of both ovaries acute October 23, 2024 2:01pm S/P endometrial ablation acute October 23, 2024 2:01pm Sprain of left ring finger acute October 30, 2024 1:02pm [facility] Work Phone: 1(167) 208-896208-18-2025 Evaluation note* Diagnosis Onset Date Resolution Status Admit Date Abnormal uterine bleeding acute October 23, 2024 2:01pm Dermoid cyst of both ovaries acute October 23, 2024 2:01pm S/P endometrial ablation acute October 23, 2024 2:01pm Sprain of left ring finger acute October 30, 2024 1:02pm Body mass index (BMI) of 40. 1 to 44.9 in adult chronic November 22, 2024 3:01pm Chest pain chronic November 3:01pm Obesity chronic November 3:01pm Irritant contact dermatitis due to plant acute December 15 2:21pm Irritant contact dermatitis due to plant acute December 18 4:19pm [facility] Work Phone: 1(668) 196-279505-19-2025 [facility] [address] [place] [address], [address] [place] [address] OFFICE VISIT Date of Service: 07/24/24 MR#: [id number] Acct: [id number] Name: ARTURO SIMON Rep #: [id number] : 1975 Provider: Dr. Jd Cottrell MD Age/Sex: 48/F [place] [facility] [place]: Signed Intake Vital Signs 05/03/24 09:25 05/04/24 10:16 07/11/24 06:28 07/24/24 15:27 Height 5 ft 3 in 5 ft 3 in 5 ft 3 in 5 ft 3 in Weight: 251 lb 8 oz BMI 44.5 BP 110/75 Intake Visit Reasons: 2 wk D&C iud removal [employer] Required: No Is patient in pain?: Yes (right side pelvic pain - comes and goes) Allergies ceftriaxone sodium (From Rocephin) Allergy (Verified 07/24/24 15:31) Hives Medications ?Medication ?Instructions ?Recorded ?Confirmed ?Type cyanocobalamin (vitamin B-12) 500 500 mcg PO QDAY 05/2907/11/24 History mcg tablet magnesium oxide 400 mg PO QDAY 02/08/2408/30 History multivitamin 1 tab PO QDAY 02/08/2407/11 History semaglutide 0.25 mg or 0.5 mg (2 1 mg subcut OBRIEN 07/11/24 History mg/3 mL) subcutaneous pen injector vitamin B complex 1 cap PO QDAY 02/08/2407/11 History albuterol sulfate 90 mcg/actuation 2 puff inhalation Q 4H PRN 03/24/24 07/11/24 Rx aerosol inhaler (Ventolin HFA) shortness of breath or wheezing #18 grams doxycycline monohydrate 100 mg 100 mg PO BID #28 caps 07/24/24 07/24/24 Rx capsule Patient : No : No [facility] Medical History Right middle lobe pulmonary infiltrate Contact with or exposure to other viral diseases Wears contact lenses Migraine headache Strain of left trapezius muscle Strain of left rotator cuff capsule Left shoulder strain Eosinophilic esophagitis Wears glasses Alcohol use CPAP (continuous positive airway pressure) dependence Non-smoker History of edema History of echocardiogram History of stress test Cardiology follow-up encounter ROMAINE (obstructive sleep apnea) Right arm cellulitis Bee sting Needlestick injury accident with exposure to body fluid Segmental and somatic dysfunction of cervical region Segmental and somatic dysfunction of thoracic region Segmental and somatic dysfunction of lumbar region Tonsillar abscess Surgical History (Updated 07/24/24 @ 15:32 by Mckenzie Jules) H/O dilation and curettage S/P endometrial ablation Status post bilateral salpingectomy S/P oophorectomy S/P ovarian cystectomy Hx of tubal ligation History of esophagogastroduodenoscopy (EGD) H/O shoulder surgery delivery delivered Family History Sister ROMAINE (obstructive sleep apnea) Grandfather Cancer lung Grandmother Heart disease Diabetes Sister ROMAINE (obstructive sleep apnea) Sister ROMAINE (obstructive sleep apnea) Mitral valve prolapse Sinus tachycardia Mother Cholangiocarcinoma, Onset Age: 67 Social History Smoking Status: Never smoker alcohol intake: current alcohol intake frequency: holidays/special occasions only substance use type: does not use caffeine: No what type of physical activity do you participate in: running and weight training frequency: 1-2 times per week seatbelt use: always do you feel safe at home: Yes additional social history: - Mir 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 Date Name GA/Weeks Outcome Route Bth Weight Infant Gen Labor Lgth Ane sthesia Del Locatn Provider FOB Unknown Andrey 2005 Unknown Piper 2011 ROS Const Constitutional: Reports system reviewed and no additional complaints, except as documented GI GI: Denies abdominal pain, cramping, nausea or vomiting : Denies pelvic pain, urinary frequency, urinary incontinence, urinary urgency, vaginal discharge, vaginal dryness or vaginal odor Exam Const General: cooperative, healthy appearing, comfortable and no acute distress GI Inspection: normal to inspection Palpation: soft and nontender Other: Incisions: C/D/I Coding Level of Care Code No Charge Diagnoses S/P endometrial ablation Z98.890 Status post bilateral salpingectomy Z90.79 Assessment and Plan Assessment and Plan (1) S/P endometrial ablation: Status: Acute (2) Status post bilateral salpingectomy: Status: Acute Medications: New doxycycline monohydrate 100 mg PO BID 28 caps 0RF Plan Problem list updated and treatment plans were reviewed with the patient and relevant educational handouts given. See problem list details for specific planinformation. Plan Details Goals & Barriers: Goals Decrease pain Decrease spasm Decrease inflammation Barriers Work requirements 07/24/24 1614 carlos YOON> Date _ [facility]: Date (if applicable) CC: ~ [facility]05-19-2025 Progress note Author Casie Cottrell [facility] Services Note Date/Time July 24, 2024 4:14p [facility] [address], [address] [place] [address] OFFICE VISIT Date of Service: 07/24/24 MR#: [id number] Acct: [id number] Name: ARTURO SIMON Rep #: [id number] : 1975 Provider: Dr. Jd Cottrell MD Age/Sex: 48/F [place] [facility] [place]: Signed Intake Vital Signs 05/03/24 09:25 05/04/24 10:16 07/11/24 06:28 07/24/24 15:27 Height 5 ft 3 in 5 ft 3 in 5 ft 3 in 5 ft 3 in Weight: 251 lb 8 oz BMI 44.5 BP 110/75 Intake Visit Reasons: 2 wk D&C iud removal [employer] Required: No Is patient in pain?: Yes (right side pelvic pain - comes and goes) Allergies ceftriaxone sodium (From Rocephin) Allergy (Verified 07/24/24 15:31) Hives Medications ?Medication ?Instructions ?Recorded ?Confirmed ?Type cyanocobalamin (vitamin B-12) 500 500 mcg PO QDAY 05/2907/11/24 History mcg tablet magnesium oxide 400 mg PO QDAY 02/08/2408/30 History multivitamin 1 tab PO QDAY 02/08/2407/11 History semaglutide 0.25 mg or 0.5 mg (2 1 mg subcut OBRIEN 07/11/24 History mg/3 mL) subcutaneous pen injector vitamin B complex 1 cap PO QDAY 02/08/2407/11 History albuterol sulfate 90 mcg/actuation 2 puff inhalation Q 4H PRN 03/24/24 07/11/24 Rx aerosol inhaler (Ventolin HFA) shortness of breath or wheezing #18 grams doxycycline monohydrate 100 mg 100 mg PO BID #28 caps 07/24/24 07/24/24 Rx capsule Patient : No : No PFSH Medical History Right middle lobe pulmonary infiltrate Contact with or exposure to other viral diseases Wears contact lenses Migraine headache Strain of left trapezius muscle Strain of left rotator cuff capsule Left shoulder strain Eosinophilic esophagitis Wears glasses Alcohol use CPAP (continuous positive airway pressure) dependence Non-smoker History of edema History of echocardiogram History of stress test Cardiology follow-up encounter ROMAINE (obstructive sleep apnea) Right arm cellulitis Bee sting Needlestick injury accident with exposure to body fluid Segmental and somatic dysfunction of cervical region Segmental and somatic dysfunction of thoracic region Segmental and somatic dysfunction of lumbar region Tonsillar abscess Surgical History (Updated 07/24/24 @ 15:32 by Mckenzie Jules) H/O dilation and curettage S/P endometrial ablation Status post bilateral salpingectomy S/P oophorectomy S/P ovarian cystectomy Hx of tubal ligation History of esophagogastroduodenoscopy (EGD) H/O shoulder surgery delivery delivered Family History Sister ROMAINE (obstructive sleep apnea) Grandfather Cancer lung Grandmother Heart disease Diabetes Sister ROMAINE (obstructive sleep apnea) Sister ROMAINE (obstructive sleep apnea) Mitral valve prolapse Sinus tachycardia Mother Cholangiocarcinoma, Onset Age: 67 Social History Smoking Status: Never smoker alcohol intake: current alcohol intake frequency: holidays/special occasions only substance use type: does not use caffeine: No what type of physical activity do you participate in: running and weight training frequency: 1-2 times per week seatbelt use: always do you feel safe at home: Yes additional social history: - Mir 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 Date Name GA/Weeks Outcome Route Bth Weight Infant Gen Labor Lgth Ane sthesia Del Locatn Provider FOB Unknown Andrey 2006 Unknown [place] 2012 ROS Const Constitutional: Reports system reviewed and no additional complaints, except as documented GI GI: Denies abdominal pain, cramping, nausea or vomiting : Denies pelvic pain, urinary frequency, urinary incontinence, urinary urgency, vaginal discharge, vaginal dryness or vaginal odor Exam Const General: cooperative, healthy appearing, comfortable and no acute distress GI Inspection: normal to inspection Palpation: soft and nontender Other: Incisions: C/D/I Coding Level of Care Code No Charge Diagnoses S/P endometrial ablation Z98.890 Status post bilateral salpingectomy Z90.79 Assessment and Plan Assessment and Plan (1) S/P endometrial ablation: Status: Acute (2) Status post bilateral salpingectomy: Status: Acute Medications: New doxycycline monohydrate 100 mg PO BID 28 caps 0RF Plan Problem list updated and treatment plans were reviewed with the patient and relevant educational handouts given. See problem list details for specific planinformation. Plan Details Goals & Barriers: Goals Decrease pain Decrease spasm Decrease inflammation Barriers Work requirements 07/24/24 1614 <Electronically signed by Casie gonzalez MD> Date _ Casie Cottrell MD [facility] Signature: Date (if applicable) CC: ~ [facility] Work Phone: 1(605) 815-897405-06-2025 Evaluation note* Diagnosis Onset Date Resolution Status Admit Date Abnormal uterine bleeding acute July 11, 2024 5:55am Dermoid cyst of both ovaries acute July 11, 2024 5:55am S/P endometrial ablation acute July 24, 2024 3:20pm Status post bilateral salpingectomy acute July 24, 2024 3 :20pm [facility] Work Phone: 1([phone]) 647-630905-06-2025 Evaluation note* Diagnosis Onset Date Resolution Status Admit Date Abnormal uterine bleeding acute July 11, 2024 5:55am Dermoid cyst of both ovaries acute July 11, 2024 5:55am S/P endometrial ablation acute July 24, 2024 3:20pm Status post bilateral salpingectomy acute July 24, 2024 3 :20pm Abnormal uterine bleeding acute October 23, 2024 2:01pm Dermoid cyst of both ovaries acute October 23, 2024 2:01pm S/P endometrial ablation acute October 23, 2024 2:01pm Sprain of left ring finger acute October 30, 2024 1:02pm [facility] Work Phone: 1(469) 524-749205-06-2025 [facility] Medical Records Department [address] [facility] [place] [address] History Physical Exam 07/11/24 0728 MR#: [id number] Acct: [id number] Name: ARTURO SIMON Rep #: [id number] : 1975 48 From: Casie Cottrell MD PCP: Dr. Dominic Weaver MD [place] [facility] [place]: [place] [address] History and Physical Date of Admission: 07/11/24 Intake Vital Signs 05/03/2508:25 05/04/2509:16 06/12/2512:22 Height 5 ft 3 in 5 ft 3 in 5 ft 3 in Weight: 252 lb 2 oz 254 lb BMI 44.6 44.9 BP 106/74 120/84 H Intake Visit Reasons: D C IUD removal [employer] Required: No Is patient in pain?: No Allergies ceftriaxone sodium (From Rocephin) Allergy (Verified 06/12/24 13:24) Hives Medications ???Medication ???Instructions ???Recorded ???Confirmed ???Type cyanocobalamin (vitamin B-12) 500 500 mcg PO QDAY 02/08/24 06/12/24 History mcg tablet magnesium oxide 400 mg PO QDAY 02/08/24 06/12/24 History multivitamin 1 tab PO QDAY 02/08/24 06/12/24 History semaglutide 0.25 mg or 0.5 mg (2 1 mg subcut QWEEK 02/08/24 06/12/24 History mg/3 mL) subcutaneous pen injector vitamin B complex 1 cap PO QDAY 02/08/24 06/12/24 History levonorgestrel (Mirena) 1 device intrauterine ONCE 02/23/24 06/12/24 Histo ry albuterol sulfate 90 mcg/actuation 2 puff inhalation Q4H PRN 03/24/24 06/12/24 Rx aerosol inhaler (Ventolin HFA) shortness of breath or wheezing #18 grams Patient : No : No PFSH Medical History Right middle lobe pulmonary infiltrate Contact with or exposure to other viral diseases Wears contact lenses Migraine headache Esophageal dysmotility Strain of left trapezius muscle Strain of left rotator cuff capsule Left shoulder strain Eosinophilic esophagitis Wears glasses Alcohol use CPAP (continuous positive airway pressure) dependence Non-smoker History of edema History of echocardiogram History of stress test Cardiology follow-up encounter Atypical chest pain ROMAINE (obstructive sleep apnea) Right arm cellulitis Bee sting Needlestick injury accident with exposure to body fluid Segmental and somatic dysfunction of cervical region Segmental and somatic dysfunction of thoracic region Segmental and somatic dysfunction of lumbar region Tonsillar abscess Surgical History Hx of tubal ligation History of esophagogastroduodenoscopy (EGD) H/O shoulder surgery delivery delivered Family History Sister ROMAINE (obstructive sleep apnea)Grandfather Cancer lung Grandmother Heart disease DiabetesSister ROMAINE (obstructive sleep apnea)Sister ROMAINE (obstructive sleep apnea) Mitral valve prolapse Sinus tachycardiaMother Cholangiocarcinoma, Onset Age: 67 Social History Smoking Status: Never smoker alcohol intake: current alcohol intake frequency: holidays/special occasions only substance use type: does not use caffeine: No what type of physical activity do you participate in: running and weight training frequency: 1-2 times per week seatbelt use: always do you feel safe at home: Yes additional social history: - Mir 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 she has bilateral dermoid cysts, she has some pelvic pressure and still some prolonged menses, open for other intervention for bleeding, has had IUD with some improvment but still long menses. History 2 Elective abortions Hx Para 2 Spontaneous abortions Hx # Term Pregnancies Ectopic pregnancies Hx # Pregnancies Multiple births # of living children 2 Past Pregnancies Del. Date Name GA/Weeks Outcome Route Bth Weight Gen Labor Lgth Anesthesia Del Locatn Provider FOB Unknown Andrey 2005 Unknown [facility] 2012 ROS Const Constitutional: Denies fatigue, fever(s), headache(s), increased appetite, poor appetite, weight gain or weight loss GI GI: Reports as per HPI; Denies abdominal pain, constipation, nausea or vomiting : Reports as per HPI; Denies difficulty voiding, dysuria, hematuria, pelvic pain, urinary frequency, urinary incontinence, urinary hesitancy, urinary urgency, vaginal discharge, vaginal dryness, vaginal odor, vaginal pruritus or other Exam Const General: cooperative, healthy appearing, comfortable, no acute distress and well developed Orientation: alert HENMT Head: normal to inspection and normocephalic Ears: hearing grossly normal bilaterally and external ears normal Nose: external nose normal and nares normal Face and sinus: normal facial exam Neck Neck: normal (more content not included)...[facility]02-26-2025 Evaluation note* Diagnosis Onset Date Resolution Status Admit Date Abnormal uterine bleeding acute May 03, 2024 9:19am Dermoid cyst of both ovaries acute May 03, 2024 9:19am Body mass index (BMI) of 40. 1 to 44.9 in adult chronic May 08, 2024 7:27am Chest pain chronic May 08 7:27am Obesity chronic May 08 7:27am Abnormal uterine bleeding acute June 12, 2024 1:19pm Dermoid cyst of both ovaries acute June 12, 2024 1:19pm Abnormal uterine bleeding acute July 11, 2024 5:55am Dermoid cyst of both ovaries acute July 11, 2024 5:55am S/P endometrial ablation acute July 24, 2024 3:20pm Status post bilateral salpingectomy acute July 24, 2024 3 :20pm [facility] Work Phone: 1([phone]) 102-364312-18-2024 Evaluation note* Diagnosis Onset Date Resolution Status Admit Date Abnormal uterine bleeding acute February 23, 2024 7:45am Encounter for routine gynecological examination noneactive Decemb er 2023 7:45am Asthma chronic March 24, 2024 1:13pm Obesity chronic March 24, 2024 1:13pm ROMAINE (obstructive sleep apnea) chroni c March 24, 2024 1:13pm Abnormal uterine bleeding acute May 03, 2024 9:19am Dermoid cyst of both ovaries acute May 03, 2024 9:19am Body mass index (BMI) of 40. 1 to 44.9 in adult chronic May 08, 2024 7:27am Chest pain chronic May 08 7:27am Obesity chronic May 08 7:27am Abnormal uterine bleeding acute June 12, 2024 1:19pm Dermoid cyst of both ovaries acute June 12, 2024 1:19pm [facility] Work Phone: 1(360) 301-208104-04-2024 Procedure [facility] 06-10-2023 Procedure [facility]09-18-2023 Procedure note [facility]05-28-[address] Gilbert [facility] August 02, 2022 4:49am Note Date/Time August 02, 2022 2:42a m [facility] Medical Records Department [address] [place] [address] Emergency Department Summary 08/02/22 MR#: [id number] Acct: [id number] Name: ARTURO SIMON Rep #:[id number] : 1975 46 From: Geoff Gilbert DO PCP: Dr. Dominic Weavre MD Status:REG E R Location: ED HPI History of Present Illness Chief Complaint: Shortness of Breath Narrative Narrative: This is a 46-year-old female presenting with right posterior rib pain. She states it started yesterday and kind of eased up until this morning at about 1 AM when she woke up from sleep with pain here. She states she feels as if she is having trouble catching her breath. She does not cough, fever, chills. Denies any strain or trauma to the area. [facility] Medical History Alcohol use Atypical chest pain Bee sting Cardiology follow-up encounter CPAP (continuous positive airway pressure) dependence Eosinophilic esophagitis History of echocardiogram History of edema History of stress test Needlestick injury accident with exposure to body fluid Non-smoker ROMAINE (obstructive sleep apnea) Right arm cellulitis Segmental and somatic dysfunction of cervical region Segmental and somatic dysfunction of lumbar region Segmental and somatic dysfunction of thoracic region Tonsillar abscess Wears glasses Home Medications B-complex with vitamin C 1 cap PO QDAY 04/27/17 [History Last Taken Unknown] multivitamin,[id number] (Complete Multivitamin tablet) 1 tab PO QDAY 04/27/17 [History Last Taken Unknown] magnesium oxide 400 mg PO DAILY 12/08/18 [History Last Taken Unknown] calcium carbonate 500 mg-vitamin D3 5 mcg (200 unit) tablet 1 ea PO DAILY 05/25/19 [History Last Taken Unknown] melatonin 3 mg tablet 6 mg PO HS PRN Sleep 10/06/21 [History Last Taken Unknown] etonogestrel 0.12 mg-ethinyl estradiol 0.015 mg/24 hr vaginal ring (NuvaRing) 1 vag ring vaginal ONCE 3 weeks #1 ea 05/28/22 [Rx Last Taken Unknown] tizanidine 4 mg capsule (Zanaflex) 4 mg PO TID PRN muscle spasticity #20 caps 08/02/22 [Rx Last Taken Unknown] Allergy/AdvReac Type Severity Reaction Status Date / Time ceftriaxone sodium Allergy Hives Verified 08/02/22 02:33 [From Rocephin] Family History Sister ROMAINE (obstructive sleep apnea) Grandfather Cancer lung Grandmother Heart disease Diabetes Sister ROMAINE (obstructive sleep apnea) Sister ROMAINE (obstructive sleep apnea) Mitral valve prolapse Sinus tachycardia Surgical History delivery delivered H/O shoulder surgery Social History Smoking Status: Never smoker alcohol intake: never substance use type: does not use caffeine: No what type of physical activity do you participate in: running and weight training frequency: 1-2 times per week seatbelt use: always do you feel safe at home: Yes additional social history: - Mir 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 ED Constitutional Constitutional ED: Denies chills or fever(s) Eyes Eyes: Denies change in vision or diplopia ENT ENT ED: Denies rhinorrhea or sore throat Cardiovascular Cardiovascular: Reports other Details: Right posterior rib pain Respiratory/Chest Respiratory/Chest: Reports dyspnea Gastrointestinal Gastrointestinal: Denies abdominal pain, constipation, nausea or vomiting Genitourinary Genitourinary ED: Denies dysuria or hematuria Musculoskeletal Musculoskeletal: Denies arthralgias Integumentary Denies abscess or Abrasions Neurologic Neurologic: Denies headache(s) or paresthesias Psychiatric Psychiatric: Denies anxiety or depression EXAM Physical Exam Const Vital Signs: 08/02/22 02:30 Temperature 97.9 F Temperature Source Temporal Pulse Rate 109 H Respiratory Rate 18 Blood Pressure 109/86 H Blood Pressure Mean 93 Pulse Ox 98 Positive well nourished General Appearance ED: NAD; Negative for pallor HEENT Reports moist mucous membranes atraumatic Eyes PERRL Resp normal respiratory effort Resp Narrative: Tenderness to palpation right posterior ribs. Equal symmetric breath sounds andchest wall rise. Cardio regular rate and regular rhythm Neuro oriented x3 and CN's II-XII intact bilaterally Sensorium / Orientation: alert Motor Exam: strength 5/5 throughout Psych mental status grossly normal Skin no wounds General Skin Exam: Negative for jaundice or pallor MDM MDM MDM Narrative Medical decision making narrative: Patient presenting with right posterior rib pain. She states she is having trouble catching her breath although her vital signs are stable and she is afebrile. She states it is making her feel like she cannot catch her breath. Her vital signs are stable and she is afebrile. She is not hypoxic. Her pain is reproducible in the right posterior ribs. Equal symmetric breath sounds or chest wall rise. She declined analgesia initially. I obtained right rib serieswhich on my interpretation is no acute fracture, pneumonia, pneumothorax or other acute cardiopulmonary process. The radiologist interpretation agrees. After discussion the patient is amenable to a muscle relaxer. She will be givena prescription for these. Return precautions discussed. Impression: 1. Thoracic strain Radiography Diagnostic Testing: Clinical Impression(s) from Imaging Studies Ribs w/Chest X-Ray 08/02/22 02:50 IMPRESSION: No obvious acute displaced rib fracture. Chest with no acute disease. Electronically Signed: Mir Miller MD at 3:39 EDT , Discharge Plan Triage Chief Complaint: Shortness of Breath ED Provider: Geoff Gilbert Dx/Rx/DC Orders Instructions: ED Back Sprain/Strain Prescriptions: New tizanidine [Zanaflex] 4 mg capsule 4 mg PO TID PRN (Reason: muscle spasticity) Qty: 20 0RF No Action B-complex with vitamin C capsule capsule 1 cap PO QDAY multivitamin,tq-narr-lguxbmtl tablet tablet 1 tab PO QDAY magnesium oxide 400 mg magnesium tablet 400 mg PO DAILY melatonin 3 mg tablet 6 mg PO HS PRN (Reason: Sleep) etonogestrel-ethinyl estradiol [NuvaRing] 0.12-0.015 mg/24 hr ring 1 vag ring vaginal ONCE 21 Days Qty: 1 12RF calcium carbonate-vitamin D3 1 EACH tablet 1 ea PO DAILY Primary Care Provider: Dominic Weaver Referrals: Dominic Weaver MD [Primary Care Provider] - Disposition Disposition: Home, Self Care What to do if you have Problems For any increased pain, shortness of breath, bleeding, nausea or vomiting, chestpain, or any unexpected problems, contact your Primary Care Provider. Call [facility] ([phone]) or report to the closest Emergency Room. Call 911 if necessary. 08/02/22 0449 <Electronically signed by Geoff Gilbert DO> Cosigner Signature (if applicable): CC: Dr. Dominic Weaver MD ~ Signed [facility] Work Phone: 1(850) 400-528302-21-2023 History and physical note Author Louis Felix [facility] April 28, 2022 12:49pm Note Date/Time April 28, 2022 12:49pm [facility] Medical Records Department [address] [place] [address] History & Physical Exam 04/28/22 1249 MR#: [id number] Acct: [id number] Name: ARTURO SIMON Rep #:[id number] : 1975 46 From: Louis Felix DO PCP: Dr. Dominic Weaver MD Status:REG S [place] Location: [place] [address] History and Physical Date of Admission: 04/28/22 46 F who presents to the office today to establish with GI for atypical chest pain. Began approx 01/2021. She had a cardiology w/u which was negative. So she is now referred to GI for eval. The pain is left of sternum and lower retrosternal. Can last 5-30 minutes. Had it as recently as last night. Can occurany time of day or night. Not related to eating. Describes as a squeeze or tightening feeling. Can radiate to left jaw or through to back. No relieving factors. No relief with one month of omeprazole or prn TUMS. No aggravating factors. Associated factors--none; no SOB, nausea, vomiting, heartburn, acid reflux, abdominal pain, diarrhea, dysphagia. Bowels are regular,no constipatio or diarrhea, no melena or hematochezia. 10/2021 labs unremarkable including cbc, cmp, ldh ROS Const Constitutional: No fatigue ENT ENT: No difficulty swallowing Gastro GI: Positive for heartburn; No abdominal pain, belching, bloating, change in bowel habits, change in stool character, coffee ground emesis, constipation, cramping, diarrhea, difficulty swallowing, feeling full early, excessive flatus, incontinent of stools, Vomiting blood/hematemesis, Blood in stool, loose stools, Black,tarry stools, nausea/dyspepsia, pain with swallowing, vomiting or other Musc Musculoskeletal: No joint pain Skin Skin: No yellowing of the eye or itchy eyes Psych Psychiatric: No anxiety and No depression Endo Endocrine: No fatigue Aller/Imm Allergy/Immunologic: No itchy eyes Santos/Lymp Hematologic/Lymphatic: No easy bleeding or easy bruising Exam Const General: cooperative, healthy appearing and comfortable Nutritional Appearance: obese Orientation: alert, awake and oriented x3 HENMT Head: normal to inspection Eyes Sclera: sclerae normal Chest Chest palpation & inspection: normal inspection of the chest Resp Effort & Inspection: normal respiratory effort GI Inspection: normal to inspection Palpation: soft, no hepatosplenomegaly, no masses and nontender Skin General: no rashes or lesions noted Neuro Gait: normal gait Psych Mood: euthymic mood Quality Reporting Tobacco Screening ([facility] 138) Smoking Status: Never smoker Assessment and Plan Assessment and Plan (1) Chest pain: ?Status:?Acute ?Plan: 46 yr old female with atypical chest pain. Cardiac etiology has been ruled out. DDx for GI includes GERD, PUD, esophageal spasms/dysmotility, gallbladder disorder. Will get RUQ US, if normal then consider HIDA scan. Will schedule EGD as well as screening colonoscopy, with f/u in office 2 wks later. Consider esophageal manometry if other testing is negative. ? ? ? Orders: Orders Abdomen Complete Today R07.9 - Chest pain, unspecified ? Medications: Discontinued omeprazole ?? Discontinued Reason:? Order Completed 20 mg? PO DAILY ? ? I have examined the patient and the H&P has been reviewed. There are no clinicalchanges since date of exam. 04/28/22 1246 <Electronically signed by Louis Felix DO> Cosigner Signature (if applicable): CC: Dr. Dominic Weaver MD; Louis Friend, ~ Signed [facility] Work Phone: 1(394) 656-140402-21-2023 Procedure [facility] 04-28-2022 Procedure [facility]02-21-2023 Procedure [facility] NotePap Smear Specimen AdequacyDecember 2021 3:14pmComment. Satisfactory for evaluation. Endocervical and/or squamous metaplasticcells (endocervical component)are present.[facility] A#[id number] Valley Hospital Work Phone: Comment on above:Satisfactory for evaluation. Endocervical and/or squamous metaplasticcells (endocervical component)are present.02-17-2022 NotePap Smear Specimen AdequacyDecember 2021 3:14pm Comment.Satisfactory for evaluation. Endocervical and/or squamous metaplasticcells (endocervical component)are present.[facility] A#[id number] Valley HospitalComment on above:Satisfactory for evaluation. Endocervical and/or squamous metaplasticcells (endocervical component)are present.02-17-2022 NotePap Smear Specimen AdequacyDecember 2021 3:14pmComment.Satisfactory for evaluation. Endocervical and/or squamous metaplasticcells (endocervical component)are present.[facility] A#[id number] Valley HospitalComment on above:Satisfactory for evaluation. Endocervical and/or squamous metaplasticcells (endocervical component)are present.02-17-2022 NotePap Smear Specimen AdequacyDecember 2021 4:14pmComment.Satisfactory for evaluation. Endocervical and/or squamous metaplasticcells (endocervical component)are present.[facility] A#[id number] Valley HospitalComment on above:Satisfactory for evaluation. Endocervical and/or squamous metaplasticcells (endocervical component)are present.02-17-2022 NotePap Smear Specimen AdequacyDecember 2021 4:14pmComment.Satisfactory for evaluation. Endocervical and/or squamous metaplasticcells (endocervical component)are present.[facility] A#[id number] Valley HospitalComment on above:Satisfactory for evaluation. Endocervical and/or squamous metaplasticcells (endocervical component)are present.02-17-2022 NotePap Smear Specimen [facility]De[facility] 2021 4:14pmComment.Satisfactory for evaluation. Endocervical and/or squamous metaplasticcells (endocervical component)are present.[facility] A#[id number] Health [facility] Medical CenterComment on above:Satisfactory for evaluation. Endocervical and/or squamous metaplasticcells (endocervical component)are present.Evaluation note* Diagnosis Onset Date Resolution Status Segmental and somatic dysfunction of cervical region chronic Segmental and somatic dysfunction of lumbar region chronic Segmental and somatic dysfunction of thoracic region chronic BMI 45.0-49.9, adult acute ROMAINE (obstructive sleep apnea) chronic [facility] Work Phone: Evaluation note* Diagnosis Onset Date Resolution Status Segmental and somatic dysfunction of cervical region chronic Segmental and somatic dysfunction of lumbar region chronic Segmental and somatic dysfunction of thoracic region chronic Chest pain acute [facility] Work Phone: Evaluation note* Diagnosis Onset Date Resolution Status Segmental and somatic dysfunction of cervical region chronic Segmental and somatic dysfunction of lumbar region chronic Segmental and somatic dysfunction of thoracic region chronic Chest pain acute Encounter for routine gynecological examination noneactive [facility] Work Phone: Evaluation note* Diagnosis Onset Date Resolution Status Chest pain acute Encounter for routine gynecological examination noneactive Chest pain acute [facility] Work Phone: Evaluation note* Diagnosis Onset Date Resolution Status Encounter for routine gynecological examination noneactive Chest pain acute Acute pain of both ears acut e Acute serous otitis media of both ears acute Sore throat acute Body mass index (BMI) of 40.1 to 44.9 in adult acute ROMAINE (obstructive sleep apnea) chronic [facility] Work Phone: Evaluation note* Diagnosis Onset Date Resolution Status Encounter for routine gynecological examination noneactive Chest pain acute Acute pain of both ears acut e Acute serous otitis media of both ears acute Sore throat acute Body mass index (BMI) of 40.1 to 44.9 in adult acute ROMAINE (obstructive sleep apnea) chronic Segmental and somatic dysfunction of cervical region acute Segmental and somatic dysfunction of lumbar region acute Segmental and somatic dysfunction of thoracic region acute Back pain noneactive [facility] Work Phone: Evaluation note* Diagnosis Onset Date Resolution Status Encounter for routine gynecological examination noneactive Chest pain chronic Acute pain of both ears acut e Acute serous otitis media of both ears acute Sore throat acute Body mass index (BMI) of 40.1 to 44.9 in adult acute ROMAINE (obstructive sleep apnea) chronic Segmental and somatic dysfunction of cervical region acute Segmental and somatic dysfunction of lumbar region acute Segmental and somatic dysfunction of thoracic region acute Back pain noneactive Chest pain chronic [facility] Work Phone: Evaluation note* Diagnosis Onset Date Resolution Status Encounter for routine gynecological examination noneactive Chest pain chronic Acute pain of both ears acut e Acute serous otitis media of both ears acute Sore throat acute Body mass index (BMI) of 40.1 to 44.9 in adult acute ROMAINE (obstructive sleep apnea) chronic Segmental and somatic dysfunction of cervical region acute Segmental and somatic dysfunction of lumbar region acute Segmental and somatic dysfunction of thoracic region acute Back pain noneactive Chest pain chronic Abnormal uterine bleeding [facility] Work Phone: Evaluation note* Diagnosis Onset Date Resolution Status Body mass index (BMI) of 40.1 to 44.9 in adult acute ROMAINE (obstructive sleep apnea) chronic Segmental and somatic dysfunction of cervical region acute Segmental and somatic dysfunction of lumbar region acute Segmental and somatic dysfunction of thoracic region acute Back pain noneactive Chest pain chronic Abnormal uterine bleeding ac [employer] Left foot pain acute [facility] Work Phone: Evaluation note* Diagnosis Onset Date Resolution Status Segmental and somatic dysfunction of cervical region acute Segmental and somatic dysfunction of lumbar region acute Segmental and somatic dysfunction of thoracic region acute Back pain noneactive Chest pain chronic Abnormal uterine bleeding ac [employer] Left foot pain acute Abnormal uterine bleeding ac [facility] Work Phone: Evaluation note* Diagnosis Onset Date Resolution Status Chest pain chronic Abnormal uterine bleeding ac [employer] Left foot pain acute Abnormal uterine bleeding ac [employer] Segmental and somatic dysfunction of cervical region acute Segmental and somatic dysfunction of lumbar region acute Segmental and somatic dysfunction of thoracic region acute Back pain noneactive Acute thoracic myofascial strain acute Segmental and somatic dysfunction of cervical region acute Segmental and somatic dysfunction of thoracic region acute Left shoulder strain acute Strain of left rotator cuff capsule acute Strain of left trapezius muscle acute Left shoulder strain acute Strain of left rotator cuff capsule acute Strain of left trapezius muscle acute [facility] Work Phone: Evaluation note* Diagnosis Onset Date Resolution Status Abnormal uterine bleeding ac [employer] Left foot pain acute Abnormal uterine bleeding ac [employer] Segmental and somatic dysfunction of cervical region acute Segmental and somatic dysfunction of lumbar region acute Segmental and somatic dysfunction of thoracic region acute Back pain noneactive Acute thoracic myofascial strain acute Segmental and somatic dysfunction of cervical region acute Segmental and somatic dysfunction of thoracic region acute Left shoulder strain acute Strain of left rotator cuff capsule acute Strain of left trapezius muscle acute Left shoulder strain acute Strain of left rotator cuff capsule acute Strain of left trapezius muscle acute Body mass index (BMI) of 40.1 to 44.9 in adult acute Chest pain [facility] Work Phone: Evaluation note* Diagnosis Onset Date Resolution Status Left foot pain acute Abnormal uterine bleeding ac [employer] Segmental and somatic dysfunction of cervical region acute Segmental and somatic dysfunction of lumbar region acute Segmental and somatic dysfunction of thoracic region acute Back pain noneactive Acute thoracic myofascial strain acute Segmental and somatic dysfunction of cervical region acute Segmental and somatic dysfunction of thoracic region acute Left shoulder strain acute Strain of left rotator cuff capsule acute Strain of left trapezius muscle acute Left shoulder strain acute Strain of left rotator cuff capsule acute Strain of left trapezius muscle acute Body mass index (BMI) of 40.1 to 44.9 in adult acute Chest pain [facility] Work Phone: Evaluation note* Diagnosis Onset Date Resolution Status Abnormal uterine bleeding ac [employer] Segmental and somatic dysfunction of cervical region acute Segmental and somatic dysfunction of lumbar region acute Segmental and somatic dysfunction of thoracic region acute Back pain noneactive Acute thoracic myofascial strain acute Segmental and somatic dysfunction of cervical region acute Segmental and somatic dysfunction of thoracic region acute Left shoulder strain acute Strain of left rotator cuff capsule acute Strain of left trapezius muscle acute Left shoulder strain acute Strain of left rotator cuff capsule acute Strain of left trapezius muscle acute Body mass index (BMI) of 40.1 to 44.9 in adult acute Chest pain chronic Back pain acute Segmental and somatic dysfunction of cervical region acute Segmental and somatic dysfunction of lumbar region acute Segmental and somatic dysfunction of thoracic region acute Chronic cough chronic ROMAINE (obstructive sleep apnea) chronic Shortness of breath noneacti ve [facility] Work Phone: Evaluation note* Diagnosis Onset Date Resolution Status Body mass index (BMI) of 40.1 to 44.9 in adult acute Chest pain chronic Back pain acute Segmental and somatic dysfunction of cervical region acute Segmental and somatic dysfunction of lumbar region acute Segmental and somatic dysfunction of thoracic region acute Chronic cough chronic ROMAINE (obstructive sleep apnea) chronic Shortness of breath noneacti ve [facility] Work Phone: Evaluation note* Diagnosis Onset Date Resolution Status Abnormal uterine bleeding ac [employer] Encounter for routine gynecological examination noneactive Body mass index (BMI) of 40.1 to 44.9 in adult chronic Chest pain chronic [facility] Work Phone: Evaluation note* Diagnosis Onset Date Resolution Status Abnormal uterine bleeding ac [employer] Encounter for routine gynecological examination noneactive Body mass index (BMI) of 40.1 to 44.9 in adult chronic Chest pain chronic Abnormal uterine bleeding ac [employer] Encounter for IUD insertion noneactive ROMAINE (obstructive sleep apnea) chronic Shortness of breath noneacti ve Back pain acute Segmental and somatic dysfunction of cervical region acute Segmental and somatic dysfunction of lumbar region acute Segmental and somatic dysfunction of thoracic region acute IUD check up noneactive [facility] Work Phone: Evaluation note* Diagnosis Onset Date Resolution Status Abnormal uterine bleeding ac [employer] Encounter for IUD insertion noneactive ROMAINE (obstructive sleep apnea) chronic Shortness of breath noneacti ve Back pain acute Segmental and somatic dysfunction of cervical region acute Segmental and somatic dysfunction of lumbar region acute Segmental and somatic dysfunction of thoracic region acute IUD check up noneactive [facility] Work Phone: History and physical note Author Louis Felix [facility] June 10, 2023 10:09am Note Date/Time June 10, 2023 10:0 9am [facility] Medical Records Department [address] [place] [id number] History & Physical Exam 06/10/23 1009 MR#: [id number] Acct: [id number] Name: ARTURO SIMON Rep #:[id number] : 1975 47 From: Louis Felix DO PCP: Dr. Dominic Weaver MD Status:REG S DC Location: [place] [address] History and Physical Date of Admission: 06/10/23 ARTURO SIMON, is a 47 F who presents to the office today for *BGI established 02.24.22 with atypical CP since . Cardiology workup without finding and referred to GI. No particular timing or trigger identified. ? US abd 02.25.22 heterogeneous nodule right liver 3.6x2.97x2.8cm, hemangioma, recommend CT. ? CT abd/pel 03.12.22 2.6x2.6cm hepatic hemangioma. ? HIDA 03.26.22 EF 84%; duodenal gastric reflux. ? EGD and colonoscopy 04.28.22 EGD irregular Zline 37cm; tortuous esophagus; esophageal spasm. No path changes. ? Colonoscopy poor prep; tortuous transverse colon. OV 05.18.22 possible EOE; Start Dupixent. ? Biochemical RAST without pertinent abnormality. Contact 05.21.22 Dupixent denied; Start budesonide slurry. OV 09.21.22 doing well overall. Marcell budesonide slurry worsened her symptoms; feels symptoms are food related. Start zero carb diet OV 02.23.23 continues to have chest discomfort with indigestion once every several weeks which is an improvement from every day. ROS Const Constitutional: No fatigue, fever(s), frequent falls, headache(s) or weight change ENT ENT: No headache(s) or difficulty swallowing Cardio Cardiology: No leg pain with exertion Gastro GI: Positive for constipation and heartburn; No abdominal pain, bloating, change in bowel habits, diarrhea, difficulty swallowing, Vomiting blood/hematemesis, Blood in stool, nausea/dyspepsia or vomiting Musc Musculoskeletal: No abnormal gait, joint pain, back pain, joint swelling, musclecramps, muscle weakness, numbness, stiffness, tingling, Arthritis, sciatica, legpain at night or leg pain with exertion Skin Skin: No dry skin, lesions, itchy eyes or rash Neuro Neurology: No abnormal gait, dizziness, frequent falls, headache(s), numbness, tingling, tremor(s), Increased tone in limbs, paralysis or seizures Psych Psychiatric: No anxiety, No depression, No paranoia, No Behavioral Problems, No Compulsive Behavior, No hyperactivity, No inattentiveness, No obsessions/compulsions, No Temper Tantrums and No suicidal ideation Endo Endocrine: No fatigue or weight change Aller/Imm Allergy/Immunologic: No itchy eyes Santos/Lymp Hematologic/Lymphatic: No easy bleeding or easy bruising Exam Const General: cooperative Orientation: alert and awake Chest Chest palpation & inspection: tenderness rib (Just below left breast radiating to the left mid axillary line) Other: No crepitus or deformity upon palpation of the left chest wall. Resp Effort & Inspection: normal respiratory effort and able to speak in complete sentences Cardio Rate: regular rate Pulses: radial pulses present Skin General: no rashes or lesions noted Neuro General: patient alert Cognition: normal cognition Extrem General: normal to inspection Other: Normal range of motion to left shoulder with negative Apley scratch and crossarmtesting. Psych Appearance: grossly normal Quality Reporting Tobacco Screening ([facility] 138) Smoking Status: Never smoker Assessment and Plan Assessment and Plan (1) Body mass index (BMI) of 40.1 to 44.9 in adult: Status: Chronic (2) Chest pain: Status: Chronic Qualifiers: Chest pain type: other chest pain Qualified Code(s): R07.89 - Other chest pain Plan: I suspect that some of the chest pain that she gets intermittently is secondary to diffuse esophageal spasm or esophageal dysmotility disorder. At this time she is not on any antiacid or antisecretory therapy due to the fact that she is not having any reflux symptoms associated with this chest pain. She did have some worsening symptoms after she had a work-related accident which resulted in possible fracture and effusions. She says that part is a lot better but she still does get intermittent chest discomfort that lasts a few seconds then goes away. Once we have the esophageal manometry we will know more but better regarding if the esophagus is attributing to her chest pain. I have examined the patient and the H&P has been reviewed. There are no clinicalchanges since date of exam. 06/10/23 1009 <Electronically signed by Louis Friend DO> Cosigner Signature (if applicable): CC: Dr. Dominic Weaver MD; Louis Friend, DO~ Signed [facility] Work Phone: Reason for referral (narrative)No reason for referral information availableWTr[facility] Work Phone: Chief Complaint and Reason for Visit Chief Complaint Back pain SCREENING 1 Y FU CHEST PAIN Reason for Visit Segmental and somati c dysfunction of cervical region Segmental and somatic dysfunction of lumbar region Segmental and somatic dysfunction of thoracic region BMI 45.0-49.9, adult ROMAINE (obstructive sleep apnea) Chief Complaint Back pain SCREENING 1 Y FU CHEST PAIN CHEST PAIN CHEST PAIN Reason for Visit Segmental and somati c dysfunction of cervical region Segmental and somatic dysfunction of lumbar region Segmental and somatic dysfunction of thoracic region BMI 45.0-49.9, adult ROMAINE (obstructive sleep apnea) Chief Complaint CHEST PAIN CHEST PAIN UPPER BACK Amb Documentation CP (MEG) CHEST PAIN CHEST PAIN Reason for Visit Segmental and somati c dysfunction of cervical region Segmental and somatic dysfunction of lumbar region Segmental and somatic dysfunction of thoracic region Chest pain Chief Complaint CHEST PAIN [employer] UPPER BACK 6 wk fu 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) PAP Reason for Visit Segmental and somati c dysfunction of cervical region Segmental and somatic dysfunction of lumbar region Segmental and somatic dysfunction of thoracic region Chest pain Encounter for routine gynecological examination Chief Complaint 6 wk fu 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 CHEST PAIN Reason for Visit Chest pain Encounter for routine gynecological examination Chest pain Chief Complaint 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 CHEST PAIN SORE THROAT & B/L EAR PAIN LIVER LESION ON US 1 Y FU Reason for Visit Encounter for routin e gynecological examination Chest pain Acute pain of both ears Acute serous otitis media of both ears Sore throat Body mass index (BMI) of 40.1 to 44.9 in adult ROMAINE (obstructive sleep apnea) Chief Complaint 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 CHEST PAIN SORE THROAT & B/L EAR PAIN LIVER LESION ON US 1 Y FU CHEST PAIN Back pain Reason for Visit Encounter for routin e gynecological examination Chest pain Acute pain of both ears Acute serous otitis media of both ears Sore throat Body mass index (BMI) of 40.1 to 44.9 in adult ROMAINE (obstructive sleep apnea) Segmental and somatic dysfunction of cervical region Segmental and somatic dysfunction of lumbar region Segmental and somatic dysfunction of thoracic region Back pain Chief Complaint 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 CHEST PAIN SORE THROAT & B/L EAR PAIN LIVER LESION ON US 1 Y FU CHEST PAIN Back pain 2 WK FU E ORDER Reason for Visit Encounter for routin e gynecological examination Chest pain Acute pain of both ears Acute serous otitis media of both ears Sore throat Body mass index (BMI) of 40.1 to 44.9 in adult ROMAINE (obstructive sleep apnea) Segmental and somatic dysfunction of cervical region Segmental and somatic dysfunction of lumbar region Segmental and somatic dysfunction of thoracic region Back pain Chest pain Chief Complaint 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 CHEST PAIN SORE THROAT & B/L EAR PAIN LIVER LESION ON US 1 Y FU CHEST PAIN Back pain 2 WK FU E ORDER discuss frequent periods INT LABS IRREGULAR MENSES Reason for Visit Encounter for routin e gynecological examination Chest pain Acute pain of both ears Acute serous otitis media of both ears Sore throat Body mass index (BMI) of 40.1 to 44.9 in adult ROMAINE (obstructive sleep apnea) Segmental and somatic dysfunction of cervical region Segmental and somatic dysfunction of lumbar region Segmental and somatic dysfunction of thoracic region Back pain Chest pain Abnormal uterine bleeding Chief Complaint LIVER LESION ON US 1 Y FU CHEST PAIN Back pain 2 WK FU E ORDER discuss frequent periods INT LABS IRREGULAR MENSES Pain Reason for Visit Body mass index (BMI ) of 40.1 to 44.9 in adult ROMAINE (obstructive sleep apnea) Segmental and somatic dysfunction of cervical region Segmental and somatic dysfunction of lumbar region Segmental and somatic dysfunction of thoracic region Back pain Chest pain Abnormal uterine bleeding Left foot pain Chief Complaint Back pain 2 WK FU E ORDER discuss frequent periods INT LABS IRREGULAR MENSES Pain 2 mo f/u AUB SOB Reason for Visit Segmental and somati c dysfunction of cervical region Segmental and somatic dysfunction of lumbar region Segmental and somatic dysfunction of thoracic region Back pain Chest pain Abnormal uterine bleeding Left foot pain Abnormal uterine bleeding Chief Complaint 2 WK FU E ORDER discuss frequent periods INT LABS IRREGULAR MENSES Pain 2 mo f/u AUB SOB Back pain Back pain ER FU/OBWC INJURY/LEFT SHOULDER/SIDE MUSCLE/[facility] 1 W FU EORDER Reason for Visit Chest pain Abnormal uterine bleeding Left foot pain Abnormal uterine bleeding Segmental and somatic dysfunction of cervical region Segmental and somatic dysfunction of lumbar region Segmental and somatic dysfunction of thoracic region Back pain Acute thoracic myofascial strain Segmental and somatic dysfunction of cervical region Segmental and somatic dysfunction of thoracic region Left shoulder strain Strain of left rotator cuff capsule Strain of left trapezius muscle Left shoulder strain Strain of left rotator cuff capsule Strain of left trapezius muscle Chief Complaint discuss frequent per iods INT LABS IRREGULAR MENSES Pain 2 mo f/u AUB SOB Back pain Back pain ER FU/OBWC INJURY/LEFT SHOULDER/SIDE MUSCLE/[facility] 1 W FU EORDER 3 WK FU CXR- CHEST PAIN 4 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 Reason for Visit Abnormal uterine ble eding Left foot pain Abnormal uterine bleeding Segmental and somatic dysfunction of cervical region Segmental and somatic dysfunction of lumbar region Segmental and somatic dysfunction of thoracic region Back pain Acute thoracic myofascial strain Segmental and somatic dysfunction of cervical region Segmental and somatic dysfunction of thoracic region Left shoulder strain Strain of left rotator cuff capsule Strain of left trapezius muscle Left shoulder strain Strain of left rotator cuff capsule Strain of left trapezius muscle Body mass index (BMI) of 40.1 to 44.9 in adult Chest pain Chief Complaint Pain 2 mo f/u AUB SOB Back pain Back pain ER FU/OBWC INJURY/LEFT SHOULDER/SIDE MUSCLE/[facility] 1 W FU EORDER 3 WK FU CXR- CHEST PAIN 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 Reason for Visit Left foot pain Abnormal uterine bleeding Segmental and somatic dysfunction of cervical region Segmental and somatic dysfunction of lumbar region Segmental and somatic dysfunction of thoracic region Back pain Acute thoracic myofascial strain Segmental and somatic dysfunction of cervical region Segmental and somatic dysfunction of thoracic region Left shoulder strain Strain of left rotator cuff capsule Strain of left trapezius muscle Left shoulder strain Strain of left rotator cuff capsule Strain of left trapezius muscle Body mass index (BMI) of 40.1 to 44.9 in adult Chest pain Chief Complaint 2 mo f/u AUB SOB Back pain Back pain ER FU/OBWC INJURY/LEFT SHOULDER/SIDE MUSCLE/W[facility] 1 W FU EORDER 3 WK FU CXR- CHEST PAIN 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 Back pain Shortness of breath CHRONIC COUGH CHRONIC COUGH Reason for Visit Abnormal uterine ble eding Segmental and somatic dysfunction of cervical region Segmental and somatic dysfunction of lumbar region Segmental and somatic dysfunction of thoracic region Back pain Acute thoracic myofascial strain Segmental and somatic dysfunction of cervical region Segmental and somatic dysfunction of thoracic region Left shoulder strain Strain of left rotator cuff capsule Strain of left trapezius muscle Left shoulder strain Strain of left rotator cuff capsule Strain of left trapezius muscle Body mass index (BMI) of 40.1 to 44.9 in adult Chest pain Back pain Segmental and somatic dysfunction of cervical region Segmental and somatic dysfunction of lumbar region Segmental and somatic dysfunction of thoracic region Chronic cough ROMAINE (obstructive sleep apnea) Shortness of breath Chief Complaint 3 WK FU CXR- CHEST PAIN 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 Back pain Shortness of breath CHRONIC COUGH CHRONIC COUGH BILAT PLEURAL EFFUSIONS Reason for Visit Body mass index (BMI ) of 40.1 to 44.9 in adult Chest pain Back pain Segmental and somatic dysfunction of cervical region Segmental and somatic dysfunction of lumbar region Segmental and somatic dysfunction of thoracic region Chronic cough ROMAINE (obstructive sleep apnea) Shortness of breath Chief Complaint CHRONIC COUGH CHRONIC COUGH BILAT PLEURAL EFFUSIONS 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 Reason for Visit Abnormal uterine ble eding Encounter for routine gynecological examination Body mass index (BMI) of 40.1 to 44.9 in adult Chest pain Chief Complaint 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 EMB/IUD insertion per EMB 1 Y FU Back pain IUD check SCREENING Reason for Visit Abnormal uterine ble eding Encounter for routine gynecological examination Body mass index (BMI) of 40.1 to 44.9 in adult Chest pain Abnormal uterine bleeding Encounter for IUD insertion ROMAINE (obstructive sleep apnea) Shortness of breath Back pain Segmental and somatic dysfunction of cervical region Segmental and somatic dysfunction of lumbar region Segmental and somatic dysfunction of thoracic region IUD check up Chief Complaint EMB/IUD insertion pe r SM EMB 1 Y FU Back pain IUD check SCREENING upper extremity Reason for Visit Abnormal uterine ble eding Encounter for IUD insertion ROMAINE (obstructive sleep apnea) Shortness of breath Back pain Segmental and somatic dysfunction of cervical region Segmental and somatic dysfunction of lumbar region Segmental and somatic dysfunction of thoracic region IUD check up Chief Complaint Admit Date 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) February 23, 2024 7:45am ABNORMAL UTERINE BLEEDING March 07, 2024 2:33pm 1 Y FU March 24, 2024 1 :13pm ABNORMAL UTERINE BLEEDING April 10, 2024 10:59am BILAT EAR PAIN/ST April 19, 2024 9:19am COVID TEST/[facility] EMPLOYEE April 19 025 9:41am Discuss ultrasound May 03, 2024 9:19am 3 M FU May 08, 2024 7:27 am SCREENING June 09, 2024 2:03 pm D&C IUD removal June 12, 2024 1:19 pm Reason for Visit Admit Date Abnormal uterine bleeding February 23, 2024 7:45am Encounter for routine gynecological exam ination February 23, 2024 7:45am Asthma March 24, 2024 1 :13pm Obesity March 24, 2024 1 :13pm ROMAINE (obstructive sleep apnea) March 242024 1:13pm Abnormal uterine bleeding May 03, 2024 9:19am Dermoid cyst of both ovaries May 032024 9:19am Body mass index (BMI) of 40.1 to 44.9 in adult May 08, 2024 7:27am Chest pain May 08, 2024 7:27 am Obesity May 08, 2024 7:27 am Abnormal uterine bleeding June 12 1:19pm Dermoid cyst of both ovaries June 12, 2024 1:19pm Chief Complaint Admit Date ABNORMAL UTERINE BLEEDING April 10, 2024 10:59am BILAT EAR PAIN/ST April 19, 2024 9:19am COVID TEST/[facility] EMPLOYEE April 19 9:41am Discuss ultrasound May 03, 2024 9:19am 3 M FU May 08, 2024 7:27 am SCREENING June 09, 2024 2:03 pm D&C IUD removal June 12, 2024 1:19 pm PREOP July 06, 2024 12:11p m Laparoscopic, Salpingectomy, Laparoscopi c Cystecto July 11, 2024 5:55am Laparoscopic, Salpingectomy, Laparoscopi c Cystecto July 11, 2024 7:28am 2 wk D&C iud removal July 24, 2024 3:20 pm Reason for Visit Admit Date Abnormal uterine bleeding May 03, 2024 9:19am Dermoid cyst of both ovaries May 032024 9:19am Body mass index (BMI) of 40.1 to 44.9 in adult May 08, 2024 7:27am Chest pain May 08, 2024 7:27 am Obesity May 08, 2024 7:27 am Abnormal uterine bleeding June 12 1:19pm Dermoid cyst of both ovaries June 12, 2024 1:19pm Abnormal uterine bleeding July 11, 2024 5:55am Dermoid cyst of both ovaries July 11 5:55am S/P endometrial ablation July 24, 2024 3:20pm Status post bilateral salpingectomy July 24, 2024 3:20pm Chief Complaint Admit Date PREOP July 06, 2024 12:11p m Laparoscopic, Salpingectomy, Laparoscopi c Cystecto July 11, 2024 5:55am Laparoscopic, Salpingectomy, Laparoscopi c Cystecto July 11, 2024 7:28am 2 wk D&C iud removal July 24, 2024 3:20 pm AUB *copay $October 23, 2024 2: 01pm Reason for Visit Admit Date Abnormal uterine bleeding July 11, 2024 5:55am Dermoid cyst of both ovaries July 11 5:55am S/P endometrial ablation July 24, 2024 3:20pm Status post bilateral salpingectomy July 24, 2024 3:20pm Chief Complaint Admit Date PREOP July 06, 2024 12:11p m Laparoscopic, Salpingectomy, Laparoscopi c Cystecto July 11, 2024 5:55am Laparoscopic, Salpingectomy, Laparoscopi c Cystecto July 11, 2024 7:28am 2 wk D&C iud removal July 24, 2024 3:20 pm AUB *copay $October 23, 2024 2: 01pm L RING FINGER INJURY October 30, 2024 1 :02pm RING FINGER ON LEFT HAND October 30 1:05pm Reason for Visit Admit Date Abnormal uterine bleeding July 11, 2024 5:55am Dermoid cyst of both ovaries July 11 5:55am S/P endometrial ablation July 24, 2024 3:20pm Status post bilateral salpingectomy July 24, 2024 3:20pm Abnormal uterine bleeding October 23, 2 025 2:01pm Dermoid cyst of both ovaries October 2:01pm S/P endometrial ablation October 23 2:01pm Sprain of left ring finger October 30, 2024 1:02pm Chief Complaint Admit Date AUB *copay $October 23, 2024 2: 01pm L RING FINGER INJURY October 30, 2024 1 :02pm RING FINGER ON LEFT HAND October 30 1:05pm 6 M FU-nausea/class 3 obesity November 22, 2024 3:01pm Reason for Visit Admit Date Abnormal uterine bleeding October 23, 2 025 2:01pm Dermoid cyst of both ovaries October 2:01pm S/P endometrial ablation October 23 2:01pm Sprain of left ring finger October 30, 2024 1:02pm Chief Complaint Admit Date AUB *copay $20 October 23, 2024 2: 01pm L RING FINGER INJURY October 30, 2024 1 :02pm RING FINGER ON LEFT HAND October 30 1:05pm 6 M FU-nausea/class 3 obesity November 22, 2024 3:01pm 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 November 28, 2024 8:30am POISON MANOJ December 15, 2024 2 :21pm concern for poison manoj December 18 4:19pm Reason for Visit Admit Date Abnormal uterine bleeding October 23, 2 025 2:01pm Dermoid cyst of both ovaries October 2:01pm S/P endometrial ablation October 23 2:01pm Sprain of left ring finger October 30, 2024 1:02pm Body mass index (BMI) of 40.1 to 44.9 in adult November 22, 2024 3:01pm Chest pain November 22, 2024 3:01pm Obesity November 22, 2024 3:01pm Irritant contact dermatitis due to plant December 15, 2024 2:21pm Irritant contact dermatitis due to plant December 18, 2024 4:19pm Family History Relationship Condition Age at Onset Recorded Date/T cheryl sister Obstructive sleep apnea syndrome Unknown grandfather Malignant neoplasm Unknown grandmother Cardiac disease Unknown Diabetes mellitus Unknown Relationship Condition Age at Onset Recorded Date/T cheryl sister Obstructive sleep apnea syndrome Unknown grandfather Malignant neoplasm Unknown grandmother Cardiac disease Unknown Diabetes mellitus Unknown Mitral valve prolapse Unknown Sinus tachycardia Unknown Relationship Condition Age at Onset Recorded Date/T cheryl sister Obstructive sleep apnea syndrome Unknown grandfather Malignant neoplasm Unknown grandmother Cardiac disease Unknown Diabetes mellitus Unknown Mitral valve prolapse Unknown Sinus tachycardia Unknown mother Cholangiocarcinoma 67 Advance Directives Advance Directive Response Recorded Date/ Time Living Will No 2019 11:23am Power of Candle Wrapper No November 11:23am Advance Directive Response Recorded Date/ Time Living Will No 2019 10:23am Power of Candle Wrapper No November 10:23am Advance Directive Response Recorded Date/ Time Living Will No April 27 023 11:34am Power of Candle Wrapper No April 27, 2022 11:34am Advance Directive Response Recorded Date/ Time Living Will No February 20th, 2 023 12:34pm Power of Candle Wrapper No April 27, 2022 12:34pm Advance Directive Response Recorded Date/ Time Living Will No August 02, 2022 2 :34am Power of Candle Wrapper No August 02, 2022 2:34am Advance Directive Response Recorded Date/ Time Living Will No August 02, 2022 1 :34am Power of Candle Wrapper No August 02, 2022 1:34am Advance Directive Response Recorded Date/ Time Living Will No June 09, 2023 9:30am Power of Candle Wrapper No June 08 9:30am Advance Directive Response Recorded Date/ Time Living Will No July 05, 2023 5:08am Power of Candle Wrapper No July 04 5:08am Advance Directive Response Recorded Date/ Time Living Will No August 02, 2022 2 :34am Do you have a Healthcare Power of Candle Wrapper? No August 02, 2022 2:34am Living Will No July 05, 2023 5:08am Do you have a Healthcare Power of Candle Wrapper? No July 05, 2023 5:08am Advance Directive Response Recorded Date/ Time Do you have a Healthcare Power of Candle Wrapper? No June 30, 2024 10:27am Summary Purpose Additional Source Comments Care Teams (unrecognized sec tion and content) Team Status: Active Member Role Status Dates Dr. Dominic Weaver MD Family Provider Active Dr. Domniic Weaver MD Primary Care Provider Active Team Status: Inactive Member Role Status Dates Dr. Dominic Weaver MD Primary Care Provider, Referring Provider Active Dr. Casie Cottrell MD Attending Provider Active Team Status: Inactive Member Role Status Dates Dr. Dominic Weaver MD Primary Care Provider, Referring Provider Active Dr. Cameron Lacey MD Attending Provider Active Team Status: Inactive Member Role Status Dates Dr. Dominic Weaver MD Primary Care Provider, Referring Provider Active Whitely Peraza NP, DESIGN DRAFTSMAN-C Attending Provider Active Team Status: Inactive Member Role Status Dates Dr. Dominic Weaver MD Primary Care Provider, Referring Provider Active CELSO PachecoC Attending Provider Active Team Status: Inactive Member Role Status Dates Dr. Dominic Weaver MD Primary Care Provider Active Dr. Casie Cottrell MD Attending Provider, Referr ing Provider Active Team Status: Inactive Member Role Status Dates Dr. Dominic Weaver MD Primary Care Provider Active Whitley Peraza DESIGN DRAFTSMAN, DESIGN DRAFTSMAN-C Attending Provider, Referrin g Provider Active Team Status: Inactive Member Role Status Dates Dr. Dominic Weaver MD Primary Care Provider Active Whitley Peraza DESIGN DRAFTSMAN, DESIGN DRAFTSMAN-C Attending Provider Active Team Status: Inactive Member Role Status Dates Dr. Dominic Weaver MD Primary Care Provider, Referring Provider Active Dr. Kiersten Walsh DC Attending Provider Active Team Status: Active Member Role Status Dates Dr. Dominic Weaver MD Primary Care Provider, Referring Provider Active Dr. Louis Felix DO Attending Provider, Other Prov ider Active Team Status: Inactive Member Role Status Dates Dr. Dominic Weaver MD Primary Care Provider, Referring Provider Active Dr. Louis Felix DO Attending Provider Active Team Status: Active Member Role Status Dates Dr. Dominic Weaver MD Primary Care Provider Active Dr. Casie Cottrell MD Attending Provider Active Team Status: Inactive Member Role Status Dates Dr. Dominic Weaver MD Primary Care Provider Active Dr. Casie Cottrell MD Attending Provider Active Team Status: Inactive Member Role Status Dates Dr. Dominic Weaver MD Primary Care Provider Active Abundio SIFUENTES, PA Attending Provider Active Team Status: Inactive Member Role Status Dates Dr. Dominic Weaver MD Primary Care Provider Active Abundio SIFUENTES PA Attending Provider, Referring Provi mara Active Team Status: Inactive Member Role Status Dates Dr. Dominic Weaver MD Primary Care Provider Active Dr. Geoff Gilbert DO Emergency Provider Active Team Status: Inactive Member Role Status Dates Dr. Dominic Weaver MD Primary Care Provider, Referring Provider Active Miguelito Good PA, PA Attending Provider Active Team Status: Inactive Member Role Status Dates Dr. Dominic Weaver MD Primary Care Provider, Referring Provider Active Berry SIFUENTES PA Attending Provider Active Team Status: Inactive Member Role Status Dates Dr. Dominic Weaver MD Primary Care Provider Active Dr. Geoff Gilbert DO Attending Provider, Emergency Provider Active Team Status: Inactive Member Role Status Dates Dr. Dominic Weaver MD Primary Care Provider Active Berry SIFUENTES PA Attending Provider, Referring Provi mara Active Team Status: Inactive Member Role Status Dates Dr. Dominic Weaver MD Primary Care Provider Active Stewart Tan MD Attending Provider, Referring Provide r Active Team Status: Active Member Role Status Dates Dr. Dominic Weaver MD Primary Care Provider Active Dr. Louis Felix DO Attending Provider, Referring Provider Active Team Status: Inactive Member Role Status Dates Dr. Dominic Weaver MD Primary Care Provider Active Dr. Louis Felix DO Attending Provider, Referring Provider Active Team Status: Active Member Role Status Dates Dr. Dominic Weaver MD Primary Care Provider Active Health Risk Assessment Attending Provider, Referring P rovider Active Team Status: Inactive Member Role Status Dates Dr. Dominic Weaver MD Primary Care Provider Active Lalitha Arguello DESIGN DRAFTSMAN, DESIGN DRAFTSMAN-C Attending Provider Active Team Status: Active Member Role Status Dates Dr. Dominic Weaver MD Primary Care Provider Active Dr. Cameron Lacey MD Attending Provider , Referring Provider, Other Provider Active Team Status: Inactive Member Role Status Dates Dr. Dominic Weaver MD Primary Care Provider Active Dr. Cameron Lacey MD Attending Provider, Referring Pr ovider Active Team Status: Inactive Member Role Status Dates Dr. Dominic Weaver MD Primary Care Provider Active Health Risk Assessment Attending Provider, Referring P rovider Active Team Status: Inactive Member Role Status Dates Dr. Dominic Weaver MD Primary Care Provider, Referring Provider Active Mckenzie Mai DESIGN DRAFTSMAN, DESIGN DRAFTSMAN-C Attending Provider Active Team Status: Inactive Member Role Status Dates Dr. Dominic Weaver MD Primary Care Provider Active Mckenzie Mai DESIGN DRAFTSMAN, DESIGN DRAFTSMAN-C Attending Provider, Referring Provider Active Team Status: Active Member Role Status Dates Dr. Dominic Weaver MD Primary Care Provider Active Dr. Casie Cottrell MD Attending Provider, Referr ing Provider Active Team Status: Inactive Member Role Status Dates Dr. Dominic Weaver MD Primary Care Provider Active Dr. Margy Lanza MD Emergency Provider Active Team Status: Active Member Role Status Dates Dr. Dominic Weaver MD Primary Care Provider Active Team Status: Inactive Member Role Status Dates Dr. Dominic Weaver MD Primary Care Provider Active Start: February 23, 2024 End: February 23, 2024 Dr. Dominic Weaver MD Referring Provider Active Start: February 23, 2024 End: February 23, 2024 Dr. Casie Cottrell MD Attending Provider Active Start: February 23, 2024 End: February 23, 2024 Team Status: Inactive Member Role Status Dates Dr. Dominic Weaver MD Primary Care Provider Active Start: February 23, 2024 End: February 23, 2024 Dr. Casie Cottrell MD Attending Provider Active Start: February 23, 2024 End: February 23, 2024 Dr. Casie Cottrell MD Referring Provider Active Start: February 23, 2024 End: February 23, 2024 Team Status: Inactive Member Role Status Dates Dr. Dominic Weaver MD Primary Care Provider Active Start: March 07, 2024 End: March 07, 2024 Dr. Casie Cottrell MD Attending Provider Active Start: March 07, 2024 End: March 07, 2024 Dr. Casie Cottrell MD Referring Provider Active Start: March 07, 2024 End: March 07, 2024 Team Status: Inactive Member Role Status Dates Dr. Dominic Weaver MD Primary Care Provider Active Start: March 24, 2024 End: March 24, 2024 Dr. Dominic Weaver MD Referring Provider Active Start: March 24, 2024 End: March 24, 2024 Lalitha Arguello DESIGN DRAFTSMAN, DESIGN DRAFTSMAN-C Attending Provider Active Start: March 24, 2024 End: March 24, 2024 Team Status: Inactive Member Role Status Dates Dr. Dominic Weaver MD Primary Care Provider Active Start: April 10, 2024 End: April 10, 2024 Dr. Casie Cottrell MD Attending Provider Active Start: April 10, 2024 End: April 10, 2024 Dr. Casie Cottrell MD Referring Provider Active Start: April 10, 2024 End: April 10, 2024 Team Status: Inactive Member Role Status Dates Dr. Dominic Weaver MD Primary Care Provider Active Start: April 19, 2024 End: April 19, 2024 Dr. Dominic Weaver MD Referring Provider Active Start: April 19, 2024 End: April 19, 2024 Miguelito Good PA, PA Attending Provider Active Start: April 19, 2024 End: April 19, 2024 Team Status: Inactive Member Role Status Dates Dr. Dominic Weaver MD Primary Care Provider Active Start: May 03, 2024 End: May 03, 2024 Dr. Dominic Weaver MD Referring Provider Active Start: May 03, 2024 End: May 03, 2024 Dr. Casie Cottrell MD Attending Provider Active Start: May 03, 2024 End: May 03, 2024 Team Status: Inactive Member Role Status Dates Dr. Dominic Weaver MD Primary Care Provider Active Start: May 08, 2024 End: May 08, 2024 Dr. Dominic Weaver MD Referring Provider Active Start: May 08, 2024 End: May 08, 2024 Dr. Louis Felix DO Attending Provider Active Start: May 08, 2024 End: May 08, 2024 Team Status: Inactive Member Role Status Dates Dr. Dominic Weaver MD Primary Care Provider Active Start: June 09, 2024 End: June 09, 2024 Dr. Casie Cottrell MD Attending Provider Active Start: June 09, 2024 End: June 09, 2024 Dr. Casie Cottrell MD Referring Provider Active Start: June 09, 2024 End: June 09, 2024 Team Status: Inactive Member Role Status Dates Dr. Dominic Weaver MD Primary Care Provider Active Start: June 12, 2024 End: June 12, 2024 Dr. Dominic Weaver MD Referring Provider Active Start: June 12, 2024 End: June 12, 2024 Dr. Casie Cottrell MD Attending Provider Active Start: June 12, 2024 End: June 12, 2024 Team Status: Active Member Role Status Dates Dr. Dominic Weaver MD Primary Care Provider Active Start: July 06, 2024 End: July 06, 2024 Dr. Juan Gatica MD Attending Provider Active S tart: July 06, 2024 End: July 06, 2024 Dr. Casie Cottrell MD Referring Provider Active Start: July 06, 2024 End: July 06, 2024 Team Status: Inactive Member Role Status Dates Dr. Dominic Weaver MD Primary Care Provider Active Start: July 11, 2024 End: July 11, 2024 Dr. Casie Cottrell MD Attending Provider Active Start: July 11, 2024 End: July 11, 2024 Dr. Casie Cottrell MD Referring Provider Active Start: July 11, 2024 End: July 11, 2024 Team Status: Active Member Role Status Dates Dr. Dominic Weaver MD Primary Care Provider Active Start: July 11, 2024 Dr. Casie Cottrell MD Attending Provider Active Start: July 11, 2024 Dr. Casie Cottrell MD Referring Provider Active Start: July 11, 2024 Dr. Casie Cottrell MD Other Provider Active Start: July 11, 2024 Team Status: Inactive Member Role Status Dates Dr. Dominic Weaver MD Primary Care Provider Active Start: July 24, 2024 End: July 24, 2024 Dr. Dominic Weaver MD Referring Provider Active Start: July 24, 2024 End: July 24, 2024 Dr. Casie Cottrell MD Attending Provider Active Start: July 24, 2024 End: July 24, 2024 Team Status: Active Member Role/Relationship Status Dates Dr. Dominic Weaver MD Primary Care Provider Active Team Status: Active Member Role/Relationship Status Dates Dr. Dominic Weavre MD Primary Care Provider Active Start: July 06, 2024 End: July 06, 2024 Dr. Juan Gatica MD Attending Provider Active S tart: July 06, 2024 End: July 06, 2024 Dr. Casie Cottrell MD Referring Provider Active Start: July 06, 2024 End: July 06, 2024 Team Status: Inactive Member Role/Relationship Status Dates Dr. Dominic Weaver MD Primary Care Provider Active Start: July 11, 2024 End: July 11, 2024 Dr. Casie Cottrell MD Attending Provider Active Start: July 11, 2024 End: July 11, 2024 Dr. Casie Cottrell MD Referring Provider Active Start: July 11, 2024 End: July 11, 2024 Team Status: Active Member Role/Relationship Status Dates Dr. Dominic Weaver MD Primary Care Provider Active Start: July 11, 2024 Dr. Casie Cottrell MD Attending Provider Active Start: July 11, 2024 Dr. Casie Cottrell MD Referring Provider Active Start: July 11, 2024 Dr. Casie Cottrell MD Other Provider Active Start: July 11, 2024 Team Status: Inactive Member Role/Relationship Status Dates Dr. Dominic Weaver MD Primary Care Provider Active Start: July 24, 2024 End: July 24, 2024 Dr. Dominic Weaver MD Referring Provider Active Start: July 24, 2024 End: July 24, 2024 Dr. Casie Cottrell MD Attending Provider Active Start: July 24, 2024 End: July 24, 2024 Team Status: Inactive Member Role/Relationship Status Dates Dr. Dominic Weaver MD Primary Care Provider Active Start: October 23, 2024 End: October 23, 2024 Dr. Dominic Weaver MD Referring Provider Active Start: October 23, 2024 End: October 23, 2024 Dr. Casie Cottrell MD Attending Provider Active Start: October 23, 2024 End: October 23, 2024 Team Status: Inactive Member Role/Relationship Status Dates Dr. Dominic Weaver MD Primary Care Provider Active Start: October 30, 2024 End: October 30, 2024 Dr. Dominic Weaver MD Referring Provider Active Start: October 30, 2024 End: October 30, 2024 Miguelito SIFUENTES PA Attending Provider Active Start: October 30, 2024 End: October 30, 2024 Team Status: Active Member Role/Relationship Status Dates Dr. Dominic Weaver MD Primary Care Provider Active Start: October 30, 2024 Miguelito SIFUENTES PA Attending Provider Active Start: October 30, 2024 Miguelito SIFUENTES PA Referring Provider Active Start: October 30, 2024 Team Status: Inactive Member Role/Relationship Status Dates Dr. Dominic Weaver MD Primary Care Provider Active Start: October 30, 2024 End: October 30, 2024 Miguelito SIFUENTES PA Attending Provider Active Start: October 30, 2024 End: October 30, 2024 Miguelito SIFUENTES PA Referring Provider Active Start: October 30, 2024 End: October 30, 2024 Team Status: Active Member Role/Relationship Status Dates Dr. Dominic Weaver MD Primary care physician Active Team Status: Inactive Member Role/Relationship Status Dates Dr. Dominic Weaver MD Primary care physician Active Start: October 23, 2024 End: October 23, 2024 Dr. Dominic Weaver MD Referring Provider Active Start: October 23, 2024 End: October 23, 2024 Dr. Casie Cottrell MD Attending physician Active Start: October 23, 2024 End: October 23, 2024 Team Status: Inactive Member Role/Relationship Status Dates Dr. Dominic Weaver MD Primary care physician Active Start: October 30, 2024 End: October 30, 2024 Dr. Dominic Weaver MD Referring Provider Active Start: October 30, 2024 End: October 30, 2024 Miguelito SIFUENTES PA Attending physician Active Start: October 30, 2024 End: October 30, 2024 Team Status: Inactive Member Role/Relationship Status Dates Dr. Dominic Weaver MD Primary care physician Active Start: October 30, 2024 End: October 30, 2024 MARIA Daniel Attending physician Active Start: October 30, 2024 End: October 30, 2024 MARIA Daniel Referring Provider Active Start: October 30, 2024 End: October 30, 2024 Team Status: Inactive Member Role/Relationship Status Dates Dr. Dominic Weaver MD Primary care physician Active Start: November 22, 2024 End: November 22, 2024 Dr. Dominic Weaver MD Referring Provider Active Start: November 22, 2024 End: November 22, 2024 Dr. Louis Felix DO Attending physician Active Start: November 22, 2024 End: November 22, 2024 Team Status: Active Member Role/Relationship Status Dates Dr. Dominic Weaver MD Primary care physician Active Start: November 28, 2024 Health Risk Assessment Attending physician Active Start: November 28, 2024 Health Risk Assessment Referring Provider Active Start: November 28, 2024 Team Status: Inactive Member Role/Relationship Status Dates Dr. Dominic Weaver MD Primary care physician Active Start: December 15, 2024 End: December 15, 2024 Dr. Dominic Weaver MD Referring Provider Active Start: December 15, 2024 End: December 15, 2024 MARIA Giron Attending physician Active St art: December 15, 2024 End: December 15, 2024 Team Status: Inactive Member Role/Relationship Status Dates Dr. Dominic Weaver MD Primary care physician Active Start: December 18, 2024 End: December 18, 2024 Dr. Dominic Weaver MD Referring Provider Active Start: December 18, 2024 End: December 18, 2024 MARIA Giron Attending physician Active St art: December 18, 2024 End: December 18, 2024 INFORMATION SOURCE (unrecogn ized section and content) DATE CREATED AUTHOR 12/19/2024 [facility] FOR RECORDS PERTAINING TO PATIENTS WHO ARE [...] BE BASED ON THE PRIMARY CLINICAL RECORDS. [facility]. provides no warranty or guarantee of the accuracy or completeness of information in this document.
== END | disposition home or self-care (01) ==
LOC: US 07:58
PROVIDERS: PCP Family Medicine; Referring Provider Internal Medicine Gastroenterology; Visit Provider Internal Medicine Gastroenterology
DX: K76.9 Liver disease, unspecified (principal)
CPT/HCPCS: 76705